=== PATIENT | female | born 1995 | race Caucasian/White ===

== ENCOUNTER 2020-04-20 15:02 | Outpatient (REF) | payer MEDICAID, SELFPAY | END 2020-04-20 15:03 | disposition home or self-care (01) | LOC: HO.LAB 15:02 | PROVIDERS: Visit Provider Internal Medicine | DX: Z20.828 Contact with and (suspected) exposure to other viral communicable diseases (principal) | CPT/HCPCS: C9803; U0003 ==

== ENCOUNTER 2021-02-05 12:41 | Emergency (ER) | payer MEDICAID, SELFPAY ==
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
[2021-02-05 13:14] VITALS: BP 128/85; PULSE 91; RESP 18; TEMP 36.9; O2SAT 99; BMI 34.3
[2021-02-05] MEDS: ondansetron HCL 4 MG/2 ML VIAL IVPUSH (14:06)
[2021-02-05] MEDS: Ketorolac Tromethamine 15 MG/ML VIAL 30 MG IVPUSH (14:06)
[2021-02-05] MEDS: LORazepam 2 MG/ML VIAL 0.5 MG IVPUSH (14:40)
[2021-02-05 15:21] LABS: MANUAL DIFF FLAG NO
[2021-02-05 15:25] LABS: Basophils Absolute Auto 0.1 X10*3/uL (0.0-0.2); Basophils Percent Auto 0.4 % (0-2); Eosinophils Absolute Auto 0.1 X10*3/uL (0.0-0.4); Eosinophils Percent Auto 0.6 % (0-4); Hematocrit 40.6 % (37-47); Hemoglobin 13.1 g/dl (12.0-16.0); Imm Gran Abs Auto 0.04 X10*3/uL (0.00-0.03); Imm Gran Pct Auto 0.3 % (0.0-0.4); Lymphocytes Absolute Auto 1.7 X10*3/uL (1.2-4.9); Lymphocytes Percent Auto 13.2 % (20-40); Mean Corpuscular HGB Conc 32.3 g/dl (31.0-35.0); Mean Corpuscular Hemoglobin 27.8 pg (27.0-33.0); Mean Corpuscular Volume 86.2 fL (80-98); Mean Platelet Volume 9.8 fL (9.4-12.3); Monocytes Absolute Auto 0.6 X10*3/uL (0.1-1.2); Monocytes Percent Auto 4.4 % (2-11); Neutrophils Absolute Auto 10.2 X10*3/uL (2.0-8.3); Neutrophils Percent Auto 81.1 % (45-73); Platelet Count 427 X10*3/uL (160-400); Red Blood Count 4.71 X10*6/uL (4.20-5.50); Red Cell Distribution Width 13.1 % (11.0-16.0); White Blood Count 12.6 X10*3/uL (4.8-10.8)
[2021-02-05 15:38] LABS: Anion Gap 12 (12-20); Blood Urea Nitrogen 10 mg/dL (9-16); Calcium 9.4 mg/dL (8.4-10.2); Carbon Dioxide 26 mmol/L (22-29); Chloride 107 mmol/L (96-108); Creatinine Clr Calc Pharmacy 113.4; Estimated Glomerular Filt Rate > 60; Glucose Random 83 mg/dL (60-115); Potassium 4.4 mmol/L (3.3-5.1); Sodium 141 mmol/L (135-145)
[2021-02-05 15:45] LABS: HCG Quantitative < 2 mIU/mL
[2021-02-05] MEDS: iohexoL 350 MG/ML 100 ML INFUS..BTL IV (16:40)
== END 2021-02-05 18:15 | disposition home or self-care (01) ==
PROVIDERS: Emergency Provider Emergency Medicine
DX: S00.83XA Contusion of other part of head, initial encounter (principal); H72.91 Unspecified perforation of tympanic membrane, right ear; Y04.2XXA Assault by strike against or bumped into by another person, initial encounter; Y93.9 Activity, unspecified; Y92.009 Unspecified place in unspecified non-institutional (private) residence as the place of occurrence of the external cause; Y99.9 Unspecified external cause status
CPT/HCPCS: 36415; 70486; 70498; 80048; 84702; 85025; 96374; 96375; 99283; 99284; J1885; J2060; J2405; Q9967

== ENCOUNTER 2021-03-31 17:24 | Emergency (ER) | payer MEDICAID, SELFPAY ==
[2021-03-31 19:56] VITALS: BP 134/88; PULSE 101; RESP 18; TEMP 39.4; O2SAT 98; BMI 39.9
[2021-03-31] MEDS: Acetaminophen 325 MG TABLET 650 MG PO (20:04)
[2021-03-31 20:32] LABS: COVID-19 Test Positive (Negative)
== END 2021-03-31 23:47 | disposition left against medical advice (07) ==
PROVIDERS: Emergency Provider Emergency Medicine
DX: B02.9 Zoster without complications (principal); Z20.822 Contact with and (suspected) exposure to COVID-19
CPT/HCPCS: 36415; 87635; 99283

== ENCOUNTER 2021-04-02 10:27 | Emergency (ER) | payer MEDICAID, SELFPAY ==
--- NOTE | ~2021-04-02 | XR_ITS ---
EXAMINATION: XR CHEST CLINICAL INFORMATION: Shortness of breath and Covid COMPARISON: 04/18/2019 TECHNIQUE: Frontal view of the chest was obtained. FINDINGS: Normal symmetric lung volumes. No parenchymal consolidation. No pleural effusion. No pneumothorax. Cardiomediastinal silhouette and pulmonary vascularity are within normal limits. No acute osseous abnormalities. XR/XR chest 1V IMPRESSION: No acute pulmonary parenchymal abnormalities
[2021-04-02 10:31] VITALS: BP 122/64; PULSE 94; O2SAT 96
[2021-04-02 10:32] VITALS: BP 126/73; PULSE 88; RESP 18; TEMP 36.8; O2SAT 95; BMI 39.8
--- NOTE | 2021-04-02 10:46 | ED_ITS ---
HPI - SOB/Dyspnea General Chief Complaint: Dyspnea Stated Complaint: covid Time Seen by Provider: 04/02/21 10:43 Source: patient and EMS Mode of arrival: EMS Limitations: no limitations History of Present Illness HPI Narrative: 26-year-old female with history of anxiety and depression presents to the ER with chest tightness and setting of being diagnosed with COVID-19 2 days ago. She is unvaccinated. She reports diffuse severe body aches, worse with movement. She has decreased appetite at home but has been able to eat and drink some. She is short of breath with exertion but not at rest. She has a dry cough and feels generally weak. MD elicited complaint: shortness of breath, cough and chest pain Pertinent past history: other (Recent COVID-19 diagnosis) Onset (ago): day(s) Context: recent illness Timing: constant Severity: moderate Exacerbating factors: exertion, movement and coughing Relieving factors: nothing Associated symptoms: chest pain and cough Treatment prior to arrival: none Related Data Home oxygen amount: none Previous Rx's Medication Instructions Recorded cyclobenzaprine 10 mg tablet 10 mg PO TID PRN #14 tab 02/05/21 ofloxacin 0.3 % ear drops 10 drp OTIC (EARS) DAILY 7 Days #5 02/05/21 ml Allergies Allergy/AdvReac Type Severity Reaction Status Date / Time tomato [TOMATO] Allergy Severe DIFFICULTY Unverified 01/07/20 16:17 BREATHING latex [LATEX] Allergy Unknown ITCHY Unverified 01/07/20 16:17 Latex Allergy Unknown Uncoded 11/13/18 00:00 latex Allergy Unknown Uncoded 11/27/18 00:00 shellfish Allergy Unknown Uncoded 11/27/18 00:00 tomato Allergy Unknown Uncoded 11/27/18 00:00 Review of Systems Review of Systems: Constitutional: No Fever, + Chills ENT/Mouth: No sore throat, No Rhinorrhea, No Swallowing Difficulty Cardiovascular: + Chest Pain, + SOB, No Orthopnea, No Edema Respiratory: No Cough, No Sputum, No Wheezing, No dyspnea Gastrointestinal: No Nausea, No Vomiting, No Diarrhea, No abdominal Pain Musculoskeletal: + joint pain, + Myalgias Skin: No Skin Lesions, No rash Neuro: No Weakness, No Numbness, No Dizziness, + Headache Heme/Lymph: No Bruising, No Lymphadenopathy PMFSH Past Medical History Medical History No known health problems Social History Social History (Updated 02/05/21 @ 13:31 by Rupali Pantoja DO) Alcohol intake: never Patient Tobacco Use Status: Never used Tobacco Use of substances other than those prescribed or required for medical reasons: No Advance Directives: No Advance Directives Information Provided: No Physical Exam Vital Signs: Vital Signs: Last Vital Signs Temp 98.3 F 04/02/21 10:32 Pulse 88 04/02/21 10:32 Resp 18 04/02/21 10:32 BP 126/73 04/02/21 10:32 Pulse Ox 95 04/02/21 10:32 BMI result Body Mass Index 39.8 Appearance: Alert. Oriented X3. No acute distress. Curled up in a ball on the stretcher Eyes: Pupils equal, round and reactive to light. ENT: Pharynx normal. Moist mucous membranes. Neck: Normal inspection. Neck supple. CVS: Normal heart rate and rhythm. Pulses normal. Respiratory: No respiratory distress. Breath sounds normal. Anterior chest wall is diffusely tender throughout. Abdomen: Soft and nontender. +BS x4 Skin: Skin warm and dry. Normal skin color. Normal skin turgor. No rashes. Extremities: No lower extremity edema. No calf swelling, redness or tenderness. Neuro: Oriented X 3. Grossly normal, nonfocal. Course Course Course Narrative: 26-year-old female who was on vaccinated for COVID-19 presents to the ER with chest tightness and body aches in the setting of being diagnosed with COVID-19 2 days ago. Her oxygen saturations are 95 96% she is in no respiratory distress no lungs are clear on examination. Her anterior chest wall is tender. She has no risk factors for PE, PERC negative. Will get chest x- ray to assess for possible COVID pneumonia. Reevaluation(s) Reevaluation #1: Chest x-ray is clear. She is stable for discharge home with supportive care. Discharge Plan Discharge Clinical Impression: COVID-19 Patient Disposition: Home, Self-Care Instructions: Covid-19 Viral Syndrome and Novel Coronavirus (ED) Hey/Ath Additional Instructions: Your chest tightness is due to COVID. It will get better with time. Your chest x-ray and oxygen levels were normal. No indication for hospitalization. Rest. Drink plenty of fluids. Do not go out in public for the next 10 days. Take over the counter cold/flu medications as needed for your symptoms. Take Tylenol and/or Motrin as needed for fevers and body aches. Follow up with your doctor this week. If you shortness of breath worsens , if you develop difficulty breathing or any other concerning symptom come back to the ER for further evaluation. Prescriptions: No Action cyclobenzaprine 10 mg tablet 10 mg PO TID PRN (Reason: muscle spasm) Qty: 14 RF: 0 ofloxacin 0.3 % drops 10 drp otic (ears) DAILY 7 Days Qty: 5 RF: 0
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
== END 2021-04-02 12:05 | disposition home or self-care (01) ==
PROVIDERS: Emergency Provider Emergency Medicine
DX: U07.1 COVID-19 (principal)
CPT/HCPCS: 71045; 99283

== ENCOUNTER 2021-10-04 13:01 | Outpatient (REF) | payer MEDICAID, SELFPAY ==
--- NOTE | ~2021-10-04 | XR_ITS ---
EXAMINATION: XR CHEST CLINICAL INFORMATION: Pleurodynia COMPARISON: Chest radiographs 04/02/2021, 04/18/2019 TECHNIQUE: 2 views of the chest were obtained. FINDINGS: The lungs are clear. There is no pneumothorax, pleural reaction, infiltrate, or effusion. The costophrenic sulci are well-defined. Heart size normal. The hilar and mediastinal contours are normal. Visualized bony structures are unremarkable. There is gaseous distention gastric fundus. No free air beneath the diaphragms. XR/XR chest 2V IMPRESSION: -No pneumothorax, infiltrate, or effusion. -Nonspecific gaseous distention gastric fundus.
== END 2021-10-04 13:02 | disposition home or self-care (01) ==
LOC: HO.XRAY 13:01
PROVIDERS: Absent Provider Nurse Practitioner Family; PCP Nurse Practitioner Family; Visit Provider Emergency Medicine
DX: R07.81 Pleurodynia (principal)
CPT/HCPCS: 71046

== ENCOUNTER 2021-12-02 12:31 | Emergency (ER) | payer MEDICAID, SELFPAY ==
--- NOTE | ~2021-12-02 | CT_ITS ---
EXAMINATION: CT ABDOMEN AND PELVIS WITHOUT CONTRAST CLINICAL INFORMATION: Flank pain, rule out kidney stones COMPARISON: CT abdomen and pelvis 06/18/2018 TECHNIQUE: Multidetector volumetric imaging was performed from the superior aspect of the liver through the pubic symphysis. Sagittal and coronal reformatted images were obtained on the technologist's workstation. This CT examination was performed using dose optimization techniques as appropriate, variously including the following: *Automated exposure control *Adjustment of mA and/or kV according to patient size (this includes techniques or standardized protocols for targeted exams where dose is matched to indication/reason for exam; i.e. extremities or head) *Use of iterative reconstruction technique DLP: 792 mGy-cm FINDINGS: LUNG BASES: The visualized lung bases are unremarkable. LIVER, GALLBLADDER, AND BILIARY TREE: The liver is normal in size, shape, and attenuation. No focal hepatic lesion or biliary ductal dilatation is present. Status post cholecystectomy. Surgical clips in the gallbladder fossa. PANCREAS: Unremarkable. SPLEEN: Unremarkable. ADRENAL GLANDS: Unremarkable. KIDNEYS AND URETERS: The kidneys are normal in size, shape, and attenuation. No hydronephrosis, hydroureter, or calculi seen. No perinephric stranding. BLADDER: Slightly thick-walled appearance favored due to limited distention. No focal bladder wall thickening. GASTROINTESTINAL TRACT: The small and large bowel are unremarkable. The appendix is unremarkable. No ascites or free air. Incidental note is made of colonic interposition with the hepatic flexure located lateral and anterior to the right liver lobe. ABDOMINAL WALL: No significant hernia is appreciated. LYMPH NODES: No lymphadenopathy. VASCULAR: Normal caliber abdominal aorta. Dilated ovarian and periuterine veins noted. PELVIC VISCERA: Gynecologic structures grossly unremarkable-limited assessment. Retroverted uterus. No free pelvic fluid. OSSEOUS STRUCTURES: No acute fracture or suspicious osseous lesion. CT/CT abdomen pelvis wo con IMPRESSION: 1. No radiodense urinary tract calculi. No hydronephrosis. 2. No acute intra-abdominal process identified.
[2021-12-02 13:26] VITALS: BP 120/65; PULSE 74; RESP 16; TEMP 36.5; O2SAT 98; BMI 37.0
--- NOTE | 2021-12-02 13:51 | ED_ITS ---
HPI - Female Genitourinary General Chief complaint: Urogenital-Female Stated complaint: kidney pain/chest pain Time Seen by Provider: 12/02/21 13:51 History of Present Illness HPI Narrative: Patient complains of bilateral flank pain radiating to the groin for the past several days as well as burning with urination and urinating small amounts, as well as feeling constipated for the last 3 days She denies any other abdominal pain she denies vomiting but has had some nausea, no diarrhea no fever no chills Related Data Previous Rx's Medication Instructions Recorded cyclobenzaprine 10 mg tablet 10 mg PO TID PRN muscle spasm #14 02/05/21 tabs ofloxacin 0.3 % ear drops 10 drp otic (ears) DAILY 7 days #5 02/05/21 mL docusate sodium 100 mg capsule 100 mg PO BID PRN Stool softener 12/02/21 (Colace) #14 caps ibuprofen 600 mg tablet 600 mg PO Q6H PRN pain #20 tabs 12/02/21 nitrofurantoin 100 mg PO Q12H 5 days #10 caps 12/02/21 monohydrate/macrocrystals 100 mg capsule (Macrobid) phenazopyridine 200 mg tablet 200 mg PO TID PRN Discomfort with 12/02/21 (Pyridium) urination 6 doses #6 tabs Allergies Allergy/AdvReac Type Severity Reaction Status Date / Time tomato [TOMATO] Allergy Severe DIFFICULTY Unverified 01/07/20 16:17 BREATHING latex [LATEX] Allergy Unknown ITCHY Unverified 01/07/20 16:17 Latex Allergy Unknown Uncoded 11/13/18 00:00 latex Allergy Unknown Uncoded 11/27/18 00:00 shellfish Allergy Unknown Uncoded 11/27/18 00:00 tomato Allergy Unknown Uncoded 11/27/18 00:00 Review of Systems Review of Systems: Positive for bilateral flank pain radiating to groin, dysuria and frequency, nausea, constipation Negatives are no fever no chills no dizziness weakness no fainting no feeling faint headache no neck pain no chest pain no abdominal pain no shortness of breath no vomiting or diarrhea no incontinence, no rash Yes all other systems are reviewed and are negative PMFSH Past Medical History Source: nursing notes reviewed Medical History No known health problems Social History Social History (Updated 02/05/21 @ 13:31 by Jessica Pantoja DO) Alcohol intake: never Patient Tobacco Use Status: Never used Tobacco Advance Directives: No Advance Directives Information Provided: No Physical Exam Vital Signs: Vital Signs: Last Vital Signs Temp 97.7 F 12/02/21 13:26 Pulse 74 12/02/21 13:26 Resp 16 12/02/21 13:26 BP 120/65 12/02/21 13:26 Pulse Ox 98 12/02/21 13:26 O2 Del Method 12/02/21 13:26 BMI result Body Mass Index 37.0 General appearance comfortable no acute distress Eyes anicteric no pallor The pharynx is clear with moist mucous membranes Neck is supple Chest clear to auscultation bilateral no respiratory distress Heart no murmur Abdomen had mild suprapubic tenderness otherwise no other tenderness no rebound no guarding Extremities no edema Skin no rash Neuro no focal deficits Course Course Course Narrative: Urinalysis was normal and test was negative, but given the patient's symptom of frequent voiding and burning with urination I did start an antibiotic as well as Pyridium A CT scan was done with no acute findings no evidence of any kidney stones, no acute abdominal pathology, no mass, no obstruction A repeat abdominal exam prior to discharge was benign with only minimal mild suprapubic tenderness no rebound no guarding MDM - Female Genitourinary Lab Data Attestation: I reviewed the patient's lab results. Labs: Lab Results 12/02/21 12/02/21 Range/Units 13:48 13:48 Urine Color YELLOW Urine Appearance CLEAR Urine pH 6.0 (5.0-8.0) Ur Specific [place] 1.025 (1.005-1.025) Urine Protein NEG (NEG-TRACE) MG/DL Urine Glucose (UA) NEG (NEG) MG/DL Urine Ketones NEG (NEG) MG/DL Urine Blood NEG (NEG) Urine Nitrite NEG (NEG) Ur Leukocyte Esterase NEG (NEG) Urine Test NEGATIVE (NEGATIVE) Discharge Plan Discharge Clinical Impression: Dysuria, Constipation, Back pain Patient Disposition: Home, Self-Care Additional Instructions: Urinalysis was negative but because you of typical UTI symptoms we started an antibiotic and a medication Pyridium which is used for bladder discomfort You can use Motrin and Tylenol for the back and flank pain 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 Return to the ER any time any worse condition or any concerns Prescriptions: New nitrofurantoin monohyd/m-cryst [Macrobid] 100 mg capsule 100 mg PO Q12H 5 Days Qty: 10 0RF Rx Instructions: must administer with a meal/food phenazopyridine [Pyridium] 200 mg tablet 200 mg PO TID PRN (Reason: Discomfort with urination) Qty: 6 0RF ibuprofen 600 mg tablet 600 mg PO Q6H PRN (Reason: pain) Qty: 20 0RF docusate sodium [Colace] 100 mg capsule 100 mg PO BID PRN (Reason: Stool softener) Qty: 14 0RF No Action cyclobenzaprine 10 mg tablet 10 mg PO TID PRN (Reason: muscle spasm) Qty: 14 0RF ofloxacin 0.3 % drops 10 drp otic (ears) DAILY 7 Days Qty: 5 0RF
[2021-12-02 14:06] LABS: Appearance Urine CLEAR; Color Urine YELLOW; Glucose Urine UA NEG (NEG); Leukocyte Esterase Urine NEG (NEG); Nitrite Urine NEG (NEG); Specific Gravity - Urine 1.025 (1.005-1.025); Urine Blood NEG (NEG); Urine Ketones NEG (NEG); Urine Protein NEG (NEG-TRACE)
[2021-12-02 14:08] LABS: UPreg QC Valid YES; Urine Pregnancy NEGATIVE (NEGATIVE)
[2021-12-02] MEDS: Phenazopyridine HCL 100 MG TABLET PO (16:21)
[2021-12-02] MEDS: Nitrofurantoin Monohyd/M-Cryst 100 MG CAPSULE PO (16:21)
[2021-12-02] MEDS: Ibuprofen 600 MG TABLET PO (16:22)
[2021-12-03 01:16] LABS: CT PCR NOT DETECTED (Not Detect.); NG PCR NOT DETECTED (Not Detect.)
== END 2021-12-02 16:48 | disposition home or self-care (01) ==
PROVIDERS: Physician Assistant Medical; Emergency Provider Student in an Organized Health Care Education/Training Program
DX: R10.9 Unspecified abdominal pain (principal); R30.0 Dysuria; K59.00 Constipation, unspecified
CPT/HCPCS: 74176; 81003; 81025; 87491; 87591; 99284

== ENCOUNTER 2022-02-02 16:44 | Emergency (ER) | payer MEDICAID, SELFPAY ==
[2022-02-02 17:02] VITALS: BP 119/67; PULSE 77; RESP 18; TEMP 36.3; O2SAT 99; BMI 37.0
[2022-02-02 17:14] LABS: MANUAL DIFF FLAG NO
[2022-02-02 17:16] LABS: Basophils Percent Auto 0.3 % (0-2); Eosinophils Absolute Auto 0.2 X10*3/uL (0.0-0.4); Eosinophils Percent Auto 1.5 % (0-4); Hematocrit 39.1 % (37.0-47.0); Hemoglobin 12.4 g/dl (12.0-16.0); Imm Gran Abs Auto 0.02 X10*3/uL (0.00-0.03); Imm Gran Pct Auto 0.2 % (0.0-0.4); Lymphocytes Absolute Auto 2.2 X10*3/uL (1.2-4.9); Lymphocytes Percent Auto 18.9 % (20-40); Mean Corpuscular HGB Conc 31.7 g/dl (31.0-35.0); Mean Corpuscular Hemoglobin 27.3 pg (27.0-33.0); Mean Corpuscular Volume 86.1 fL (80.0-98.0); Mean Platelet Volume 9.9 fL (9.4-12.3); Monocytes Absolute Auto 0.7 X10*3/uL (0.1-1.2); Monocytes Percent Auto 5.7 % (2-11); Neutrophils Absolute Auto 8.4 x10*3/uL (2.0-8.3); Neutrophils Percent Auto 73.4 % (45-73); Platelet Count 414 X10*3/uL (160-400); Red Blood Count 4.54 X10*6/uL (4.20-5.50); Red Cell Distribution Width 13.3 % (11.0-16.0); White Blood Count 11.4 X10*3/uL (4.8-10.8)
[2022-02-02 17:33] LABS: Alanine Aminotransferase 9 U/L (0-31); Alkaline Phosphatase 86 U/L (39-117); Anion Gap 15 (12-20); Aspartate Amino Transferase 14 U/L (5-31); Blood Urea Nitrogen 7 mg/dL (9-16); Carbon Dioxide 20 mmol/L (22-29); Chloride 107 mmol/L (96-108); Creatinine Clr Calc Pharmacy 126.4; Estimated Glomerular Filt Rate > 60; Glucose Random 94 mg/dL (60-115); Lipase 18 U/L (8-78); Potassium 4.1 mmol/L (3.3-5.1); Sodium 138 mmol/L (135-145); Total Protein 7.3 g/dL (6.5-8.0)
[2022-02-02 17:38] LABS: COVID-19 Test Negative (Negative); IDNOW Serial# 16C4AD1C
[2022-02-02 17:46] LABS: Bilirubin Direct < 0.2 mg/dL (0.0-0.5); Bilirubin Total 0.2 mg/dL (0.0-1.0)
== END 2022-02-02 22:59 | disposition left against medical advice (07) ==
LOC: HO.ED 22:38
PROVIDERS: Emergency Provider Emergency Medicine
DX: R42 Dizziness and giddiness (principal); R11.2 Nausea with vomiting, unspecified; Z20.822 Contact with and (suspected) exposure to COVID-19; Z79.899 Other long term (current) drug therapy
CPT/HCPCS: 36415; 80048; 80076; 83690; 85025; 87635; 99281; 99283

== ENCOUNTER 2022-07-10 18:36 | Observation (INO) | payer MEDICAID, SELFPAY ==
[2022-07-10] VITALS (7 sets, daily range): BP systolic 107–129; BP diastolic 42–83; PULSE 100–139; RESP 14–25; TEMP 37–39.6; O2SAT 94–100; BMI 39.4
--- NOTE | ~2022-07-10 | US_ITS ---
EXAMINATION: US ABDOMEN COMPLETE CLINICAL INFORMATION: Abdominal pain. History pancreatitis.. COMPARISON: CT abdomen and pelvis with IV contrast 07/10/2022; CT abdomen and pelvis noncontrast 12/02/2021 TECHNIQUE: Real-time imaging of the abdominal viscera. FINDINGS: PANCREAS: The pancreas is normal in size and contour and echogenicity. No pancreatic ductal distention or retroperitoneal effusion. ABDOMINAL AORTA: The proximal, mid, and distal segments are normal in caliber. INFERIOR VENA CAVA: Visualized portions are normal. LIVER: Liver is smooth in contour and normal in echogenicity. No focal hepatic parenchymal lesion. There is mild fullness intrahepatic central biliary tree similar to prior CT. No ductal wall thickening or calculus. GALLBLADDER: Prior cholecystectomy. COMMON BILE DUCT: The common duct is mildly distended for postcholecystectomy patient, measuring 13 mm. This is similar in retrospect to recent CT. There is no ductal calculus or wall thickening. RIGHT KIDNEY: Normal. No hydronephrosis. No renal calculi or focal parenchymal lesions. The kidney measures 10.2 cm in maximum dimension. LEFT KIDNEY: Normal. No hydronephrosis. No renal calculi or focal parenchymal lesions. The kidney measures 12.2 cm in maximum dimension. SPLEEN: Normal. The spleen measures 10.7 cm in maximum dimension. FREE FLUID: None. US/US abdomen complete IMPRESSION: -Prior cholecystectomy. Mild prominence central biliary tree and common duct, similar to recent CT. -No ductal calculus or wall thickening. -Normal pancreas. -No hydronephrosis.
--- NOTE | ~2022-07-10 | CT_ITS ---
EXAMINATION: CT ABDOMEN AND PELVIS WITH CONTRAST CLINICAL INFORMATION: Severe epigastric pain in the left upper quadrant. History of pancreatitis COMPARISON: None available. TECHNIQUE: Multidetector volumetric images were obtained from the superior aspect of the liver through the pubic symphysis following administration 85 mL of Omnipaque 350 intravenous contrast. Sagittal and coronal reformatted images were obtained on the technologist's workstation. Oral contrast: No This CT examination was performed using dose optimization techniques as appropriate, variously including the following: *Automated exposure control *Adjustment of mA and/or kV according to patient size (this includes techniques or standardized protocols for targeted exams where dose is matched to indication/reason for exam; i.e. extremities or head) *Use of iterative reconstruction technique DLP: 934 mGy-cm FINDINGS: LUNG BASES: Mild dependent atelectasis. LIVER, GALLBLADDER, AND BILIARY TREE: The liver is displaced medially by the hepatic flexure which is interposed between the right lateral hemidiaphragm and the liver. The liver is normal in size, shape, and attenuation. No focal hepatic lesion. Prominence of the common bile duct (1.5 cm) is likely related to prior cholecystectomy. PANCREAS: Unremarkable. SPLEEN: Unremarkable. ADRENAL GLANDS: Unremarkable. KIDNEYS AND URETERS: The kidneys are normal in size, shape, and attenuation. No hydronephrosis, hydroureter, or calculi seen. No perinephric stranding. BLADDER: Unremarkable. GASTROINTESTINAL TRACT: Wall thickening of the duodenum and proximal jejunum is nonspecific and could be due to underdistention or mild colitis/enteritis. Stomach, small bowel, and colon are normal in caliber. The hepatic flexure is interposed between the right hepatic lobe and the right hemidiaphragm, unchanged. Appendix is normal. No intraperitoneal free fluid or free air. ABDOMINAL WALL: No significant hernia is appreciated. LYMPH NODES: Numerous subcentimeter mesenteric and retroperitoneal lymph nodes. No pathologic adenopathy. VASCULAR: There is dilatation of the gonadal veins bilaterally as well as the bilateral periuterine veins. PELVIC VISCERA: Unremarkable. OSSEOUS STRUCTURES: No acute osseous findings. CT/CT abdomen pelvis w IV con IMPRESSION: 1. Mild wall thickening of the duodenum and proximal jejunum is nonspecific and could be due to underdistention or mild enteritis/colitis. 2. Dilatation of the gonadal veins and periuterine veins. This can be seen with pelvic congestion syndrome. 3. Otherwise, no acute intra-abdominal or intrapelvic abnormalities. Fleischner guidelines were followed.
--- NOTE | 2022-07-10 19:06 | ED.GENADULT ---
HPI - General Adult General Chief complaint: Abdominal Pain <DEVEN Conklin - Last Filed: 07/10/22 19:31> Stated complaint: Pancreas Pain <DEVEN Conklin - Last Filed: 07/10/22 19:31> Time Seen by Provider: 07/10/22 19:22 <DEVEN Conklin - Last Filed: 07/10/22 19:31> Source: patient <Naye Donnelly MD - Last Filed: 07/10/22 23:12> Mode of arrival: ambulatory <Naye Donnelly MD - Last Filed: 07/10/22 23:12> Limitations: no limitations <Naye Donnelly MD - Last Filed: 07/10/22 23:12> History of Present Illness HPI narrative: Patient comes to the emergency room complaining of abdominal pain and fever. Patient states that approximately 5 years ago she had pancreatitis secondary to cholecystectomy. Patient states that the pain feels very similar. Patient complaining of nausea vomiting, no diarrhea patient states that the abdominal pain comes in waves. Patient states that she has been having abdominal symptoms for 2 days now.. <Naye Donnelly MD - Last Filed: 07/10/22 23:12> Related Data Home medications: Previous Rx's Medication Instructions Recorded cyclobenzaprine 10 mg tablet 10 mg PO TID PRN muscle spasm #14 02/05/21 tabs ofloxacin 0.3 % ear drops 10 drp otic (ears) DAILY 7 days #5 02/05/21 mL docusate sodium 100 mg capsule 100 mg PO BID PRN Stool softener 12/02/21 (Colace) #14 caps ibuprofen 600 mg tablet 600 mg PO Q6H PRN pain #20 tabs 12/02/21 nitrofurantoin 100 mg PO Q12H 5 days #10 caps 12/02/21 monohydrate/macrocrystals 100 mg capsule (Macrobid) phenazopyridine 200 mg tablet 200 mg PO TID PRN Discomfort with 12/02/21 (Pyridium) urination 6 doses #6 tabs <DEVEN Conklin - Last Filed: 07/10/22 19:31> Allergies/adverse reactions: Allergies Allergy/AdvReac Type Severity Reaction Status Date / Time tomato [TOMATO] Allergy Severe DIFFICULTY Verified 02/02/22 17:01 BREATHING latex [LATEX] Allergy Intermediate ITCHY Verified 02/02/22 17:01 shellfish Allergy Intermediate Difficulty Uncoded 02/02/22 17:01 Breathing <DEVEN Conklin - Last Filed: 07/10/22 19:31> Review of Systems Review of Systems: Constitutional : No Weight loss, complaining of fevers and chills at home, taking Tylenol., No Night Sweats, No Fatigue, No Malaise ENT/Mouth : No Hearing loss, No Ear Pain, No Nasal Congestion, No Sinus Pain, No Hoarseness, No sore throat, No Rhinorrhea, No Swallowing Difficulty Eyes: No Eye Pain, No Swelling, No Redness, No Foreign Body, No Discharge, No Vision Changes Cardiovascular : No Chest Pain, No SOB, No Dyspnea on Exertion, No Orthopnea, No Edema, No Palpitations Respiratory : No Cough, No Sputum, No Wheezing, No Smoke Exposure, No Dyspnea Gastrointestinal : Complaining of nausea, no vomiting No Diarrhea, No Constipation, up complaining of intermittent epigastric and left upper quadrant pain Genitourinary : no irregular bleeding, No Dysuria, No Urinary Frequency, No Hematuria, No Urinary Incontinence, No Urgency, No Flank Pain, No Urinary Flow Changes, No Hesitancy Musculoskeletal : No joint pain, No Myalgias, No Joint Swelling Skin : No Skin Lesions, No rash Neuro : No Weakness, No Numbness, No Paresthesias, No Loss of Consciousness, No Dizziness, No Headache Psych : No Anxiety/Panic, No Depression, No SI/HI/AH/VH, No Social Issues, Heme/Lymph: No Bruising, No Bleeding,No Lymphadenopathy Endocrine : No Polyuria, No Polydipsia, No Temperature Intolerance <Naye Donnelly MD - Last Filed: 07/10/22 23:12> [facility] Past Medical History Medical History: Medical History (Updated 07/10/22 @ 23:12 by Naye Donnelly MD) Hypertension Pancreatitis <DEVEN Conklin - Last Filed: 07/10/22 19:31> Surgical History: Surgical History (Updated 07/10/22 @ 19:59 by Naye Donnelly MD) History of cholecystectomy <DEVEN Conklin - Last Filed: 07/10/22 19:31> Social History Social History: Social History (Updated 02/05/21 @ 13:31 by Jessica Pantoja DO) Alcohol intake: never Patient Tobacco Use Status: Never used Tobacco Advance Directives: No Advance Directives Information Provided: Yes <DEVEN Conklin - Last Filed: 07/10/22 19:31> Physical Exam ED Vital Signs: Vital Signs - 24 hr 07/10/22 19:05 07/10/22 19:22 07/10/22 20:22 Temperature 103.1 F H 103.1 F H 103.2 F H Pulse Rate 139 H 120 H 122 H Respiratory Rate 20 14 25 H Blood Pressure 123/83 123/69 129/70 Pulse Oximetry 99 100 97 Oxygen Delivery Method Room Air Room Air Room Air 07/10/22 21:22 07/10/22 22:22 07/10/22 22:58 Temperature 100.3 F 99.7 F 99.2 F Pulse Rate 111 H 111 H 100 Respiratory Rate 17 17 17 Blood Pressure 128/58 L 127/58 L 107/42 L Pulse Oximetry 96 95 94 Oxygen Delivery Method Room Air Room Air BMI result Body Mass Index 39.4 <DEVEN Conklin - Last Filed: 07/10/22 19:31> Vital Signs - 24 hr 07/10/22 19:05 07/10/22 19:22 07/10/22 20:22 Temperature 103.1 F H 103.1 F H 103.2 F H Pulse Rate 139 H 120 H 122 H Respiratory Rate 20 14 25 H Blood Pressure 123/83 123/69 129/70 Pulse Oximetry 99 100 97 Oxygen Delivery Method Room Air Room Air Room Air 07/10/22 21:22 07/10/22 22:22 07/10/22 22:58 Temperature 100.3 F 99.7 F 99.2 F Pulse Rate 111 H 111 H 100 Respiratory Rate 17 17 17 Blood Pressure 128/58 L 127/58 L 107/42 L Pulse Oximetry 96 95 94 Oxygen Delivery Method Room Air Room Air BMI result Body Mass Index 39.4 <Naye Donnelly MD - Last Filed: 07/10/22 23:12> Const Other: Appearance: Alert. Oriented X3. Seems in pain, very uncomfortable Eyes: Pupils equal, round and reactive to light. ENT: Pharynx normal. Neck: Normal inspection. Neck supple. No lymph nodes noted. No crepitus CVS: Normal heart rate and rhythm. Pulses normal. Normal S1 and S2 Respiratory: No respiratory distress. Breath sounds normal. No Wheezing. No rales Abdomen: Soft , significant tenderness to palpation in epigastric and left upper quadrant up Skin: Skin warm and diaphoretic. Normal skin color. Normal skin turgor. Extremities: No lower extremity edema. No Lacerations. No Rash Neuro: Oriented X 3. No motor deficit. No sensory deficit. Moving all extremities. No slurred speech. CN 2 through 12 grossly intact Psych: calm, cooperative, normal affect <Naye Donnelly MD - Last Filed: 07/10/22 23:12> Course Course Course Narrative: 1918 This is an RME: Additional HPI, ROS, PE not included below will be deferred to primary provider. This is a 27-year-old female history of pancreatitis presenting with left upper quadrant patient tells me that she has been having fevers, chills, severe stabbing left upper quadrant pain x3 days worsening. Reports nausea and inability to eat and drink. Patient tells me she also feels weak. She tells me this pancreatitis has been an issue ever since she had her gallbladder removed about 5 years ago. Does not drink alcohol. Denies chest pain, shortness of breath. Physical exam with pain to palpation to left upper quadrant. Normoactive bowel sounds. Patient is noted to be tachycardic, febrile. Plan basic labs, urine, lipase. Will order something for pain and Concerns for infection. Blood cultures, lactic acid antibiotics ordered. Spoke to charge nurse will put her in ED bed to <DEVEN Conklin - Last Filed: 07/10/22 19:31> Medications Administered Discontinued Medications Generic Name Dose Route Start Last Admin Trade Name Freq PRN Reason Stop Dose Admin Acetaminophen 975 mg 07/10/22 19:19 07/10/22 19:48 Acetaminophen 325 Mg Tablet PO 07/10/22 19:20 975 mg ONCE ONE Administration Hydromorphone HCl 1 mg 07/10/22 22:02 07/10/22 22:32 Hydromorphone Hcl 1 Mg/Ml Syringe IVPUSH 07/10/22 22:03 1 mg ONCE ONE Administration Protocol Sodium Chloride 1,000 mls @ 999 mls/hr 07/10/22 19:30 07/10/22 22:20 Ns IV 07/10/22 20:30 Infused .Q1H1M CATHERINE Infusion Piperacillin Sod/Tazobactam 50 mls @ 100 mls/hr 07/10/22 19:37 07/10/22 20:18 Sod 3.375 gm/ Sodium Chloride IV 07/10/22 20:06 Infused ONCE ONE Infusion Sodium Chloride 2,000 mls @ 999 mls/hr 07/10/22 19:40 07/10/22 22:20 Ns IVCONT 07/10/22 21:40 Infused .Q2H1M ONE Infusion Iohexol 100 ml 07/10/22 21:35 07/10/22 21:36 Iohexol 350 Mg/Ml 100 Ml Infus..Btl IV 07/10/22 21:36 85 ml ONCE ONE Administration Morphine Sulfate 4 mg 07/10/22 21:03 07/10/22 21:09 Morphine Sulfate 4 Mg/Ml Cartridge IVPUSH 07/10/22 21:04 4 mg ONCE ONE Administration Protocol Ondansetron HCl 4 mg 07/10/22 19:53 07/10/22 20:24 Ondansetron Hcl 4 Mg/2 Ml Vial IVPUSH 07/10/22 19:54 4 mg ONCE ONE Administration Prochlorperazine Edisylate 10 mg 07/10/22 22:02 07/10/22 22:32 Prochlorperazine Edisylate 10 Mg/2 Ml Vial IVPUSH 07/10/22 22:03 10 mg ONCE ONE Administration <DEVEN Conklin - Last Filed: 07/10/22 19:31> Medications Administered Discontinued Medications Generic Name Dose Route Start Last Admin Trade Name Freq PRN Reason Stop Dose Admin Acetaminophen 975 mg 07/10/22 19:19 07/10/22 19:48 Acetaminophen 325 Mg Tablet PO 07/10/22 19:20 975 mg ONCE ONE Administration Hydromorphone HCl 1 mg 07/10/22 22:02 07/10/22 22:32 Hydromorphone Hcl 1 Mg/Ml Syringe IVPUSH 07/10/22 22:03 1 mg ONCE ONE Administration Protocol Sodium Chloride 1,000 mls @ 999 mls/hr 07/10/22 19:30 03/21/23 22:20 Ns IV 07/10/22 20:30 Infused .Q1H1M CATHERINE Infusion Piperacillin Sod/Tazobactam 50 mls @ 100 mls/hr 07/10/22 19:37 07/10/22 20:18 Sod 3.375 gm/ Sodium Chloride IV 07/10/22 20:06 Infused ONCE ONE Infusion Sodium Chloride 2,000 mls @ 999 mls/hr 07/10/22 19:40 07/10/22 22:20 Ns IVCONT 07/10/22 21:40 Infused .Q2H1M ONE Infusion Iohexol 100 ml 07/10/22 21:35 07/10/22 21:36 Iohexol 350 Mg/Ml 100 Ml Infus..Btl IV 07/10/22 21:36 85 ml ONCE ONE Administration Morphine Sulfate 4 mg 07/10/22 21:03 07/10/22 21:09 Morphine Sulfate 4 Mg/Ml Cartridge IVPUSH 07/10/22 21:04 4 mg ONCE ONE Administration Protocol Ondansetron HCl 4 mg 07/10/22 19:53 07/10/22 20:24 Ondansetron Hcl 4 Mg/2 Ml Vial IVPUSH 07/10/22 19:54 4 mg ONCE ONE Administration Prochlorperazine Edisylate 10 mg 07/10/22 22:02 07/10/22 22:32 Prochlorperazine Edisylate 10 Mg/2 Ml Vial IVPUSH 07/10/22 22:03 10 mg ONCE ONE Administration <Naye Donnelly MD - Last Filed: 07/10/22 23:12> Medical Decision Making Medical Decision Making MDM Narrative: -of note, sepsis protocol was called before I even got to see the patient. The sepsis protocol was started when the patient was sitting in triage, with no rooms available for the nurses or me to see the patient. All we know at this time is that the patient is tachycardic and has a fever. We do not have any labs, unclear source of infection, likely abdominal. -the patient is overweight. Patient is being given IV fluids 30 mL/kilograms since the sepsis protocol has already been started, based on ideal weight of 55 kg. Patient being giving Zosyn empirically. -patient received morphine and Dilaudid for pain control. CT scan shows possible colitis, mild wall thickening of the duodenum and proximal jejunum -patient still requiring high doses of medication for pain control. -I discussed the patient with Dr. Garcia, patient being admitted <Naye Donnelly MD - Last Filed: 07/10/22 23:12> Differential Diagnosis Differential Diagnoses: The differential diagnosis associated with the presentation includes (Pancreatitis, perforated ulcer, duodenitis) <Naye Donnelly MD - Last Filed: 07/10/22 23:12> Admission/Observation Consideration of admission/observation: Escalation of care including admission/observation considered <Naye Donnelly MD - Last Filed: 07/10/22 23:12> Consult Healthcare Provider Management of the patient was discussed with: Hospitalist <Naye Donnelly MD - Last Filed: 07/10/22 23:12> Lab Data MDM Lab Attestation statement: I reviewed the patient's lab results. <Naye Donnelly MD - Last Filed: 07/10/22 23:12> Result Diagrams: 07/10/22 19:36 07/10/22 20:31 <DEVEN Conklin - Last Filed: 07/10/22 19:31> Labs: Lab Results 07/10/22 07/10/22 07/10/22 Range/Units 19:36 19:36 19:36 WBC 14.6 H (4.8-10.8) X10*3/uL RBC 4.98 (4.20-5.50) X10*6/uL Hgb 13.7 (12.0-16.0) g/dl Hct 42.3 (37.0-47.0) % MCV 84.9 (80.0-98.0) fL MCH 27.5 (27.0-33.0) pg MCHC 32.4 (31.0-35.0) g/dl RDW 13.2 (11.0-16.0) % Plt Count 443 H (160-400) X10*3/uL MPV 10.1 (9.4-12.3) fL Immature Gran % (Auto) 0.3 (0.0-0.4) % Neut % (Auto) 88.2 H (45-73) % Lymph % (Auto) 6.7 L (20-40) % [place] % (Auto) 4.4 (2-11) % Eos % (Auto) 0.1 (0-4) % Baso % (Auto) 0.3 (0-2) % Lymph # (Auto) 1.0 L (1.2-4.9) X10*3/uL [place] # (Auto) 0.7 (0.1-1.2) X10*3/uL Eos # (Auto) 0.0 (0.0-0.4) X10*3/uL Baso # (Auto) 0.0 (0.0-0.2) X10*3/uL Abs Immat Gran (auto) 0.05 H (0.00-0.03) X10*3/uL Absolute Neuts (auto) 12.9 H (2.0-8.3) x10*3/uL Absolute Nucleated RBC 0.000 (0.0-0.012) X10*3/uL Nucleated RBC % (auto) 0.0 (0.0-0.2) /100WBC Sodium (135-145) mmol/L Potassium (3.3-5.1) mmol/L Chloride (96-108) mmol/L Carbon Dioxide (22-29) mmol/L Anion Gap (12-20) BUN (9-16) mg/dL Creatinine (0.5-1.4) mg/dL Estim Creat Clear Calc Estimated GFR Random Glucose (60-115) mg/dL Lactic Acid 1.2 (0.5-2.0) mmol/L Calcium (8.4-10.2) mg/dL Magnesium (1.6-2.6) mg/dL Total Bilirubin (0.0-1.0) mg/dL AST (5-31) U/L ALT (0-31) U/L Alkaline Phosphatase (39-117) U/L Total Protein (6.5-8.0) g/dL Albumin (3.5-5.0) g/dL Lipase (8-78) U/L Beta HCG, Quant mIU/mL Urine Color Urine Appearance Urine pH (5.0-9.0) Ur Specific [place] (1.005-1.025) Urine Protein (Neg-Trace) mg/dL Urine Glucose (UA) (Negative) mg/dL Urine Ketones (Negative) mg/dL Urine Blood (Negative) Urine Nitrite (Negative) Ur Leukocyte Esterase (Negative) Urine Test (NEGATIVE) COVID-19 ([facility]) Negative (Negative) COVID-19 Clin Com See Note 07/10/22 07/10/22 07/10/22 Range/Units 20:31 21:08 21:08 WBC (4.8-10.8) X10*3/uL RBC (4.20-5.50) X10*6/uL Hgb (12.0-16.0) g/dl Hct (37.0-47.0) % MCV (80.0-98.0) fL MCH (27.0-33.0) pg MCHC (31.0-35.0) g/dl RDW (11.0-16.0) % Plt Count (160-400) X10*3/uL MPV (9.4-12.3) fL Immature Gran % (Auto) (0.0-0.4) % Neut % (Auto) (45-73) % Lymph % (Auto) (20-40) % [place] % (Auto) (2-11) % Eos % (Auto) (0-4) % Baso % (Auto) (0-2) % Lymph # (Auto) (1.2-4.9) X10*3/uL [place] # (Auto) (0.1-1.2) X10*3/uL Eos # (Auto) (0.0-0.4) X10*3/uL Baso # (Auto) (0.0-0.2) X10*3/uL Abs Immat Gran (auto) (0.00-0.03) X10*3/uL Absolute Neuts (auto) (2.0-8.3) x10*3/uL Absolute Nucleated RBC (0.0-0.012) X10*3/uL Nucleated RBC % (auto) (0.0-0.2) /100WBC Sodium 138 (135-145) mmol/L Potassium 4.1 (3.3-5.1) mmol/L Chloride 108 (96-108) mmol/L Carbon Dioxide 20 L (22-29) mmol/L Anion Gap 14 (12-20) BUN 13 (9-16) mg/dL Creatinine 1.01 (0.5-1.4) mg/dL Estim Creat Clear Calc 97.6 Estimated GFR > 60 Random Glucose 97 (60-115) mg/dL Lactic Acid (0.5-2.0) mmol/L Calcium 8.9 (8.4-10.2) mg/dL Magnesium 1.8 (1.6-2.6) mg/dL Total Bilirubin 0.4 (0.0-1.0) mg/dL AST 14 (5-31) U/L ALT 9 (0-31) U/L Alkaline Phosphatase 77 (39-117) U/L Total Protein 6.7 (6.5-8.0) g/dL Albumin 3.8 (3.5-5.0) g/dL Lipase 14 (8-78) U/L Beta HCG, Quant < 2 mIU/mL Urine Color Yellow Urine Appearance Clear Urine pH 8.0 (5.0-9.0) Ur Specific [place] 1.015 (1.005-1.025) Urine Protein Negative (Neg-Trace) mg/dL Urine Glucose (UA) Negative (Negative) mg/dL Urine Ketones Negative (Negative) mg/dL Urine Blood Negative (Negative) Urine Nitrite Negative (Negative) Ur Leukocyte Esterase Negative (Negative) Urine Test NEGATIVE (NEGATIVE) COVID-19 ([facility]) (Negative) COVID-19 Clin Com <DEVEN Conklin - Last Filed: 07/10/22 19:31> Lab Results 07/10/22 07/10/22 07/10/22 Range/Units 19:36 19:36 19:36 WBC 14.6 H (4.8-10.8) X10*3/uL RBC 4.98 (4.20-5.50) X10*6/uL Hgb 13.7 (12.0-16.0) g/dl Hct 42.3 (37.0-47.0) % MCV 84.9 (80.0-98.0) fL MCH 27.5 (27.0-33.0) pg MCHC 32.4 (31.0-35.0) g/dl RDW 13.2 (11.0-16.0) % Plt Count 443 H (160-400) X10*3/uL MPV 10.1 (9.4-12.3) fL Immature Gran % (Auto) 0.3 (0.0-0.4) % Neut % (Auto) 88.2 H (45-73) % Lymph % (Auto) 6.7 L (20-40) % [place] % (Auto) 4.4 (2-11) % Eos % (Auto) 0.1 (0-4) % Baso % (Auto) 0.3 (0-2) % Lymph # (Auto) 1.0 L (1.2-4.9) X10*3/uL [place] # (Auto) 0.7 (0.1-1.2) X10*3/uL Eos # (Auto) 0.0 (0.0-0.4) X10*3/uL Baso # (Auto) 0.0 (0.0-0.2) X10*3/uL Abs Immat Gran (auto) 0.05 H (0.00-0.03) X10*3/uL Absolute Neuts (auto) 12.9 H (2.0-8.3) x10*3/uL Absolute Nucleated RBC 0.000 (0.0-0.012) X10*3/uL Nucleated RBC % (auto) 0.0 (0.0-0.2) /100WBC Sodium (135-145) mmol/L Potassium (3.3-5.1) mmol/L Chloride (96-108) mmol/L Carbon Dioxide (22-29) mmol/L Anion Gap (12-20) BUN (9-16) mg/dL Creatinine (0.5-1.4) mg/dL Estim Creat Clear Calc Estimated GFR Random Glucose (60-115) mg/dL Lactic Acid 1.2 (0.5-2.0) mmol/L Calcium (8.4-10.2) mg/dL Magnesium (1.6-2.6) mg/dL Total Bilirubin (0.0-1.0) mg/dL AST (5-31) U/L ALT (0-31) U/L Alkaline Phosphatase (39-117) U/L Total Protein (6.5-8.0) g/dL Albumin (3.5-5.0) g/dL Lipase (8-78) U/L Beta HCG, Quant mIU/mL Urine Color Urine Appearance Urine pH (5.0-9.0) Ur Specific [place] (1.005-1.025) Urine Protein (Neg-Trace) mg/dL Urine Glucose (UA) (Negative) mg/dL Urine Ketones (Negative) mg/dL Urine Blood (Negative) Urine Nitrite (Negative) Ur Leukocyte Esterase (Negative) Urine Test (NEGATIVE) COVID-19 ([facility]) Negative (Negative) COVID-19 Clin Com See Note 07/10/22 07/10/22 07/10/22 Range/Units 20:31 21:08 21:08 WBC (4.8-10.8) X10*3/uL RBC (4.20-5.50) X10*6/uL Hgb (12.0-16.0) g/dl Hct (37.0-47.0) % MCV (80.0-98.0) fL MCH (27.0-33.0) pg MCHC (31.0-35.0) g/dl RDW (11.0-16.0) % Plt Count (160-400) X10*3/uL MPV (9.4-12.3) fL Immature Gran % (Auto) (0.0-0.4) % Neut % (Auto) (45-73) % Lymph % (Auto) (20-40) % [place] % (Auto) (2-11) % Eos % (Auto) (0-4) % Baso % (Auto) (0-2) % Lymph # (Auto) (1.2-4.9) X10*3/uL [place] # (Auto) (0.1-1.2) X10*3/uL Eos # (Auto) (0.0-0.4) X10*3/uL Baso # (Auto) (0.0-0.2) X10*3/uL Abs Immat Gran (auto) (0.00-0.03) X10*3/uL Absolute Neuts (auto) (2.0-8.3) x10*3/uL Absolute Nucleated RBC (0.0-0.012) X10*3/uL Nucleated RBC % (auto) (0.0-0.2) /100WBC Sodium 138 (135-145) mmol/L Potassium 4.1 (3.3-5.1) mmol/L Chloride 108 (96-108) mmol/L Carbon Dioxide 20 L (22-29) mmol/L Anion Gap 14 (12-20) BUN 13 (9-16) mg/dL Creatinine 1.01 (0.5-1.4) mg/dL Estim Creat Clear Calc 97.6 Estimated GFR > 60 Random Glucose 97 (60-115) mg/dL Lactic Acid (0.5-2.0) mmol/L Calcium 8.9 (8.4-10.2) mg/dL Magnesium 1.8 (1.6-2.6) mg/dL Total Bilirubin 0.4 (0.0-1.0) mg/dL AST 14 (5-31) U/L ALT 9 (0-31) U/L Alkaline Phosphatase 77 (39-117) U/L Total Protein 6.7 (6.5-8.0) g/dL Albumin 3.8 (3.5-5.0) g/dL Lipase 14 (8-78) U/L Beta HCG, Quant < 2 mIU/mL Urine Color Yellow Urine Appearance Clear Urine pH 8.0 (5.0-9.0) Ur Specific [place] 1.015 (1.005-1.025) Urine Protein Negative (Neg-Trace) mg/dL Urine Glucose (UA) Negative (Negative) mg/dL Urine Ketones Negative (Negative) mg/dL Urine Blood Negative (Negative) Urine Nitrite Negative (Negative) Ur Leukocyte Esterase Negative (Negative) Urine Test NEGATIVE (NEGATIVE) COVID-19 ([facility]) (Negative) COVID-19 Clin Com <Naye Donnelly MD - Last Filed: 07/10/22 23:12> Independent Interpretation I performed an independent interpretation of an: CT Scan (For interpretation of CT scan, no obstruction, no free air in the abdomen) <Naye Donnelly MD - Last Filed: 07/10/22 23:12> Radiology Impression Discussion of test interpretation with radiology: I have reviewed the radiologist's reading. <Naye Donnelly MD - Last Filed: 07/10/22 23:12> Radiologist Impression: FINDINGS: LUNG BASES: Mild dependent atelectasis.? LIVER, GALLBLADDER, AND BILIARY TREE: The liver is displaced medially by the hepatic flexure which is interposed between the right lateral hemidiaphragm and the liver. The liver is normal in size, shape, and attenuation. No focal hepatic lesion. Prominence of the common bile duct (1.5 cm) is likely related to prior cholecystectomy. PANCREAS: Unremarkable.? SPLEEN: Unremarkable.? ADRENAL GLANDS: Unremarkable.? KIDNEYS AND URETERS: The kidneys are normal in size, shape, and attenuation. No hydronephrosis, hydroureter, or calculi seen. No perinephric stranding. ? BLADDER: Unremarkable.? GASTROINTESTINAL TRACT: Wall thickening of the duodenum and proximal jejunum is nonspecific and could be due to underdistention or mild colitis/enteritis. Stomach, small bowel, and colon are normal in caliber. The hepatic flexure is interposed between the right hepatic lobe and the right hemidiaphragm, unchanged. Appendix is normal. No intraperitoneal free fluid or free air. ABDOMINAL WALL: No significant hernia is appreciated.? LYMPH NODES: Numerous subcentimeter mesenteric and retroperitoneal lymph nodes. No pathologic adenopathy. VASCULAR: There is dilatation of the gonadal veins bilaterally as well as the bilateral periuterine veins. PELVIC VISCERA: Unremarkable.? OSSEOUS STRUCTURES: No acute osseous findings. CT/CT abdomen pelvis w IV con IMPRESSION: 1.? Mild wall thickening of the duodenum and proximal jejunum is nonspecific and could be due to underdistention or mild enteritis/colitis. 2.? Dilatation of the gonadal veins and periuterine veins. This can be seen with pelvic congestion syndrome. 3.? Otherwise, no acute intra-abdominal or intrapelvic abnormalities. ? Fleischner guidelines were followed. <Naye Donnelly MD - Last Filed: 07/10/22 23:12> Critical Care Time Critical Care Time Critical Care Time: Yes <Naye Donnelly MD - Last Filed: 07/10/22 23:12> Total Critical Care Time: 60 <Naye Donnelly MD - Last Filed: 07/10/22 23:12> Attestation: I have personally provided critical care time. Time includes review of lab data, radiology results, discussion with consultants, and monitoring for potential decompensation. Intervention performed as documented. <Naye Donnelly MD - Last Filed: 07/10/22 23:12> Discharge Plan Discharge Clinical Impression: Colitis <DEVEN Conklin - Last Filed: 07/10/22 19:31> Patient Disposition: Admitted As Inpatient <DEVEN Conklin - Last Filed: 07/10/22 19:31> Prescriptions: No Action cyclobenzaprine 10 mg tablet 10 mg PO TID PRN (Reason: muscle spasm) Qty: 14 0RF ofloxacin 0.3 % drops 10 drp otic (ears) DAILY 7 Days Qty: 5 0RF nitrofurantoin monohyd/m-cryst [Macrobid] 100 mg capsule 100 mg PO Q12H 5 Days Qty: 10 0RF Rx Instructions: must administer with a meal/food phenazopyridine [Pyridium] 200 mg tablet 200 mg PO TID PRN (Reason: Discomfort with urination) Qty: 6 0RF ibuprofen 600 mg tablet 600 mg PO Q6H PRN (Reason: pain) Qty: 20 0RF docusate sodium [Colace] 100 mg capsule 100 mg PO BID PRN (Reason: Stool softener) Qty: 14 0RF <DEVEN Conklin - Last Filed: 07/10/22 19:31>
[2022-07-10] MEDS: 0.9 % Sodium Chloride 1,000 ML 999 ML IV (19:37)
--- NOTE | 2022-07-10 19:41 | ECG_ITS ---
Test Reason : sepsis protocol Blood Pressure : / mmHG Vent. Rate : 118 BPM Atrial Rate : 118 BPM P-R Int : 166 ms QRS Dur : 072 ms QT Int : 280 ms P-R-T Axes : 049 055 041 degrees QTc Int : 392 ms Sinus tachycardia Possible Left atrial enlargement Nonspecific T wave abnormality Abnormal ECG When compared with ECG of 18-APR-2019 19:38, T wave inversion no longer evident in Inferior leads Referred By: Naye Donnelly Electronically Signed By:AWILDA LEON MD
[2022-07-10 19:42] LABS: MANUAL DIFF FLAG NO
[2022-07-10 19:44] LABS: Basophils Percent Auto 0.3 % (0-2); Eosinophils Percent Auto 0.1 % (0-4); Hematocrit 42.3 % (37.0-47.0); Hemoglobin 13.7 g/dl (12.0-16.0); Imm Gran Abs Auto 0.05 X10*3/uL (0.00-0.03); Imm Gran Pct Auto 0.3 % (0.0-0.4); Lymphocytes Percent Auto 6.7 % (20-40); Mean Corpuscular HGB Conc 32.4 g/dl (31.0-35.0); Mean Corpuscular Hemoglobin 27.5 pg (27.0-33.0); Mean Corpuscular Volume 84.9 fL (80.0-98.0); Mean Platelet Volume 10.1 fL (9.4-12.3); Monocytes Absolute Auto 0.7 X10*3/uL (0.1-1.2); Monocytes Percent Auto 4.4 % (2-11); Neutrophils Absolute Auto 12.9 x10*3/uL (2.0-8.3); Neutrophils Percent Auto 88.2 % (45-73); Platelet Count 443 X10*3/uL (160-400); Red Blood Count 4.98 X10*6/uL (4.20-5.50); Red Cell Distribution Width 13.2 % (11.0-16.0); White Blood Count 14.6 X10*3/uL (4.8-10.8)
--- NOTE | 2022-07-10 19:45 | PC.NURSE ---
Addendum entered by Irma Swift 07/10/22 19:54: Per , plan for a total of 2 liters of NS. Addendum entered by Irma Swift 07/10/22 19:50: Per MD Donnelly, since first set of BCX have been obtained, okay to hang Zosyn despite not having obtained second set of BCX @ this time. ED techs @ [facility], third attempt to obtain second set of BCX. Original Note: Sepsis alert called @ 2121. IV established, IVF infusing, labwork including first set of BCX obtained and sent. Difficulty obtaining second set of BCX @ this time.
[2022-07-10] MEDS: Acetaminophen 325 MG TABLET 975 MG PO (19:48)
[2022-07-10] MEDS: Piperacillin Sodium/Tazobactam 3.375 GM in 0.9 % Sodium Chloride 50 ML IV (19:48)
[2022-07-10 19:58] LABS: COVID-19 Test Negative (Negative); IDNOW Serial# 9DB6401D
[2022-07-10] MEDS: 0.9 % Sodium Chloride 2,000 ML 999 ML IVCONT (20:03)
--- NOTE | 2022-07-10 20:04 | PC.NURSE ---
2nd liter of NS infusing @ this time.
--- OUTSIDE RECORDS SUMMARY | 2022-07-10 20:15 | XMS_ITS | Continuity of Care Document ---
:1995 Author Organization [address], [address] [place] [address]- Care Team Providers Name Role Phone Damien PANTOJA, Thierno Mcrae Primary Care Physician Encounter [facility] Date(s): 06/10/19 - 06/20/[address], [address] [place] [address]- [facility] Attending Physician: Olesya Noble Admitting Physician: Olesya Noble Referring Physician: AdmtrOlesya Allergies, Adverse Reactions, Alerts Substance Reaction Severity Status Latex Active Immunizations Given and Recorded Vaccine Date Status Refusal Reason influenza virus vaccine, inactivated1 01/16/17 Given influenza virus vaccine, inactivated 02/01/15 Given influenza virus vaccine, inactivated2 02/01/15 Given tetanus/diphtheria/pertussis, acel(Tdap) 11/08/16 Given 1Admin Note: VIS dated 11/26/2014 [id number] Comment: Wrong order Medications Colace sodium 100 mg oral capsule 100 mg, 1, capsule, By Mouth, 2 times a day, # 60 capsule, Refills 0, Tot. Refills 0, Maintenance, 07/30/15 1:04:46, Print Requisition Start Date: 07/30/15 Status: Orderedferrous sulfate 325 mg oral tablet 1 tablet = 325 mg, By Mouth, 2 times a day, # 60 tablet, 2 Refills, Maintenance, 01/04/17 9:23:47, Tablet Start Date: 01/04/17 Stop Date: 04/04/17 Status: Orderedibuprofen 600 mg oral tablet 600 mg, By Mouth, 3 times a day, PRN, # 30 tablet, Refills 0, Tot. Refills 0, Maintenance, Pain , Mild, 07/30/15 1:07:20, Print Requisition Start Date: 07/30/15 Status: OrderedNexplanon 68 mg subcutaneous implant 1 each = 68 mg, Subcutaneous Infusion, Once, # 1 each, 0 Refills, Soft Stop, 01/10/17 16:40:45 Start Date: 01/10/17 Status: OrderedNexplanon 68 mg subcutaneous implant 1 each = 68 mg, Subcutaneous Infusion, Once, # 1 each, 0 Refills, Soft Stop, 11/22/16 14:14:50 Start Date: 11/22/16 Status: OrderedNexplanon 68 mg subcutaneous implant 1 each = 68 mg, Subcutaneous Infusion, Once, # 1 each, 0 Refills, Soft Stop, 01/16/17 3:11:05 Start Date: 01/16/17 Status: Orderedomeprazole 40 mg oral enteric coated capsule 1 capsule = 40 mg, By Mouth, Daily, # 90 capsule, 0 Refills, Maintenance, 01/10/18 12:22:05 EDT, EC Capsule Start Date: 01/10/18 Status: OrderedPrenatal Multivitamins with Folic Acid 1 mg oral capsule 1 capsule, By Mouth, Daily, # 100 capsule, 0 Refills, Maintenance, 06/27/16 8:52:28, Capsule, 1 capsule By Mouth Daily Start Date: 06/27/16 Status: OrderedPrenatal Multivitamins with Folic Acid 1 mg oral capsule 1 capsule, By Mouth, Daily, # 100 capsule, 6 Refills, Maintenance, 06/20/15 9:45:39, Capsule, 1 capsule By Mouth Daily Start Date: 06/20/15 Status: OrderedPrenatal Multivitamins with Folic Acid 1 mg oral kit 1 tablet, By Mouth, Daily, # 90 tablet, 3 Refills, Maintenance, 08/17/16 13:16:56, 1 tablet By MouthDaily,x90 days Start Date: 08/17/16 Stop Date: 08/12/17 Status: OrderedPrenatal Multivitamins with Folic Acid 1 mg oral tablet 1 tablet, By Mouth, Daily, # 90 tablet, 2 Refills, Maintenance, 05/16/16 8:08:00, 1 tablet By Mouth Daily Start Date: 05/16/16 Status: Orderedranitidine 150 mg oral tablet 1 tablet = 150 mg, By Mouth, 2 times a day, # 28 tablet, 0 Refills, Maintenance, 09/14/16 13:46:57, Tablet Start Date: 09/14/16 Stop Date: 09/28/16 Status: OrderedTylenol 325 mg oral tablet 650 mg, By Mouth, Every 4 hours, PRN, # 50 tablet, Refills 0, Tot. 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
--- OUTSIDE RECORDS SUMMARY | 2022-07-10 20:16 | XMS_ITS | Continuity of Care Document ---
:1995 Author Organization [facility] ic Address [address] [place] [address]- Care Team Providers Name Role Phone Raven HADDAD, Michael Collins Primary Care Physician Encounter [facility] Date(s): 10/03/20 - 11/02/[address] [address]- Allergies, Adverse Reactions, Alerts Substance Reaction Severity Status Latex Active Tomatoes Active Immunizations Given and Recorded Vaccine Date Status Refusal Reason tetanus/diphtheria/pertussis, acel(Tdap) 07/22/20 Given tetanus/diphtheria/pertussis, acel(Tdap) 11/08/16 Given influenza virus vaccine, inactivated1 01/16/17 Given influenza virus vaccine, inactivated 02/01/15 Given influenza virus vaccine, inactivated2 02/01/15 Given 1Admin Note: VIS dated 11/26/2014 [id number] Comment: Wrong order Medications famotidine 10 mg oral tablet 1 tablet = 10 mg, By Mouth, 2 times a day, # 60 tablet, 1 Refills, Maintenance, 06/06/20 15:22:00 EST, Tablet, [id number], Partial fill upon patient request if the prescription is for a schedule II opioid drug., 164.4, cm, 06/06/20 15:05:00 ES... Start Date: 06/06/20 Status: OrderedFluoxetine By Mouth, 0 Refills, Maintenance, 09/21/20 20:53:00 EDT, Partial fill upon patient request if the prescription is for a schedule II opioid drug. Start Date: 09/21/20 Status: OrderedPrenatal 1 0 Refills, Maintenance, 09/05/20 15:34:00 EDT, Partial fill upon patient request if the prescriptionis for a schedule II opioid drug. Start Date: 09/05/20 Status: Ordered Problem List Condition Effective Dates Status Health Status Informant Abnormal Pap smear of cervix - 07/12/16 Active LGSIL(Confirmed) H/O Positive GBS test(Confirmed)1 07/12/15 Active GERD (gastroesophageal reflux Active disease)(Confirmed) Anxiety and depression(Confirmed)2 Active (Confirmed) Active [id number]/[id number] reports she is linked with mental health services at this time. Social History Social History Type Response Smoking Status Type: Cigarettes; Former smo ker entered on: 06/15/15 Sex
--- OUTSIDE RECORDS SUMMARY | 2022-07-10 20:16 | XMS_ITS | Continuity of Care Document ---
:1995 Author Organization [facility] ic Address [address] [place] [address]- Care Team Providers Name Role Phone Raven HADDAD, Michael Collins Primary Care Physician [place] [facility] [place]): [place]/04[place] - 02/03/[address] [address] Attending Physician: Olesya Noble Admitting Physician: Olesya Noble Referring Physician: AdmtrOlesya Allergies, Adverse Reactions, Alerts Substance Reaction Severity Status Latex Rash Active Tomatoes Active Immunizations Given and Recorded Vaccine Date Status Refusal Reason tetanus/diphtheria/pertussis, acel(Tdap) 07/22/20 Given tetanus/diphtheria/pertussis, acel(Tdap) 11/08/16 Given Meningococcal Conjugate Vaccine 03/25/18 Recorded influenza virus vaccine, inactivated1 01/16/17 Given influenza virus vaccine, inactivated 02/01/15 Given influenza virus vaccine, inactivated2 02/01/15 Given Hepatitis A Adult Vaccine 03/29/14 Recorded Measles/Mumps/Rubella/VaricellaVirusVac 03/12/13 Recorded Human Papillomavirus Vaccine 09/25/06 Recorded haemophilus b conjugate (PRP-T) vaccine 94 Recorded 1Admin Note: VIS dated 11/26/2014 [id number] Comment: Wrong order Medications acetaminophen 325 mg oral tablet 650 mg, 2, tablet, By Mouth, Every 4 hours, PRN, # 50 tablet, Refills 0, Tot. Refills 0, Maintenance, as needed for pain, 12/09/20 15:01:00 EDT, Route to Pharmacy Electronically, [facility]/pharmacy #[id number], Partial fill upon patient request if the prescriptio... Start Date: 12/09/20 Status: OrderedFluoxetine = 25 mg, By Mouth, Daily in AM, 0 Refills, Maintenance, 09/21/20 20:53:00 EDT, Partial fill upon patient request if the prescription is for a schedule II opioid drug. Start Date: 09/21/20 Status: Orderedibuprofen 800 mg oral tablet 800 mg, 1, tablet, By Mouth, Every 8 hours, # 90 tablet, Refills 0, Tot. Refills 0, Maintenance, 12/09/20 15:00:00 EDT, Route to Pharmacy Electronically, [facility]/pharmacy #[id number], Partial fill upon patient request if the prescription is for a schedule II op... Start Date: 12/09/20 Status: OrderedOmeprazole = 20 mg, By Mouth, Daily in AM, 0 Refills, Maintenance, 11/25/20 18:29:00 EDT, Partial fill upon patient request if the prescription is for a schedule II opioid drug. Start Date: 11/25/20 Status: OrderedoxyCODONE 5 mg oral tablet 5 mg, 1, tablet, By Mouth, Every 6 hours, PRN, # 7 tablet, Refills 0, Tot. Refills 0, Maintenance, as needed for pain, 12/09/20 15:00:00 EDT, Route to Pharmacy Electronically, [facility]/pharmacy #[id number], Partial fill upon patient request if the prescription i... Start Date: 12/09/20 Status: Ordered Problem List Condition Effective Dates Status Health Status Informant ASCUS of cervix with negative high Active risk HPV(Confirmed) GERD (gastroesophageal reflux Active disease)(Confirmed) Anxiety and depression(Confirmed)1 Active 1Pt reports she is linked with mental health services at this time. Social History Social History Type Response Smoking Status Type: Cigarettes; Former smo ker entered on: 06/15/15 Sex
--- OUTSIDE RECORDS SUMMARY | 2022-07-10 20:16 | XMS_ITS | Continuity of Care Document ---
:1995 Author Organization [facility] Address [address] [place] [address]- Care Team Providers Name Role Phone Raven HADDAD, Michael Collins Primary Care Physician Encounter [facility] Date(s): 12/09/20 - 12/09/[address] [address] Discharge Disposition: A-D/C Home Attending Physician: Rakesh Contreras MD Admitting Physician: Rakesh Contreras MD Referring Physician: Rakesh Contreras MD Allergies, Adverse Reactions, Alerts Substance Reaction Severity [...] 94 Recorded 1Admin Note: VIS dated 11/26/2014 [id number] Comment: Wrong order Medications acetaminophen 325 mg oral tablet 650 mg, 2, tablet, By Mouth, Every 4 hours, PRN, # 50 tablet, Refills 0, Tot. Refills 0, Maintenance, as needed for pain, 12/09/20 15:01:00 EDT, Route to Pharmacy Electronically, [facility]/pharmacy #[id number], Partial fill upon patient request if the [...] 12/09/20 15:00:00 EDT, Route to Pharmacy Electronically, [facility]/pharmacy #[id number], Partial fill upon patient request if [...] 12/09/20 15:00:00 EDT, Route to Pharmacy Electronically, [facility]/pharmacy #[id number], Partial fill upon patient request if the prescription i... Start Date: 12/09/20 Status: OrderedOxyCODONE IR Tablet 5 mg, Tablet, By Mouth, Every 4 hours, in PACU ONLY, if patient can tolerate PO, PRN for Pain , Mild, Routine, 12/09/20 14:56:00 EDT Start Date: 12/09/20 Stop Date: 12/10/20 Status: Discontinued Problem List Condition Effective Dates Status Health Status Informant ASCUS of cervix with negative high Active risk HPV(Confirmed) GERD (gastroesophageal reflux Active disease)(Confirmed) Anxiety and depression(Confirmed)1 Active 1Pt reports she is linked with mental health services at this time. Vital Signs Most recent to oldest 1 2 3 [Reference Range]: Height 162.5 cm 162.5 cm (12/09/20 12:07 PM) (11/25/20 6:41 PM) Weight 98.1 kg 98.1 kg (12/09/20 12:07 PM) (11/25/20 6:41 PM) Oxygen Saturation [94-100 95 % 93 % 95 % %] (12/09/20 4:00 PM) *L* (12/09/20 3:30 PM) (12/09/20 3:45 PM) Pulse Rate [55-90 bpm] 71 bpm (12/09/20 12:07 PM) Body Mass Index 37.15 37.15 [18.5-24.99] *>HHI* *>HHI* (12/09/20 12:07 PM) (11/25/20 6:41 PM) Blood Pressure 119/54 mm Hg 111/55 mm Hg 115/58 mm Hg [90-138/55-84 mm Hg] (12/09/20 4:00 PM) (12/09/20 3:45 PM) ( 3:30 PM) Respiratory Rate [16-30 22 br/min 15 br/min 14 br/mi n br/min] (12/09/20 4:59 PM) *L* *L* (12/09/20 4:00 PM) (12/09/20 3:45 PM) Temperature [96.8-100.4 98.4 DegF 98.8 DegF 97.2 Deg F DegF] (12/09/20 4:00 PM) (12/09/20 2:45 PM) (12/09/20 12: 07 PM) Liters per Minute 6 L/min 6 L/min 6 L/min (12/09/20 3:15 PM) (12/09/20 3:00 PM) (12/09/20 2:4 5 PM) Mode of Delivery (Oxygen) Room air Room air Room a ir (12/09/20 4:00 PM) (12/09/20 3:45 PM) (12/09/20 3:3 0 PM) Blood pressure sites Arm, left (12/09/20 12:07 PM) Temperature Route Temporal Temporal Temporal (12/09/20 4:00 PM) (12/09/20 2:45 PM) (12/09/20 12: 07 PM) Dry Weight 98.6 kg (12/09/20 12:07 PM) Weight Obtained Via Patient/family stated (11/25/20 6:41 PM) Dry Weight Obtained Via Standing scale (12/09/20 12:07 PM) Social History Social History Type Response Smoking Status Type: Cigarettes; Former smo ker entered on: 06/15/15 Sex
--- OUTSIDE RECORDS SUMMARY | 2022-07-10 20:16 | XMS_ITS | Continuity of Care Document ---
:1994 Author Organization [facility] Address [address] [place] [address]- Care Team Providers Name Role Phone Raven HADDAD, Michael Collins Primary Care Physician Encounter [facility] [place] Date(s): 11/16/21 - 12/16/21 [facility] [address] [address] Attending Physician: Olesya Noble Admitting Physician: Olesya Noble Referring Physician: Olesya Noble Allergies, Adverse Reactions, Alerts Substance Reaction Severity [...] 94 Recorded 1Admin Note: VIS dated 11/26/2014 [id number] Comment: Wrong order Medications acetaminophen 325 mg oral tablet 650 mg, 2, tablet, By Mouth, Every 4 hours, PRN, # 50 tablet, Refills 0, Tot. Refills 0, Maintenance, as needed for pain, 12/09/20 15:01:00 EDT, Route to Pharmacy Electronically, [facility]/pharmacy #[id number], Partial fill upon patient request if the [...] 12/09/20 15:00:00 EDT, Route to Pharmacy Electronically, [facility]/pharmacy #[id number], Partial fill upon patient request [...] 12/09/20 15:00:00 EDT, Route to Pharmacy Electronically, [facility]/pharmacy #[id number], Partial fill upon patient request if the prescription i... Start Date: 12/09/20 Status: Orderedriboflavin 400 mg oral capsule 1 capsule = 400 mg, By Mouth, Daily, # 100 capsule, 3 Refills, Maintenance, 03/27/21 16:56:00 EST, [facility]/pharmacy #[id number], Partial fill upon patient request if the prescription is for a schedule II opioid drug., 162.5, cm, 01/04/21 11:17:00 EDT, Height, 9... Start Date: 03/27/21 Status: OrderedSUMAtriptan 50 mg oral tablet 1 tablet = 50 mg, By Mouth, Once, Take 1 tablet by mouth as needed for headache. If headache doesn'tgo away after 2 hours, may try a second dose. Do not use more than 2 doses in a day. Do not use morethan 3 days per week, or more than 9 days per mon... Start Date: 03/27/21 Status: Ordered Problem List Condition Effective Dates Status Health Status Informant ASCUS of cervix with negative high Active risk HPV(Confirmed) GERD (gastroesophageal reflux Active disease)(Confirmed) Anxiety and depression(Confirmed)1 Active 1Pt reports she is linked with mental health services at this time. Social History Social History Type Response Smoking Status Type: Cigarettes; Former smo ker entered on: 06/15/15 Sex Care Team PersonnelName: Michael Carbajal NP Address: [address] [place] [address]
--- OUTSIDE RECORDS SUMMARY | 2022-07-10 20:16 | XMS_ITS | Continuity of Care Document ---
:1994 Author Organization [facility] ic Address [address] [place] [address]- Care Team Providers Name Role Phone Raven HADDAD, Michael Collins Primary Care Physician [phone] [place] [facility] [place] Date(s): 08/22/20 - 11/02/[address] [address]- Attending Physician: Not on Staff, Attending MD Referring Physician: Michael Carbajal NP Allergies, Adverse Reactions, Alerts Substance Reaction Severity Status Latex Active Tomatoes Active Immunizations Given and Recorded Vaccine Date Status Refusal Reason tetanus/diphtheria/pertussis, acel(Tdap) 07/22/20 Given tetanus/diphtheria/pertussis, acel(Tdap) 11/08/16 Given influenza virus vaccine, inactivated1 01/16/17 Given influenza virus vaccine, inactivated 02/01/15 Given influenza virus vaccine, inactivated2 02/01/15 Given 1Admin Note: VIS dated 11/26/2014 [id number] Comment: Wrong order Medications famotidine 10 mg oral tablet 1 tablet = 10 mg, By Mouth, 2 times a day, # 60 tablet, 1 Refills, Maintenance, 06/06/20 15:22:00 EST, Tablet, [id number], Partial fill upon patient request if the [...] disease)(Confirmed) Anxiety and depression(Confirmed)2 Active (Confirmed) Active [id number] reports she is linked with mental health services at this time. Social History Social History Type Response Smoking Status Type: Cigarettes; Former smo ker entered on: 06/15/15 Sex
--- OUTSIDE RECORDS SUMMARY | 2022-07-10 20:16 | XMS_ITS | Continuity of Care Document ---
:1994 Author Organization [facility] ic Address [address] [place] [address]- Care Team Providers Name Role Phone Raven HADDAD, Michael Collins Primary Care Physician [phone] [place] [facility] [place]/22/[place] - 10/26/[address] [address]- Attending Physician: Not on Staff, Attending MD [...] 02/01/15 Given 1Admin Note: VIS dated 11/26/2014 [id number] Comment: Wrong order Medications famotidine 10 mg oral tablet 1 tablet = 10 mg, By Mouth, 2 times a day, # 60 tablet, 1 Refills, Maintenance, 06/06/20 15:22:00 EST, Tablet, [id number], Partial fill upon patient request if the [...] disease)(Confirmed) Anxiety and depression(Confirmed)2 Active (Confirmed) Active [id number] reports she is linked with mental health services at this time. Social History Social History Type Response Smoking Status Type: Cigarettes; Former smo ker entered on: 06/15/15 Sex
--- OUTSIDE RECORDS SUMMARY | 2022-07-10 20:16 | XMS_ITS | Continuity of Care Document ---
:1994 Author Organization [facility] Address [address] [place] [address]- Care Team Providers Name Role Phone Raven HADDAD, Michael Collins Primary Care Physician [place] [facility] [place] 08/24/21 - 12/16/[address] [address]- Attending Physician: Alexus Neves MD Admitting Physician: Alexus Neves MD Referring Physician: Michael Carbajal NP Allergies, [...] 94 Recorded 1Admin Note: VIS dated 11/26/2014 [id number] Comment: Wrong order Medications acetaminophen 325 mg oral tablet 650 mg, 2, tablet, By Mouth, Every 4 hours, PRN, # 50 tablet, Refills 0, Tot. Refills 0, Maintenance, as needed for pain, 12/09/20 15:01:00 EDT, Route to Pharmacy Electronically, [facility]/pharmacy #[id number], Partial fill upon patient request [...] 12/09/20 15:00:00 EDT, Route to Pharmacy Electronically, [facility]/pharmacy #[id number], Partial fill upon patient request [...] 12/09/20 15:00:00 EDT, Route to Pharmacy Electronically, [facility]/pharmacy #[id number], Partial fill upon patient request if the prescription i... Start Date: 12/09/20 Status: Orderedriboflavin 400 mg oral capsule 1 capsule = 400 mg, By Mouth, Daily, # 100 capsule, 3 Refills, Maintenance, 03/27/21 16:56:00 EST, [facility]/pharmacy #[id number], Partial fill upon patient request [...] Care Team PersonnelName: Michael Carbajal NP Address: [address] [place] [id number]
--- OUTSIDE RECORDS SUMMARY | 2022-07-10 20:16 | XMS_ITS | Continuity of Care Document ---
:1994 Author Organization [facility] ic Address [address] [place] [address]- Care Team Providers Name Role Phone Raven HADDAD, Michael Collins Primary Care Physician Encounter [facility] [place] Date(s): 08/30/20 - 09/29/[address] [address] Allergies, Adverse Reactions, Alerts Substance Reaction Severity Status Latex Active Tomatoes Active Immunizations Given and Recorded Vaccine Date Status Refusal Reason tetanus/diphtheria/pertussis, acel(Tdap) 07/22/20 Given tetanus/diphtheria/pertussis, acel(Tdap) 11/08/16 Given influenza virus vaccine, inactivated1 01/16/17 Given influenza virus vaccine, inactivated 02/01/15 Given influenza virus vaccine, inactivated2 02/01/15 Given 1Admin Note: VIS dated 11/26/2014 [id number] Comment: Wrong order Medications famotidine 10 mg oral tablet 1 tablet = 10 mg, By Mouth, 2 times a day, # 60 tablet, 1 Refills, Maintenance, 06/06/20 15:22:00 EST, Tablet, [id number], Partial fill upon patient request if the [...] disease)(Confirmed) Anxiety and depression(Confirmed)2 Active (Confirmed) Active [id number] reports she is linked with mental health services at this time. Social History Social History Type Response Smoking Status Type: Cigarettes; Former smo ker entered on: 06/15/15 Sex
--- OUTSIDE RECORDS SUMMARY | 2022-07-10 20:16 | XMS_ITS | Continuity of Care Document ---
:1995 Author Organization [facility] Address [address] [place] [address]- Care Team Providers Name Role Phone Raven HADDAD, Michael Collins Primary Care Physician Encounter [facility] [place] Date(s): 09/25/20 - 09/27/[address] [address] Discharge Disposition: A-D/C Home Attending Physician: Liz Voss DO Admitting Physician: Liz Voss DO Referring Physician: Liz Voss DO Allergies, Adverse Reactions, Alerts Substance Reaction Severity Status Latex Active Tomatoes Active Immunizations Given and Recorded Vaccine Date Status Refusal Reason tetanus/diphtheria/pertussis, acel(Tdap) 07/22/20 Given tetanus/diphtheria/pertussis, acel(Tdap) 11/08/16 Given influenza virus vaccine, inactivated1 01/16/17 Given influenza virus vaccine, inactivated 02/01/15 Given influenza virus vaccine, inactivated2 02/01/15 Given 1Admin Note: VIS dated 11/26/2014 [id number] Comment: Wrong order Medications Acetaminophen Tablet 650 mg, Tablet, By Mouth, Every 4 hours, PRN for Pain , Mild, (1-3), may give 325mg per patient preference and re-dose with 325mg within 4 hours, if needed. Patient should only receive a total of 650mgof Acetaminophen every 4 hours., Routine, 09/25... Start Date: 09/25/20 Stop Date: 09/27/20 Status: Discontinuedfamotidine 10 mg oral tablet 1 tablet = 10 mg, By Mouth, 2 times a day, # 60 tablet, 1 Refills, Maintenance, 06/06/20 15:22:00 EST, Tablet, [id number], Partial fill upon patient request if the prescription is for a schedule II opioid drug., 164.4, cm, 06/06/20 15:05:00 ES... Start Date: 06/06/20 Status: OrderedFluoxetine By Mouth, 0 Refills, Maintenance, 09/21/20 20:53:00 EDT, Partial fill upon patient request if the prescription is for a schedule II opioid drug. Start Date: 09/21/20 Status: OrderedIbuprofen Tablet 800 mg, Tablet, By Mouth, Every 8 hours, PRN for Pain , Moderate, (4-6), may give 400mg per patient preference and re-dose with 400mg within 8 hours if needed. Patient should only receive a total of 800mg of Ibuprofen every 8 hours., Routine, ... Start Date: 09/25/20 Stop Date: 09/27/20 Status: DiscontinuedPrenatal 1 0 Refills, Maintenance, 09/05/20 15:34:00 EDT, Partial fill upon patient request if the prescriptionis for a schedule II opioid drug. Start Date: 09/05/20 Status: Ordered Problem List Condition Effective Dates Status Health Status Informant Abnormal Pap smear of cervix - 07/12/16 Active LGSIL(Confirmed) H/O Positive GBS test(Confirmed)1 07/12/15 Active GERD (gastroesophageal reflux Active disease)(Confirmed) Anxiety and depression(Confirmed)2 Active (Confirmed) Active 1VAG/MYVORW0Jd reports she is linked with mental health services at this time. Vital Signs Most recent to oldest [Reference 1 2 3 Range]: Height 163 cm 163 cm 163 cm (09/27/20 8:00 AM) (09/27/20 4:07 AM) (09/27/20 12:06 AM) Weight 111 kg 111 kg 111 kg (09/25/20 8:37 AM) (09/25/20 8:36 AM) (09/25/20 8:30 A M) Oxygen Saturation [94-100 %] 98 % 99 % 97 % (09/27/20 8:00 AM) (09/27/20 4:07 AM) (09/27/20 12:06 AM) Pulse Rate [55-90 bpm] 84 bpm 72 bpm 75 bpm (09/27/20 8:00 AM) (09/27/20 4:07 AM) (09/27/20 12:06 AM) Body Mass Index [18.5-24.99] 41.78 41.78 *>HHI* *>HHI* (09/25/20 8:37 AM) (09/25/20 8:30 AM) Blood Pressure [90-138/55-84 mm 137/82 mm Hg 131/80 mm Hg 125/83 mm Hg Hg] (09/27/20 8:00 AM) (09/27/20 4:07 AM) (09/27/20 12:06 AM) Respiratory Rate [16-30 br/min] 18 br/min 18 br/min 20 br/min (09/27/20 9:10 AM) (09/27/20 9:10 AM) (09/27/20 8:00 A M) Temperature [96.8-100.4 DegF] 98.5 DegF 98 DegF 98 .2 DegF (09/27/20 8:00 AM) (09/27/20 4:07 AM) (09/27/20 12:06 AM) Mode of Delivery (Oxygen) Room air Room air Room a ir (09/27/20 4:07 AM) (09/27/20 12:06 AM) (09/26/20 8:05 PM) Blood pressure sites Arm, left Arm, right Arm, left (09/27/20 4:07 AM) (09/27/20 12:06 AM) (09/26/20 8:05 PM) Temperature Route Oral Oral Oral (09/27/20 8:00 AM) (09/27/20 4:07 AM) (09/27/20 12:06 AM) Dry Weight 111 kg 111 kg (09/25/20 8:37 AM) (09/25/20 8:30 AM) Social History Social History Type Response Smoking Status Type: Cigarettes; Former smo ker entered on: 06/15/15 Sex
--- OUTSIDE RECORDS SUMMARY | 2022-07-10 20:16 | XMS_ITS | Continuity of Care Document ---
:1995 Author Organization [facility] ic Address [address] [place] [address]- Care Team Providers Name Role Phone Damien PANTOJA, Thierno Mcrae Primary Care Physician Encounter [facility] [place] Date(s): 01/29/20 - 02/28/[address] [address]- Allergies, Adverse Reactions, Alerts Substance Reaction Severity Status Latex Active Immunizations Given and Recorded Vaccine Date Status Refusal Reason influenza virus vaccine, inactivated1 01/16/17 Given influenza virus vaccine, inactivated 02/01/15 Given influenza virus vaccine, inactivated2 02/01/15 Given tetanus/diphtheria/pertussis, acel(Tdap) 11/08/16 Given 1Admin Note: VIS dated 11/26/2014 [id number] Comment: Wrong order Medications Colace sodium 100 [...] Mild, 07/30/15 1:07:20, Print Requisition Start Date: 4/9/16 Status: OrderedmetroNIDAZOLE 500 mg oral tablet 1 tablet = 500 mg, By Mouth, Every 12 hours, # 14 tablet, 0 Refills, Maintenance, 01/25/20 20:57:00 EDT, Tablet, [facility]/pharmacy #[id number], 164.4, cm, 04/06/19 18:41:00 EST, Height, 94.7, kg, 01/25/20 16:03:00 EDT, Dry Weight Start Date: 01/25/20 Status: OrderedNexplanon 68 mg subcutaneous implant 1 [...] EDT, EC Capsule Start Date: 01/10/18 Status: OrderedPNV oral tablet 1 tablet, By Mouth, Daily, # 30 tablet, 6 Refills, Maintenance, 01/25/20 20:57:00 EDT, [facility]/pharmacy #[id number], 1 tablet By Mouth Daily, 164.4, cm, 04/06/19 18:41:00 EST, Height, 94.7, kg, 01/25/20 16:03:00EDT, Dry Weight Start Date: 01/25/20 Status: OrderedPrenatal Multivitamins with Folic Acid 1 [...] 1:05:49, Print Requisition Start Date: 07/30/15 Status: OrderedUnisom 25 mg oral tablet 1 tablet = 25 mg, By Mouth, Daily at bedtime, PRN for sleep, # 32 tablet, 1 Refills, Maintenance, 01/25/20 20:58:00 EDT, Tablet, [facility]/pharmacy #[id number], 164.4, cm, 04/06/19 18:41:00 EST, Height, 94.7, kg, 01/25/20 16:03:00 EDT, Dry Weight Start Date: 01/25/20 Status: OrderedVitamin B6 50 mg oral tablet 50 mg, 1, tablet, By Mouth, Daily, for 14 days, # 14 tablet, Refills 3, Tot. Refills 3, Acute 03/21/20 20:58:00 EST, 01/25/20 20:58:00 EDT, Route to Pharmacy Electronically, [facility]/pharmacy #[id number], 164.4, cm, 04/06/19 18:41:00 EST, Height, 94.7, kg, 01/24... 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 Social History Social History Type Response Smoking Status Type: Cigarettes; Former smo ker entered on: 06/15/15 Sex
--- OUTSIDE RECORDS SUMMARY | 2022-07-10 20:16 | XMS_ITS | Continuity of Care Document ---
:1995 Author Organization [facility] ic Address [address] [place] [id number]- Care Team Providers Name Role Phone Raven HADDAD, Michael Collins Primary Care Physician Encounter [facility] [place] Date(s): 11/15/20 - 01/20/[address] [address] Attending Physician: Not on Staff, Attending MD Allergies, Adverse Reactions, Alerts Substance Reaction [...] 94 Recorded 1Admin Note: VIS dated 11/26/2014 [id number] Comment: Wrong order Medications acetaminophen 325 mg oral tablet 650 mg, 2, tablet, By Mouth, Every 4 hours, PRN, # 50 tablet, Refills 0, Tot. Refills 0, Maintenance, as needed for pain, 12/09/20 15:01:00 EDT, Route to Pharmacy Electronically, [facility]/pharmacy #[id number], Partial fill upon patient request if the [...] 12/09/20 15:00:00 EDT, Route to Pharmacy Electronically, [facility]/pharmacy #[id number], Partial fill upon patient request [...] 12/09/20 15:00:00 EDT, Route to Pharmacy Electronically, [facility]/pharmacy #[id number], Partial fill upon patient request [...]
--- OUTSIDE RECORDS SUMMARY | 2022-07-10 20:16 | XMS_ITS | Continuity of Care Document ---
:1995 Author Organization [facility] Address [address] [place] [address]- Care Team Providers Name Role Phone Thierno Quezada MD Primary Care Physician [phone] [place] [facility] [place] Date(s): 04/06/19 - 04/13/19 [facility] [address] [place] [address]- [facility] Attending Physician: Reese Conley MD Referring Physician: Thierno Quezada MD Allergies, Adverse Reactions, Alerts Substance Reaction Severity Status Latex Active Immunizations Given and Recorded Vaccine Date Status Refusal Reason influenza virus vaccine, inactivated1 01/16/17 Given influenza virus vaccine, inactivated 02/01/15 Given influenza virus vaccine, inactivated2 02/01/15 Given tetanus/diphtheria/pertussis, acel(Tdap) 11/08/16 Given 1Admin Note: VIS dated 11/26/2014 [id number] Comment: Wrong order Medications Colace sodium 100 [...] 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) Vital Signs Most recent to oldest [Reference Range]: 1 Height 164.4 cm (04/06/19 6:41 PM) Weight 83.0 kg (04/06/19 6:41 PM) Oxygen Saturation [94-100 %] 98 % (04/06/19 6:41 PM) Pulse Rate [55-90 bpm] 97 bpm *H* (04/06/19 6:41 PM) Body Mass Index [18.5-24.99] 30.71 *>HHI* (04/06/19 6:41 PM) Blood Pressure [90-138/55-84 mm Hg] 126/76 mm Hg (04/06/19 6:41 PM) Respiratory Rate [16-30 br/min] 18 br/min (04/06/19 6:41 PM) Temperature [96.8-100.4 DegF] 98.8 DegF (04/06/19 6:41 PM) Mode of Delivery (Oxygen) Room air (04/06/19 6:41 PM) Blood pressure sites Arm, right (04/06/19 6:41 PM) Temperature Route Oral (04/06/19 6:41 PM) Dry Weight 83.0 kg (04/06/19 6:41 PM) Weight Obtained Via Standing scale (04/06/19 6:41 PM) Dry Weight Obtained Via Standing scale (04/06/19 6:41 PM) Social History Social History Type Response Smoking Status Type: Cigarettes; Former smo ker entered on: 06/15/15 Sex
--- OUTSIDE RECORDS SUMMARY | 2022-07-10 20:16 | XMS_ITS | Continuity of Care Document ---
:1995 Author Organization [facility] ic Address [address] [place] [address]- Care Team Providers Name Role Phone Raven HADDAD, Michael Collins Primary Care Physician Encounter [facility] Date(s): 08/16/20 - 09/15/[address] [address]- Allergies, Adverse Reactions, Alerts Substance Reaction Severity Status Latex Active Tomatoes Active Immunizations Given and Recorded Vaccine Date Status Refusal Reason tetanus/diphtheria/pertussis, acel(Tdap) 07/22/20 Given tetanus/diphtheria/pertussis, acel(Tdap) 11/08/16 Given influenza virus vaccine, inactivated1 01/16/17 Given influenza virus vaccine, inactivated 02/01/15 Given influenza virus vaccine, inactivated2 02/01/15 Given 1Admin Note: VIS dated 11/26/2014 [id number] Comment: Wrong order Medications famotidine 10 mg oral tablet 1 tablet = 10 mg, By Mouth, 2 times a day, # 60 tablet, 1 Refills, Maintenance, 06/06/20 15:22:00 EST, Tablet, [id number], Partial fill upon patient request if the prescription is for a schedule II opioid drug., 164.4, cm, 06/06/20 15:05:00 ES... Start Date: 06/06/20 Status: OrderedPrenatal 1 0 Refills, Maintenance, 09/05/20 15:34:00 EDT, Partial fill upon patient request if the prescriptionis for a schedule II opioid drug. Start Date: 09/05/20 Status: Ordered Problem List Condition Effective Dates Status Health Status Informant Abnormal Pap smear of cervix - 07/12/16 Active LGSIL(Confirmed) H/O Positive GBS test(Confirmed)1 07/12/15 Active GERD (gastroesophageal reflux Active disease)(Confirmed) Anxiety and depression(Confirmed)2 Active (Confirmed) Active 1VAG/[id number] reports she is linked with mental health services at this time. Social History Social History Type Response Smoking Status Type: Cigarettes; Former smo ker entered on: 06/15/15 Sex
--- OUTSIDE RECORDS SUMMARY | 2022-07-10 20:16 | XMS_ITS | Continuity of Care Document ---
:1994 Author Organization [facility] Address [address] [place] [address]- Care Team Providers Name Role Phone Raven HADDAD, Michael Collins Primary Care Physician [phone] Encounter [facility] [place] Date(s): 09/05/20 - 09/05/[address] [address] Discharge Disposition: A-D/C Home Attending Physician: Rui Reid MD Admitting Physician: Rui Reid MD Referring Physician: Rui Reid MD Allergies, Adverse Reactions, Alerts Substance Reaction Severity Status Latex Active Tomatoes Active Immunizations Given and Recorded Vaccine Date Status Refusal Reason tetanus/diphtheria/pertussis, acel(Tdap) 07/22/20 Given tetanus/diphtheria/pertussis, acel(Tdap) 11/08/16 Given influenza virus vaccine, inactivated1 01/16/17 Given influenza virus vaccine, inactivated 02/01/15 Given influenza virus vaccine, inactivated2 02/01/15 Given 1Admin Note: VIS dated 11/26/2014 [id number] Comment: Wrong order Medications famotidine 10 mg oral tablet 1 tablet = 10 mg, By Mouth, 2 times a day, # 60 tablet, 1 Refills, Maintenance, 06/06/20 15:22:00 EST, Tablet, [id number], Partial fill upon patient request if the [...] disease)(Confirmed) Anxiety and depression(Confirmed)2 Active (Confirmed) Active 1VAG/YPQQJR6Ob reports she is linked with mental health services at this time. Results Orders for Microbiology Reports Name Date Urine Culture (URINE CULTURE) 09/05/20 Microbiology Reports TEST:Urine Culture STATUS:Unauthenticated BODY SITE: SOURCE:URINE COLLECTED DATE/TIME:09/05/20 5:00 PMUrine Culture SPECIMEN DESCRIPTION : URINE CLEAN CATCH/MIDSTREAM SPECIAL REQUESTS : NONE Reflexed from [id number] REPORT STATUS : PRELIMINARY REPORT Vital Signs Most recent to oldest [Reference Range]: 1 2 Height 163 cm (09/05/20 3:33 PM) Weight 108.2 kg (09/05/20 3:02 PM) Oxygen Saturation [94-100 %] 97 % (09/05/20 3:33 PM) Pulse Rate [55-90 bpm] 89 bpm (09/05/20 3:33 PM) Blood Pressure [90-138/55-84 mm Hg] 131/81 mm Hg (09/05/20 3:33 PM) Respiratory Rate [16-30 br/min] 16 br/min (09/05/20 3:33 PM) Temperature [96.8-100.4 DegF] 99.1 DegF 98.9 DegF (09/05/20 3:33 PM) (09/05/20 3:02 PM) Blood pressure sites Arm, right (09/05/20 3:33 PM) Temperature Route Oral Oral (09/05/20 3:33 PM) (09/05/20 3:02 PM) Dry Weight 108.2 kg (09/05/20 3:02 PM) Social History Social History Type Response Smoking Status Type: Cigarettes; Former smo ker entered on: 06/15/15 Sex
--- OUTSIDE RECORDS SUMMARY | 2022-07-10 20:16 | XMS_ITS | Continuity of Care Document ---
:1994 Author Organization [facility] Address [address] [place] [address]- Care Team Providers Name Role Phone Raven HADDAD, Michael Collins Primary Care Physician Encounter [facility] [place] Date(s): 09/15/20 - 09/15/[address] [address] Discharge Disposition: A-D/C Home Attending Physician: Maddison Pratt MD Admitting Physician: Maddison Pratt MD Referring Physician: Maddison Pratt MD Allergies, Adverse Reactions, Alerts Substance Reaction Severity Status Latex Active Tomatoes Active Immunizations Given and Recorded Vaccine Date Status Refusal Reason tetanus/diphtheria/pertussis, acel(Tdap) 07/22/20 Given tetanus/diphtheria/pertussis, acel(Tdap) 11/08/16 Given influenza virus vaccine, inactivated1 01/16/17 Given influenza virus vaccine, inactivated 02/01/15 Given influenza virus vaccine, inactivated2 02/01/15 Given 1Admin Note: VIS dated 11/26/2014 [id number] Comment: Wrong order Medications famotidine 10 mg oral tablet 1 tablet = 10 mg, By Mouth, 2 times a day, # 60 tablet, 1 Refills, Maintenance, 06/06/20 15:22:00 EST, Tablet, [id number], Partial fill upon patient request if the [...] disease)(Confirmed) Anxiety and depression(Confirmed)2 Active (Confirmed) Active 1VAG/[id number] reports she is linked with mental health services at this time. Social History Social History Type Response Smoking Status Type: Cigarettes; Former smo ker entered on: 06/15/15 Sex
--- OUTSIDE RECORDS SUMMARY | 2022-07-10 20:16 | XMS_ITS | Continuity of Care Document ---
:1995 Author Organization [facility] Address [address] [place] [address]- Care Team Providers Name Role Phone Raven HADDAD, Michael Collins Primary Care Physician Encounter [facility] Date(s): 10/20/21 - 11/25/[address] [address] Attending Physician: Alexus Neves MD Admitting Physician: Alexus Neves MD Referring Physician: Alexus Neves MD Allergies, Adverse Reactions, Alerts Substance Reaction [...] 94 Recorded 1Admin Note: VIS dated 11/26/2014 [id number] Comment: Wrong order Medications acetaminophen 325 mg oral tablet 650 mg, 2, tablet, By Mouth, Every 4 hours, PRN, # 50 tablet, Refills 0, Tot. Refills 0, Maintenance, as needed for pain, 12/09/20 15:01:00 EDT, Route to Pharmacy Electronically, [facility]/pharmacy #[id number], Partial fill upon patient request if the [...] 12/09/20 15:00:00 EDT, Route to Pharmacy Electronically, [facility]/pharmacy #[id number], Partial fill upon patient request [...] 12/09/20 15:00:00 EDT, [facility], [id number], Partial fill upon patient request if the prescription i... Start Date: 12/09/20 Status: Orderedriboflavin 400 mg oral capsule 1 capsule = 400 mg, By Mouth, Daily, # 100 capsule, 3 Refills, Maintenance, 03/27/21 16:56:00 EST, [id number], Partial fill upon patient request if [...]
--- OUTSIDE RECORDS SUMMARY | 2022-07-10 20:16 | XMS_ITS | Continuity of Care Document ---
:1994 Author Organization [facility] ic Address [address] [place] [address]- Care Team Providers Name Role Phone Raven HADDAD, Michael Collins Primary Care Physician [phone] Encounter [facility] Date(s): 05/11/20 - 06/10/[address] [address] Allergies, Adverse Reactions, Alerts Substance Reaction Severity Status Latex Active Immunizations Given and Recorded Vaccine Date Status Refusal Reason influenza virus vaccine, inactivated1 01/16/17 Given influenza virus vaccine, inactivated 02/01/15 Given influenza virus vaccine, inactivated2 02/01/15 Given tetanus/diphtheria/pertussis, acel(Tdap) 11/08/16 Given 1Admin Note: VIS dated 11/26/2014 [id number] Comment: Wrong order Medications doxylamine 25 mg oral tablet 1 tablet = 25 mg, By Mouth, Daily, Take one tablet before bed., # 60 tablet, 1 Refills, Maintenance,03/24/20 14:19:00 EST, [id number], Partial fill upon patient request if the prescription is for a schedule II opioid drug., 164.4, cm, ... Start Date: 03/24/20 Status: Orderedfamotidine 10 mg oral tablet 1 tablet = 10 mg, By Mouth, 2 times a day, # 60 tablet, 1 Refills, Maintenance, 06/06/20 15:22:00 EST, Tablet, [id number], Partial fill upon patient request if the prescription is for a schedule II opioid drug., 164.4, cm, 06/06/20 15:05:00 ES... Start Date: 06/06/20 Status: OrderedFluoxetine = 25 mg, By Mouth, 0 Refills, Maintenance, 03/24/20 19:13:00 EST, Partial fill upon patient request if the prescription is for a schedule II opioid drug. Start Date: 03/24/20 Status: Orderedhydrocortisone 1% topical cream 1 application, Topically, 2 times a day, # 15 Gm, 0 Refills, Maintenance, 06/06/20 15:53:00 EST, Cream, [id number], Partial fill upon patient request if the prescription is for a schedule II opioid drug., 1 application Topically 2 times a day,... Start Date: 06/06/20 Stop Date: 06/20/20 Status: Orderedmiconazole 2% topical cream 1 application, Topically, 2 times a day, # 15 Gm, 0 Refills, Maintenance, 06/06/20 15:53:00 EST, Cream, [id number], Partial fill upon patient request if the prescription is for a schedule II opioid drug., 1 application Topically 2 times a day,... 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 Social History Social History Type Response Smoking Status Type: Cigarettes; Former smo ker entered on: 06/15/15 Sex
--- OUTSIDE RECORDS SUMMARY | 2022-07-10 20:16 | XMS_ITS | Continuity of Care Document ---
:1994 Author Organization [facility] ic Address [address] [place] [address]- Care Team Providers Name Role Phone Raven HADDAD, Michael Collins Primary Care Physician [phone] [place] [facility] [place] [address] Attending Physician: Nya Mata DO Admitting Physician: Nya Mata DO Referring Physician: Lyn HADDAD, Agata Martinez Allergies, Adverse Reactions, Alerts Substance Reaction Severity Status Latex Active Tomatoes Active Immunizations Given and Recorded Vaccine Date Status Refusal Reason tetanus/diphtheria/pertussis, acel(Tdap) 07/22/20 Given tetanus/diphtheria/pertussis, acel(Tdap) 11/08/16 Given influenza virus vaccine, inactivated1 01/16/17 Given influenza virus vaccine, inactivated 02/01/15 Given influenza virus vaccine, inactivated2 02/01/15 Given 1Admin Note: VIS dated 11/26/2014 [id number] Comment: Wrong order Medications famotidine 10 mg oral tablet 1 tablet = 10 mg, By Mouth, 2 times a day, # 60 tablet, 1 Refills, Maintenance, 06/06/20 15:22:00 EST, Tablet, [id number], Partial fill upon patient request if the [...] disease)(Confirmed) Anxiety and depression(Confirmed)2 Active (Confirmed) Active 1VAG/GKOPGM1Ih reports she is linked with mental health services at this time. Social History Social History Type Response Smoking Status Type: Cigarettes; Former smo ker entered on: 06/15/15 Sex
--- OUTSIDE RECORDS SUMMARY | 2022-07-10 20:16 | XMS_ITS | Continuity of Care Document ---
:1995 Author Organization [facility] ic Address [address] [place] [address]- Care Team Providers Name Role Phone Raven HADDAD, Michael Collins Primary Care Physician [phone] [facility] [place] Date(s): 05/05/20 - 07/30/[address] [id number] Attending Physician: Not on Staff, Attending MD Referring Physician: Michael Carbajal NP Allergies, Adverse Reactions, Alerts Substance Reaction Severity Status Latex Active Immunizations Given and Recorded Vaccine Date Status Refusal Reason tetanus/diphtheria/pertussis, acel(Tdap) 07/22/20 Given tetanus/diphtheria/pertussis, acel(Tdap) 11/08/16 Given influenza virus vaccine, inactivated1 01/16/17 Given influenza virus vaccine, inactivated 02/01/15 Given influenza virus vaccine, inactivated2 02/01/15 Given 1Admin Note: VIS dated 11/26/2014 [id number] Comment: Wrong order Medications doxylamine 25 mg oral tablet 1 tablet = 25 mg, By Mouth, Daily, Take one tablet before bed., # 60 tablet, 1 Refills, Maintenance,03/24/20 14:19:00 EST, [id number], Partial fill upon patient request if the prescription is for a schedule II opioid drug., 164.4, cm, ... Start Date: 03/24/20 Status: Orderedfamotidine 10 mg oral tablet 1 tablet = 10 mg, By Mouth, 2 times a day, # 60 tablet, 2 Refills, Maintenance, 07/22/20 12:27:00 EDT, Tablet, [id number], Partial fill upon patient request if the prescription is for a schedule II opioid drug., 164.4, cm, 07/22/20 11:45:00 ED... Start Date: 07/22/20 Status: Orderedfamotidine 10 mg oral tablet 1 [...] Start Date: 06/06/20 Stop Date: 06/20/20 Status: Orderedmelatonin 1 mg oral tablet 1 tablet = 1 mg, By Mouth, Daily at bedtime, PRN for insomnia, May increase to 2-3 tablets if 1 tablet does not help with insomnia., # 90 tablet, 0 Refills, Maintenance, 07/22/20 12:28:00 EDT, Tablet, [id number], Partial fill upon patient requ... Start Date: 07/22/20 Status: Orderedmiconazole 2% topical cream 1 application, [...] 16:03:00EDT, Dry Weight Start Date: 01/25/20 Status: OrderedUnisom 25 mg oral tablet 1 tablet = 25 mg, By Mouth, Daily at bedtime, PRN for sleep, # 32 tablet, 0 Refills, Maintenance, 07/22/20 12:27:00 EDT, Tablet, [id number], Partial fill upon patient request if the prescription is for a schedule II opioid drug., 164.4, cm, 04... Start Date: 07/22/20 Status: Ordered Problem List Condition Effective Dates Status Health Status Informant Abnormal Pap smear of cervix - 07/12/16 Active LGSIL(Confirmed) H/O Positive GBS test(Confirmed)1 07/12/15 Active GERD (gastroesophageal reflux Active disease)(Confirmed) Anxiety and depression(Confirmed)2 Active 1VAG/GUEETN2Bj reports she is linked with mental health services at this time. Social History Social History Type Response Smoking Status Type: Cigarettes; Former smo ker entered on: 06/15/15 Sex
--- OUTSIDE RECORDS SUMMARY | 2022-07-10 20:16 | XMS_ITS | Continuity of Care Document ---
:1994 Author Organization [facility] Address [address] [place] [address]- Care Team Providers Name Role Phone Thierno Quezada MD Primary Care Physician Encounter [facility] [place] Date(s): 04/19/19 - 04/19/[address] [address]- [facility] Encounter Diagnosis Influenza B (Final) - 04/19/19 Discharge Disposition: A-D/C Home Attending Physician: Reji Haque DO Admitting Physician: Reji Haque DO Referring Physician: Not on Staff, Referring MD Allergies, Adverse Reactions, Alerts Substance Reaction Severity Status Latex Active Immunizations Given and Recorded Vaccine Date Status Refusal Reason influenza virus vaccine, inactivated1 01/16/17 Given influenza virus vaccine, inactivated 02/01/15 Given influenza virus vaccine, inactivated2 02/01/15 Given tetanus/diphtheria/pertussis, acel(Tdap) 11/08/16 Given 1Admin Note: VIS dated 11/26/2014 [id number] Comment: Wrong order Medications Colace sodium 100 [...] Start Date: 09/14/16 Stop Date: 09/28/16 Status: OrderedTamiflu 75 mg oral capsule 1 capsule = 75 mg, By Mouth, 2 times a day, for 5 days, # 10 capsule, 0 Refills, Acute 04/24/19 18:57:00 EST, 04/19/19 18:57:00 EST, Capsule, [facility]/pharmacy #[id number], 164.4, cm, 04/06/19 18:41:00 EST, Height, 83, kg, 04/06/19 18:41:00 EST, Dry Weight Start Date: 04/19/19 Stop Date: 04/24/19 Status: OrderedTylenol 325 mg oral tablet 650 [...] 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 LUNGS AND PLEURA: Clear lungs. Normal pulmonary vascularity. No pleural effusion. No pneumothorax. HEART, MEDIASTINUM AND DEB: Heart is normal in size. Normal mediastinal and hilar contour. BONES AND SOFT TISSUES: No acute abnormality. IMPRESSION: No acute abnormality. WSN: [id number] Dictated By: Jessee Patel DO Dictated Date/Time: 04/19/19 4:47 pm Reviewed By: Jessee Patel DO Signed By: Jessee Patel DO Signed Date/Time: 04/19/19 4:47 pm Transcribed By: JHONNY Transcribed Date/Time: 04/19/19 4:47 pm Vital Signs Most recent to oldest 1 2 3 [Reference Range]: Oxygen Saturation [94-100 100 % 98 % 97 % %] (04/19/19 7:24 PM) (04/19/19 3:48 PM) (04/19/19 11:39 AM) Pulse Rate [55-90 bpm] 81 bpm 79 bpm 80 bpm (04/19/19 7:24 PM) (04/19/19 3:48 PM) (04/19/19 11:39 AM) Blood Pressure 141/73 mm Hg 119/64 mm Hg 121/79 mm Hg [90-138/55-84 mm Hg] *H* (04/19/19 3:48 PM) ( 9 11:39 AM) (04/19/19 7:24 PM) Respiratory Rate [16-30 16 br/min 18 br/min 16 br/mi n br/min] (04/19/19 7:24 PM) (04/19/19 3:48 PM) (04/19/19 11:39 AM) Temperature [96.8-100.4 99.4 DegF DegF] (04/19/19 11:39 AM) Mode of Delivery (Oxygen) Room air Room air Room a ir (04/19/19 7:24 PM) (04/19/19 3:48 PM) (04/19/19 11:39 AM) Blood pressure sites Arm, left Arm, left Arm, left (04/19/19 7:24 PM) (04/19/19 3:48 PM) (04/19/19 11:39 AM) Temperature Route Oral (04/19/19 11:39 AM) Social History Social History Type Response Smoking Status Type: Cigarettes; Former smo ker entered on: 06/15/15 Sex
--- OUTSIDE RECORDS SUMMARY | 2022-07-10 20:16 | XMS_ITS | Continuity of Care Document ---
:1994 Author Organization [facility] Address Unavailable , Care Team Providers Name Role Phone Raven HADDAD, Michael Collins Primary Care Physician [phone] Encounter [facility] [place] Date(s): 10/12/21 - 11/11/21 [facility] Attending Physician: Olesya Noble Admitting Physician: Olesya [...] 94 Recorded 1Admin Note: VIS dated 11/26/2014 [id number] Comment: Wrong order Medications acetaminophen 325 mg oral tablet 650 mg, 2, tablet, By Mouth, Every 4 hours, PRN, # 50 tablet, Refills 0, Tot. Refills 0, Maintenance, as needed for pain, 12/09/20 15:01:00 EDT, Route to Pharmacy Electronically, [facility]/pharmacy #[id number], Partial fill upon patient request if the [...] 12/09/20 15:00:00 EDT, Route to Pharmacy Electronically, [facility]/pharmacy #[id number], Partial fill upon patient request [...]
--- OUTSIDE RECORDS SUMMARY | 2022-07-10 20:16 | XMS_ITS | Continuity of Care Document ---
:1994 Author Organization [facility] ic Address [address] [place] [address]- Care Team Providers Name Role Phone Raven HADDAD, Michael Collins Primary Care Physician Encounter [facility] Date(s): 09/16/20 - 10/22/[address] [address] Attending Physician: Nya Mata DO Admitting Physician: [...] 02/01/15 Given 1Admin Note: VIS dated 11/26/2014 [id number] Comment: Wrong order Medications famotidine 10 mg oral tablet 1 tablet = 10 mg, By Mouth, 2 times a day, # 60 tablet, 1 Refills, Maintenance, 06/06/20 15:22:00 EST, Tablet, [id number], Partial fill upon patient request if the [...] disease)(Confirmed) Anxiety and depression(Confirmed)2 Active (Confirmed) Active 1VAG/BDKJTC0Jp reports she is linked with mental health services at this time. Social History Social History Type Response Smoking Status Type: Cigarettes; Former smo ker entered on: 06/15/15 Sex
--- OUTSIDE RECORDS SUMMARY | 2022-07-10 20:16 | XMS_ITS | Continuity of Care Document ---
:1994 Author Organization [facility] Address [address] [place] [address]- Care Team Providers Name Role Phone Michael Carbajal NP Primary Care Physician Encounter [facility] [place] Date(s): 05/01/20 - 05/02/[address] [address]- Discharge Disposition: A-D/C Walkout Attending Physician: Not on Staff, Attending MD Admitting Physician: Not on Staff, Admitting MD Referring Physician: Not on Staff, Referring MD Allergies, Adverse Reactions, Alerts Substance Reaction Severity Status Latex Active Immunizations Given and Recorded Vaccine Date Status Refusal Reason influenza virus vaccine, inactivated1 01/16/17 Given influenza virus vaccine, inactivated 02/01/15 Given influenza virus vaccine, inactivated2 02/01/15 Given tetanus/diphtheria/pertussis, acel(Tdap) 11/08/16 Given 1Admin Note: VIS dated 11/26/2014 [id number] Comment: Wrong order Medications doxylamine 25 mg oral tablet 1 tablet = 25 mg, By Mouth, Daily, Take one tablet before bed., # 60 tablet, 1 Refills, Maintenance,03/24/20 14:19:00 EST, [facility]/pharmacy #[id number], Partial fill upon patient request if the prescription is for a schedule II opioid drug., 164.4, cm, ... Start Date: 03/24/20 Status: OrderedFluoxetine = 25 mg, By Mouth, 0 Refills, Maintenance, 03/24/20 19:13:00 EST, Partial fill upon patient request if the prescription is for a schedule II opioid drug. 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 Vital Signs Most recent to oldest [Reference Range]: 1 2 Oxygen Saturation [94-100 %] 100 % 100 % (05/01/20 5:37 PM) (05/01/20 4:06 PM) Pulse Rate [55-90 bpm] 72 bpm 106 bpm (05/01/20 5:37 PM) *H* (05/01/20 4:06 PM) Blood Pressure [90-138/55-84 mm Hg] 138/69 mm Hg (05/01/20 5:37 PM) Respiratory Rate [16-30 br/min] 20 br/min (05/01/20 5:37 PM) Temperature [96.8-100.4 DegF] 98.7 DegF (05/01/20 5:37 PM) Mode of Delivery (Oxygen) Room air (05/01/20 5:37 PM) Blood pressure sites Arm, left (05/01/20 5:37 PM) Temperature Route Oral (05/01/20 5:37 PM) Social History Social History Type Response Smoking Status Type: Cigarettes; Former smo ker entered on: 06/15/15 Sex
--- OUTSIDE RECORDS SUMMARY | 2022-07-10 20:16 | XMS_ITS | Continuity of Care Document ---
:1994 Author Organization [address], [address] [place] [address]- Care Team Providers Name Role Phone Damien PANTOJA, Thierno Mcrae Primary Care Physician En[place] [facility] [place] Date(s): 06/01/19 - 07/10/[address], [address] [place] [address]- [facility] Attending Physician: Barry Alicea MD Referring Physician: Thierno Quezada MD Allergies, Adverse Reactions, Alerts Substance Reaction Severity Status Latex Active Immunizations Given and Recorded Vaccine Date Status Refusal Reason influenza virus vaccine, inactivated1 01/16/17 Given influenza virus vaccine, inactivated 02/01/15 Given influenza virus vaccine, inactivated2 02/01/15 Given tetanus/diphtheria/pertussis, acel(Tdap) 11/08/16 Given 1Admin Note: VIS dated 11/26/2014 [id number] Comment: Wrong order Medications Colace sodium 100 [...]
--- OUTSIDE RECORDS SUMMARY | 2022-07-10 20:16 | XMS_ITS | Continuity of Care Document ---
:1994 Author Organization [facility] Address [address] [place] [address]- Care Team Providers Name Role Phone Thierno Quezada MD Primary Care Physician [phone] Encounter [facility] [place] Date(s): 04/06/19 - 04/16/19 [facility] [address] [place] [address]- [facility] Attending Physician: AdmOlesya carpenter Admitting Physician: AdmtrOlesya Referring Physician: Admtr, Ar8 Allergies, Adverse Reactions, Alerts Substance Reaction Severity Status Latex Active Immunizations Given and Recorded Vaccine Date Status Refusal Reason influenza virus vaccine, inactivated1 01/16/17 Given influenza virus vaccine, inactivated 02/01/15 Given influenza virus vaccine, inactivated2 02/01/15 Given tetanus/diphtheria/pertussis, acel(Tdap) 11/08/16 Given 1Admin Note: VIS dated 11/26/2014 [id number] Comment: Wrong order Medications Colace sodium 100 [...]
--- OUTSIDE RECORDS SUMMARY | 2022-07-10 20:16 | XMS_ITS | Continuity of Care Document ---
:1994 Author Organization [facility] Address [address] [place] [address], [address] [place] [address]- Care Team Providers Name Role Phone Raven HADDAD, Michael Collins Primary Care Physician Encounter [facility] Date(s): 07/25/20 - 08/24/20 [facility] [address], [address] [place] [address] Allergies, Adverse Reactions, Alerts Substance Reaction Severity Status Latex Active Tomatoes Active Immunizations Given and Recorded Vaccine Date Status Refusal Reason tetanus/diphtheria/pertussis, acel(Tdap) 07/22/20 Given tetanus/diphtheria/pertussis, acel(Tdap) 11/08/16 Given influenza virus vaccine, inactivated1 01/16/17 Given influenza virus vaccine, inactivated 02/01/15 Given influenza virus vaccine, inactivated2 02/01/15 Given 1Admin Note: VIS dated 11/26/2014 [id number] Comment: Wrong order Medications doxylamine 25 mg [...] 0 Refills, Maintenance, 06/06/20 15:53:00 EST, Cream, [facility]/pharmacy #[id number], Partial fill upon patient request if the prescription is for a schedule II opioid drug., 1 application Topically 2 times a day,... Start Date: 06/06/20 Stop Date: 06/20/20 Status: OrderedMelatonin 1 mg oral tablet See Instructions, TAKE 1 TABLET DAILY AT BEDTIME NEEDED FOR INSOMNIA, MAY INCREASE TO 2-3 TABLETSIF NEEDED, # 90 tablet, 0 Refills, Acute, [id number], 164.4, cm, 08/08/20 15:50:00 EDT, Height,94.7, kg, 01/25/20 16:03:00 EDT, Dry Weight Start Date: 08/16/20 Status: Orderedmiconazole 2% topical cream 1 application, [...] 16:03:00EDT, Dry Weight Start Date: 01/25/20 Status: OrderedpredniSONE 10 mg oral tablet 1 tablet = 10 mg, By Mouth, Daily, take 60mg (6 tablets) Day 1, 50mg (5tablets) Day 2, 40mg (4 tablets) Day 3, 30mg(3 tablets) Day 4, 20mg(2 tablets) Day 5, 10mg(1 tablet) Day 6., # 15 tablet, 0 Refills, Maintenance, 08/17/20 21:30:00 EDT, [facility] Start Date: 08/17/20 Status: OrderedSUMAtriptan 50 mg oral tablet 1 tablet = 50 mg, By Mouth, Daily, PRN for migraine headache, may repeat dose after 2 hours up to a maximum of 2, # 9 tablet, 0 Refills, Maintenance, 08/17/20 21:26:00 EDT, Tablet, [id number], Partial fill upon patient request if the prescript... Start Date: 08/17/20 Status: OrderedUnisom 25 mg oral tablet 1 [...] reflux Active disease)(Confirmed) Anxiety and depression(Confirmed)2 Active 1VAG/VZLKEO3Vv reports she is linked with mental health services at this time. Social History Social History Type Response Smoking Status Type: Cigarettes; Former smo ker entered on: 06/15/15 Sex
--- OUTSIDE RECORDS SUMMARY | 2022-07-10 20:16 | XMS_ITS | Continuity of Care Document ---
:1994 Author Organization [facility] Address [address] [place] [address]- Care Team Providers Name Role Phone Raven HADDAD, Michael Collins Primary Care Physician [phone] Encounter [facility] [place] Date(s): 09/21/20 - 09/22/[address] [address] Discharge Disposition: A-D/C Home Attending Physician: Barry Tinsley MD Admitting Physician: Barry Tinsley MD Referring Physician: Barry Tinsley MD Allergies, Adverse Reactions, Alerts Substance Reaction Severity Status Latex Active Tomatoes Active Immunizations Given and Recorded Vaccine Date Status Refusal Reason tetanus/diphtheria/pertussis, acel(Tdap) 07/22/20 Given tetanus/diphtheria/pertussis, acel(Tdap) 11/08/16 Given influenza virus vaccine, inactivated1 01/16/17 Given influenza virus vaccine, inactivated 02/01/15 Given influenza virus vaccine, inactivated2 02/01/15 Given 1Admin Note: VIS dated 11/26/2014 [id number] Comment: Wrong order Medications famotidine 10 mg oral tablet 1 tablet = 10 mg, By Mouth, 2 times a day, # 60 tablet, 1 Refills, Maintenance, 06/06/20 15:22:00 EST, Tablet, [id number], Partial fill upon patient request if the [...] disease)(Confirmed) Anxiety and depression(Confirmed)2 Active (Confirmed) Active 1VAG/GECDFT8Xs reports she is linked with mental health services at this time. Vital Signs Most recent to oldest [Reference Range]: 1 2 Weight 110.9 kg 110.9 kg (09/21/20 8:53 PM) (09/21/20 8:51 PM) Blood Pressure [90-138/55-84 mm Hg] 133/83 mm Hg (09/21/20 8:58 PM) Temperature [96.8-100.4 DegF] 98.4 DegF (09/21/20 8:58 PM) Blood pressure sites Arm, left 1 (09/21/20 8:58 PM) Temperature Route Oral (09/21/20 8:58 PM) Dry Weight 110.9 kg 110.9 kg (09/21/20 8:53 PM) (09/21/20 8:51 PM) Weight Obtained Via Standing scale Standing scale (09/21/20 8:53 PM) (09/21/20 8:51 PM) 1Result Comment: L arm circ 36.5cm Social History Social History Type Response Smoking Status Type: Cigarettes; Former smo ker entered on: 06/15/15 Sex
--- OUTSIDE RECORDS SUMMARY | 2022-07-10 20:16 | XMS_ITS | Continuity of Care Document ---
:1994 Author Organization [facility] ic Address [address] [place] [address]- Care Team Providers Name Role Phone Raven HADDAD, Michael Collins Primary Care Physician [phone] Encounter [facility] [place] Date(s): 03/24/20 - 06/04/[address] [address]- Attending Physician: Not on Staff, Attending MD Referring Physician: Michael Carbajal NP Allergies, Adverse Reactions, Alerts Substance Reaction Severity Status Latex Active Immunizations Given and Recorded Vaccine Date Status Refusal Reason influenza virus vaccine, inactivated1 01/16/17 Given influenza virus vaccine, inactivated 02/01/15 Given influenza virus vaccine, inactivated2 02/01/15 Given tetanus/diphtheria/pertussis, acel(Tdap) 11/08/16 Given 1Admin Note: VIS dated 11/26/2014 [id number] Comment: Wrong order Medications doxylamine 25 mg [...] day, # 60 tablet, 1 Refills, Maintenance, 05/13/20 9:54:00 EST, Tablet, [id number], Partial fill upon patient request if the prescription is for a scheduleII opioid drug., 164.4, cm, 05/13/20 9:47:00 EST,... Start Date: 05/13/20 Status: OrderedFluoxetine = 25 mg, By Mouth, [...] 06/21/16 Active Hemoglobinopathy(Confirmed) Anxiety and depression(Confirmed)2 Active 1VAG/UODYKY2Rv reports she is linked with mental health services at this time. Social History Social History Type Response Smoking Status Type: Cigarettes; Former smo ker entered on: 06/15/15 Sex
--- OUTSIDE RECORDS SUMMARY | 2022-07-10 20:16 | XMS_ITS | Continuity of Care Document ---
:1994 Author Organization [facility] Address [address] [place] [address]- Care Team Providers Name Role Phone Raven HADDAD, Michael Collins Primary Care Physician Encounter [facility] [place] Date(s): 06/28/21 - 07/28/21 [facility] [address] [place] [address] Attending Physician: Olesya Noble Admitting Physician: Olesya [...] 94 Recorded 1Admin Note: VIS dated 11/26/2014 [id number] Comment: Wrong order Medications acetaminophen 325 mg oral tablet 650 mg, 2, tablet, By Mouth, Every 4 hours, PRN, # 50 tablet, Refills 0, Tot. Refills 0, Maintenance, as needed for pain, 12/09/20 15:01:00 EDT, Route to Pharmacy Electronically, [facility]/pharmacy #[id number], Partial fill upon patient request if the [...] 12/09/20 15:00:00 EDT, Route to Pharmacy Electronically, [facility]/pharmacy #[id number], Partial fill upon patient [...]
--- OUTSIDE RECORDS SUMMARY | 2022-07-10 20:16 | XMS_ITS | Continuity of Care Document ---
:1994 Author Organization [facility] Address Unavailable , Care Team Providers Name Role Phone Raven HADDAD, Michael Collins Primary Care Physician [phone] Encounter [facility] [place] Date(s): 07/14/21 - 11/11/21 [facility] Attending Physician: Pema Muniz MD Admitting Physician: Pema Muniz MD Allergies, Adverse Reactions, Alerts Substance Reaction [...] 94 Recorded 1Admin Note: VIS dated 11/26/2014 [id number] Comment: Wrong order Medications acetaminophen 325 mg oral tablet 650 mg, 2, tablet, By Mouth, Every 4 hours, PRN, # 50 tablet, Refills 0, Tot. Refills 0, Maintenance, as needed for pain, 12/09/20 15:01:00 EDT, Route to Pharmacy Electronically, [facility]/pharmacy #[id number], Partial fill upon patient request if the [...]
--- OUTSIDE RECORDS SUMMARY | 2022-07-10 20:16 | XMS_ITS | Continuity of Care Document ---
:1994 Author Organization [facility] ic Address [address] [place] [address]- Care Team Providers Name Role Phone Raven HADDAD, Michael Collins Primary Care Physician Encounter [facility] Date(s): 05/11/20 - 06/19/[address] [address]- Attending Physician: Not on Staff, Attending MD Allergies, Adverse Reactions, Alerts Substance Reaction Severity Status Latex Active Immunizations Given and Recorded Vaccine Date Status Refusal Reason influenza virus vaccine, inactivated1 01/16/17 Given influenza virus vaccine, inactivated 02/01/15 Given influenza virus vaccine, inactivated2 02/01/15 Given tetanus/diphtheria/pertussis, acel(Tdap) 11/08/16 Given 1Admin Note: VIS dated 11/26/2014 [id number] Comment: Wrong order Medications doxylamine 25 mg oral tablet 1 tablet = 25 mg, By Mouth, Daily, Take one tablet before bed., # 60 tablet, 1 Refills, Maintenance,03/24/20 14:19:00 EST, [id number], Partial fill upon patient request if the prescription is for a schedule II opioid drug., 164.4, cm, 2... Start Date: 03/24/20 Status: Orderedfamotidine 10 mg [...] reflux Active disease)(Confirmed) Anxiety and depression(Confirmed)2 Active 1VAG/JDENQK7Mw reports she is linked with mental health services at this time. Social History Social History Type Response Smoking Status Type: Cigarettes; Former smo ker entered on: 06/15/15 Sex
--- OUTSIDE RECORDS SUMMARY | 2022-07-10 20:16 | XMS_ITS | Continuity of Care Document ---
:1995 Author Organization [facility] Address [address] [place] [id number]- Care Team Providers Name Role Phone Raven HADDAD, Michael Collins Primary Care Physician [phone] [place] [facility] [place]15[place]20 - 10/15/20 [facility] [address] [place] [id number] Allergies, Adverse Reactions, Alerts Substance Reaction Severity Status Latex Active Tomatoes Active Immunizations Given and Recorded Vaccine Date Status Refusal Reason tetanus/diphtheria/pertussis, acel(Tdap) 07/22/20 Given tetanus/diphtheria/pertussis, acel(Tdap) 11/08/16 Given influenza virus vaccine, inactivated1 01/16/17 Given influenza virus vaccine, inactivated 02/01/15 Given influenza virus vaccine, inactivated2 02/01/15 Given 1Admin Note: VIS dated 11/26/2014 [email or web address] Comment: Wrong order Medications famotidine 10 mg oral tablet 1 tablet = 10 mg, By Mouth, 2 times a day, # 60 tablet, 1 Refills, Maintenance, 06/06/20 15:22:00 EST, Tablet, [facility] #[id number], Partial fill upon patient request if the [...] disease)(Confirmed) Anxiety and depression(Confirmed)2 Active (Confirmed) Active [id number] reports she is linked with mental health services at this time. Social History Social History Type Response Smoking Status Type: Cigarettes; Former smo ker entered on: 06/15/15 Sex
--- OUTSIDE RECORDS SUMMARY | 2022-07-10 20:16 | XMS_ITS | Continuity of Care Document ---
:1995 Author Organization [facility] Address [address] [place] [id number]- Care Team Providers Name Role Phone Raven HADDAD, Michael Collins Primary Care Physician [place] [facility] [place] - 07/15/[address] [address]- Discharge Disposition: A-D/C Home Attending Physician: Gopi Friedman MD Admitting Physician: Gopi Friedman MD Referring Physician: Gopi Friedman MD Allergies, Adverse Reactions, Alerts Substance Reaction Severity Status Latex Active Immunizations Given and Recorded Vaccine Date Status Refusal Reason influenza virus vaccine, inactivated1 01/16/17 Given influenza virus vaccine, inactivated 02/01/15 Given influenza virus vaccine, inactivated2 02/01/15 Given tetanus/diphtheria/pertussis, acel(Tdap) 11/08/16 Given 1Admin Note: VIS dated 11/26/2014 [id number] Comment: Wrong order Medications doxylamine 25 mg [...] reflux Active disease)(Confirmed) Anxiety and depression(Confirmed)2 Active [id number] reports she is linked with mental health services at this time. Vital Signs Most recent to oldest [Reference Range]: 1 2 Oxygen Saturation [94-100 %] 100 % (07/15/20 2:51 PM) Blood Pressure [90-138/55-84 mm Hg] 105/69 mm Hg 85/5 9 mm Hg (07/15/20 2:51 PM) *L* (07/15/20 2:20 PM) Respiratory Rate [16-30 br/min] 20 br/min (07/15/20 2:20 PM) Temperature [96.8-100.4 DegF] 97.6 DegF (07/15/20 2:20 PM) Blood pressure sites Arm, left (07/15/20 2:20 PM) Temperature Route Oral (07/15/20 2:20 PM) Social History Social History Type Response Smoking Status Type: Cigarettes; Former smo ker entered on: 06/15/15 Sex
--- OUTSIDE RECORDS SUMMARY | 2022-07-10 20:16 | XMS_ITS | Continuity of Care Document ---
:1995 Author Organization [facility] ic Address [address] [place] [id number]- Care Team Providers Name Role Phone Raven HADDAD, Michael Collins Primary Care Physician [place] [facility] [place] 11/05/[address] [id number] Attending Physician: Olesya Noble Admitting Physician: AdmOlesya carpenter Referring Physician: AdmtrOlesya Allergies, Adverse Reactions, Alerts Substance Reaction Severity Status Latex Active Tomatoes Active Immunizations Given and Recorded Vaccine Date Status Refusal Reason tetanus/diphtheria/pertussis, acel(Tdap) 07/22/20 Given tetanus/diphtheria/pertussis, acel(Tdap) 11/08/16 Given influenza virus vaccine, inactivated1 01/16/17 Given influenza virus vaccine, inactivated 02/01/15 Given influenza virus vaccine, inactivated2 02/01/15 Given 1Admin Note: VIS dated 11/26/2014 [email or web address] Comment: Wrong order Medications famotidine 10 mg oral tablet 1 tablet = 10 mg, By Mouth, 2 times a day, # 60 tablet, 1 Refills, Maintenance, 06/06/20 15:22:00 EST, Tablet, [id number], Partial fill upon patient request if the [...] disease)(Confirmed) Anxiety and depression(Confirmed)2 Active (Confirmed) Active [id number] reports she is linked with mental health services at this time. Social History Social History Type Response Smoking Status Type: Cigarettes; Former smo ker entered on: 06/15/15 Sex
[2022-07-10 20:18] LABS: Lactic Acid 1.2 mmol/L (0.5-2.0)
[2022-07-10] MEDS: ondansetron HCL 4 MG/2 ML VIAL IVPUSH (20:24)
[2022-07-10] MEDS: Morphine Sulfate 4 MG/ML CARTRIDGE IVPUSH (21:09)
[2022-07-10 21:13] LABS: Alanine Aminotransferase 9 U/L (0-31); Albumin Level 3.8 g/dL (3.5-5.0); Alkaline Phosphatase 77 U/L (39-117); Anion Gap 14 (12-20); Aspartate Amino Transferase 14 U/L (5-31); Bilirubin Total 0.4 mg/dL (0.0-1.0); Blood Urea Nitrogen 13 mg/dL (9-16); Calcium 8.9 mg/dL (8.4-10.2); Carbon Dioxide 20 mmol/L (22-29); Chloride 108 mmol/L (96-108); Creatinine Clr Calc Pharmacy 97.6; Estimated Glomerular Filt Rate > 60; Glucose Random 97 mg/dL (60-115); HCG Quantitative < 2 mIU/mL; Lipase 14 U/L (8-78); Magnesium 1.8 mg/dL (1.6-2.6); Potassium 4.1 mmol/L (3.3-5.1); Sodium 138 mmol/L (135-145); Total Protein 6.7 g/dL (6.5-8.0)
[2022-07-10 21:17] LABS: Appearance Urine Clear; Color Urine Yellow; Glucose Urine UA Negative (Negative); Leukocyte Esterase Urine Negative (Negative); Nitrite Urine Negative (Negative); Specific Gravity - Urine 1.015 (1.005-1.025); Urine Blood Negative (Negative); Urine Ketones Negative (Negative); Urine Protein Negative (Neg-Trace)
[2022-07-10 21:19] LABS: UPreg QC Valid YES; Urine Pregnancy NEGATIVE (NEGATIVE)
[2022-07-10] MEDS: iohexoL 350 MG/ML 100 ML INFUS..BTL IV (21:36)
--- NOTE | 2022-07-10 22:20 | PC.NURSE ---
Late entry- IVF completed at this time. pt assisted to bedside commode at this time. this rn assisted pt back into bed and reconnected to director of cardiac cath lab
[2022-07-10] MEDS: Prochlorperazine Edisylate 10 MG/2 ML VIAL IVPUSH (22:32)
[2022-07-10] MEDS: HYDROmorphone HCl 1 MG/ML SYRINGE IVPUSH (22:32)
--- NOTE | 2022-07-10 23:48 | PM.IMHP ---
History of Present Illness Date of Service: 07/10/22 Chief Complaint: abd pain 27-year-old female with past medical history of hypertension, as well as pancreatitis secondary to surgery for cholecystectomy, presents the hospital with complaint of epigastric abdominal pain. Patient states that the pain started about 2 days ago on located in the epigastric region radiating to the back, associated with nausea vomiting, 10/10, constant, comes in waves, worse with eating. She states that it felt like her pancreatitis again. Of how the pain felt like. She reports no diarrhea constipation, no urinary symptoms and no lower extremity edema appeared no right upper quadrant pain. On arrival to the ED patient found to have a fever of 103.1, heart rate of 139, Labs are significant for WBC count of 14.6, he lipase of 14, labs otherwise unremarkable, CT of the abdomen shows mild wall thickening of the duodenum and proximal jejunum is nonspecific and could be secondary to enteritis/colitis Patient started on IV fluids, IV antibiotics and will be admitted for further management Review of Systems Review of Systems: Yes all other systems are reviewed and are negative [facility] Medical History Hypertension Pancreatitis Surgical History History of cholecystectomy Social History Alcohol intake: never Patient Tobacco Use Status: Never used Tobacco Advance Directives: No Advance Directives Information Provided: Yes Meds Allergies Allergy/AdvReac Type Severity Reaction Status Date / Time tomato [TOMATO] Allergy Severe DIFFICULTY Verified 02/02/22 17:01 BREATHING latex [LATEX] Allergy Intermediate ITCHY Verified 02/02/22 17:01 shellfish Allergy Intermediate Difficulty Uncoded 02/02/22 17:01 Breathing Physical Exam Vital Signs and Narrative: Vital Signs: Last Vital Signs Temp 99.2 F 07/10/22 22:58 Pulse 100 07/10/22 22:58 Resp 17 07/10/22 22:58 BP 107/42 L 07/10/22 22:58 Pulse Ox 94 07/10/22 22:58 O2 Del Method 07/10/22 22:22 BMI result Body Mass Index 39.4 Const: General: cooperative and no acute distress Orientation/consciousness: patient oriented x3 Eyes: General: appearance normal, both eyes and all related structures Resp: Effort & Inspection: normal respiratory effort Auscultation: clear to auscultation bilaterally Cardio: Rate: regular rate Rhythm: regular rhythm GI: Other: Significantly gastric abdominal tenderness on exam, guarding Palpation (GI): Soft to palpation Auscultation: normal bowel sounds Skin: General skin exam: no rashes or lesions noted Neuro: General: patient oriented x3 Cognition (Neuro): normal cognition Extrem: General: Yes normal to inspection and Yes no pedal edema Results Labs 07/10/22 19:36 07/10/22 20:31 Labs: Laboratory Results - last 24 hr 07/10/22 07/10/22 07/10/22 19:36 19:36 19:36 MCV 84.9 MCH 27.5 MCHC 32.4 RDW 13.2 Plt Count 443 H MPV 10.1 Immature Gran % (Auto) 0.3 Neut % (Auto) 88.2 H Lymph % (Auto) 6.7 L [place] % (Auto) 4.4 Eos % (Auto) 0.1 Baso % (Auto) 0.3 Lymph # (Auto) 1.0 L [place] # (Auto) 0.7 Eos # (Auto) 0.0 Baso # (Auto) 0.0 Abs Immat Gran (auto) 0.05 H Absolute Neuts (auto) 12.9 H Absolute Nucleated RBC 0.000 Nucleated RBC % (auto) 0.0 Anion Gap Estim Creat Clear Calc Estimated GFR Random Glucose Lactic Acid 1.2 Calcium Magnesium Total Bilirubin AST ALT Alkaline Phosphatase Total Protein Albumin Lipase Beta HCG, Quant Urine Color Urine Appearance Urine pH Ur Specific [place] Urine Protein Urine Glucose (UA) Urine Ketones Urine Blood Urine Nitrite Ur Leukocyte Esterase Urine Test COVID-19 ([facility]) Negative COVID-19 Clin Com See Note 07/10/22 07/10/22 07/10/22 20:31 21:08 21:08 MCV MCH MCHC RDW Plt Count MPV Immature Gran % (Auto) Neut % (Auto) Lymph % (Auto) [place] % (Auto) Eos % (Auto) Baso % (Auto) Lymph # (Auto) [place] # (Auto) Eos # (Auto) Baso # (Auto) Abs Immat Gran (auto) Absolute Neuts (auto) Absolute Nucleated RBC Nucleated RBC % (auto) Anion Gap 14 Estim Creat Clear Calc 97.6 Estimated GFR > 60 Random Glucose 97 Lactic Acid Calcium 8.9 Magnesium 1.8 Total Bilirubin 0.4 AST 14 ALT 9 Alkaline Phosphatase 77 Total Protein 6.7 Albumin 3.8 Lipase 14 Beta HCG, Quant < 2 Urine Color Yellow Urine Appearance Clear Urine pH 8.0 Ur Specific [place] 1.015 Urine Protein Negative Urine Glucose (UA) Negative Urine Ketones Negative Urine Blood Negative Urine Nitrite Negative Ur Leukocyte Esterase Negative Urine Test NEGATIVE COVID-19 ([facility]) COVID-19 Clin Com Imaging Radiologist's Impressions: Impressions Abdomen/Pelvis CT 07/10/22 21:51 IMPRESSION: 1. Mild wall thickening of the duodenum and proximal jejunum is nonspecific and could be due to underdistention or mild enteritis/colitis. 2. Dilatation of the gonadal veins and periuterine veins. This can be seen with pelvic congestion syndrome. 3. Otherwise, no acute intra-abdominal or intrapelvic abnormalities. Fleischner guidelines were followed. Assessment and Plan (1) Colitis: Status: Acute (2) Abdominal pain: Status: Acute (3) Sepsis: Status: Acute Plan 27-year-old female with past medical history of hypertension and pancreatitis presents to the hospital with abdominal pain found to have colitis/enteritis # sepsis - likely secondary to colitis - no other source can be identified - patient has fever, leukocytosis, tachycardia - UA negative, no respiratory symptoms - treat with IV antibiotics - follow cultures # intractable abdominal pain - likely secondary to of enteritis/colitis - no evidence of acute pancreatitis on imaging or elevated enzymes - will treat with analgesics IV fluids, IV antibiotics # colitis/enteritis - localize to the duodenum/jejunum region - will treat with IV antibiotics given the sepsis with fever and leukocytosis - will add PPI - follow symptoms DVT prophylaxis: Lovenox Given patient's sepsis need for IV antibiotics patient will require minimal 2 nights inpatient hospital stay for further management Time Spent With Patient Time: Total time managing care of this patient today ____ minutes. Quality Stroke Does the patient have a stroke diagnosis?: No VTE Prior VTE?: No VTE Risk Level:: Medical - moderate - high VTE Device Contraindication: Treatment Not Indicated VTE Drug Contraindication: N/A - Med Ordered
[2022-07-11] MEDS: levoFLOXacin/D5W 750 MG/150 ML PIGGYBACK 100 MG IV (01:00)
[2022-07-11] MEDS: 0.9 % Sodium Chloride Flush 3 ML SYRINGE IVFLUSH ×2 (01:01→16:34)
[2022-07-11] MEDS: Enoxaparin Sodium 40 MG/0.4 ML SYRINGE SUBCUT (01:02)
--- NOTE | 2022-07-11 01:41 | PC.NURSE ---
this rn performed med rec at this time. pt states does not take any home medications
[2022-07-11 02:36] VITALS: BP 115/62; PULSE 96; RESP 12; TEMP 36.9; O2SAT 98
[2022-07-11] MEDS: metroNIDAZOLE/NS 500 MG/100 ML PIGGYBACK 100 MG IV ×3 (02:39→16:44)
[2022-07-11] MEDS: Lactated Ringers 1,000 ML 100 ML IVCONT ×3 (02:41→16:44)
[2022-07-11 04:19] VITALS: BP 121/73; PULSE 92; RESP 17; TEMP 36.6; O2SAT 98
--- NOTE | 2022-07-11 05:20 | PC.NURSE ---
pt reports 7/10 pain at this time. pt medicated according to mar at this time. HOB lowered to pt liking. pt verbalized no new needs
[2022-07-11] MEDS: ondansetron HCL 4 MG/2 ML VIAL IVPUSH (05:27)
[2022-07-11] MEDS: Morphine Sulfate 4 MG/ML CARTRIDGE IVPUSH ×2 (05:27→16:53)
[2022-07-11 06:22] LABS: MANUAL DIFF FLAG NO
[2022-07-11 06:31] LABS: Basophils Percent Auto 0.2 % (0-2); Hematocrit 37.2 % (37.0-47.0); Hemoglobin 11.9 g/dl (12.0-16.0); Imm Gran Abs Auto 0.05 X10*3/uL (0.00-0.03); Imm Gran Pct Auto 0.5 % (0.0-0.4); Lymphocytes Absolute Auto 0.9 X10*3/uL (1.2-4.9); Lymphocytes Percent Auto 9.4 % (20-40); Mean Corpuscular Hemoglobin 27.4 pg (27.0-33.0); Mean Corpuscular Volume 85.7 fL (80.0-98.0); Mean Platelet Volume 10.1 fL (9.4-12.3); Monocytes Percent Auto 9.6 % (2-11); Neutrophils Absolute Auto 8.1 x10*3/uL (2.0-8.3); Neutrophils Percent Auto 80.3 % (45-73); Platelet Count 337 X10*3/uL (160-400); Red Blood Count 4.34 X10*6/uL (4.20-5.50); Red Cell Distribution Width 13.2 % (11.0-16.0); White Blood Count 10.1 X10*3/uL (4.8-10.8)
[2022-07-11] MEDS: Omeprazole 40 MG CAPSULE.DR PO (06:41)
[2022-07-11 06:45] LABS: Anion Gap 14 (12-20); Blood Urea Nitrogen 9 mg/dL (9-16); Calcium 8.7 mg/dL (8.4-10.2); Carbon Dioxide 21 mmol/L (22-29); Chloride 110 mmol/L (96-108); Creatinine Clr Calc Pharmacy 133.2; Estimated Glomerular Filt Rate > 60; Glucose Random 93 mg/dL (60-115); Potassium 4.3 mmol/L (3.3-5.1); Sodium 141 mmol/L (135-145)
[2022-07-11 07:16] VITALS: BP 108/65; PULSE 76; RESP 13; O2SAT 97
--- NOTE | 2022-07-11 08:02 | PHA.MEDREC ---
Pharmacy Consult ? Medication Reconciliation Pharmacy has completed the medication reconciliation. Pt says no maintenance meds at home
--- NOTE | 2022-07-11 10:42 | PC.NURSE ---
patient a&ox3, c/o 08/29 abd pain but states her pain is much better- pt inquiring if she will be discharged today, ivf running per order, iv abx running per order, call chang within reach, vss, will continue to monitor
--- NOTE | 2022-07-11 10:46 | MHC.CM.PN ---
Met with patient in regards to discharge planning. Patient lives with her mother and 3 children, ambulates independently and had no services prior to coming to the hospital. No services anticipated to be needed because patient is not homebound. PCP is at [facility]. Patient received 2 Moderna vaccines but no boosters. Obs notice explained and signed. Patient's boyfriend will transport her home when medically stable. Continue to monitor for d/c needs.
[2022-07-11 14:10] LABS: Alanine Aminotransferase 116 U/L (0-31); Alkaline Phosphatase 100 U/L (39-117); Aspartate Amino Transferase 187 U/L (5-31); Bilirubin Direct 0.2 mg/dL (0.0-0.5); Bilirubin Total 0.4 mg/dL (0.0-1.0); Lipase 12 U/L (8-78)
[2022-07-11 14:27] VITALS: BP 130/57; PULSE 76; RESP 15; O2SAT 95
--- NOTE | 2022-07-11 14:28 | P.CNGI_ITS ---
History of Present Illness Data of Consult Service Date: 07/11/22 Requesting physician: Dustin Ibrahim Primary Care Provider: Unknown Physician HPI Reason for consult: Abd pain This is a 27-year-old female with past medical history of cholecystitis status post cholecystectomy, post ERCP pancreatitis ([facility]) who presented to the hospital yesterday for abdominal pain, nausea and vomiting and was found to have sepsis. Patient states the pain started 2 days before presenting to the hospital. Describes it as sharp, located in periumbilical region radiating down to her left hip. States pain is reminiscent of previous pancreatitis pain. Associated with nausea and multiple episodes of vomiting. With fevers and chills. No diarrhea in fact notices constipation since onset of sx. No sick contacts. Presented to the hospital yesterday on Day 3 of her sx as she was concerned that she may be getting dehydrated. When she was seen in emergency room, she was noted to be febrile with T-max 103.2 degrees, with tachycardia. Labs were significant for leukocytosis and hemoconcentration. Initial lactate was normal. Lipase and LFTs were normal. CT and abdomen pelvis was obtained with IV contrast did not show any abnormality in the pancreas or the liver. CBD dilated to 1.5 cm but no stone noted. On bedside encounter today, she reports improvement in her symptoms compared to yesterday. Appetite is back, and thinks she may be able tolerate liquids. Does not take NSAIDs regularly (took a few doses for abd pain in the last 2 days). Former smoker. Review of Systems Review of Systems: Yes all other systems are reviewed and are negative PMFSH Past Medical History Medical History Hypertension Pancreatitis Surgical History Surgical History History of cholecystectomy Social History Social History Alcohol intake: never Patient Tobacco Use Status: Never used Tobacco Smoked in Last 30 Days: No Use of substances other than those prescribed or required for medical reasons: No Advance Directives: No Advance Directives Information Provided: Yes Patient : No service: No Current occupational status: unemployed Meds Allergies Allergy/AdvReac Type Severity Reaction Status Date / Time tomato [TOMATO] Allergy Severe DIFFICULTY Verified 02/02/22 17:01 BREATHING latex [LATEX] Allergy Intermediate ITCHY Verified 02/02/22 17:01 shellfish Allergy Intermediate Difficulty Uncoded 02/02/22 17:01 Breathing Active Medications: Current Medications Acetaminophen (Acetaminophen 325 Mg Tablet) 650 mg PO Q6H PRN PRN Reason: Pain, Mild (Pain Scale 1-3) Enoxaparin Sodium (Enoxaparin Sodium 40 Mg/0.4 Ml Syringe) 40 mg SUBCUT Q24H [facility] Last Admin: 07/11/22 01:02 Dose: 40 mg Levofloxacin (Levaquin) 750 mg in 150 mls @ 100 mls/hr IV Q24H [facility] Last Infusion: 07/11/22 02:35 Dose: Infused Metronidazole (Flagyl) 500 mg in 100 mls @ 100 mls/hr IV Q8H [facility] Last Infusion: 07/11/22 11:40 Dose: Infused Lactated Ringer's (Lr) 1,000 mls @ 100 mls/hr IVCONT .Q10H [facility] Last Admin: 07/11/22 10:33 Dose: 100 mls/hr Morphine Sulfate (Morphine Sulfate 4 Mg/Ml Cartridge) 4 mg IVPUSH Q4H PRN; Protocol PRN Reason: Pain, Severe (Pain Scale 7-10) Last Admin: 07/11/22 05:27 Dose: 4 mg Omeprazole (Omeprazole 40 Mg Capsule.Dr) 40 mg PO DAILY@0630 [facility] Last Admin: 07/11/22 06:41 Dose: 40 mg Ondansetron HCl (Ondansetron Hcl 4 Mg/2 Ml Vial) 4 mg IVPUSH Q8H PRN PRN Reason: Nausea and Vomiting Last Admin: 07/11/22 05:27 Dose: 4 mg Sodium Chloride (0.9 % Sodium Chloride Flush 3 Ml Syringe) 3 ml IVFLUSH QSHIFT [facility] Last Admin: 07/11/22 07:45 Dose: Not Given Home Medications Medication Instructions Recorded Confirmed Last Taken Type No Known Home Meds 07/11/22 07/11/22 Unknown History Physical Exam Vital Signs: Vital Signs: Last Vital Signs Temp 97.9 F 07/11/22 04:19 Pulse 76 07/11/22 07:16 Resp 13 07/11/22 07:16 BP 108/65 07/11/22 07:16 Pulse Ox 97 07/11/22 07:16 O2 Del Method 07/11/22 07:16 BMI result Body Mass Index 39.4 Gen appear: Non toxic appearing HEENT: no icterus, no cervical lymphadenopathy Chest: No overt resp distress CVS: S1/S2, regular Abd: soft, nontender, nondistended Psych: Stable affect, answering questions appropriately Neuro: A/Ox3 noted to move all extremities spontaneously Ext: no peripheral edema Results Labs 07/11/22 05:51 07/11/22 05:51 Labs: Short CBC 07/10/22 07/11/22 Range/Units 19:36 05:51 WBC 14.6 H 10.1 (4.8-10.8) X10*3/uL Hgb 13.7 11.9 L (12.0-16.0) g/dl Hct 42.3 37.2 (37.0-47.0) % Plt Count 443 H 337 (160-400) X10*3/uL BMP 07/10/22 07/11/22 20:31 05:51 Sodium 138 141 Potassium 4.1 4.3 Chloride 108 110 H Carbon Dioxide 20 L 21 L BUN 13 9 Creatinine 1.01 0.74 Calcium 8.9 8.7 Liver Function 07/10/22 07/11/22 Range/Units 20:31 05:51 Total Bilirubin 0.4 0.4 (0.0-1.0) mg/dL Direct Bilirubin 0.2 (0.0-0.5) mg/dL AST 14 187 H (5-31) U/L ALT 9 116 H (0-31) U/L Alkaline Phosphatase 77 100 (39-117) U/L Albumin 3.8 (3.5-5.0) g/dL Urine 07/10/22 Range/Units 21:08 Urine Color Yellow Urine Appearance Clear Urine pH 8.0 (5.0-9.0) Ur Specific [place] 1.015 (1.005-1.025) Urine Protein Negative (Neg-Trace) mg/dL Urine Glucose (UA) Negative (Negative) mg/dL Assessment and Plan (1) Abdominal pain: Status: Acute (2) Sepsis: Status: Acute (3) Dilated cbd, acquired: Status: Acute Plan Differentials for abdominal pain with fevers include infectious enteritis, duodenitis/PUD, pancreatitis (lipase could have normalized by now symptoms started 3 days ago) choledocholithiasis/cholangitis. Given her subjective report of considerable improvement with IV hydration and Abx suspect could have been an infectious enteritis. Fever free since last night Recommendations: - Add on LFTs and lipase - Cont symptomatic management for now - If pt continues to improve expectantly and able to tolerate PO can be discharged otherwise can consider EGD tmrw to further investigate small bowel wall thickening . Thank you for allowing me to participate in her care. Will follow. Please do not hesitate to reach out for any questions or concerns. UPDATE: - Added on LFTs with significant transaminases elevation. - US Abd to r/o choledocho - Hep serologies ordered - NPO after MN until re-eval by GI. Time Spent With Patient Time: Total time managing care of this patient today ____ minutes. Procedures Date of Service Date of Service: 07/11/22
--- NOTE | 2022-07-11 14:29 | P.PNIM_ITS ---
Subjective Subjective Date of Service: 07/11/22 Interval History: enteritis Review of Systems still nauseated ,has abd pain no fever or diarrhae. Physical Exam Vital Signs: Vital Signs: Last Vital Signs Temp 97.9 F 07/11/22 04:19 Pulse 76 07/11/22 14:27 Resp 15 07/11/22 14:27 BP 130/57 L 07/11/22 14:27 Pulse Ox 95 07/11/22 14:27 O2 Del Method 07/11/22 14:27 BMI result Body Mass Index 39.4 Appearance: Alert.? Oriented X3.abd pain. cvs: rrr, [id number] , no murmur res: clear to auscultation ,no rhonchii or wheezing abd: no rebound or guarding ,mild tenderness , bs present. ext pulses present , no cyanosis. neuro: axo3 , nonfocal. Objective Data Active Medications Acetaminophen (Acetaminophen 325 Mg Tablet) 650 mg PO Q6H PRN PRN Reason: Pain, Mild (Pain Scale 1-3) Enoxaparin Sodium (Enoxaparin Sodium 40 Mg/0.4 Ml Syringe) 40 mg SUBCUT Q24H [facility] Last Admin: 07/11/22 01:02 Dose: 40 mg Documented By: LUIS EDUARDO Levofloxacin (Levaquin) 750 mg in 150 mls @ 100 mls/hr IV Q24H [facility] Last Infusion: 07/11/22 02:35 Dose: 0 mls/hr Documented By: LUIS EDUARDO Metronidazole (Flagyl) 500 mg in 100 mls @ 100 mls/hr IV Q8H [facility] Last Infusion: 07/11/22 11:40 Dose: 0 mls/hr Documented By: DECLAN Lactated Ringer's (Lr) 1,000 mls @ 100 mls/hr IVCONT .Q10H [facility] Last Admin: 07/11/22 10:33 Dose: 100 mls/hr Documented By: DECLAN Morphine Sulfate (Morphine Sulfate 4 Mg/Ml Cartridge) 4 mg IVPUSH Q4H PRN; Protocol PRN Reason: Pain, Severe (Pain Scale 7-10) Last Admin: 07/11/22 05:27 Dose: 4 mg Documented By: LUIS EDUARDO Omeprazole (Omeprazole 40 Mg Capsule.) 40 mg PO DAILY@0630 [facility] Last Admin: 07/11/22 06:41 Dose: 40 mg Documented By: LUIS EDUARDO Ondansetron HCl (Ondansetron Hcl 4 Mg/2 Ml Vial) 4 mg IVPUSH Q8H PRN PRN Reason: Nausea and Vomiting Last Admin: 07/11/22 05:27 Dose: 4 mg Documented By: LUIS EDUARDO Sodium Chloride (0.9 % Sodium Chloride Flush 3 Ml Syringe) 3 ml IVFLUSH QSHIFT [facility] Last Admin: 07/11/22 07:45 Dose: Not Given Documented By: NOEMY Non-Admin Reason: IV Running Labs 07/11/22 05:51 07/11/22 05:51 Labs: Laboratory Results - last 24 hr 07/10/22 07/10/22 07/10/22 19:36 19:36 19:36 MCV 84.9 MCH 27.5 MCHC 32.4 RDW 13.2 Plt Count 443 H MPV 10.1 Immature Gran % (Auto) 0.3 Neut % (Auto) 88.2 H Lymph % (Auto) 6.7 L [place] % (Auto) 4.4 Eos % (Auto) 0.1 Baso % (Auto) 0.3 Lymph # (Auto) 1.0 L [place] # (Auto) 0.7 Eos # (Auto) 0.0 Baso # (Auto) 0.0 Abs Immat Gran (auto) 0.05 H Absolute Neuts (auto) 12.9 H Absolute Nucleated RBC 0.000 Nucleated RBC % (auto) 0.0 Anion Gap Estim Creat Clear Calc Estimated GFR Random Glucose Lactic Acid 1.2 Calcium Magnesium Total Bilirubin Direct Bilirubin AST ALT Alkaline Phosphatase Total Protein Albumin Lipase Beta HCG, Quant Urine Color Urine Appearance Urine pH Ur Specific Flippin Urine Protein Urine Glucose (UA) Urine Ketones Urine Blood Urine Nitrite Ur Leukocyte Esterase Urine Test COVID-19 ([facility]) Negative COVID-19 Clin Com See Note 07/10/22 07/10/22 07/10/22 20:31 21:08 21:08 MCV MCH MCHC RDW Plt Count MPV Immature Gran % (Auto) Neut % (Auto) Lymph % (Auto) [place] % (Auto) Eos % (Auto) Baso % (Auto) Lymph # (Auto) [place] # (Auto) Eos # (Auto) Baso # (Auto) Abs Immat Gran (auto) Absolute Neuts (auto) Absolute Nucleated RBC Nucleated RBC % (auto) Anion Gap 14 Estim Creat Clear Calc 97.6 Estimated GFR > 60 Random Glucose 97 Lactic Acid Calcium 8.9 Magnesium 1.8 Total Bilirubin 0.4 Direct Bilirubin AST 14 ALT 9 Alkaline Phosphatase 77 Total Protein 6.7 Albumin 3.8 Lipase 14 Beta HCG, Quant < 2 Urine Color Yellow Urine Appearance Clear Urine pH 8.0 Ur Specific Flippin 1.015 Urine Protein Negative Urine Glucose (UA) Negative Urine Ketones Negative Urine Blood Negative Urine Nitrite Negative Ur Leukocyte Esterase Negative Urine Test NEGATIVE COVID-19 ([facility]) COVID-19 [employer] 07/11/22 07/11/22 05:51 05:51 MCV 85.7 MCH 27.4 MCHC 32.0 RDW 13.2 Plt Count 337 MPV 10.1 Immature Gran % (Auto) 0.5 H Neut % (Auto) 80.3 H Lymph % (Auto) 9.4 L [place] % (Auto) 9.6 Eos % (Auto) 0.0 Baso % (Auto) 0.2 Lymph # (Auto) 0.9 L [place] # (Auto) 1.0 Eos # (Auto) 0.0 Baso # (Auto) 0.0 Abs Immat Gran (auto) 0.05 H Absolute Neuts (auto) 8.1 Absolute Nucleated RBC 0.000 Nucleated RBC % (auto) 0.0 Anion Gap 14 Estim Creat Clear Calc 133.2 Estimated GFR > 60 Random Glucose 93 Lactic Acid Calcium 8.7 Magnesium Total Bilirubin 0.4 Direct Bilirubin 0.2 AST 187 H ALT 116 H Alkaline Phosphatase 100 Total Protein Albumin Lipase 12 Beta HCG, Quant Urine Color Urine Appearance Urine pH Ur Specific Flippin Urine Protein Urine Glucose (UA) Urine Ketones Urine Blood Urine Nitrite Ur Leukocyte Esterase Urine Test COVID-19 ([facility]) COVID-19 Clin [employer] Assessment and Plan (1) Sepsis: Status: Acute (2) Abdominal pain: Status: Acute (3) Colitis: Status: Acute Plan 27-year-old female with past medical history of hypertension and pancreatitis presents to the hospital with abdominal pain found to have colitis/enteritis sepsis - likely secondary to colitis - no other source can be identified - patient has fever, leukocytosis, tachycardia - UA negative, no respiratory symptoms - treat with IV antibiotics - follow cultures intractable abdominal pain - likely secondary to of enteritis/colitis - no evidence of acute pancreatitis on imaging repeat lft's seems mild elevation,added abd us -mild cbd dilation,elevated lft's - will treat with analgesics IV fluids, IV antibiotics colitis/enteritis - localize to the duodenum/jejunum region - will treat with IV antibiotics given the sepsis with fever and leukocytosis,PPI - follow symptoms DVT prophylaxis:? Lovenox inpatient need: sepsis /enteritis need for IV antibiotics Time Spent With Patient Time: Total time managing care of this patient today ____ minutes. Quality Stroke Does the patient have a stroke diagnosis?: No VTE Prior VTE?: No VTE Risk Level:: Medical - moderate - high VTE Device Contraindication: Treatment Not Indicated VTE Drug Contraindication: N/A - Med Ordered
[2022-07-11 16:00] VITALS: BP 115/53; PULSE 72; RESP 18; TEMP 36.1; O2SAT 94
[2022-07-11] MEDS: Acetaminophen 325 MG TABLET 650 MG PO (17:30)
[2022-07-11 19:41] VITALS: BP 108/52; PULSE 71; RESP 18; TEMP 36.1; O2SAT 98
[2022-07-11] MEDS: Cyanocobalamin (Vitamin B-12) 1,000 MCG TABLET 1000 MCG PO (21:08)
[2022-07-12] VITALS: BP 124/59; PULSE 66; RESP 18; TEMP 36.7; O2SAT 98
[2022-07-12] MEDS: levoFLOXacin/D5W 750 MG/150 ML PIGGYBACK 100 MG IV (00:17)
[2022-07-12] MEDS: Acetaminophen 325 MG TABLET 650 MG PO (00:17)
[2022-07-12] MEDS: Cyclobenzaprine HCl 10 MG TABLET PO (00:19)
[2022-07-12] MEDS: metroNIDAZOLE/NS 500 MG/100 ML PIGGYBACK 100 MG IV ×2 (01:53→08:42)
[2022-07-12] MEDS: 0.9 % Sodium Chloride Flush 3 ML SYRINGE IVFLUSH (01:53)
[2022-07-12] MEDS: Enoxaparin Sodium 40 MG/0.4 ML SYRINGE SUBCUT (01:53)
[2022-07-12 03:01] VITALS: BP 122/58; PULSE 78; RESP 18; TEMP 36.4; O2SAT 96
[2022-07-12] MEDS: Omeprazole 40 MG CAPSULE.DR PO (06:51)
[2022-07-12] MEDS: Lactated Ringers 1,000 ML 100 ML IVCONT (06:51)
[2022-07-12 07:52] VITALS: BP 116/57; PULSE 70; RESP 18; TEMP 36.2; O2SAT 97
--- NOTE | 2022-07-12 09:50 | PM.GIPN ---
Subjective Subjective Date of Service: 07/12/22 Interval History: Patient seen and evaluated at bedside. Reports feeling much better. Abdominal pain has resolved. No nausea or vomiting. Critical Care Time (minutes): 0 Physical Exam Vital Signs: Vital Signs: Last Vital Signs Temp 97.2 F 07/12/22 07:52 Pulse 70 07/12/22 07:52 Resp 18 07/12/22 07:52 BP 116/57 L 07/12/22 07:52 Pulse Ox 97 07/12/22 07:52 O2 Del Method Room Air 07/12/22 07:52 BMI result Body Mass Index 39.4 General appearance: No acute distress, nontoxic appearing Abdomen: Soft, nontender, nondistended Objective Data Labs 07/11/22 05:51 07/11/22 05:51 Labs: Laboratory Results - last 24 hr 07/11/22 05:51 Total Bilirubin 0.4 Direct Bilirubin 0.2 AST 187 H ALT 116 H Alkaline Phosphatase 100 Lipase 12 Microbiology Microbiology Results: Microbiology 07/10/22 19:55 Blood - Subclavian Blood Culture - Preliminary No growth after 24 hours. 07/10/22 19:36 Blood - Subclavian Blood Culture - Preliminary No growth after 24 hours. Procedures Date of Service Date of Service: 07/12/22 Progress Note: A&P Assessment and plan (1) Abdominal pain: Status: Acute (2) Dilated cbd, acquired: Status: Acute (3) Sepsis: Status: Acute Plan Reports complete resolution of abdominal pain, nausea vomiting. Afebrile x48h. Likely had infectious enteritis. Ultrasound abdomen without any CBD obstruction. LFTs improving today. Plan: -can be started on diet and advance as tolerated. -follow-up with GI office as needed. Will sign off. Please call back with any questions or concerns. Time Spent With Patient Time: Total time managing care of this patient today ____ minutes. Quality Stroke Does the patient have a stroke diagnosis?: No VTE Prior VTE?: No VTE Risk Level:: Medical - moderate - high VTE Device Contraindication: Treatment Not Indicated VTE Drug Contraindication: N/A - Med Ordered
[2022-07-12 09:55] LABS: Alanine Aminotransferase 79 U/L (0-31); Albumin Level 3.5 g/dL (3.5-5.0); Alkaline Phosphatase 99 U/L (39-117); Anion Gap 15 (12-20); Aspartate Amino Transferase 47 U/L (5-31); Bilirubin Direct < 0.2 mg/dL (0.0-0.5); Bilirubin Total 0.3 mg/dL (0.0-1.0); Blood Urea Nitrogen 8 mg/dL (9-16); Carbon Dioxide 22 mmol/L (22-29); Chloride 109 mmol/L (96-108); Creatinine Clr Calc Pharmacy 136.9; Estimated Glomerular Filt Rate > 60; Glucose Random 66 mg/dL (60-115); Potassium 4.4 mmol/L (3.3-5.1); Sodium 142 mmol/L (135-145); Total Protein 6.3 g/dL (6.5-8.0)
[2022-07-12 11:11] VITALS: BP 130/64; PULSE 67; RESP 18; TEMP 36.2; O2SAT 95
[2022-07-12] MEDS: metroNIDAZOLE 500 MG TABLET PO (12:11)
[2022-07-12] MEDS: levoFLOXacin 500 MG TABLET PO (12:11)
--- NOTE | 2022-07-12 12:26 | MHC.CM.PN ---
HOME - SELF CARE RN AWARE OF PLAN
--- NOTE | 2022-07-12 17:19 | P.DS_ITS ---
DS: Providers Provider Date of Service: 07/12/22 Date of admission: 07/10/22 23:45 Date of discharge: 07/12/22 Primary care physician: HIREN Lazar Consults: 07/11/22 12:40 Consult to Gastroenterology Routine Consulting Provider: [facility] Reason for consultation: duodenitis Has provider been notified: No DS: Diagnosis Discharge Diagnosis (1) Abdominal pain: Status: Acute (2) Dilated cbd, acquired: Status: Acute (3) Sepsis: Status: Acute DS: Summary Hospital Course Hospital Course: 27-year-old female with past medical history of hypertension, as well as pancreatitis secondary to surgery for cholecystectomy, presents the hospital with complaint of epigastric abdominal pain.? Patient states that the pain started about 2 days ago on located in the epigastric region radiating to the back, associated with nausea vomiting, 10/10, constant, comes in waves, worse with eating.? She states that it felt like her pancreatitis again.? Of how the pain felt like.? She reports no diarrhea constipation, no urinary symptoms and no lower extremity edema appeared no right upper quadrant pain.? On arrival to the ED patient found to have a fever of 103.1, heart rate of 139, Labs are significant for WBC count of 14.6, he lipase of 14, labs otherwise unremarkable, CT of the abdomen shows mild wall thickening of the duodenum and proximal jejunum is nonspecific and could be secondary to enteritis/colitis Patient started on IV fluids, IV antibiotics and will be admitted for further management. hOSPITAL COURSE: Patient was admitted for colitis/enteritis: Given hydration, pain management, antibiotics seems to be improved significantly. Going home in p.o. antibiotics. Please complete the course of antibiotic. Elevated liver function test: Seems to be improving-repeat liver functions outpatient in 1 week with PCP and follow up with GI outpatient-further workup outpatient. Plan: Follow-up LFTs with PCP and GI outpatient Please complete the antibiotic course. Assessment and plan coordination time spent 50 minute, patient understand and in agreement with the plan. Time Spent with Patient Time attestation: Total time managing care of this patient today ____ minutes. Discharge coordination time: Greater than 30 minutes Quality: Safe Use of Opioids Does Pt have an Active Cancer Diagnosis on the Problem List?: No Quality: Stroke Does the patient have a stroke diagnosis?: No Physical Exam Vital Signs: Vital Signs: Last Vital Signs Temp 97.2 F 07/12/22 11:11 Pulse 67 07/12/22 11:11 Resp 18 07/12/22 11:11 BP 130/64 07/12/22 11:11 Pulse Ox 95 07/12/22 11:11 O2 Del Method Room Air 07/12/22 11:11 BMI result Body Mass Index 39.4 Appearance: Alert.? Oriented X3.abd pain. cvs: rrr, [id number] , no murmur res: clear to auscultation ,no rhonchii or wheezing abd: no rebound or guarding ,mild tenderness , bs present. ext pulses present , no cyanosis. neuro: axo3 , nonfocal. DS: Data Data Completed and Pending Labs on day of discharge: Laboratory Results - last 24 hr 07/12/22 06:57 Sodium 142 Potassium 4.4 Chloride 109 H Carbon Dioxide 22 Anion Gap 15 BUN 8 L Creatinine 0.72 Estim Creat Clear Calc 136.9 Estimated GFR > 60 Random Glucose 66 Calcium 9.0 Total Bilirubin 0.3 Direct Bilirubin < 0.2 AST 47 H ALT 79 H Alkaline Phosphatase 99 Total Protein 6.3 L Albumin 3.5 Preliminary micro results at discharge 07/10/22 19:55 Blood Culture - Preliminary Blood - Subclavian No growth after 24 hours. 07/10/22 19:36 Blood Culture - Preliminary Blood - Subclavian No growth after 24 hours. Imaging Chest x-ray: Radiologist's impression: ITS Impressions Abdomen/Pelvis CT 07/10/22 21:51 IMPRESSION: 1. Mild wall thickening of the duodenum and proximal jejunum is nonspecific and could be due to underdistention or mild enteritis/colitis. 2. Dilatation of the gonadal veins and periuterine veins. This can be seen with pelvic congestion syndrome. 3. Otherwise, no acute intra-abdominal or intrapelvic abnormalities. Fleischner guidelines were followed. Abdomen Ultrasound 07/11/22 16:09 IMPRESSION: -Prior cholecystectomy. Mild prominence central biliary tree and common duct, similar to recent CT. -No ductal calculus or wall thickening. -Normal pancreas. -No hydronephrosis. Discharge Plan Discharge Patient Disposition: Home, Self-Care Discharge Diagnosis: sepsis due to enteritis/colitis Referrals: Martha Lopez FNP [Primary Care Provider] - 1 Week Vannessa Tipton MD [Physician] - 1 Week (follow up outpatient) Discharge Medications: New levofloxacin 500 mg tablet 500 mg PO DAILY Qty: 4 0RF metronidazole 500 mg tablet 500 mg PO BID Qty: 8 0RF Continued cyanocobalamin (vitamin B-12) [Vitamin B-12] 1,000 mcg Tablet 1,000 mcg PO BEDTIME cyclobenzaprine 10 mg Tablet 10 mg PO TID PRN (Reason: Muscle Spasm) fluoxetine 10 mg Capsule DAILY naproxen 500 mg Tablet 500 mg PO BID PRN (Reason: Pain) cholecalciferol (vitamin D3) omeprazole 20 mg Capsule,Delayed Release(Dr/Ec) 20 mg PO DAILY hydroxyzine HCl 25 mg Tablet Discharge Orders: Discharge Order (Routine); Ordered 07/12/22 Ordered By: Dustin Ibrahim Diet: Advance to usual diet Activity on Discharge: As tolerated Stand Alone Forms: Patient Portal Discharge page Other Ambulatory Orders: Liver Panel (Routine) Timeframe: 1 Week Facility: [facility] - Location: Laboratory Ordered By: Dsutin Ibrahim Care Plan Goals: Patient was admitted for infection in the colon: Given hydration, pain management, antibiotics seems to be improved significantly. Going home in p.o. antibiotics. Please complete the course of antibiotic. Elevated liver function test: Seems to be improving-repeat liver functions outpatient in 1 week with PCP and follow up with GI outpatient-further workup outpatient. Health Concerns: As above. Plan of Treatment: As above. Assessment: As above. Patient Instructions: Colitis (ED) Discharge Date/Time: 07/12/22 13:45
[2022-07-13 04:31] LABS: HBS Num1 12.05 mIU/mL (0-7.99); HBc Num1 0.11 S/CO (0.00-0.79); HBsAGNum1 0.32 S/CO (0.00-0.99); Hepatitis A Antibody IgM 0.29 Index (0-0.79); Hepatitis B Core Antibody Nonreactive (Nonreactive); Hepatitis B Surface Antigen Negative (Negative); ~HepC Num1 0.13 S/CO (0.00-0.79); ~Hepatitis A Antibody IgM Nonreactive (Nonreactive); ~Hepatitis B Surface Antibody REACTIVE (Nonreactive); ~Hepatitis C Antibody Nonreactive (Nonreactive)
== END 2022-07-12 13:45 | disposition home or self-care (01) ==
LOC: HO.ED 23:12 → HO.EDOVER 23:52 → HO.S3 07-11 14:17
PROVIDERS: Internal Medicine; Physician Assistant; Admitting Provider Internal Medicine; Emergency Provider Emergency Medicine; PCP Registered Nurse; Visit Provider Internal Medicine
DX: K52.9 Noninfective gastroenteritis and colitis, unspecified (principal); A41.9 Sepsis, unspecified organism; K83.8 Other specified diseases of biliary tract; R10.13 Epigastric pain; R50.9 Fever, unspecified; R00.0 Tachycardia, unspecified; Z20.822 Contact with and (suspected) exposure to COVID-19; Z79.899 Other long term (current) drug therapy; I10 Essential (primary) hypertension; E66.9 Obesity, unspecified; Z68.39 Body mass index [BMI] 39.0-39.9, adult; Z90.49 Acquired absence of other specified parts of digestive tract
CPT/HCPCS: 36415; 74177; 76700; 80048; 80053; 81003; 81025; 82247; 82248; 83605; 83690; 83735; 84075; 84450; 84460; 84702; 85025; 86704; 86706; 86709; 86803; 87040; 87340; 87635; 93005; 96361; 96365; 96366; 96367; 96372; 96375; 96376; 99221; 99285; J1170; J1650; J1956; J2270; J2405; J2543; Q9967

== ENCOUNTER 2022-07-19 13:06 | Outpatient (REF) | payer MEDICAID, SELFPAY ==
[2022-07-19 15:04] LABS: Alanine Aminotransferase 13 U/L (0-31); Alkaline Phosphatase 86 U/L (39-117); Aspartate Amino Transferase 11 U/L (5-31); Bilirubin Direct < 0.2 mg/dL (0.0-0.5); Bilirubin Total 0.2 mg/dL (0.0-1.0); Total Protein 7.4 g/dL (6.5-8.0)
== END 2022-07-19 13:07 | disposition home or self-care (01) ==
LOC: HO.LAB 13:06
PROVIDERS: Visit Provider Internal Medicine
DX: K83.8 Other specified diseases of biliary tract (principal); A41.9 Sepsis, unspecified organism
CPT/HCPCS: 36415; 80076

== ENCOUNTER 2022-08-03 10:16 | Emergency (ER) | payer MEDICAID, SELFPAY ==
[2022-08-03 10:36] VITALS: BP 121/72; PULSE 95; RESP 18; TEMP 36.4; O2SAT 99; BMI 39.4
[2022-08-03 11:29] LABS: MANUAL DIFF FLAG NO
[2022-08-03 11:30] LABS: Basophils Percent Auto 0.2 % (0-2); Eosinophils Percent Auto 0.3 % (0-4); Hematocrit 42.6 % (37.0-47.0); Hemoglobin 13.5 g/dl (12.0-16.0); Imm Gran Abs Auto 0.01 X10*3/uL (0.00-0.03); Imm Gran Pct Auto 0.1 % (0.0-0.4); Lymphocytes Percent Auto 11.2 % (20-40); Mean Corpuscular HGB Conc 31.7 g/dl (31.0-35.0); Mean Corpuscular Hemoglobin 27.4 pg (27.0-33.0); Mean Corpuscular Volume 86.6 fL (80.0-98.0); Monocytes Absolute Auto 0.4 X10*3/uL (0.1-1.2); Monocytes Percent Auto 3.9 % (2-11); Neutrophils Absolute Auto 7.6 x10*3/uL (2.0-8.3); Neutrophils Percent Auto 84.3 % (45-73); Platelet Count 393 X10*3/uL (160-400); Red Blood Count 4.92 X10*6/uL (4.20-5.50); Red Cell Distribution Width 13.6 % (11.0-16.0)
[2022-08-03 11:46] LABS: Anion Gap 12 (12-20); Blood Urea Nitrogen 10 mg/dL (9-16); Calcium 9.2 mg/dL (8.4-10.2); Carbon Dioxide 26 mmol/L (22-29); Chloride 108 mmol/L (96-108); Creatinine Clr Calc Pharmacy 118.7; Estimated Glomerular Filt Rate > 60; Glucose Random 87 mg/dL (60-115); Potassium 3.9 mmol/L (3.3-5.1); Sodium 142 mmol/L (135-145)
== END 2022-08-03 18:20 | disposition left against medical advice (07) ==
PROVIDERS: Emergency Provider Emergency Medicine; PCP Registered Nurse
DX: R10.9 Unspecified abdominal pain (principal); K92.0 Hematemesis
CPT/HCPCS: 36415; 80048; 85025; 99281; 99283

== ENCOUNTER 2023-02-26 10:58 | Outpatient (AMB) | payer MEDICAID, SELFPAY ==
--- NOTE | 2023-02-26 11:06 | A.OFFVIS_ITS ---
Intake Vital Signs 02/26/23 11:09 Height 5 ft 4 in Weight 227 lb 1.218 oz BMI 39.0 BP 118/54 L Blood Pressure Location Lt brachial Position Sitting Pulse 67 Intake Visit Reasons: Infectious colitis Intake Note: Callie presents in the office as a new patient for infectious colitis. CC: She states that she was in the hospital. When she eats she gets a pain in the LUQ. She thought she had pancreatitis but she was told it was colitis. She states that she does have diarrhea and she will take an anti diarrhea for days straight. She will also have some times that she has constipation as well. Allergies tomato [TOMATO] Allergy (Severe, Verified 02/26/23 11:10) DIFFICULTY BREATHING latex [LATEX] Allergy (Intermediate, Verified 02/26/23 11:10) ITCHY shellfish Allergy (Intermediate, Uncoded 02/26/23 11:10) Difficulty Breathing HPI HPI Comments History of Present Illness Details This is a 28y.o F with PMH of who is here for abdominal discomfort and change in bowel habits. To recap pt was seen in the hospital earlier this year for infectious enteritis. Reports that a few weeks after discharge, developed similar abd discomfort located primarily in the LUQ associated with significant bloating that would get relieved by passing flatus or BM. BMs are also now more soft/loose compared to her previous baseline. Pain is typically postprandial, within 30-60 mins. Pt is s/p CCY. Of note - TPO Ab + from [facility] Medical History (Updated 02/26/23 @ 11:44 by Vannessa Tipton MD) Pancreatitis Hypertension Surgical History (Updated 02/26/23 @ 11:10 by LEOBARDO Modi) H/O tubal ligation History of esophagogastroduodenoscopy (EGD) History of cholecystectomy Social History Alcohol intake: never Patient Tobacco Use Status: Current someday Tobacco user Tobacco use type: Cigarette Cigarettes Per Day: 2 service: No Current occupational status: unemployed Review of Systems Const All systems reviewed & are unremarkable except as noted in HPI and below Physical Exam Vital Signs: Last Vital Signs Pulse 67 02/26/23 11:09 BP 118/54 L 02/26/23 11:09 BMI result Body Mass Index 39.0 Gen appear: NAD, with obesity HEENT: nonicteric, no cervical lymphadenopathy Chest: CTA CVS: Regular S1/S2 Abd: soft, nontender, nondistended, bowel sounds + Ext: no peripheral edema Neuro: A/Ox3, noted to move all extremities spontaneously Psych: interacting appropriately Assessment & Plan Assessment & Plan (1) Abdominal pain: Code(s): R10.9 - Unspecified abdominal pain (2) Change in bowel habit: Code(s): R19.4 - Change in bowel habit (3) Anti-TPO antibodies present: Code(s): R76.8 - Other specified abnormal immunological findings in serum Plan Reviewed with the pt that based on description 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 Other DDx include IBD, hyperthyroidism, SOD bushra given dilated CBD and elevated LFTs in past with s/p CCY. Plan: - Labs ordered as below - Follow up in 4 weeks to determine indication for further testing including endoscopy depending on results Pt was made aware that follow up may be with a different provider. Orders: Orders Transglutaminase IgA Today R10.9 - Unspecified abdominal pain Immunoglobulin A Today R10.9 - Unspecified abdominal pain Calprotectin, Fecal Today R10.9 - Unspecified abdominal pain Liver Panel Today K83.8 - Other specified diseases of biliary tract TSH reflex Free T4 Today R10.9 - Unspecified abdominal pain Hemoglobin A1c Today R10.9 - Unspecified abdominal pain Coding Level of Care Code Est Pt Level 4 (60409) Diagnoses Abdominal pain R10.9 Change in bowel habit R19.4 Anti-TPO antibodies present R76.8
[2023-02-26 11:09] VITALS: BP 118/54; PULSE 67; BMI 39.0
== END 2023-02-26 11:39 | disposition home or self-care (01) ==
PROVIDERS: PCP Registered Nurse; Visit Provider Internal Medicine
DX: R10.9 Unspecified abdominal pain (principal); R19.4 Change in bowel habit; R76.8 Other specified abnormal immunological findings in serum
CPT/HCPCS: 99214

== ENCOUNTER 2023-02-26 10:58 | Outpatient (REF) | payer MEDICAID, SELFPAY ==
[2023-02-26 13:01] LABS: Alanine Aminotransferase 10 U/L (0-31); Alkaline Phosphatase 72 U/L (39-117); Aspartate Amino Transferase 12 U/L (5-31); Bilirubin Direct < 0.2 mg/dL (0.0-0.5); Bilirubin Total 0.2 mg/dL (0.0-1.0); Total Protein 7.3 g/dL (6.5-8.0)
[2023-02-26 13:05] LABS: Estimated Average Glucose 94 mg/dL; Hemoglobin A1c % 4.9 % (<6.0)
[2023-02-26 13:16] LABS: TSH reflex Free T4 1.23 uIU/mL (0.32-4.0)
[2023-02-28 17:48] LABS: Immunoglobulin A 236 mg/dL (47-310)
[2023-02-28 18:44] LABS: Transglutaminase IgA <1.0 U/mL
== END 2023-02-26 10:59 | disposition home or self-care (01) ==
LOC: HO.LAB 10:58
PROVIDERS: PCP Registered Nurse; Visit Provider Internal Medicine
DX: A09 Infectious gastroenteritis and colitis, unspecified (principal); R10.9 Unspecified abdominal pain; R19.4 Change in bowel habit; R76.8 Other specified abnormal immunological findings in serum; K83.8 Other specified diseases of biliary tract
CPT/HCPCS: 36415; 80076; 82784; 83036; 84443; 86364; 99212

== ENCOUNTER 2023-04-02 09:20 | Outpatient (AMB) | payer MEDICAID, SELFPAY ==
[2023-04-02 09:27] VITALS: BP 115/56; PULSE 69; BMI 38.8
--- NOTE | 2023-04-02 09:27 | MHC.OFFVIS ---
Intake Vital Signs 04/02/23 09:27 Height 5 ft 4 in Weight 226 lb 3.108 oz BMI 38.8 BP 115/56 L Blood Pressure Location Rt brachial Position Sitting Pulse 69 Intake Visit Reasons: 4 week follow up Infectious colitis Dr. Tipton PT Intake Note: Patient presents to in office visit today in follow up of colitis and labs. CC: Patient states she was not able to do stool test d/t constipation. She reports occasional abdominal pain, heartburn, and nausea at night. Allergies tomato [TOMATO] Allergy (Severe, Verified 02/26/23 11:10) DIFFICULTY BREATHING latex [LATEX] Allergy (Intermediate, Verified 02/26/23 11:10) ITCHY ibuprofen Adverse Reaction (Severe, Verified 04/02/23 09:42) Unknown shellfish Allergy (Intermediate, Uncoded 02/26/23 11:10) Difficulty Breathing HPI 4 week follow up Infectious colitis Dr. Tipton PT HPI Details 28-YEAR-OLD PATIENT WHO USUALLY SEES Dr. Tipton and was put on my schedule unbeknownst to me here for follow-up. The last note from Dr. 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 Other DDx include IBD, hyperthyroidism, SOD bushra given dilated CBD and elevated LFTs in past with s/p CCY. Plan: - Labs ordered as below - Follow up in 4 weeks to determine indication for further testing including endoscopy depending on results Pt was made aware that follow up may be with a different provider. Orders: Orders Transglutaminase I gA Today R10.9 - Unspecifie d abdominal pain Immunoglobulin A Today R10.9 - Unspecifie d abdominal pain Calprotectin, Feca l Today R10.9 - Unspecifie d abdominal pain Liver Panel Today K83.8 - Other spec ified diseases of biliary tract TSH reflex Free T4 Today R10.9 - Unspecifie d abdominal pain Hemoglobin A1c Today R10.9 - Unspecifie d abdominal pain LABS: Laboratory Tests 08/03/22 02/26/23 11:26 12:19 Estimated GFR > 60 Hemoglobin A1c % 4.9 Total Bilirubin 0.2 AST 12 ALT 10 Alkaline Phosphata se 72 TSH 1.23 IgA 236 Tiss Transglutamin IgA <1.0 / FECAL CALPROTECTIN WAS NOT OBTAINED TODAY'S VISIT She tells me that she is really having a lot of trouble with heartburn and GERD that almost to similar to when she had her gallbladder attack. Also, ever since her gallbladder was taken out 2016 she has struggled with her stooling. She can sometimes go 1 or 2 days without moving her bowels but then immediately after eating breakfast she will have urgency and a large diarrheal bowel movement. Then for the rest of the day she will not move her bowels. Prior to this large movement she will have a severe amount of cramping and pain. This is relieved with defecation. She has tried using Imodium and this has not been effective for her diarrhea that she describes as a ?dumping syndrome. ?. Her diet is varied and rich in fiber and she tries to drink a lot of water with only 2 cups of coffee a day. Again, she had sepsis of undetermined source but at that time she did not move her bowels for like a month. At this point I think were going to try a very like dose of cholestyramine to see if we can equalize things and will change her from omeprazole (to avoid any potential diarrheal side effects that are worse with omeprazole and Nexium) to pantoprazole 40 mg. Hopefully these 2 things together will help give her better symptom relief. Also she is to start fiber. I encouraged her to continue to get the fecal calprotectin done so that we can rule out inflammatory bowel disease. At this point she will come back to see me in 4-5 weeks and after that we will get her back with Dr. Tipton. [facility] Medical History Pancreatitis Hypertension Surgical History H/O tubal ligation History of esophagogastroduodenoscopy (EGD) History of cholecystectomy Social History Alcohol intake: never Patient Tobacco Use Status: Current someday Tobacco user Tobacco use type: Cigarette Cigarettes Per Day: 2 service: No Current occupational status: unemployed Review of Systems Const Denies fatigue, Denies fever(s), Denies night sweats, Denies poor appetite and Denies weight loss ENT Reports Normal hearing present, Denies dental pain, Denies dysphagia, Denies hearing loss, Denies mouth pain, Denies odynophagia, Denies throat swelling, Denies tongue swelling and Reports other (Dentition adequate) Card Reports no additional complaints Resp Reports no additional complaints GI Denies abdominal pain, Denies melena, Denies bloating, Denies hematochezia, Reports constipation, Reports GI cramping, Denies dysphagia, Denies excessive flatus, Denies early satiety, Reports heartburn, Reports diarrhea, Denies nausea, Denies odynophagia, Denies vomiting and Denies hematemesis Skin/Breast Denies pruritus, Denies lesions, Denies rash and Denies jaundice Neuro Reports Normal hearing present and Denies Abnormal speech present Endo Denies fatigue Aller/Immun Denies throat swelling and Denies tongue swelling Physical Exam Vital Signs: Last Vital Signs Pulse 69 04/02/23 09:27 BP 115/56 L 04/02/23 09:27 BMI result Body Mass Index 38.8 Const General: cooperative, no acute distress, well developed and well groomed Nutritional Appearance: well nourished and obese Orientation/consciousness: oriented to person, oriented to place and oriented to time Limitations: No language barrier HEENT Head: Yes normocephalic and Yes atraumatic Eyes General: appearance normal, both eyes and all related structures Pupils: Equal, round and reactive pupils present Neck Neck: Yes normal visual inspection and Yes no lymphadenopathy Thyroid: Thyroid normal Resp Effort & Inspection: normal respiratory effort and able to speak in complete sentences Auscultation: clear to auscultation bilaterally Cardio Rate: regular rate Rhythm: regular rhythm Heart sounds: Normal, physiologic split S2 sound present Peripheral pulses: radial pulses present and posterior tibial pulses present GI Inspection: No distended, No Abdominal panniculus present and Yes obesity Palpation (GI): Soft to palpation, nontender, no guarding, not rigid and No hepatosplenomegaly present Percussion: Yes normal to percussion Auscultation: normal bowel sounds Rectal Exam - Female: deferred Skin General skin exam: no rashes or lesions noted, turgor normal, skin not dry, no jaundice, No spider nevi and no striae Rashes: no rashes Nails: normal Neuro General: oriented to person, oriented to place and oriented to time Cranial nerves: Yes Equal, round and reactive pupils present and Yes Normal hearing present Speech: No Abnormal speech present Extrem General: Yes normal to inspection, No clubbing, No cyanosis and No edema Psych Appearance: grossly normal and well kempt Mental Status: mental status grossly normal Speech and movement: Normal speech and movement present Affect: normal affect Attitude: cooperative Thought process: Normal thought process present and not confabulating Thought content: Normal thought content present Insight: Limited insight present (Psych) Judgement: Limited judgement present (Psych) Assessment & Plan Assessment & Plan (1) Colitis: Code(s): K52.9 - Noninfective gastroenteritis and colitis, unspecified (2) Irritable bowel syndrome with both constipation and diarrhea: Code(s): K58.2 - Mixed irritable bowel syndrome Plan She tells me that she is really having a lot of trouble with heartburn and GERD that almost to similar to when she had her gallbladder attack. Also, ever since her gallbladder was taken out 2017 she has struggled with her stooling. She can sometimes go 1 or 2 days without moving her bowels but then immediately after eating breakfast she will have urgency and a large diarrheal bowel movement. Then for the rest of the day she will not move her bowels. Prior to this large movement she will have a severe amount of cramping and pain. This is relieved with defecation. She has tried using Imodium and this has not been effective for her diarrhea that she describes as a ?dumping syndrome. ?. Her diet is varied and rich in fiber and she tries to drink a lot of water with only 2 cups of coffee a day. Again, she had sepsis of undetermined source but at that time she did not move her bowels for like a month. At this point I think were going to try a very like dose of cholestyramine to see if we can equalize things and will change her from omeprazole (to avoid any potential diarrheal side effects that are worse with omeprazole and Nexium) to pantoprazole 40 mg. Hopefully these 2 things together will help give her better symptom relief. Also she is to start fiber. I encouraged her to continue to get the fecal calprotectin done so that we can rule out inflammatory bowel disease. At this point she will come back to see me in 4-5 weeks and after that we will get her back with Dr. Tipton. Medications: New cholestyramine (with sugar) 4 gram administer w/meal; avoid other meds within 1hr before or 4-6hr after dose 4 grams PO .betime 60 ea 6RF K52.9 - Noninfective gastroenteritis and colitis, unspecified, K58.2 - Mixed irritable bowel syndrome pantoprazole (Protonix) 40 mg PO DAILY 30 days 30 tabs 3RF Coding Level of Care Code Est Pt Level 4 (86946) Diagnoses Colitis K52.9 Irritable bowel syndrome with both constipation and diarrhea K58.2 Time Spent (min) 33 Comment Twenty-eight [id number] 5 chart
== END 2023-04-02 10:10 | disposition home or self-care (01) ==
PROVIDERS: PCP Registered Nurse; Visit Provider Nurse Practitioner
DX: K52.9 Noninfective gastroenteritis and colitis, unspecified (principal)
CPT/HCPCS: 99214

== ENCOUNTER → 2023-04-02 09:20 | Outpatient (BNVA) | payer MEDICAID, SELFPAY | PROVIDERS: PCP Registered Nurse; Visit Provider Nurse Practitioner | DX: K52.9 Noninfective gastroenteritis and colitis, unspecified (principal); K58.2 Mixed irritable bowel syndrome | CPT/HCPCS: 99212 ==

== ENCOUNTER → 2023-04-30 11:05 | Outpatient (BNVA) | payer MEDICAID, SELFPAY | PROVIDERS: PCP Registered Nurse; Visit Provider Nurse Practitioner ==

== ENCOUNTER 2023-05-28 12:15 | Outpatient (AMB) | payer MEDICAID, SELFPAY ==
--- NOTE | 2023-05-28 12:25 | A.OFFVIS_ITS ---
Intake Vital Signs 05/28/23 12:35 Height 5 ft 4 in Weight 225 lb BMI 38.6 BP 128/60 Blood Pressure Location Lt brachial Position Sitting Pulse 83 Intake Visit Reasons: 4 weeks follow up Intake Note: Patient follow up for abdominal pain. Patient cc: Nauseas, upper abdominal pain with bloating, acid reflex going up her esophagus with burning sensation and some diarrhea. [employer] Required: No Accompanied by: Self / Same As Patient Allergies tomato [TOMATO] Allergy (Severe, Verified 05/28/23 12:31) DIFFICULTY BREATHING latex [LATEX] Allergy (Intermediate, Verified 05/28/23 12:31) ITCHY ibuprofen Adverse Reaction (Severe, Verified 05/28/23 12:31) Unknown shellfish Allergy (Intermediate, Uncoded 02/26/23 11:10) Difficulty Breathing HPI 4 weeks follow up HPI Details Assessment & Plan (1) Colitis: Code(s): K52.9 - Noninfective gastroenteritis and colitis, unspecified (2) Irritable bowel syndrome with both c onstipation and diarrhea: Code(s): K58.2 - Mixed irritable bowel syndrome Plan She tells me that she is really having a lot of trouble with heartburn and GERD that almost to similar to when she had her gallbladder attack. Also, ever since her gallbladder was taken out 2016 she has struggled with her stooling. She can sometimes go 1 or 2 days without moving her bowels but then immediately after eating breakfast she will have urgency and a large diarrheal bowel movement. Then for the rest of the day she will not move her bowels. Prior to this large movement she will have a severe amount of cramping and pain. This is relieved with defecation. She has tried using Imodium and this has not been effective for her diarrhea that she describes as a ?dumping syndrome. ?. Her diet is varied and rich in fiber and she tries to drink a lot of water with only 2 cups of coffee a day. Again, she had sepsis of undetermined source but at that time she did not move her bowels for like a month. At this point I think were going to try a very light dose of cholestyramine to see if we can equalize things and will change her from omeprazole (to avoid any potential diarrheal side effects that are worse with omeprazole and Nexium) to pantoprazole 40 mg. Hopefully these 2 things together will help give her better symptom relief. Also she is to start fiber. I encouraged her to continue to get the fecal calprotectin done so that we can rule out inflammatory bowel disease. At this point she will come back to see me in 4-5 weeks and after that we will get her back with Dr. Tipton. Medications: New cholestyramine ( sugar) 4 gram administer w/aldo l; avoid other med s within 1hr befor e or 4-6hr after d ose 4 grams PO .betim e 60 ea 6RF K52.9 - Noninfecti ve gastroenteritis and colitis, unsp ecified, K58.2 - M ixed irritable bow el syndrome pantoprazole (Prot cam) 40 mg PO DAILY 30 days 30 tabs 3RF TODAY'S VISIT She tried to return the fecal calprotectin but the lab turned her away saying she did not do it in close enough time to when the original order was entered. I think there confused between the order entered and the collection time since the patient had immediately return the sample. Nevertheless, I will in put a new order to try to overturn any objections and the patient is agreeable to going to the lab to get the collection equipment again. She is taking the cholestyramine at once a day it did not make any difference except for an initial period of constipation. She also tried twice a day which also did not seem to help at least in the short term. She does have a lot of acid brash and reflux as well that presents as burning in her chest. The pain that is underneath her ribs on both sides continues at least intermittently she had quite badly a couple of nights ago. She tried to lay down and drink some water until it slowly improved. At this point it still sounds like she is having bile gastritis and diarrhea. She continues to have postprandial urgency the only exception is if she drinks coffee in the morning and then she has large watery bowel movement and then can eat without postprandial diarrhea for the remainder of the day. I think were going to try increasing the cholestyramine to 3 times a day. At this point I am going to return her to Dr. Tipton's care. [facility] Medical History Pancreatitis Hypertension Surgical History H/O tubal ligation History of esophagogastroduodenoscopy (EGD) History of cholecystectomy Social History Alcohol intake: never Patient Tobacco Use Status: Current someday Tobacco user Tobacco use type: Cigarette Cigarettes Per Day: 2 service: No Current occupational status: unemployed Review of Systems Const Denies fatigue, Denies fever(s), Denies night sweats, Denies poor appetite and Denies weight loss ENT Reports Normal hearing present, Denies dental pain, Denies dysphagia, Denies hearing loss, Denies mouth pain, Denies odynophagia, Denies throat swelling, Denies tongue swelling and Reports other (Dentition adequate) Card Reports no additional complaints Resp Reports no additional complaints GI Details: Reports abdominal pain, Denies melena, Reports bloating, Denies hematochezia, Reports constipation, Denies GI cramping, Denies dysphagia, Denies excessive flatus, Denies early satiety, Reports heartburn, Reports diarrhea, Denies nausea, Denies odynophagia, Denies vomiting and Denies hematemesis Skin/Breast Denies pruritus, Denies lesions, Denies rash and Denies jaundice Neuro Reports Normal hearing present and Denies Abnormal speech present Endo Denies fatigue Aller/Immun Denies throat swelling and Denies tongue swelling Physical Exam Vital Signs: Last Vital Signs Pulse 83 05/28/23 12:35 BP 128/60 05/28/23 12:35 BMI result Body Mass Index 38.6 Const General: cooperative, no acute distress, well developed and well groomed Nutritional Appearance: well nourished and obese Orientation/consciousness: oriented to person, oriented to place and oriented to time Limitations: No language barrier HEENT Head: Yes normocephalic and Yes atraumatic Eyes General: appearance normal, both eyes and all related structures Pupils: Equal, round and reactive pupils present Neck Neck: Yes normal visual inspection and Yes no lymphadenopathy Thyroid: Thyroid normal Resp Effort & Inspection: normal respiratory effort and able to speak in complete sentences Auscultation: clear to auscultation bilaterally Cardio Rate: regular rate Rhythm: regular rhythm Heart sounds: Normal, physiologic split S2 sound present Peripheral pulses: radial pulses present and posterior tibial pulses present GI Inspection: No distended, Yes Abdominal panniculus present and Yes obesity Palpation (GI): Soft to palpation, nontender, no guarding, not rigid and No hepatosplenomegaly present Percussion: Yes normal to percussion Auscultation: normal bowel sounds Rectal Exam - Female: deferred Skin General skin exam: no rashes or lesions noted, turgor normal, skin not dry, no jaundice, No spider nevi and no striae Rashes: no rashes Nails: normal Neuro General: oriented to person, oriented to place and oriented to time Cranial nerves: Yes Equal, round and reactive pupils present and Yes Normal hearing present Speech: No Abnormal speech present Extrem General: Yes normal to inspection, No clubbing, No cyanosis and No edema Psych Appearance: grossly normal and well kempt Mental Status: mental status grossly normal Speech and movement: Normal speech and movement present Affect: normal affect Attitude: cooperative Thought process: Normal thought process present and not confabulating Thought content: Normal thought content present Insight: Limited insight present (Psych) Judgement: Limited judgement present (Psych) Assessment & Plan Assessment & Plan (1) Colitis: Code(s): K52.9 - Noninfective gastroenteritis and colitis, unspecified (2) Irritable bowel syndrome with both constipation and diarrhea: Code(s): K58.2 - Mixed irritable bowel syndrome Plan She tried to return the fecal calprotectin but the lab turned her away saying she did not do it in close enough time to when the original order was entered. I think there confused between the order entered and the collection time since the patient had immediately return the sample. Nevertheless, I will in put a new order to try to overturn any objections and the patient is agreeable to going to the lab to get the collection equipment again. She is taking the cholestyramine at once a day it did not make any difference except for an initial period of constipation. She also tried twice a day which also did not seem to help at least in the short term. She does have a lot of acid brash and reflux as well that presents as burning in her chest. The pain that is underneath her ribs on both sides continues at least intermittently she had quite badly a couple of nights ago. She tried to lay down and drink some water until it slowly improved. At this point it still sounds like she is having bile gastritis and diarrhea. She continues to have postprandial urgency the only exception is if she drinks coffee in the morning and then she has large watery bowel movement and then can eat without postprandial diarrhea for the remainder of the day. I think were going to try increasing the cholestyramine to 3 times a day. At this point I am going to return her to Dr. Tipton's care. Orders: Orders Calprotectin, Fecal Today K52.9 - Noninfective gastroenteritis and colitis, unspecified Medications: Changed From cholestyramine (with sugar) 4 gram administer w/meal; avoid other meds within 1hr before or 4-6hr after dose 4 grams PO .betime 60 ea 6RF K52.9 - Noninfective gastroenteritis and colitis, unspecified, K58.2 - Mixed irritable bowel syndrome To cholestyramine (with sugar) 4 gram administer w/meal; avoid other meds within 1hr before or 4-6hr after dose 4 grams PO TID 90 ea 6RF K52.9 - Noninfective gastroenteritis and colitis, unspecified, K58.2 - Mixed irritable bowel syndrome Coding Level of Care Code Est Pt Level 3 (54266) Diagnoses Colitis K52.9 Irritable bowel syndrome with both constipation and diarrhea K58.2
[2023-05-28 12:35] VITALS: BP 128/60; PULSE 83; BMI 38.6
== END 2023-05-28 12:48 | disposition home or self-care (01) ==
PROVIDERS: PCP Registered Nurse; Visit Provider Nurse Practitioner
DX: K58.2 Mixed irritable bowel syndrome (principal)
CPT/HCPCS: 99213

== ENCOUNTER → 2023-05-28 12:15 | Outpatient (BNVA) | payer MEDICAID, SELFPAY | PROVIDERS: PCP Registered Nurse; Visit Provider Nurse Practitioner | DX: K52.9 Noninfective gastroenteritis and colitis, unspecified (principal); K58.2 Mixed irritable bowel syndrome | CPT/HCPCS: 99212 ==

== ENCOUNTER 2023-05-30 13:45 | Outpatient (REF) | payer MEDICAID, SELFPAY ==
[2023-06-06 18:08] LABS: Calprotectin, Fecal 24 mcg/g
== END 2023-05-30 13:46 | disposition home or self-care (01) ==
LOC: HO.LNP 13:45
PROVIDERS: Visit Provider Nurse Practitioner
DX: K52.9 Noninfective gastroenteritis and colitis, unspecified (principal)
CPT/HCPCS: 83993

== ENCOUNTER 2023-06-28 09:59 | Outpatient (REF) | payer MEDICAID, SELFPAY ==
[2023-06-28 11:28] LABS: MANUAL DIFF FLAG NO
[2023-06-28 11:39] LABS: Basophils Percent Auto 0.4 % (0-2); Eosinophils Absolute Auto 0.3 X10*3/uL (0.0-0.4); Eosinophils Percent Auto 3.6 % (0-4); Hematocrit 43.5 % (37.0-47.0); Hemoglobin 13.7 g/dl (12.0-16.0); Imm Gran Abs Auto 0.04 X10*3/uL (0.00-0.03); Imm Gran Pct Auto 0.5 % (0.0-0.4); Lymphocytes Absolute Auto 1.7 X10*3/uL (1.2-4.9); Lymphocytes Percent Auto 19.9 % (20-40); Mean Corpuscular HGB Conc 31.5 g/dl (31.0-35.0); Mean Corpuscular Hemoglobin 28.2 pg (27.0-33.0); Mean Corpuscular Volume 89.7 fL (80.0-98.0); Mean Platelet Volume 10.7 fL (9.4-12.3); Monocytes Absolute Auto 0.5 X10*3/uL (0.1-1.2); Monocytes Percent Auto 5.8 % (2-11); Neutrophils Absolute Auto 5.9 x10*3/uL (2.0-8.3); Neutrophils Percent Auto 69.8 % (45-73); Platelet Count 412 X10*3/uL (160-400); Red Blood Count 4.85 X10*6/uL (4.20-5.50); Red Cell Distribution Width 12.9 % (11.0-16.0); White Blood Count 8.4 X10*3/uL (4.8-10.8)
[2023-06-28 13:00] LABS: Anion Gap 10 (12-20); Blood Urea Nitrogen 8 mg/dL (9-16); Calcium 9.7 mg/dL (8.4-10.2); Carbon Dioxide 28 mmol/L (22-29); Chloride 108 mmol/L (96-108); Estimated Glomerular Filt Rate > 60; Glucose Random 80 mg/dL (60-115); Potassium 4.4 mmol/L (3.3-5.1); Sodium 142 mmol/L (135-145)
[2023-06-28 13:02] LABS: TSH reflex Free T4 1.37 uIU/mL (0.32-4.0); Vitamin D 25-OH Total 17.9 ng/mL (>30)
[2023-06-28 13:08] LABS: Folate > 20.0 ng/mL (> or = 4.0); Vitamin B12 193 pg/mL (200-900)
== END 2023-06-28 10:00 | disposition home or self-care (01) ==
LOC: HO.HHCL 09:59
PROVIDERS: Visit Provider Family Medicine
DX: R42 Dizziness and giddiness (principal); Z86.2 Personal history of diseases of the blood and blood-forming organs and certain disorders involving the immune mechanism; Z86.39 Personal history of other endocrine, nutritional and metabolic disease
CPT/HCPCS: 36415; 80048; 82306; 82607; 82746; 84443; 85025

== ENCOUNTER 2023-07-03 17:32 | Emergency (ER) | payer MEDICAID, SELFPAY ==
[2023-07-03 17:37] VITALS: BMI 34.3
--- NOTE | 2023-07-03 17:38 | ECG_ITS ---
Test Reason : chest pain Blood Pressure : / mmHG Vent. Rate : 067 BPM Atrial Rate : 067 BPM P-R Int : 182 ms QRS Dur : 082 ms QT Int : 360 ms P-R-T Axes : 057 034 014 degrees QTc Int : 380 ms Normal sinus rhythm with sinus arrhythmia Possible Left atrial enlargement Nonspecific T wave abnormality Abnormal ECG When compared with ECG of 10-JUL-2022 19:57, Vent. rate has decreased BY 51 BPM Referred By: Generic ED Physician Electronically Signed By:AWILDA LEON MD
[2023-07-03 18:01] VITALS: BP 134/38; PULSE 79; RESP 16; TEMP 36.6; O2SAT 97; BMI 39.1
[2023-07-03 18:19] LABS: MANUAL DIFF FLAG NO
[2023-07-03 18:22] LABS: Basophils Percent Auto 0.4 % (0-2); Eosinophils Absolute Auto 0.2 X10*3/uL (0.0-0.4); Hematocrit 38.8 % (37.0-47.0); Hemoglobin 12.6 g/dl (12.0-16.0); Imm Gran Abs Auto 0.03 X10*3/uL (0.00-0.03); Imm Gran Pct Auto 0.3 % (0.0-0.4); Lymphocytes Absolute Auto 2.4 X10*3/uL (1.2-4.9); Lymphocytes Percent Auto 21.6 % (20-40); Mean Corpuscular HGB Conc 32.5 g/dl (31.0-35.0); Mean Corpuscular Hemoglobin 28.4 pg (27.0-33.0); Mean Corpuscular Volume 87.4 fL (80.0-98.0); Mean Platelet Volume 10.3 fL (9.4-12.3); Monocytes Absolute Auto 0.5 X10*3/uL (0.1-1.2); Monocytes Percent Auto 4.4 % (2-11); Neutrophils Absolute Auto 7.8 x10*3/uL (2.0-8.3); Neutrophils Percent Auto 71.3 % (45-73); Platelet Count 370 X10*3/uL (160-400); Red Blood Count 4.44 X10*6/uL (4.20-5.50); Red Cell Distribution Width 12.8 % (11.0-16.0); White Blood Count 10.9 X10*3/uL (4.8-10.8)
[2023-07-03 18:47] LABS: Alanine Aminotransferase 10 U/L (0-31); Alkaline Phosphatase 72 U/L (39-117); Anion Gap 14 (12-20); Aspartate Amino Transferase 14 U/L (5-31); Bilirubin Direct < 0.1 mg/dL (0.0-0.5); Blood Urea Nitrogen 12 mg/dL (9-16); Calcium 9.6 mg/dL (8.4-10.2); Carbon Dioxide 24 mmol/L (22-29); Chloride 109 mmol/L (96-108); Estimated Glomerular Filt Rate > 60; Glucose Random 87 mg/dL (60-115); Potassium 3.8 mmol/L (3.3-5.1); Sodium 143 mmol/L (135-145); Total Protein 7.5 g/dL (6.5-8.0); Troponin-I High Sensitivity < 2.7 ng/L (<3.5-17.0)
[2023-07-03 19:13] LABS: Bilirubin Total 0.1 mg/dL (0.0-1.0)
== END 2023-07-03 22:51 | disposition left against medical advice (07) ==
PROVIDERS: Emergency Provider Emergency Medicine; PCP Registered Nurse
DX: R07.89 Other chest pain (principal); R06.02 Shortness of breath; Z79.899 Other long term (current) drug therapy
CPT/HCPCS: 36415; 80048; 80076; 84484; 85025; 93005; 99283

== ENCOUNTER → 2023-07-03 17:38 | Outpatient (BNV) | payer MEDICAID, SELFPAY | PROVIDERS: Emergency Provider Emergency Medicine; PCP Registered Nurse; Visit Provider Internal Medicine Cardiovascular Disease | DX: I49.9 Cardiac arrhythmia, unspecified (principal) | CPT/HCPCS: 93010 ==

== ENCOUNTER 2023-07-04 10:37 | Outpatient (REF) | payer MEDICAID, SELFPAY ==
--- NOTE | ~2023-07-04 | XR_ITS ---
EXAMINATION: XR CHEST CLINICAL INFORMATION: SOB COMPARISON: Chest 10/04/2021 TECHNIQUE: 2 views of the chest were obtained. FINDINGS: No significant abnormality is noted involving the heart, lungs, mediastinum, bony thorax or soft tissues. XR/XR chest 2V IMPRESSION: Unremarkable examination.
== END 2023-07-04 10:38 | disposition home or self-care (01) ==
LOC: HO.HHCX 10:37
PROVIDERS: Visit Provider Pediatrics
DX: R06.02 Shortness of breath (principal)
CPT/HCPCS: 71046

== ENCOUNTER 2023-07-05 19:23 | Emergency (ER) | payer MEDICAID, SELFPAY ==
--- NOTE | ~2023-07-05 | XR_ITS ---
EXAMINATION: XR CHEST CLINICAL INFORMATION: Shortness of breath. COMPARISON: Chest radiograph 07/04/2023. TECHNIQUE: 2 views of the chest were obtained. FINDINGS: Stable cardiomediastinal silhouette. No focal airspace opacities, pleural effusion or pneumothorax. No pulmonary edema. No acute osseous findings. XR/XR chest 2V IMPRESSION: No acute cardiopulmonary findings.
[2023-07-05 21:02] VITALS: BP 128/76; PULSE 88; RESP 16; TEMP 36.7; O2SAT 100; BMI 39.2
[2023-07-05 21:34] LABS: MANUAL DIFF FLAG NO
[2023-07-05 21:35] LABS: Basophils Percent Auto 0.3 % (0-2); Eosinophils Absolute Auto 0.3 X10*3/uL (0.0-0.4); Eosinophils Percent Auto 2.2 % (0-4); Hematocrit 40.4 % (37.0-47.0); Hemoglobin 13.2 g/dl (12.0-16.0); Imm Gran Abs Auto 0.03 X10*3/uL (0.00-0.03); Imm Gran Pct Auto 0.3 % (0.0-0.4); Lymphocytes Absolute Auto 3.1 X10*3/uL (1.2-4.9); Lymphocytes Percent Auto 26.6 % (20-40); Mean Corpuscular HGB Conc 32.7 g/dl (31.0-35.0); Mean Corpuscular Hemoglobin 28.6 pg (27.0-33.0); Mean Corpuscular Volume 87.4 fL (80.0-98.0); Mean Platelet Volume 10.1 fL (9.4-12.3); Monocytes Absolute Auto 0.7 X10*3/uL (0.1-1.2); Monocytes Percent Auto 6.3 % (2-11); Neutrophils Absolute Auto 7.6 x10*3/uL (2.0-8.3); Neutrophils Percent Auto 64.3 % (45-73); Platelet Count 397 X10*3/uL (160-400); Red Blood Count 4.62 X10*6/uL (4.20-5.50); White Blood Count 11.8 X10*3/uL (4.8-10.8)
[2023-07-05 21:50] LABS: Alanine Aminotransferase 11 U/L (0-31); Albumin Level 4.1 g/dL (3.5-5.0); Alkaline Phosphatase 72 U/L (39-117); Anion Gap 11 (12-20); Aspartate Amino Transferase 12 U/L (5-31); Bilirubin Total 0.2 mg/dL (0.0-1.0); Blood Urea Nitrogen 11 mg/dL (9-16); Calcium 9.6 mg/dL (8.4-10.2); Carbon Dioxide 28 mmol/L (22-29); Chloride 108 mmol/L (96-108); Creatinine Clr Calc Pharmacy 113.2; Estimated Glomerular Filt Rate > 60; Glucose Random 93 mg/dL (60-115); Potassium 3.6 mmol/L (3.3-5.1); Sodium 143 mmol/L (135-145); Total Protein 7.6 g/dL (6.5-8.0)
[2023-07-06 00:14] VITALS: BP 114/86; PULSE 85; RESP 18; TEMP 37; O2SAT 97
[2023-07-06] MEDS: Ondansetron ODT 4 MG TAB.RAPDIS TRANSLINGU (00:18)
--- NOTE | 2023-07-06 01:00 | ECG_ITS ---
Test Reason : DYSPNEA Blood Pressure : / mmHG Vent. Rate : 072 BPM Atrial Rate : 072 BPM P-R Int : 208 ms QRS Dur : 094 ms QT Int : 394 ms P-R-T Axes : 050 031 005 degrees QTc Int : 431 ms Normal sinus rhythm Nonspecific T wave abnormality Abnormal ECG When compared with ECG of 03-JUL-2023 17:44, QT has lengthened Referred By: Jessica Pantoja Electronically Signed By:AWILDA LEON MD
--- NOTE | 2023-07-06 01:30 | ED_ITS ---
HPI - SOB/Dyspnea General Chief Complaint: Dyspnea Stated Complaint: Difficulty breathing/Abd pain Time Seen by Provider: 07/06/23 00:51 Source: patient and old records reviewed Mode of arrival: ambulatory Limitations: no limitations History of Present Illness HPI Narrative: 28 yo female with PMH of IBS here with c/o 2 weeks of all the time dyspnea no chest pain feels fatigue along with breath stacking. Saw her PCP who mentioned anxiety but she denies this. The patient denies travel, procedures, OCP use, URI symptoms. MD elicited complaint: shortness of breath Onset (ago): week(s) (2) Timing: constant Severity: moderate Exacerbating factors: nothing Relieving factors: nothing Associated symptoms: nausea/vomiting Treatment prior to arrival: none Related Data Home Medications Medication Instructions Recorded Confirmed cholecalciferol (vitamin D3) 07/11/22 cyanocobalamin (vitamin B-12) 1,000 mcg PO BEDTIME 07/11/22 07/11/22 1,000 mcg tablet (Vitamin B-12) cyclobenzaprine 10 mg tablet 10 mg PO TID PRN Muscle Spasm 07/11/22 07/11/22 hydroxyzine HCl 25 mg tablet mg anxiety 07/11/22 naproxen 500 mg tablet 500 mg PO BID PRN Pain 07/11/22 07/11/22 fluoxetine 20 mg capsule 20 mg PO DAILY 04/02/23 Previous Rx's Medication Instructions Recorded pantoprazole 40 mg tablet,delayed 40 mg PO DAILY 30 days #30 tabs 04/02/23 release (Protonix) cholestyramine (with sugar) 4 gram 4 g PO TID #90 ea 05/28/23 powder for susp in a packet hydroxyzine HCl 50 mg tablet 50 mg PO BID PRN anxiety #20 tabs 07/06/23 Allergies Allergy/AdvReac Type Severity Reaction Status Date / Time tomato [TOMATO] Allergy Severe DIFFICULTY Verified 07/05/23 21:01 BREATHING latex [LATEX] Allergy Intermediate ITCHY Verified 07/05/23 21:01 ibuprofen AdvReac Severe Unknown Verified 07/05/23 21:01 shellfish Allergy Intermediate Difficulty Uncoded 07/05/23 21:01 Breathing Review of Systems 2 Review of Systems: Constitutional : No Fever, No Chills ENT/Mouth : No sore throat, No Rhinorrhea, No Swallowing Difficulty Eyes: No Eye Pain, No Swelling, No Redness Cardiovascular : No Chest Pain, positive SOB, No Orthopnea, no Edema Respiratory : No Cough, No Sputum, No Wheezing, positive dyspnea Gastrointestinal : pos Nausea, No Vomiting, No Diarrhea, No abdominal Pain, No Hematochezia, No Melena Genitourinary : No Dysuria, No Urinary Frequency, No Hematuria Musculoskeletal : No joint pain, No Myalgias Skin : No Skin Lesions, No rash Neuro : No Weakness, No Numbness, No Dizziness, No Headache Psych : No Anxiety/Panic, No Depression All other systems reviewed and are negative [facility] Past Medical History Attestation statement: The following information was validated with the patient. Source: old records reviewed Medical History Pancreatitis Hypertension Surgical History H/O tubal ligation History of esophagogastroduodenoscopy (EGD) History of cholecystectomy Social History Social History Alcohol intake: never Patient Tobacco Use Status: Current someday Tobacco user Tobacco use type: Cigarette Cigarettes Per Day: 2 Advance Directives: No Advance Directives Information Provided: No service: No Current occupational status: unemployed Physical Exam 2 Vital Signs: Vital Signs: Last Vital Signs Temp 98.6 F 07/06/23 00:14 Pulse 85 07/06/23 00:14 Resp 18 07/06/23 00:14 BP 114/86 07/06/23 00:14 Pulse Ox 97 07/06/23 00:14 O2 Del Method Room Air 07/06/23 00:14 BMI result Body Mass Index 39.2 Appearance: Alert. Oriented X3. No acute distress. Eyes: Pupils equal, round and reactive to light. ENT: Pharynx normal. Neck: Normal inspection. Neck supple. CVS: Normal heart rate and rhythm. Pulses normal. Respiratory: No respiratory distress. Breath sounds normal. Abdomen: Soft and nontender. Skin: Skin warm and dry. Normal skin color. Normal skin turgor. Extremities: No lower extremity edema. No calf ttp Neuro: Oriented X 3. No motor deficit. No sensory deficit. Medications Administered Discontinued Medications Generic Name Dose Route Start Last Admin Trade Name Freq PRN Reason Stop Dose Admin Ondansetron HCl 4 mg 07/06/23 00:13 07/06/23 00:18 Ondansetron Odt 4 Mg Tab.Fabdis TRANSLINGU 07/06/23 00:14 4 mg ONCE ONE Administration Medical Decision Making Medical Decision Making [facility] Narrative: 28 yo female with IBS here with c/o shortness of breath x 2 weeks no chest pain EKG negative, no anemia, no OCPs or risk factors for VTE at this time doubt VTE - CXR, bedside ECHO, basic labs ordered. Stable for DC Differential Diagnosis Differential Diagnoses: The differential diagnosis associated with the presentation includes anxiety, anemia, shortness of breath Admission/Observation Consideration of admission/observation: Escalation of care including admission/observation considered not toxic, stable for DC Lab Data [facility] Lab Attestation statement: I reviewed the patient's lab results. 07/05/23 21:27 07/05/23 21:27 Labs: Lab Results 07/05/23 Range/Units 21:27 WBC 11.8 H (4.8-10.8) X10*3/uL RBC 4.62 (4.20-5.50) X10*6/uL Hgb 13.2 (12.0-16.0) g/dl Hct 40.4 (37.0-47.0) % MCV 87.4 (80.0-98.0) fL MCH 28.6 (27.0-33.0) pg MCHC 32.7 (31.0-35.0) g/dl RDW 13.0 (11.0-16.0) % Plt Count 397 (160-400) X10*3/uL MPV 10.1 (9.4-12.3) fL Immature Gran % (Auto) 0.3 (0.0-0.4) % Neut % (Auto) 64.3 (45-73) % Lymph % (Auto) 26.6 (20-40) % [place] % (Auto) 6.3 (2-11) % Eos % (Auto) 2.2 (0-4) % Baso % (Auto) 0.3 (0-2) % Lymph # (Auto) 3.1 (1.2-4.9) X10*3/uL [place] # (Auto) 0.7 (0.1-1.2) X10*3/uL Eos # (Auto) 0.3 (0.0-0.4) X10*3/uL Baso # (Auto) 0.0 (0.0-0.2) X10*3/uL Abs Immat Gran (auto) 0.03 (0.00-0.03) X10*3/uL Absolute Neuts (auto) 7.6 (2.0-8.3) x10*3/uL Absolute Nucleated RBC 0.000 (0.0-0.012) X10*3/uL Nucleated RBC % (auto) 0.0 (0.0-0.2) /100WBC Sodium 143 (135-145) mmol/L Potassium 3.6 (3.3-5.1) mmol/L Chloride 108 (96-108) mmol/L Carbon Dioxide 28 (22-29) mmol/L Anion Gap 11 L (12-20) BUN 11 (9-16) mg/dL Creatinine 0.86 (0.5-1.4) mg/dL Estim Creat Clear Calc 113.2 Estimated GFR > 60 Random Glucose 93 (60-115) mg/dL Calcium 9.6 (8.4-10.2) mg/dL Total Bilirubin 0.2 (0.0-1.0) mg/dL AST 12 (5-31) U/L ALT 11 (0-31) U/L Alkaline Phosphatase 72 (39-117) U/L Total Protein 7.6 (6.5-8.0) g/dL Albumin 4.1 (3.5-5.0) g/dL Independent Interpretation I performed an independent interpretation of an: EKG and Ultrasound Interpretation: Rate: 72 Rhythm: NSR with 1st degree AVB [place]: normal Normal P waves. Normal [place]. Normal QRS complex. ST T wave : normal no MARIA DE JESUS nonspecific findings qTC: 431 prior studies: no acute ischemia The study has been interpreted contemporaneously by me. . Radiology Impression Discussion of test interpretation with radiology: I have reviewed the radiologist's reading. External Record Review External record reviewed: Inpatient record Prescription Management I considered prescription management with: Other Procedures Procedure Narrative Procedure Narrative: bedside ECHO no effusion seen no bowing no gross wall motion abnormality Discharge Plan Discharge Clinical Impression: Shortness of breath Patient Disposition: Home, Self-Care Instructions: Shortness of Breath (ED) Additional Instructions: labs reassuring, chest xray normal, EKG normal will try new medication to see if this improves symptoms return for worsening symptoms or concerns follow up with your primary care doctor next week Prescriptions: New hydroxyzine HCl 50 mg tablet 50 mg PO BID PRN (Reason: anxiety) Qty: 20 0RF No Action cyanocobalamin (vitamin B-12) [Vitamin B-12] 1,000 mcg Tablet 1,000 mcg PO BEDTIME cyclobenzaprine 10 mg Tablet 10 mg PO TID PRN (Reason: Muscle Spasm) naproxen 500 mg Tablet 500 mg PO BID PRN (Reason: Pain) cholecalciferol (vitamin D3) hydroxyzine HCl 25 mg Tablet fluoxetine 20 mg capsule 20 mg PO DAILY pantoprazole [Protonix] 40 mg tablet,delayed release (DR/EC) 40 mg PO DAILY 30 Days Qty: 30 3RF cholestyramine (with sugar) 4 gram powder in packet 4 g PO TID Qty: 90 6RF Rx Instructions: administer w/meal; avoid other meds within 1hr before or 4-6hr after dose Stand Alone Forms: Work/School Release
[2023-07-06] MEDS: hydrOXYzine HCL 50 MG TABLET PO (01:57)
[2023-07-06 02:09] VITALS: BP 133/64; PULSE 80; RESP 15; TEMP 36.4; O2SAT 97
== END 2023-07-06 02:10 | disposition home or self-care (01) ==
PROVIDERS: Emergency Provider Emergency Medicine; PCP Registered Nurse
DX: R06.02 Shortness of breath (principal); R06.00 Dyspnea, unspecified; I10 Essential (primary) hypertension; K58.9 Irritable bowel syndrome, unspecified; Z79.899 Other long term (current) drug therapy
CPT/HCPCS: 36415; 71046; 80053; 85025; 93005; 99283; 99284

== ENCOUNTER → 2023-07-06 01:00 | Outpatient (BNV) | payer MEDICAID, SELFPAY | PROVIDERS: Emergency Provider Emergency Medicine; PCP Registered Nurse; Visit Provider Internal Medicine Cardiovascular Disease | DX: R06.00 Dyspnea, unspecified (principal); R94.31 Abnormal electrocardiogram [ECG] [EKG] | CPT/HCPCS: 93010 ==

== ENCOUNTER 2023-09-23 10:45 | Outpatient (AMB) | payer MEDICAID, SELFPAY ==
--- NOTE | 2023-09-23 10:52 | MHC.OFFVIS ---
Vital Signs 09/23/23 10:54 Height 5 ft 4 in Weight 227 lb 1.218 oz BMI 39.0 BP 113/86 Blood Pressure Location Lt brachial Position Sitting Pulse 81 Intake Visit Reasons: 4 month follow up Intake Note: Callie presents in the office as a 4 month follow up CC: She states that she is still having issues with constipation - She states that it has been almost 3 weeks and she has not had a BM. She gets the bubble guts and feels like she has to go but there is no movements. She states that is taking OTC fiber as well. She states she has a pill she got off [facility] . She has tried suppositories and nothing seems to help. Allergies tomato [TOMATO] Allergy (Severe, Verified 09/23/23 10:54) DIFFICULTY BREATHING latex [LATEX] Allergy (Intermediate, Verified 09/23/23 10:54) ITCHY ibuprofen Adverse Reaction (Severe, Verified 09/23/23 10:54) Unknown shellfish Allergy (Intermediate, Uncoded 09/23/23 10:54) Difficulty Breathing HPI Comments Details: This is a 28y.o F with PMH of who is here for abdominal discomfort and change in bowel habits. To recap pt was seen in the hospital earlier this year for infectious enteritis. Reports that a few weeks after discharge, developed similar abd discomfort located primarily in the LUQ associated with significant bloating that would get relieved by passing flatus or BM. BMs are also now more soft/loose compared to her previous baseline. Pain is typically postprandial, within 30-60 mins. Pt is s/p CCY. Of note - TPO Ab + from 201709/23/23: Was seen in follow up by [facility] and hospital level. BMs cont to fluctuate between diarrhea and constipation. Was given cholestyramine at last visit due to loose BMs. Today, reports constipation is back. She stopped taking the cholestyramine a month ago but still constipated. Has been taking some fiber gummies and stool softener but stool remains hard and has to strain considerably. [facility] Medical History Pancreatitis Hypertension Surgical History H/O tubal ligation History of esophagogastroduodenoscopy (EGD) History of cholecystectomy Social History Alcohol intake: never Patient Tobacco Use Status: Current someday Tobacco user Tobacco use type: Cigarette Cigarettes Per Day: 2 service: No Current occupational status: unemployed Review of Systems Const All systems reviewed & are unremarkable except as noted in HPI and below Physical Exam Vital Signs: Last Vital Signs Pulse 81 09/23/23 10:54 BP 113/86 09/23/23 10:54 BMI result Body Mass Index 39.0 No apparent distress Nonicteric Abdomen soft, nondistended Alert and oriented x3, normal gait Assessment & Plan Assessment & Plan (1) Abdominal pain: Code(s): R10.9 - Unspecified abdominal pain Category: Medical (2) Irritable bowel syndrome with both constipation and diarrhea: Code(s): K58.2 - Mixed irritable bowel syndrome Category: Medical Plan Has mixed type IBS. Currently struggling with constipation. Plan: - Increase fiber intake to at least 25-30g/day total. Can use fiber supplementation - Add senna in AM - Add miralax daily - Can titrate the above to effect. Follow up 3 months Medications: New psyllium mix into at least 8 oz of water or juice before administering 1 packet PO BID 30 days 500 ea 0RF Patient Instructions: - Take 1 tbsp fiber mixed in a cup of water daily - this is good for IBS in general. - Take 2 tabs of senna in the morning 30 mins before breakfast - Start miralax 1 capful mixed in a cup of water daily - If no response within 3-4 days, INCREASE miralax to 2 times a day - Once bowel movements regulate, can cut down on miralax and stop senna. Coding Level of Care Code Est Pt Level 3 (69178) Diagnoses Abdominal pain R10.9 Irritable bowel syndrome with both constipation and diarrhea K58.2
[2023-09-23 10:54] VITALS: BP 113/86; PULSE 81; BMI 39.0
== END 2023-09-23 11:27 | disposition home or self-care (01) ==
PROVIDERS: PCP Family Medicine; Referring Provider Family Medicine; Visit Provider Internal Medicine
DX: R10.9 Unspecified abdominal pain (principal); K58.2 Mixed irritable bowel syndrome
CPT/HCPCS: 99213

== ENCOUNTER → 2023-09-23 10:45 | Outpatient (BNVA) | payer MEDICAID, SELFPAY | PROVIDERS: PCP Family Medicine; Visit Provider Internal Medicine | DX: R10.12 Left upper quadrant pain (principal); K58.2 Mixed irritable bowel syndrome | CPT/HCPCS: 99212 ==

== ENCOUNTER 2023-12-05 12:18 | Outpatient (REF) | payer MEDICAID, SELFPAY ==
[2023-12-05 12:29] LABS: MANUAL DIFF FLAG NO
[2023-12-05 12:39] LABS: Basophils Percent Auto 0.3 % (0-2); Eosinophils Absolute Auto 0.1 X10*3/uL (0.0-0.4); Eosinophils Percent Auto 0.6 % (0-4); Hematocrit 42.1 % (37.0-47.0); Hemoglobin 13.4 g/dl (12.0-16.0); Imm Gran Abs Auto 0.02 X10*3/uL (0.00-0.03); Imm Gran Pct Auto 0.2 % (0.0-0.4); Lymphocytes Absolute Auto 1.8 X10*3/uL (1.2-4.9); Lymphocytes Percent Auto 19.1 % (20-40); Mean Corpuscular HGB Conc 31.8 g/dl (31.0-35.0); Mean Corpuscular Hemoglobin 28.1 pg (27.0-33.0); Mean Corpuscular Volume 88.3 fL (80.0-98.0); Mean Platelet Volume 10.1 fL (9.4-12.3); Monocytes Absolute Auto 0.5 X10*3/uL (0.1-1.2); Monocytes Percent Auto 5.2 % (2-11); Neutrophils Absolute Auto 7.1 x10*3/uL (2.0-8.3); Neutrophils Percent Auto 74.6 % (45-73); Platelet Count 404 X10*3/uL (160-400); Red Blood Count 4.77 X10*6/uL (4.20-5.50); Red Cell Distribution Width 12.9 % (11.0-16.0); White Blood Count 9.5 X10*3/uL (4.8-10.8)
[2023-12-05 13:14] LABS: Alanine Aminotransferase 11 U/L (0-31); Albumin Level 4.3 g/dL (3.5-5.0); Alkaline Phosphatase 74 U/L (39-117); Anion Gap 15 (12-20); Aspartate Amino Transferase 12 U/L (5-31); Bilirubin Total 0.3 mg/dL (0.0-1.0); Blood Urea Nitrogen 10 mg/dL (9-16); Calcium 9.8 mg/dL (8.4-10.2); Carbon Dioxide 23 mmol/L (22-29); Chloride 106 mmol/L (96-108); Estimated Glomerular Filt Rate > 60; Glucose Random 88 mg/dL (60-115); Iron 66 mcg/dL (30-160); Percent Iron Saturation 21 % (15-50); Potassium 3.9 mmol/L (3.3-5.1); Sodium 140 mmol/L (135-145); Total Iron Binding Capacity 318 mcg/dL (228-428); Total Protein 7.7 g/dL (6.5-8.0); Unsaturated Iron Binding 252 ug/dL
[2023-12-05 13:31] LABS: Ferritin 23 ng/mL (10-122); TSH reflex Free T4 1.61 uIU/mL (0.32-4.0)
[2023-12-05 13:34] LABS: Vitamin B12 421 pg/mL (200-900)
== END 2023-12-05 12:19 | disposition home or self-care (01) ==
LOC: HO.LAB 12:18
PROVIDERS: PCP Registered Nurse; Visit Provider Registered Nurse
DX: R42 Dizziness and giddiness (principal)
CPT/HCPCS: 36415; 80053; 82306; 82607; 82728; 83540; 84443; 85025

== ENCOUNTER → 2024-02-02 20:30 | Outpatient (BNV) | payer MEDICAID, SELFPAY | PROVIDERS: PCP Registered Nurse; Visit Provider Psychiatry & Neurology Neurology | DX: R06.83 Snoring (principal) | CPT/HCPCS: 95810 ==

== ENCOUNTER → 2024-02-02 20:30 | Outpatient (REF) | payer MEDICAID, SELFPAY | LOC: HO.SL 20:30 | PROVIDERS: PCP Registered Nurse; Visit Provider Family Medicine | DX: G47.9 Sleep disorder, unspecified (principal) | CPT/HCPCS: 95810 ==

== ENCOUNTER 2024-03-14 15:51 | Emergency (ER) | payer MEDICAID, SELFPAY ==
--- NOTE | ~2024-03-14 | XR_ITS ---
EXAMINATION: XR CHEST CLINICAL INFORMATION: cough COMPARISON: Chest radiograph dated July 05, 2023. TECHNIQUE: 2 views of the chest were obtained. FINDINGS: The heart is normal in size. The lungs are clear. There is no pleural effusion or pneumothorax. There is no acute osseous abnormality. XR/XR chest 2V IMPRESSION: Stable appearance of the heart and lungs. No active disease. Electronically signed by: Roger Palma DO 03/14/2024 05:15 PM [facility]
--- NOTE | 2024-03-14 15:56 | ED.URI ---
HPI - URI/Sore Throat General Chief Complaint: Upper Respiratory Symptoms Stated Complaint: coughing up blood,sob,fever Time Seen by Provider: 03/14/24 16:55 Source: patient, RN notes reviewed and old records reviewed Mode of arrival: ambulatory Limitations: no limitations History of Present Illness ED Provider: Nicolasa MURGUIA Narrative: 29-year-old female presents for evaluation of cough. She reports a 1 week history of cough with shortness of breath. She has chest pain and left upper abdominal pain when coughing. She reports she is coughing up ?black phlegm. ? She has a history of GERD. She is not on control. Denies any recent travel. 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 She reports that she had a fever of 101 yesterday. She has not had any fevers today Related Data Home Medications ?Medication ?Instructions ?Recorded ?Confirmed cyanocobalamin (vitamin B-12) 1,000 mcg PO BEDTIME 07/11/22 07/11/22 1,000 mcg tablet (Vitamin B-12) cyclobenzaprine 10 mg tablet 10 mg PO TID PRN Muscle Spasm 07/11/22 07/11/22 fluoxetine 20 mg capsule 20 mg PO DAILY 04/02/23 cholecalciferol (vitamin D3) 50 50 mcg PO QWEEK 09/23/23 mcg (2,000 unit) capsule (Vitamin D3) Previous Rx's ?Medication ?Instructions ?Recorded pantoprazole 40 mg tablet,delayed 40 mg PO DAILY 30 days #30 tabs 04/02/23 release (Protonix) cholestyramine (with sugar) 4 gram 4 g PO TID #90 ea 05/28/23 powder for susp in a packet hydroxyzine HCl 50 mg tablet 50 mg PO BID PRN anxiety #20 tabs 07/06/23 psyllium 1 packet PO BID 30 days #500 ea 09/23/23 benzonatate 200 mg capsule 200 mg PO TID PRN cough #20 caps 03/14/24 cyclobenzaprine 10 mg tablet 10 mg PO TID PRN muscle spasm #20 03/14/24 tabs Allergies Allergy/AdvReac Type Severity Reaction Status Date / Time tomato [TOMATO] Allergy Severe DIFFICULTY Verified 03/14/24 16:01 BREATHING latex [LATEX] Allergy Intermediate ITCHY Verified 03/14/24 16:01 ibuprofen AdvReac Severe Unknown Verified 03/14/24 16:01 shellfish Allergy Intermediate Difficulty Uncoded 09/23/23 10:54 Breathing Review of Systems Constitutional: Constitutional: Reports body ache(s), Denies chills, Reports fever(s) and Reports headache(s) Eyes: Eyes: Denies blurry vision ENT: Denies vertigo, Denies dizziness and Reports headache(s) Cardiovascular: Cardiovascular: Reports chest pain and Reports dyspnea Respiratory: Respiratory: Reports change in phlegm color, Reports cough, Reports pain on inspiration, Reports pain with cough and Reports dyspnea Gastrointestinal: Gastrointestinal: Reports abdominal pain, Reports nausea and Reports vomiting Genitourinary: Genitourinary: Denies dysuria Musculoskeletal: Musculoskeletal: Denies back pain Integumentary/Breasts: Skin/Breast: Denies rash Neurologic: Denies vertigo, Denies dizziness and Reports headache(s) [facility] Past Medical History Medical History Pancreatitis Hypertension Surgical History H/O tubal ligation History of esophagogastroduodenoscopy (EGD) History of cholecystectomy Social History Social History Alcohol intake: current Alcohol intake frequency: holidays/special occasions only Patient Tobacco Use Status: Current someday Tobacco user Tobacco use type: Cigarette Cigarettes Per Day: 2 Smoked in Last 30 Days: No Use of substances other than those prescribed or required for medical reasons: No Advance Directives: No Advance Directives Information Provided: No Do you have a plan to hurt others: No Plan Patient : No service: No Current occupational status: unemployed Physical Exam Vital Signs: Vital Signs: Last Vital Signs Temp 99.0 F 03/14/24 18:38 Pulse 73 03/14/24 18:38 Resp 16 03/14/24 18:38 BP 115/62 03/14/24 18:38 Pulse Ox 95 03/14/24 18:38 O2 Del Method Room Air 03/14/24 18:38 BMI result Body Mass Index 40.8 Const: General: healthy appearing, comfortable, no acute distress, alert and awake Nutritional Appearance: well nourished Orientation/consciousness: patient oriented x3 HEENT: Head: Yes normocephalic and Yes atraumatic Eyes: Eyelids: Yes eyelids normal Conjunctivae: conjunctivae normal Sclerae: sclerae normal Corneas: corneas normal Pupils: Equal, round and reactive pupils present EOM: EOMs intact bilaterally Neck: Neck: Yes full ROM Resp: Effort & Inspection: normal respiratory effort, able to speak in complete sentences, no audible wheezes and not labored Auscultation: clear to auscultation bilaterally Cardio: Rate: regular rate Rhythm: regular rhythm GI: Inspection: No distended Palpation (GI): Soft to palpation, not firm, nontender, no guarding and not rigid Skin: General skin exam: elasticity normal Neuro: General: patient oriented x3 Cranial nerves: Yes Equal, round and reactive pupils present and Yes Bilaterally intact EOM present Cognition (Neuro): normal cognition Course Course Course Narrative: This is a Rapid Medical Exam performed in triage by Michelle Sandoval PA-C. Full HPI, ROS and PE to be performed by primary ED provider. 29-year-old female with a past medical history HTN, pancreatitis, presenting to the ED c/o fever, [place], cough, SOB, x 5 days. Reports back/lung/CP x last night w/breathing & wheezing. Admits was coughing up blood/black mucus yesterday. +sick contacts (quite cigarette smoking 3mos ago) PE: talking in complete sentences, lungs CTA, dry cough noted Plan: EKG, labs, Viral testing, CXR Medical Decision Making Medical Decision Making [facility] Narrative: [age] old female presents for evaluation of cough, congestion, pain with cough. She is PERC negative, she has no leukocytosis, chest x-ray is clear, there is no pneumonia. Viral swabs are negative for influenza, COVID-19. EKG is normal sinus rhythm, no ST segment elevation [place]. She has no neck pain, no meningeal signs, less likely infectious meningitis or encephalitis. The patient likely has a viral upper respiratory infection which will be treated symptomatically. Her vital signs are stable and she is well-appearing. Differential Diagnosis Differential Diagnoses: The differential diagnosis associated with the presentation includes Upper respiratory infection Pneumonia Bronchitis GERD Abdominal pain Gastritis Viral syndrome Lab Data [facility] Lab Attestation statement: I reviewed the patient's lab results. No leukocytosis or anemia. Normal platelet count. No electrolyte abnormalities. 03/14/24 16:19 03/14/24 16:19 Labs: Lab Results 03/14/24 Range/Units 16:19 WBC 6.6 (4.8-10.8) X10*3/uL RBC 4.78 (4.20-5.50) X10*6/uL Hgb 13.5 (12.0-16.0) g/dl Hct 40.8 (37.0-47.0) % MCV 85.4 (80.0-98.0) fL MCH 28.2 (27.0-33.0) pg MCHC 33.1 (31.0-35.0) g/dl RDW 13.0 (11.0-16.0) % Plt Count 390 (160-400) X10*3/uL MPV 9.8 (9.4-12.3) fL Immature Gran % (Auto) 0.2 (0.0-0.4) % Neut % (Auto) 59.8 (45-73) % Lymph % (Auto) 27.4 (20-40) % [place] % (Auto) 9.4 (2-11) % Eos % (Auto) 2.6 (0-4) % Baso % (Auto) 0.6 (0-2) % Lymph # (Auto) 1.8 (1.2-4.9) X10*3/uL [place] # (Auto) 0.6 (0.1-1.2) X10*3/uL Eos # (Auto) 0.2 (0.0-0.4) X10*3/uL Baso # (Auto) 0.0 (0.0-0.2) X10*3/uL Abs Immat Gran (auto) 0.01 (0.00-0.03) X10*3/uL Absolute Neuts (auto) 4.0 (2.0-8.3) x10*3/uL Absolute Nucleated RBC 0.000 (0.0-0.012) X10*3/uL Nucleated RBC % (auto) 0.0 (0.0-0.2) /100WBC PT 12.0 (10.9-12.4) SEC INR 1.0 (0.9-1.1) Sodium 139 (135-145) mmol/L Potassium 4.0 (3.3-5.1) mmol/L Chloride 108 (96-108) mmol/L Carbon Dioxide 22 (22-29) mmol/L Anion Gap 13 (12-20) BUN 8 L (9-16) mg/dL Creatinine 0.85 (0.5-1.4) mg/dL Estim Creat Clear Calc 115.9 Estimated GFR > 60 Random Glucose 108 (60-115) mg/dL Calcium 9.6 (8.4-10.2) mg/dL Magnesium 2.3 (1.6-2.6) mg/dL Total Bilirubin 0.2 (0.0-1.0) mg/dL Direct Bilirubin < 0.2 (0.0-0.5) mg/dL AST 18 (5-31) U/L ALT 17 (0-31) U/L Alkaline Phosphatase 80 (39-117) U/L Troponin I High Sens < 2.7 (<3.5-17.0) ng/L Total Protein 7.8 (6.5-8.0) g/dL Albumin 4.2 (3.5-5.0) g/dL Influenza Type A (PCR) NEGATIVE (Negative) Influenza Type B (PCR) NEGATIVE (Negative) RSV RNA Qual (PCR) NEGATIVE (Negative) SARS-CoV-2 RNA (RT-PCR) NEGATIVE (Negative) Independent Interpretation I performed an independent interpretation of an: EKG (See above) and Plain X-Ray (No focal infiltrates) Radiology Impression Discussion of test interpretation with radiology: I have reviewed the radiologist's reading. Radiologist Impression: FINDINGS: The heart is normal in size. The lungs are clear. There is no pleural effusion or pneumothorax. There is no acute osseous abnormality. XR/XR chest 2V IMPRESSION: Stable appearance of the heart and lungs. No active disease. Electronically signed by: Roger Palma DO 03/14/2024 05:[address] [facility] Discharge Plan Discharge Clinical Impression: Acute upper respiratory infection Patient Disposition: Home, Self-Care Instructions: Upper Respiratory Infection (ED) Additional Instructions: Your workup in the ER today was reassuring. This includes your x-ray, blood work. You tested negative for influenza and COVID. Your symptoms are likely related to a virus. You may use Tylenol for discomfort. You may use cyclobenzaprine for muscle spasms. You may use benzonatate as needed for cough Follow-up with your primary doctor, return for new or worsening symptoms Prescriptions: New cyclobenzaprine 10 mg tablet 10 mg PO TID PRN (Reason: muscle spasm) Qty: 20 0RF benzonatate 200 mg capsule 200 mg PO TID PRN (Reason: cough) Qty: 20 0RF No Action cyanocobalamin (vitamin B-12) [Vitamin B-12] 1,000 mcg Tablet 1,000 mcg PO BEDTIME cyclobenzaprine 10 mg Tablet 10 mg PO TID PRN (Reason: Muscle Spasm) hydroxyzine HCl 50 mg tablet 50 mg PO BID PRN (Reason: anxiety) Qty: 20 0RF cholecalciferol (vitamin D3) [Vitamin D3] 50 mcg (2,000 unit) capsule 50 mcg PO QWEEK psyllium Packet 1 packet PO BID 30 Days Qty: 500 0RF Rx Instructions: mix into at least 8 oz of water or juice before administering fluoxetine 20 mg capsule 20 mg PO DAILY pantoprazole [Protonix] 40 mg tablet,delayed release (DR/EC) 40 mg PO DAILY 30 Days Qty: 30 3RF cholestyramine (with sugar) 4 gram powder in packet 4 g PO TID Qty: 90 6RF Rx Instructions: administer w/meal; avoid other meds within 1hr before or 4-6hr after dose Interventions: ED Discharge Assessment Last Done: 03/14/24 18:43 Print Language: Polish
[2024-03-14 15:57] VITALS: BP 132/64; PULSE 77; RESP 18; TEMP 36.6; O2SAT 97; BMI 40.8
--- NOTE | 2024-03-14 15:59 | ECG_ITS ---
Test Reason : CP Blood Pressure : / mmHG Vent. Rate : 085 BPM Atrial Rate : 085 BPM P-R Int : 162 ms QRS Dur : 078 ms QT Int : 354 ms P-R-T Axes : 056 049 024 degrees QTc Int : 421 ms Normal sinus rhythm Normal ECG When compared with ECG of 06-JUL-2023 01:10, Nonspecific T wave abnormality no longer evident in Anterior leads Referred By: Michelle Sandoval Electronically Signed By:AWILDA LEON MD
[2024-03-14 16:24] LABS: MANUAL DIFF FLAG NO
[2024-03-14 16:28] LABS: Basophils Percent Auto 0.6 % (0-2); Eosinophils Absolute Auto 0.2 X10*3/uL (0.0-0.4); Eosinophils Percent Auto 2.6 % (0-4); Hematocrit 40.8 % (37.0-47.0); Hemoglobin 13.5 g/dl (12.0-16.0); Imm Gran Abs Auto 0.01 X10*3/uL (0.00-0.03); Imm Gran Pct Auto 0.2 % (0.0-0.4); Lymphocytes Absolute Auto 1.8 X10*3/uL (1.2-4.9); Lymphocytes Percent Auto 27.4 % (20-40); Mean Corpuscular HGB Conc 33.1 g/dl (31.0-35.0); Mean Corpuscular Hemoglobin 28.2 pg (27.0-33.0); Mean Corpuscular Volume 85.4 fL (80.0-98.0); Mean Platelet Volume 9.8 fL (9.4-12.3); Monocytes Absolute Auto 0.6 X10*3/uL (0.1-1.2); Monocytes Percent Auto 9.4 % (2-11); Neutrophils Percent Auto 59.8 % (45-73); Platelet Count 390 X10*3/uL (160-400); Red Blood Count 4.78 X10*6/uL (4.20-5.50); White Blood Count 6.6 X10*3/uL (4.8-10.8)
[2024-03-14 16:30] VITALS: BP 151/74; PULSE 76; RESP 16; TEMP 37; O2SAT 97
[2024-03-14 16:48] VITALS: O2SAT 98
[2024-03-14 16:50] LABS: Alanine Aminotransferase 17 U/L (0-31); Albumin Level 4.2 g/dL (3.5-5.0); Alkaline Phosphatase 80 U/L (39-117); Anion Gap 13 (12-20); Aspartate Amino Transferase 18 U/L (5-31); Bilirubin Direct < 0.2 mg/dL (0.0-0.5); Bilirubin Total 0.2 mg/dL (0.0-1.0); Blood Urea Nitrogen 8 mg/dL (9-16); Calcium 9.6 mg/dL (8.4-10.2); Carbon Dioxide 22 mmol/L (22-29); Chloride 108 mmol/L (96-108); Creatinine Clr Calc Pharmacy 115.9; Estimated Glomerular Filt Rate > 60; Glucose Random 108 mg/dL (60-115); Magnesium 2.3 mg/dL (1.6-2.6); Sodium 139 mmol/L (135-145); Total Protein 7.8 g/dL (6.5-8.0)
[2024-03-14 17:07] LABS: Troponin-I High Sensitivity < 2.7 ng/L (<3.5-17.0)
[2024-03-14 17:21] LABS: Influenza A PCR NEGATIVE (Negative); Influenza B PCR NEGATIVE (Negative); Resp Syncy Virus RNA Qual PCR NEGATIVE (Negative); SARS COV2 PCR INHOUSE NEGATIVE (Negative)
[2024-03-14 18:08] VITALS: BP 151/74; PULSE 76; RESP 16; TEMP 37; O2SAT 97
[2024-03-14 18:38] VITALS: BP 115/62; PULSE 73; RESP 16; TEMP 37.2; O2SAT 95
[2024-03-14 18:43] VITALS: BP 115/62; PULSE 73; RESP 16; TEMP 37.2; O2SAT 95
== END 2024-03-14 18:43 | disposition home or self-care (01) ==
PROVIDERS: Physician Assistant; Emergency Provider Internal Medicine
DX: J06.9 Acute upper respiratory infection, unspecified (principal); Z03.818 Encounter for observation for suspected exposure to other biological agents ruled out; R05.9 Cough, unspecified; R06.02 Shortness of breath; R50.9 Fever, unspecified; I10 Essential (primary) hypertension
CPT/HCPCS: 0241U; 36415; 71046; 80048; 80076; 83735; 84484; 85025; 85610; 93005; 99283; 99285

== ENCOUNTER → 2024-03-14 15:59 | Outpatient (BNV) | payer MEDICAID, SELFPAY | PROVIDERS: Emergency Provider Internal Medicine; Visit Provider Internal Medicine Cardiovascular Disease | DX: R07.9 Chest pain, unspecified (principal) | CPT/HCPCS: 93010 ==

== ENCOUNTER → 2024-06-24 14:41 | Outpatient (BNVA) | payer OTHER, SELFPAY | PROVIDERS: Visit Provider Physician Assistant | DX: S00.33XA Contusion of nose, initial encounter (principal); Y04.2XXA Assault by strike against or bumped into by another person, initial encounter | CPT/HCPCS: 70160; 99204 ==

== ENCOUNTER → 2024-07-02 15:59 | Outpatient (BNVA) | payer OTHER, SELFPAY | PROVIDERS: Visit Provider Physician Assistant | DX: S09.90XA Unspecified injury of head, initial encounter (principal); X58.XXXA Exposure to other specified factors, initial encounter; Z02.79 Encounter for issue of other medical certificate | CPT/HCPCS: 99213 ==

== ENCOUNTER 2024-08-24 13:40 | Outpatient (REF) | payer OTHER, SELFPAY ==
--- OUTSIDE RECORDS SUMMARY | 2024-08-24 15:11 | XMS_ITS | Encounter Summary ---
Author Organization [employer] Address [address] [facility] 7t [place] [address] Care Team Providers Care Advertising Consultant Name Role Phone Krista Pierre MD Primary Care Provider [phone] Reason for Visit * Reason Onset Date Comments Med Refill 12/10/2023 Encounter Details Date Type Department Care Team (Late st Contact Info) Description 12/10/2023 Refill [facility] MEDICINE [address] [place] [address] Krista Pierre MD [address] [place] [address] Anxiety Social History Tobacco Use Types Packs/Day Years Used Date Smoking Tobacco: Some Days Cigarettes Smokeless Tobacco: Never Alcohol Use Standard Drinks/Week Comments Never 0 (1 standard drink = 0.6 oz pur e alcohol) Depression Answer Date Recorded Patient Health Questionnaire-9 Score 21 08/19/2023 Patient Health Questionnaire-9 Score 21 08/19/2023 Last PHQ-9: Questionnaire Data Not on file 0 08/19/2023 Housing Stability Answer Date Recorded What is your housing situation today? I have tiffanie hester 08/19/[address] you li ve. Do you have problems with any of the following? None of the above 08/19/2023 Food Insecurity Answer Date Recorded Within the past 12 months, y ou worried that your food would run out before you got money to buy more: Never True 08/19/2023 Within the past 12 months,th e food you bought just didn't last and you didn't have enough money to get more: Never True Transportation Answer Date Recorded In the past 12 months, has l ack of transportation kept you from medical appts, meetings, work or from getting things needed for daily living? No 08/19/2023 Utilities Answer Date Recorded In the past 12 months, has t he electric, gas, oil or water company threatened to shut off services in your home? No 08/19/2023 Depression Answer Date Recorded Patient Health Questionnaire-2 Score 6 08/19/2023 Comments No Sex and Gender Information Value Date Recorded Sex Assigned at Female 02/19/2022 10:31 AM EDT Legal Sex Female 10:31 AM EDT Gender Identity Female 02/19/2022 10:31 AM EDT Sexual Orientation Bisexual 06/06/2023 2: 30 PM EST documented as of this encounter Plan of Treatment Upcoming Encounters Date Type Department Care Team (Late st Contact Info) Description 10/20/2024 1:45 PM EDT Office Visit [facility] OPTOMETRY [address] [place] [address] Tere Gilman, OD [address] [place] [address] documented as of this encounter Visit Diagnoses Diagnosis Anxiety Anxiety state, unspecified documented in this encounter Additional Health Concerns Assessment Noted Time PHQ-9 Depression Total Score: 21 024 11:26 AM EDT documented as of this encounter Care Teams Advertising Consultant Relationship Specialty Start Date End Date Krista Pierre MD [address] [place] [address] [phone] PCP - General Family Medicine 12/28/22 documented as of this encounter
--- OUTSIDE RECORDS SUMMARY | 2024-08-24 15:11 | XMS_ITS | Clinical Summary ---
Author Organization [facility] Address [id number] [place] [id number] Care Team Providers Care Patient Financial Services Specialist Name Role Phone Unavailable Primary Care Provider Unavailabl e Social History Tobacco Use Types Packs/Day Years Used Date Smoking Tobacco: Never Assessed Comments Unknown Sex and Gender Information Value Date Recorded Sex Assigned at Not on file Legal Sex Female 8:28 AM EST Gender Identity Not on file Sexual Orientation Not on file Plan of Treatment Health Maintenance Due Date Last Done Comments DTaP,Tdap,and Td Vaccines (1 - Tdap) 2013 Hepatitis B Vaccines (1 of 3 - 19+ 3-dose series) 2013 Cervical Cancer Screening: P ap Smear 2015 Depression Screening 03/23/2022 HIV Screening 03/23/2022 Hepatitis C Screening 03/23/2022 Social Influencers of Health Screening 03/23/2022 COVID-19 Vaccine ( - 2023-2 5 season) 2023 Influenza Vaccine (Season Ended) 2024 HIB Vaccines Aged Out No longer eligi ble based on patient's age to complete this topic HPV Vaccines Aged Out No longer eligi ble based on patient's age to complete this topic Hepatitis A Vaccines Aged Out No long er eligible based on patient's age to complete this topic IPV Vaccines Aged Out No longer eligi ble based on patient's age to complete this topic MMR Vaccines Aged Out No longer eligi ble based on patient's age to complete this topic Meningococcal ACWY Vaccine Aged Out N o longer eligible based on patient's age to complete this topic Meningococcal B Vaccine Aged Out No l onger eligible based on patient's age to complete this topic Pneumococcal Vaccine: Pediat rics (0 to 5 Years) and At-Risk Patients (6 to 64 Years) Aged Out No longer eligible b ased on patient's age to complete this topic RSV Immunization Patients Un tara 20 months Aged Out No longer eligible b ased on patient's age to complete this topic Varicella Vaccines Aged Out No longer eligible based on patient's age to complete this topic
--- OUTSIDE RECORDS SUMMARY | 2024-08-24 15:11 | XMS_ITS | Encounter Summary ---
Author Organization [employer] Address [address] [facility] [address] 7[address] [place] [address] Care Team Providers Care Auto Clutch Specialist Name Role Phone Martha Lopez Primary Care Provider [phone] Piero Campos Primary Care Provider Unavail able Krista Pierre MD Primary Care Provider [phone] Encounter Details Date Type Department Care Team ([facility] Contact Info) Description 03/23/2022 Orders Only [facility] MEDICINE [address] [place] [address] Unruly Jain MD [address] [place] [id number] Bacterial otitis media (Primary Dx) Social History Tobacco Use Types Packs/Day Years Used Date Smoking Tobacco: Never Smokeless Tobacco: Never Alcohol Use Standard Drinks/Week Comments Never 0 (1 standard drink = 0.6 oz pur e alcohol) Comments Unknown Sex and Gender Information Value Date Recorded Sex Assigned at Female 02/19/2022 10:31 AM EDT Legal Sex Female 10:31 AM EDT Gender Identity Female 02/19/2022 10:31 AM EDT Sexual Orientation Bisexual 06/06/2023 2: 30 PM EST COVID-19 Exposure Response Date Recorded In the last 10 days, have yo u been in contact with someone who was confirmed or suspected to have Coronavirus/COVID-19? No / Unsure 03/23/2022 11:10 AM EST documented as of this encounter Plan of Treatment Upcoming Encounters Date Type Department Care Team ([facility] Contact Info) Description 10/20/2024 1:45 PM EDT Office Visit [facility] OPTOMETRY [address] [place], [place] [phone] Tere Gilman, OD [address] [place] [address] documented as of this encounter Visit Diagnoses Diagnosis Bacterial otitis media- Primary documented in this encounter Care Teams Auto Clutch Specialist Relationship Specialty Start Date End Date Martha Lopez FNP [address] [place] [address] PCP - General Family Medicine 12/17/21 08/22/22 Pireo Campos AGNP [address] [place] [address] PCP - General Family Medicine 08/23/22 12/27/22 Krista Pierre MD [address] [place] [address] PCP - General Family Medicine 12/28/22 documented as of this encounter
--- OUTSIDE RECORDS SUMMARY | 2024-08-24 15:11 | XMS_ITS | Encounter Summary ---
Author Organization [employer] Address [address] [facility] [address] [place] [address] Care Team Providers Care Sport Intern Name Role Phone Krista Pierre MD Primary Care Provider [phone] Encounter Details Date Type Department Care Team (Latest Contact Info) Description 08/24/2024 Travel Social History Tobacco Use Types Packs/Day Years Used Date Smoking Tobacco: Former Cigarettes Smokeless Tobacco: Never Alcohol Use Standard Drinks/Week Comments Never 0 (1 standard drink = 0.6 oz pur e alcohol) Depression Answer Date Recorded Patient Health Questionnaire-9 Score 12 08/24/2024 Patient Health Questionnaire-9 Score 12 08/24/2024 Last PHQ-9: Questionnaire Data Not on file 0 08/24/2024 Housing Stability Answer Date Recorded What is your housing situation today? I have tiffanie hester 08/24/[address] you li ve. Do you have problems with any of the following? None of the above 08/24/2024 Food Insecurity Answer Date Recorded Within the past 12 months, y ou worried that your food would run out before you got money to buy more: Never True 08/24/2024 Within the past 12 months,th e food you bought just didn't last and you didn't have enough money to get more: Never True 08/2024 Transportation Answer Date Recorded In the past 12 months, has l ack of transportation kept you from medical appts, meetings, work or from getting things needed for daily living? No 08/24/2024 Utilities Answer Date Recorded In the past 12 months, has t he electric, gas, oil or water company threatened to shut off services in your home? No 08/24/2024 Depression Answer Date Recorded Patient Health Questionnaire-2 Score 3 08/24/2024 Internet Access Answer Date Recorded Internet Access Q1 Yes 08/24/2024 Internet Access Q2 Not on file 08/24/2024 Comments No Sex and Gender Information Value [...] Description 10/20/2024 1:45 PM EDT Office Visit [facility] OPTOMETRY [address] [place], [place] [phone] TarkaTere, OD [address] [place] [address] documented as of this encounter Visit Diagnoses Not on filedocumented in this encounter Additional Health Concerns Assessment Noted Time PHQ-9 Depression Total Score: 12 025 1:48 PM EDT documented as of this encounter Care Teams Sport Intern Relationship Specialty Start Date End Date Krista Pierre MD [address] [place] [address] PCP - General Family Medicine 12/28/22 documented as of this encounter
--- OUTSIDE RECORDS SUMMARY | 2024-08-24 15:11 | XMS_ITS | Encounter Summary ---
Author Organization [id number] Address [address] [facility] [address] [place] [address] Care Team Providers Care Water/Wastewater Project Engineer Name Role Phone Krista Pierre MD Primary Care Provider [phone] Encounter Details Date Type Department Care Team (Late st Contact Info) Description 12/09/2023 Orders Only [facility] MEDICINE [address] [place] [address] Krista Pierre MD [address] [place] [address] Anxiety Social History Tobacco Use Types Packs/Day [...] Description 10/20/2024 1:45 PM EDT Office Visit [facility] OPTOMETRY [address] [place] [address] Tere Gilman, OD [address] [place] [address] documented as of this encounter Visit Diagnoses Diagnosis Anxiety Anxiety state, unspecified documented in this encounter Additional Health Concerns Assessment Noted Time PHQ-9 Depression Total Score: 21 024 11:26 AM EDT documented as of this encounter Care Teams Water/Wastewater Project Engineer Relationship Specialty Start Date End Date Krista Pierre MD [address] [place] [phone] PCP - General Family Medicine 12/28/22 documented as of this encounter
--- OUTSIDE RECORDS SUMMARY | 2024-08-24 15:11 | XMS_ITS | Encounter Summary ---
Author Organization [employer] Address [address] [facility] [address] [place] [address] Care Team Providers Care Examination Scorer Name Role Phone rKista Pierre MD Primary Care Provider [phone] Encounter Details Date Type Department Care Team (Late st Contact Info) Description 01/07/2024 Orders Only [facility] MEDICINE [address] [place] [address] Krista Pierre MD [address] [place] [address] Social History Tobacco Use Types Packs/Day Years [...] Description 10/20/2024 1:45 PM EDT Office Visit [facility] OPTOMETRY [address] [place], [place] [phone] Tere Gilman, OD [address] [place] [address] documented as of this encounter Visit Diagnoses Not on filedocumented in this encounter Additional Health Concerns Assessment Noted Time PHQ-9 Depression Total Score: 21 024 11:26 AM EDT documented as of this encounter Care Teams Examination Scorer Relationship Specialty Start Date End Date Krista Pierre MD [address] [place], [place] [phone] PCP - General Family Medicine 12/28/22 documented as of this encounter
--- OUTSIDE RECORDS SUMMARY | 2024-08-24 15:11 | XMS_ITS | Encounter Summary ---
Author Organization [employer] Address [address] [facility] [address] [place] [address] Care Team Providers Care Manhole Builder Name Role Phone Krista Pierre MD Primary Care Provider [phone] Reason for Visit * Reason Onset Date Comments chart prep 08/20/2024 Encounter Details Date Type Department Care Team (Late st Contact Info) Description 08/20/2024 Telephone [facility] MEDICINE [address] [place] [address] Krista Pierre MD [address] [place] [address] chart prep Social History Tobacco Use Types Packs/Day Years [...] PM EST documented as of this encounter Miscellaneous Notes * Telephone Encounter - Olimpia Benavides [place] - 08/20/2024 12:45 PM EDT Chart Prep Labs: done Images: done Vaccines due: Not Applicable Referrals: Completed Screenings: Not Applicable Overdue care gaps: Sbirt, SDOH, PQ9, GAD7, Disability , and Oral Health documented in this encounter Plan of Treatment Upcoming Encounters Date Type Department Care Team (Late st Contact Info) Description 10/20/2024 1:45 PM EDT Office Visit [facility] OPTOMETRY [address] [place] [address] Tere Gilman, OD [address] [place] [address] documented as of this encounter Visit Diagnoses Not on filedocumented in this encounter Additional Health Concerns Assessment Noted Time PHQ-9 Depression Total Score: 21 024 11:26 AM EDT documented as of this encounter Care Teams Manhole Builder Relationship Specialty Start Date End Date Krista Pierre MD [address] [place] [address] PCP - General Family Medicine 12/28/22 documented as of this encounter
--- OUTSIDE RECORDS SUMMARY | 2024-08-24 15:11 | XMS_ITS | Encounter Summary ---
Author Organization [employer] Address [address] [facility] [address] [place] [address] Care Team Providers Care Assembly Machine Feeder Name Role Phone Krista Pierre MD Primary Care Provider [phone] Encounter Details Date Type Department Care Team (Late st Contact Info) Description 08/24/2024 1:15 PM EDT Office Visit [facility] MEDICINE [address] [place] [address] Krista Pierre MD [address] [place] [address] History of vitamin D deficiency (Primary Dx); Vitamin B12 deficiency; History of anemia; Vitamin D deficiency; History of pre-eclampsia; Screening for diabetes mellitus; Screening for lipid disorders; Gastroesophageal reflux disease, unspecified whether esophagitis present Social History Tobacco Use Types Packs/Day Years Used Date Smoking Tobacco: Former Cigarettes Smokeless Tobacco: Never Tobacco Cessation:Counseling Given: Not Answered Alcohol Use Standard Drinks/Week Comments Never 0 [...] PM EST documented as of this encounter Last Filed Vital Signs Vital Sign Reading Time Taken Comments Blood Pressure 129/73 08/24/2024 1:11 PM EDT Pulse 80 08/24/2024 1:11 PM EDT Temperature 36.3 ??C (97.3 ??F) 08/24/2024 1:11 PM ED T Respiratory Rate 20 08/24/2024 1:11 PM EDT Oxygen Saturation - - Inhaled Oxygen Concentration - - Weight 109 kg (241 lb) 08/24/2024 1:11 PM EDT Height 162.6 cm (5' 4 ) 08/24/2024 1:11 PM EDT Body Mass Index 41.37 08/24/2024 1:11 PM EDT documented in this encounter Plan of Treatment Upcoming Encounters Date Type Department Care Team (Late st Contact Info) Description 10/20/2024 1:45 PM EDT Office Visit [facility] OPTOMETRY [address] [place], [place] [phone] Tere Gilman, OD [address] [place] [address] Scheduled Orders Name Type Priority Associated Diagnoses Orde r Schedule CBC auto differential Lab Routine History of anemia Expected: 08/24/2024 (Approximate), Expires: 08/24/2025 Comprehensive Metabolic Panel Lab Routine Gastroesophageal reflux disease, unspecified whether esophagitis present Expected: 08/24/2024 (Approximate), Expires: 08/24/2025 Lipid Panel with Reflex to Direct LDL Lab Routine Screening for lipid disorders Expected: 08/24/2024 (Approximate), Expires: 08/24/2025 Hemoglobin A1c Lab Routine Screening for diabetes mellitus Expected: 08/24/2024 (Approximate), Expires: 08/24/2025 TSH with Reflex to Free T4 Lab Routine History of anemia Expected: 08/24/2024 (Approximate), Expires: 08/24/2025 Ferritin Lab Routine History of anemia Expected: 08/24/2024 (Approximate), Expires: 08/24/2025 Iron And Total Iron Binding Capacity Lab Routine History of anemia Expected: 08/24/2024, Expires: 08/24/2025 Vitamin B12 (Cobalamin) and Folate Panel, Serum Lab Routine Vitamin B12 deficiency Expected: 08/24/2024 (Approximate), Expires: 08/24/2025 Reticulocyte Count Lab Routine History of anemia Expected: 08/24/2024, Expires: 08/24/2025 Vitamin D, 25-Hydroxy, Total, Immunoassay Lab Routine Vitamin D deficiency Expected: 08/24/2024 (Approximate), Expires: 08/24/2025 Helicobacter pylori??Antigen, EIA, Stool Lab Routine Gastroesophageal reflux disease, unspecified whether esophagitis present Expected: 08/24/2024 (Approximate), Expires: 08/24/2025 documented as of this encounter Visit Diagnoses Diagnosis History of vitamin D deficiency- Primary Vitamin B12 deficiency Other B-complex deficiencies History of anemia Personal history of diseases of blood and blood-forming organs Vitamin D deficiency History of pre-eclampsia Screening for diabetes mellitus Screening for lipid disorders Gastroesophageal reflux disease, unspecified whether esophagitis present documented in this encounter Additional Health Concerns Assessment Noted Time PHQ-9 Depression Total Score: 12 025 1:48 PM EDT documented as of this encounter Care Teams Assembly Machine Feeder Relationship Specialty Start Date End Date Krista Pierre MD [address] [place] [phone] PCP - General Family Medicine 12/28/22 documented as of this encounter
--- OUTSIDE RECORDS SUMMARY | 2024-08-24 15:11 | XMS_ITS | Clinical Summary ---
Author Organization [employer] Address [address] [facility] 7t [place] [address] Care Team Providers Care Shoe Patternmaker Name Role Phone Krista Pierre MD Primary Care Provider [phone] Allergies Active Allergy Reactions Criticality Noted Date Comments Ibuprofen 08/24/2024 Latex Rash Low 07/02/2018 Shellfish-Derived Products 9 Tomato Hives,Shortness of breath High 11/03/2018 Medications cyclobenzaprine (Flexeril) 10 MG tabletIndications :Infectious colitis, enteritis and gastroenteritis,I ricardo deficiency anemia, unspecified iron deficiency anemia type Take 1 tablet (10 mg) by mouth 3 times daily. 30 tablet 1 023 Active ferrous sulfate 325 (65 Fe) MG tabletIndications :Iron deficiency anemia, unspecified iron deficiency anemia type Take 1 tablet (325 mg) by mouth with breakfast. 30 tablet 1 023 Active naproxen (Naprosyn) 500 MG tabletIndications :Infectious colitis, enteritis and gastroenteritis Take 1 tablet (500 mg) by mouth with breakfast and with evening meal. Take with food for first 5 days of menstrual cycle 30 tablet 1 023 Active SUMAtriptan (Imitrex) 50 MG tablet Take 1 tablet (50 mg) by mouth 1 (one) time if needed for migraine for up to 1 dose. May repeat dose once in 2 hours if no relief. Do not exceed 2 doses in 24 hours. 9 tablet 024 Active Chlorhexidine Gluconate (Hibiclens) 4 % solutionIndicatio ns:Folliculitis Rinse area with water, then apply chlorhexidine to cover skin or wound area and wash gently. Rinse again thoroughly. 118 mL 024 Active ergocalciferol (Vitamin D2) 1.25 MG (63398 UT) capsule Take 1 capsule (1.25 mg) by mouth 1 (one) time per week. 5 capsule 3 024 Active meclizine (Antivert) 25 MG tablet 1 tab po BID 60 tablet 3 024 Active FLUoxetine (PROzac) 10 MG tabletIndications :Anxiety TAKE 1 TABLET BY MOUTH EVERY DAY 30 tablet 2 024 Active hydrOXYzine HCl (Atarax) 25 MG tabletIndications :Anxiety Take 1 tablet (25 mg) by mouth 3 times daily. 90 tablet 1 025 Active omeprazole (PriLOSEC) [address] capsuleIndication s:Infectious colitis, enteritis and gastroenteritis TAKE 1 CAPSULE BY MOUTH DAILY BEFORE BREAKFAST 90 capsule 1 025 Active cetirizine (ZyrTEC) 10 MG tablet Take 1 tablet (10 mg) by mouth Once per day. 30 tablet 11 025 2025 Active fluticasone (Flonase) 50 MCG/ACT nasal spray Administer 1-2 sprays into each nostril Once per day. Shake gently. Before first use, prime pump. After use, clean tip and replace cap. 16 g 2 025 2025 Active hydrOXYzine HCl (Atarax) 25 MG tabletIndications :Anxiety Take 1 tablet (25 mg) by mouth 3 times daily. 90 tablet 1 024 2024 Discontinued(R eorder (will not trigger notification to Pharmacy)) omeprazole (PriLOSEC) [address] capsuleIndication s:Infectious colitis, enteritis and gastroenteritis TAKE 1 CAPSULE BY MOUTH DAILY BEFORE BREAKFAST 90 capsule 1 024 2024 Discontinued(R eorder (will not trigger notification to Pharmacy)) Active Problems Problem Noted Date Diagnosed Date Sleep disturbance 08/19/2023 Assessment & Plan (08/19/2023 12:12 PM EDT): Will evaluate with a sleep study. Nonintractable headache 08/19/2023 Assessment & Plan (08/19/2023 12:12 PM EDT): Likely Migraine. Will try Sumatriptan 50 Mg. Hair loss 08/19/2023 Assessment & Plan (08/19/2023 12:14 PM EDT): Continue OTC Rogaine. History of pre-eclampsia 08/19/2023 Assessment & Plan (08/19/2023 12:14 PM EDT): BP was normal today. Fhx of hypertension. Will check lipid profile and blood sugar level prior to next visit. Ear pressure, right 08/19/2023 Assessment & Plan (08/19/2023 12:12 PM EDT): Normal Physical exam. Patient reports tinnitus. Will refer to ENT for further evaluation. Infectious colitis, enteritis and gastroenteriti s 07/26/2022 Assessment & Plan (07/26/2022 9:47 AM EDT): I advise bland diet drink plenty of fluids and rest I will extend levofloxacin 500mg for 5 more days ( patient did not tolerated well metronidazole) Repeat blood work after finishing treatment GI referral F/u with PCP Iron deficiency anemia 07/26/2022 Chiari malformation type I 03/30/2022 Lipoma of forearm 03/30/2022 Nicotine dependence 03/30/2022 Abnormal cervical Papanicolaou smear 08/09/2021 Anxiety 07/09/2018 Assessment & Plan (08/19/2023 12:13 PM EDT): Continue Fluoxetine 10 mg for depression. Continue Hydroxyzine 25 mg for Anxiety. Continue following up with current behavioral health. 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 Vitamin D deficiency 03/25/2018 Raised TSH level 03/05/2018 Resolved Problems Problem Noted Date Diagnosed Date Resolved Date COVID-19 04/03/2021 08/19/2023 Encounters Date Type Department Care Team Description 08/24/2024 1:15 PM EDT Office Visit [facility] [address] [place] [address] Krista Pierre MD History of vitamin D deficiency (Primary Dx); Vitamin B12 deficiency; History of anemia; Vitamin D deficiency; History of pre-eclampsia; Screening for diabetes mellitus; Screening for lipid disorders; Gastroesophageal reflux disease, unspecified whether esophagitis present 08/24/2024 Travel 08/20/2024 Telephone [facility] [address] [place], [place] [phone] Krista Pierre MD chart prep 08/15/2024 Refill [facility] [address] [place] [address] Krista Pierre MD Anxiety; Infectious colitis, enteritis and gastroenteritis 08/12/2024 Patient Outreach [facility] [address] [place], [place] [phone] Krista Pierre MD Pre-visit Planning ([facility]OH unable to reach [facility] ) 07/03/2024 Population Health Risk Score [facility] () Department [address] [place] [address] [phone] Provider, Population Health Generic 06/30/2024 Telephone [facility] [address] [place], [place] [phone] Krista Pierre MD Referral 06/24/2024 Orders Only [facility] External Provider, [facility] from Last 3 Months Immunizations Name Administration Dates Next Due DTaP 05/23/1999, 8,1994,06/12,1994 HPV 9-Valent 09/25/2006 HPV, Unspecified 01/10/2009,05/24/2008 Hep A, Adult 03/29/2014 Hep A, ped/adol, 2 dose 09/28/2010 Hep B, Adolescent or Pediatric 1994 Hep B, adult 06/19/2018, 9,03/25/2018,10/11,1994 HiB, unspecified 07/23/1995,1994, 5 Hib (PRP-T) 1994 IPV 05/23/1999, 5,1994,04/09 Influenza injectable quadriv alent IIV4 with preservative 03/05/2018,03/29/2014,03/12/2013,01/09,01/18/2011 Influenza injectable quadriv alent preservative free 04/09/2019 MMR 05/23/1999,07/23/1995 MMRV 03/12/2013 Meningococcal MCV4P ACYW-135 03/25/2018,08/16/19 10 Pfizer Covid-19 Vaccine 12+ 08/19/2023, 2,05/14/2021 Pfizer Covid-19 Vaccine 12+ dixon-sucrose (Vidal Cap) 06/04/2021,05/14/2021 Tdap 05/23/2015,09/25/2006 Social History Tobacco Use Types Packs/Day Years [...] Orientation Bisexual 06/06/2023 2: 30 PM EST Last Filed Vital Signs Vital Sign Reading Time Taken Comments Blood Pressure 129/73 08/24/2024 1:11 PM EDT Pulse 80 08/24/2024 1:11 PM EDT Temperature 36.3 ??C (97.3 ??F) 08/24/2024 1:11 PM ED T Respiratory Rate 20 08/24/2024 1:11 PM EDT Oxygen Saturation 97% 11/27/2023 3:22 PM EDT Inhaled Oxygen Concentration - - Weight 109 kg (241 lb) 08/24/2024 1:11 PM EDT Height 162.6 cm (5' 4 ) 08/24/2024 1:11 PM EDT Body Mass Index 41.37 08/24/2024 1:11 PM EDT Plan of Treatment Upcoming Encounters Date Type Department Care Team (Late st Contact Info) Description 10/20/2024 1:45 PM EDT Office Visit [facility] [address] [place] [address] Tere Gilman, OD [address] [place] [address] Health Maintenance Due Date Last Done Comments Family Planning (PISQ) 2009 COVID-19 Vaccine ( season) 2023 08/19/2023, 06/04/2021, 06/04/2021, Additional history exists Influenza Vaccine (#1) 2023 9, 03/05/2018, 03/29/2014, Additional history exists HPV/Cotest 02/08/2024 Cervical Cancer Screening 12/21/2024 Pap Smear 12/21/2024 12/21/2021, 12/21/2021 DTaP/Tdap/Td Vaccines (8 - Td or Tdap) 05/23/2025 05/23/2015, 09/25/2006, 05/23/1999, Additional history exists Alcohol/Substance Use Screening 08/24/2025 08/24/2024 Depression Screening 08/24/2025 08/24/2024, 08/25/19 25 SDOH Screening 08/24/2025 08/24/2024 Tobacco Screening 08/24/2025 08/24/2024 Zoster Vaccines (1 of 2) 02/08/2044 RSV Patients and Patients Aged 60 years or older (1 - 1-dose 75+ series) 2069 HIB Vaccines Completed 07/23/1995, 07/22, 1994, Additional history exists IPV Vaccines Completed 05/23/1999, 07/22, 1994, Additional history exists HPV Vaccines Completed 01/10/2009, 05/2008, 09/25/2006 Hepatitis A Vaccines Completed 03/29/2014, 09/29/19 11 Meningococcal Vaccine Aged Out 03/25/2018, 010 No longer eligible based on patient's age to complete this topic Hepatitis B Vaccines Completed 06/19/2018, 04/24/2018, 03/25/2018, Additional history exists HIV Screening Completed 08/09/2021 Hepatitis C Screening Completed 08/09/2021 Pneumococcal Vaccine: Pediatrics (0 to 5 Years) and At-Risk Patients (6 to 49) Years) Aged Out No longer eligible based on patient's age to complete this topic RSV under 20 months Aged Out No longe r eligible based on patient's age to complete this topic Rotavirus Vaccines Aged Out No longer eligible based on patient's age to complete this topic Procedures Procedure Name Priority Date/Time Associated Diagnosis Comments XR NASAL BONES Routine 06/24/2024 3:14 PM EST THINPREP IMAGING SYSTEM PAP Routine 12/21/2021 11:04 AM EDT ZZZ HISTORICAL HEPATITIS C AB W/REFL TO HCV RNA, QN, PCR Routine 08/09/2021 3:15 PM EDT HIV 1/2 ANTIGEN/ANTIBODY, FOURTH GENERATION W/RFL Routine 08/09/2021 3:15 PM EDT from Last 3 Months or Most Recently Relevant to Health Maintenance Results * XR Nasal Bones (06/24/2024 3:14 PM EST) Anatomical Region Laterality Modality Head, Neck Radiographic Yvonne ging 06/24/2024 3:14 PM EST Narrative 06/24/2024 4:34 PM EST ? [facility] ?[address] ?[place] [address] ?XRay Report ? Signed ? Patient: Dutton,Callie ?MR#: [id number] ?? 60 ? : 1995 ?Acct:[id number] ? Age/Sex: 29 / F ?ADM Date: 06/24/24 ? Loc: HO.WC ? Attending Dr: Debbie CARVALHO ? Ordering Physician: Debbie Rodriguez ?? Date of Service: 06/24/24 ?? Procedure(s): XR nasal bones min 3V ?? Accession Number(s): [id number] ? cc: [facility]; Debbie Rodriguez ? EXAMINATION: ?? XR NASAL BONES ? CLINICAL INFORMATION: ?? Unspecified injury ? COMPARISON: ?? None available. ? TECHNIQUE: ?? 3 views of the nasal bones were obtained. ? FINDINGS: ?? There are no fractures or dislocations. No bone, joint or soft tissue ?? abnormality is demonstrated. ? XR/XR nasal bones min 3V ?? IMPRESSION: ?? Unremarkable nasal bone examination. ? Electronically signed by: ??Jones Mahoney MD ??06/24/2024 04:31 PM EST RP ? Dictated By: ?Maru,Jones S MD ? Signed By: ?<Electronically signed by Jones S Maru, MD in OV> ?06/24/24 1631 ? DD/ 1514 ? TD/TT: 06/24/24 1603 ? Prompt Care Rn: MSM ? Procedure Note Keyla Li - 06/24/2024 [facility] [address] [place] [address] XRay Report Signed Patient: Callie Dutton#: [id number] 60 : 1995Acct:[id number] Age/Sex: 29 / FADM Date: 06/24/24 Loc: HO.WC Attending Dr: Debbie CARVALHO Ordering Physician: Debbie Rodriguez Date of Service: 06/24/24 Procedure(s): XR nasal bones min 3V Accession Number(s): [id number] cc: [facility]; Debbie Rodriguez EXAMINATION: XR NASAL BONES CLINICAL INFORMATION: Unspecified injury COMPARISON: None available. TECHNIQUE: 3 views of the nasal bones were obtained. FINDINGS: There are no fractures or dislocations. No bone, joint or soft tissue abnormality is demonstrated. XR/XR nasal bones min 3V IMPRESSION: Unremarkable nasal bone examination. Electronically signed by: Jones Mahoney MD 06/24/2024 04:31 PM [facility] Dictated By: Jones Mahoney MD Signed By: <Electronically signed by Jones Mahoney MD in OV> 06/24/24 1631 DD/ 1514 TD/TT: 06/24/24 1603 Prompt Care Rn: JUAN [facility] External Provider IMG XR PROCEDURES Edited Result - Final * THINPREP TIS PAP (12/21/2021 11:04 AM EDT) Clinical Information: None given [facility] COMMENT SEE COMMENT [facility] Comment: EXPLANATORY NOTE: ? The Pap is a screening test for cervical cancer. It is ?? not a diagnostic test and is subject to false negative ?? and false positive results. It is most reliable when a ?? satisfactory sample, regularly obtained, is submitted ?? with relevant clinical findings and history, and when ?? the Pap result is evaluated along with historic and ?? current clinical information. ?? COMMENT: This Pap test has been evaluated with computer assisted technology. [facility] Dock Guard : SEE COMMENT [facility] Comment: SXA, CT(ASCP) CT screening location: [address] ??[id number] Infection Fungal organisms morphologically consistent with Faustina spp. [facility] Interpretation/R esult: Negative for intraepithelial lesion or malignancy. [facility] LMP: 11/14/21 [facility] Prev. BX: NONE GIVEN [facility] Prev. PAP: 2019 NIL LSIL 2017 [facility] SOURCE: None given [facility] Statement Of Adequacy: SEE COMMENT [facility] Comment: Satisfactory for evaluation. Endocervical/transformation zone component present. 12/21/2021 11:0 4 AM EDT Betsy Rae CNM LAB PATHOLOGY ORDERABLES Final Result Performing Organization Address [facility] Co de Phone Number [facility] [address] [place] [address], * HEPATITIS C AB W/REFL TO HCV RNA, QN, PCR (08/09/2021 3:15 PM EDT) HEPATITIS C ANTIBODY NON-REACT TERA NON-REACT TERA [facility] INDEX 0.02 <1.00 [facility] Comment: ?? HCV antibody was non-reactive. There is no laboratory ?? evidence of HCV infection. ?? In most cases, no further action is required. However, if recent HCV exposure is suspected, a test for HCV RNA (test code 78077) is suggested. ?? For additional information please refer to http://education.Aquiris/faq/CVQ12e4 (This link is being provided for informational/ educational purposes only.) ?? 08/09/2021 3:15 PM EDT Deneen Anna ELECTRONIC ASSEMBLER GROUP LEADER HISTORICAL/NON ORDERABLE LABS Final Result Performing Organization Address [facility]/ZIP Co de Phone Number [facility] [address] [place] [address], * HIV 1/2 ANTIGEN/ANTIBODY,FOURTH GENERATION W/RFL (08/09/2021 3:15 PM EDT) HIV-1/2 ANTIGEN AND ANTIBODIES, 4TH GENERATION W/ REFLEX NON-REACT TERA NON-REACT TERA [facility] Comment: HIV-1 antigen and HIV-1/HIV-2 antibodies were not detected. There is no laboratory evidence of HIV infection. ?? PLEASE NOTE: This information has been disclosed to you from records whose confidentiality may be protected by state law. ??If your state requires such protection, then the state law prohibits you from making any further disclosure of the information without the specific written consent of the person to whom it pertains, or as otherwise permitted by law. A general authorization for the release of medical or other information is NOT sufficient for this purpose. ? For additional information please refer to http://education.Aquiris/faq/AWR599 (This link is being provided for informational/ educational purposes only.) ? The performance of this assay has not been clinically validated in patients less than 2 years old. ?? 08/09/2021 3:15 PM EDT us Deneen Anna [facility] LAB BLOOD ORDERABLES Final Res ult Performing Organization Address City/State/[facility] Co mt Phone Number [facility] [address] from Last 3 Months or Most Recently Relevant to Health Maintenance [place] [address] STANDARD Care Teams Shoe Patternmaker Relationship Specialty Start Date End Date Krista Pierre MD [address] [place] [id number] PCP - General Family Medicine 12/28/22
--- OUTSIDE RECORDS SUMMARY | 2024-08-24 15:11 | XMS_ITS | Encounter Summary ---
Author Organization [employer] Address [address] [place] [address] Care Team Providers Care Automatic Typewriter Inspector Name Role Phone Silverio Lopezrosanne MARADIAGA Primary Care Provider [phone] Piero Campos Primary Care Provider Unavail able Krista Pierre MD Primary Care Provider [phone] Encounter Details Date Type Department Care Team (Late Contact Info) Description 04/06/2022 Orders Only [facility] MEDICINE [address] [place] [address] Anyi Baker RN Social History Tobacco Use Types Packs/Day Years [...] Upcoming Encounters Date Type Department Care Team ([facility] Contact Info) Description 10/20/2024 1:45 PM EDT Office Visit [facility] OPTOMETRY [address] [place] [address] Tere Gilman OD [address] [place] [address] documented as of this encounter Visit Diagnoses Not on filedocumented in this encounter Care Teams Automatic Typewriter Inspector Relationship Specialty Start Date End Date Martha Lopez FNP [address] [place] [phone] PCP - General Family Medicine 12/17/21 08/22/22 Piero Campos AGNP [address] [place] [address] PCP - General Family Medicine 08/23/22 12/27/22 Krista Pierre MD [address] [place] [address] PCP - General Family Medicine 12/28/22 documented as of this encounter
[2024-08-24 16:17] LABS: MANUAL DIFF FLAG NO
[2024-08-24 16:22] LABS: Basophils Percent Auto 0.3 % (0-2); Eosinophils Absolute Auto 0.1 X10*3/uL (0.0-0.4); Hematocrit 39.5 % (37.0-47.0); Hemoglobin 12.8 g/dl (12.0-16.0); Imm Gran Abs Auto 0.03 X10*3/uL (0.00-0.03); Imm Gran Pct Auto 0.3 % (0.0-0.4); Immature Retic Fraction 8.7 % (3.0-15.9); Lymphocytes Percent Auto 20.2 % (20-40); Mean Corpuscular HGB Conc 32.4 g/dl (31.0-35.0); Mean Corpuscular Hemoglobin 28.4 pg (27.0-33.0); Mean Corpuscular Volume 87.6 fL (80.0-98.0); Mean Platelet Volume 10.9 fL (9.4-12.3); Monocytes Absolute Auto 0.6 X10*3/uL (0.1-1.2); Monocytes Percent Auto 6.4 % (2-11); Neutrophils Percent Auto 71.8 % (45-73); Platelet Count 370 X10*3/uL (160-400); Red Blood Count 4.51 X10*6/uL (4.20-5.50); Red Cell Distribution Width 13.3 % (11.0-16.0); Retic HGB Equivalent 32.8 pg (30.0-35.0); Reticulocyte Percent 1.3 % (0.5-1.8); Reticulocytes Absolute 0.058 X10*6/uL (0.026-0.095); White Blood Count 9.7 X10*3/uL (4.8-10.8)
[2024-08-24 16:49] LABS: Alanine Aminotransferase 26 U/L (0-31); Alkaline Phosphatase 70 U/L (39-117); Anion Gap 12 (12-20); Aspartate Amino Transferase 21 U/L (5-31); Bilirubin Total 0.2 mg/dL (0.0-1.0); Blood Urea Nitrogen 12 mg/dL (9-16); Calcium 9.3 mg/dL (8.4-10.2); Carbon Dioxide 24 mmol/L (22-29); Chloride 109 mmol/L (96-108); Cholesterol 146 mg/dL (<200); Estimated Glomerular Filt Rate > 60; Glucose Random 85 mg/dL (60-115); HDL Cholesterol 38 mg/dL (>40); Iron 44 mcg/dL (30-160); LDL Cholesterol Calculated 79 mg/dL (<100); Percent Iron Saturation 15 % (15-50); Potassium 3.7 mmol/L (3.3-5.1); Sodium 141 mmol/L (135-145); Total Iron Binding Capacity 299 mcg/dL (228-428); Total Protein 7.3 g/dL (6.5-8.0); Triglycerides 149 mg/dL (<150); Unsaturated Iron Binding 255 ug/dL
[2024-08-24 17:03] LABS: Estimated Average Glucose 105 mg/dL; Hemoglobin A1C 113.5562 umol/L; Hemoglobin A1c % 5.3 % (<6.0)
[2024-08-24 17:09] LABS: Ferritin 23 ng/mL (10-122); Vitamin D 25-OH Total 25.2 ng/mL (>30)
[2024-08-24 17:17] LABS: Folate 4.1 ng/mL (> or = 4.0); Vitamin B12 193 pg/mL (200-900)
[2024-08-24 18:45] LABS: Reflex LDLD? No
== END 2024-08-24 13:41 | disposition home or self-care (01) ==
LOC: HO.HHCL 13:40
PROVIDERS: Visit Provider Family Medicine
DX: Z13.220 Encounter for screening for lipoid disorders (principal); Z13.1 Encounter for screening for diabetes mellitus; Z13.6 Encounter for screening for cardiovascular disorders; K21.9 Gastro-esophageal reflux disease without esophagitis; E55.9 Vitamin D deficiency, unspecified; E53.8 Deficiency of other specified B group vitamins; Z86.2 Personal history of diseases of the blood and blood-forming organs and certain disorders involving the immune mechanism
CPT/HCPCS: 36415; 80053; 80061; 82306; 82607; 82728; 82746; 83036; 83540; 84443; 85025; 85045

== ENCOUNTER 2024-10-19 14:05 | Outpatient (AMB) | payer MEDICAID, SELFPAY ==
--- NOTE | 2024-10-19 14:08 | A.OFFVIS_ITS ---
Intake Visit Reasons: 3 month IBS/GERD Intake Note: Patient 3 months follow up for IBS and GERD. Patient cc: Nauseas, abdominal pain with bloating, acid reflux with burning sensation and between diarrhea and constipation. Regenerator Operator Required: No Accompanied by: Self / Same As Patient Allergies tomato (TOMATO) Allergy (Severe, Verified 10/19/24 14:08) DIFFICULTY BREATHING latex (LATEX) Allergy (Intermediate, Verified 03/14/24 16:01) ITCHY ibuprofen Adverse Reaction (Severe, Verified 03/14/24 16:01) Unknown shellfish Allergy (Intermediate, Uncoded 09/23/23 10:54) Difficulty Breathing HPI Comments Details: This is a 28y.o F with PMH of who is here for abdominal discomfort and change in bowel habits. To recap pt was seen in the hospital earlier this year for infectious enteritis. Reports that a few weeks after discharge, developed similar abd discomfort located primarily in the LUQ associated with significant bloating that would get relieved by passing flatus or BM. BMs are also now more soft/loose compared to her previous baseline. Pain is typically postprandial, within 30-60 mins. Pt is s/p CCY. Of note - TPO Ab + from 201709/23/23: Was seen in follow up by mid level. BMs cont to fluctuate between diarrhea and constipation. Was given cholestyramine at last visit due to loose BMs. Today, reports constipation is back. She stopped taking the cholestyramine a month ago but still constipated. Has been taking some fiber gummies and stool softener but stool remains hard and has to strain considerably. 10/19/24: Here as televisit for follow up. Was seen in [facility] in july 2024 for severe sore throat and difficulty swallowing. Initially diagnosed with pharyngitis but due to persistent sx despite tx had to go in again. Was told has GERD based on imaging. Records not available, but requested. Currently still intermittently feels food is getting stuck but otherwise no N/V, odynophagia. Omeprazole BID Rxed by PCP but pt reports dizziness from it. Prev has taken pantorpazole which caused headaches. PFSH Medical History Pancreatitis Hypertension Surgical History H/O tubal ligation History of esophagogastroduodenoscopy (EGD) History of cholecystectomy Social History Alcohol intake: current Alcohol intake frequency: holidays/special occasions only Patient Tobacco Use Status: Current someday Tobacco user Tobacco use type: Cigarette Cigarettes Per Day: 2 service: No Current occupational status: unemployed Review of Systems Const All systems reviewed & are unremarkable except as noted in HPI and below Physical Exam Vital Signs: telephone visit Telehealth Telehealth Telehealth Platform: Telephone Location of provider rendering services: practice address Location of patient: address on file Patient Identification confirmed using: Name, : Yes Telehealth method: voice only Patient verbally consented to treatment: Yes Patient verbally consented to billing insurance company: Yes Patient informed of any privacy concerns related to visit: Yes Minutes spent on Phone/Video with Pt.: 9 Assessment & Plan Assessment & Plan (1) Esophagitis: Code(s): K20.90 - Esophagitis, unspecified without bleeding Category: Medical (2) Abdominal pain: Code(s): R10.9 - Unspecified abdominal pain Category: Medical (3) Dysphagia: Code(s): R13.10 - Dysphagia, unspecified Category: Medical Plan As above, records from [facility] unavailable, but patient reports being diagnosed with GERD based on CT scan findings ? Esophagitis. Heartburn and difficulty swallowing is better. Has symptoms 2 to 3 times a week only now compared to daily. Reports intolerance to omeprazole. Will switch to lansoprazole. Plan: -barium swallow -EGD to be scheduled -start lansoprazole 15 mg b.i.d. -discontinue omeprazole -(of note, med list states pantoprazole, which the patient is not taking, this was cleared off as well) Orders: Orders [place] barium swallow Today K20.90 - Esophagitis, unspecified without bleeding Medications: New lansoprazole 15 mg PO BID 180 caps 0RF 90 days Discontinued pantoprazole (Protonix) Discontinued Reason: Patient Completed Course 40 mg PO DAILY 30 days 30 tabs 3RF Coding Level of Care Code Tele Est Pt Level 4 (55595) Diagnoses Esophagitis K20.90 Abdominal pain R10.9 Dysphagia R13.10
--- OUTSIDE RECORDS SUMMARY | 2024-10-19 14:40 | XMS_ITS | Encounter Summary ---
Author Organization [employer] Address [address] [place] [address] Care Team Providers Care Binder Cutter Name Role Phone Krista Pierre MD Primary Care Provider [phone] Encounter Details Date Type Department Care Team ([facility] st Contact Info) Description 08/26/2024 Orders Only [facility] MEDICINE [address] [place] [address] Krista Pierre MD [address] [place] [address] Vitamin B12 deficiency (Primary Dx) Social History Tobacco Use Types [...] is your housing situation today? I have tiffanieroldan hester 08/24/[address] you [...] Description 10/20/2024 1:45 PM EDT Office Visit [facility] OPTOMETRY [address] [place] [address] Tarka, Tere, OD [address] [place] [address] 12/01/2024 11:30 AM EDT Office Visit [facility] MEDICINE [address] [place] [address] Krista Pierre MD [address] [place] [address] Scheduled Orders Name Type Priority Associated Diagnoses Orde r Schedule Methylmalonic Acid Lab Routine Vitamin B12 deficiency Expected: 08/26/2024 (Approximate), Expires: 08/26/2025 Homocysteine Lab Routine Vitamin B12 deficiency Expected: 08/26/2024 (Approximate), Expires: 08/26/2025 documented as of this encounter Visit Diagnoses Diagnosis Vitamin B12 deficiency- Primary Other B-complex deficiencies documented in this encounter Additional Health Concerns Assessment Noted Time PHQ-9 Depression Total Score: 12 025 1:48 PM EDT documented as of this encounter Care Teams Binder Cutter Relationship Specialty Start Date End Date Krista Pierre MD [address] [place] [phone] PCP - General Family Medicine 12/28/22 documented as of this encounter
--- OUTSIDE RECORDS SUMMARY | 2024-10-19 14:40 | XMS_ITS | Clinical Summary ---
Author Organization [facility] ity Address [id number] [place] [phone] Care Team Providers Care Product Management Manager Name Role Phone Unavailable Primary Care Provider [...]
== END 2024-10-19 15:07 | disposition home or self-care (01) ==
LOC: HO.HGI 14:05
PROVIDERS: Visit Provider Internal Medicine
DX: K20.90 Esophagitis, unspecified without bleeding (principal); R10.9 Unspecified abdominal pain; R13.10 Dysphagia, unspecified
CPT/HCPCS: 99214

== ENCOUNTER 2024-12-20 19:31 | Emergency (ER) | payer MEDICAID, SELFPAY ==
--- NOTE | ~2024-12-20 | CT_ITS ---
CLINICAL HISTORY: atypical headache CT head without contrast Comparison: None provided Findings: No intra-axial mass, midline shift, hydrocephalus, or acute hemorrhage. No significant atrophy-like change or white matter disease. The cerebellar tonsils extend 8 mm below the foramen magnum and are peg like suggestive of Chiari 1 malformation. There is no sinus or mastoid fluid. The orbits are unremarkable. There is no acute skull fracture. IMPRESSION: 1. No acute intracranial findings. 2. Chiari 1 malformation. This document has been electronically signed by: Ashley Culp MD on 12/20/2024 22:09:28
[2024-12-20 19:33] VITALS: BP 131/60; PULSE 85; RESP 18; TEMP 36.8; O2SAT 96; BMI 41.1
--- NOTE | 2024-12-20 19:33 | ED.GENADULT ---
HPI - General Adult General Chief complaint: Headache Stated complaint: 3wk headache Time Seen by Provider: 12/20/24 22:14 Source: patient Mode of arrival: ambulatory Limitations: no limitations History of Present Illness ED Provider: Dr. Mcgraw [facility] narrative: This is a 29-year-old female presented hospital today for evaluation of left-sided headache. Patient describes this as a pulsating headache. This headache intensity has been gradually getting worse therefore she presents to the ER for evaluation denies any nausea. Patient stated that this does not feel like her regular headache. Related Data Home Medications ?Medication ?Instructions ?Recorded ?Confirmed cyanocobalamin (vitamin B-12) 1,000 mcg PO BEDTIME 07/11/22 07/11/22 1,000 mcg tablet (Vitamin B-12) cyclobenzaprine 10 mg tablet 10 mg PO TID PRN Muscle Spasm 07/11/22 07/11/22 fluoxetine 20 mg capsule 20 mg PO DAILY 04/02/23 cholecalciferol (vitamin D3) 50 50 mcg PO QWEEK 09/23/23 mcg (2,000 unit) capsule (Vitamin D3) Previous Rx's ?Medication ?Instructions ?Recorded cholestyramine (with sugar) 4 gram 4 g PO TID #90 ea 05/28/23 powder for susp in a packet hydroxyzine HCl 50 mg tablet 50 mg PO BID PRN anxiety #20 tabs 07/06/23 psyllium 1 packet PO BID 30 days #500 ea 09/23/23 benzonatate 200 mg capsule 200 mg PO TID PRN cough #20 caps 03/14/24 cyclobenzaprine 10 mg tablet 10 mg PO TID PRN muscle spasm #20 03/14/24 tabs lansoprazole 15 mg capsule,delayed 15 mg PO BID 90 days #180 caps 10/19/24 release Allergies Allergy/AdvReac Type Severity Reaction Status Date / Time tomato (TOMATO) Allergy Severe DIFFICULTY Verified 12/20/24 19:36 BREATHING latex (LATEX) Allergy Intermediate ITCHY Verified 12/20/24 19:36 ibuprofen AdvReac Severe Unknown Verified 12/20/24 19:36 shellfish Allergy Intermediate Difficulty Uncoded 12/20/24 19:36 Breathing Review of Systems Review of Systems: Pertinent review of systems as mentioned in HPI. All other system otherwise negative. PMFSH Past Medical History [facility] Narrative: Medical history as mentioned in HPI Medical History Pancreatitis Hypertension Surgical History H/O tubal ligation History of esophagogastroduodenoscopy (EGD) History of cholecystectomy Social History Social History Alcohol intake: current Alcohol intake frequency: holidays/special occasions only Patient Tobacco Use Status: Current someday Tobacco user Tobacco use type: Cigarette Cigarettes Per Day: 2 Smoked in Last 30 Days: No Use of substances other than those prescribed or required for medical reasons: No Advance Directives: No Advance Directives Information Provided: No Patient : No service: No Current occupational status: unemployed Physical Exam ED Exam Exam: General: Pleasant, no distress, interacting appropriately Head: Normacephalic, atraumatic ENT: oral mucosa moist, neck supple, no tracheal deviation Neurological: Awake and alert, no facial droop noted, no focal neurologic deficit on exam Skin: Warm and dry Psychiatric: Appropriate mood and thoughts Vital Signs: Vital Signs - 24 hr 12/20/24 19:33 12/20/24 22:05 12/21/24 00:25 Temperature 98.3 F 98.2 F 97.8 F Pulse Rate 85 81 76 Respiratory Rate 18 18 15 Blood Pressure 131/60 124/58 L 117/62 Pulse Oximetry 96 95 96 Oxygen Delivery Method Room Air Room Air Room Air BMI result Body Mass Index 41.1 Course Course Course Narrative: This is a Rapid Medical Examination (RME) performed by Wilner Lopez PA-C in triage. Full HPI, ROS, assessment and treatment plan per primary provider in the Main ED. Hx: 29 yo F hx migraines here for eval of headache x3 weeks. does not feel like her typical migraines. pain is diffuse, has been increasing. states it feels like something is coming out of my head however denies pressure sensation. often worsens with lying down. reports intermittent blurred vision. taking tylenol w/o relief. taking prescribed migraine med without relief - cannot recall name. denies nausea. admits to dizziness today. Plan: labs CT Medications Administered Discontinued Medications Generic Name Dose Route Start Last Admin Trade Name Freq PRN Reason Stop Dose Admin Sodium Chloride 1,000 mls @ 999 mls/hr 12/20/24 23:00 12/21/24 00:28 Ns IV 12/21/24 00:00 Infused .Q1H1M CATHERINE Infusion Magnesium Sulfate 2 gm in 50 mls @ 50 mls/hr 12/20/24 22:52 12/21/24 00:06 Magnesium Sulfate/H2o IV 12/20/24 23:51 Infused ONCE ONE Infusion Ketorolac Tromethamine 15 mg 12/20/24 22:52 12/20/24 23:04 Ketorolac Tromethamine 15 Mg/Ml Vial IVPUSH 12/20/24 22:53 15 mg ONCE ONE Administration Ondansetron HCl 4 mg 12/20/24 22:52 12/20/24 23:04 Ondansetron Hcl 4 Mg/2 Ml Vial IVPUSH 12/20/24 22:53 4 mg ONCE ONE Administration Medical Decision Making Medical Decision Making [facility] Narrative: 29-year-old female presented hospital today for evaluation of persistent headache on the left side for weeks. Plan to give patient IV Toradol, IV fluid, IV magnesium and IV Zofran for her symptoms. Patient's CT imaging did show incidental finding of Chiari malformation. This was discussed with the patient a copy of the report was given to her as well. Patient's lab work did show slight leukocytosis at 13.2. No sign of glaucoma on my exam. Suspect patient may be dehydrated. On reassessment patient states she is feeling better at this time. She would like to go home. Encouraged her to follow up with her doctor for the incidental CT finding of the Chiari malformation. Patient agrees and understands this plan. Return precautions provided. Differential Diagnosis Differential Diagnoses: The differential diagnosis associated with the presentation includes Tension headache, cluster headache, migraine headache, intracranial bleed Lab Data [facility] Lab Attestation statement: I reviewed the patient's lab results. 12/20/24 20:02 12/20/24 20:02 Labs: Lab Results 12/20/24 Range/Units 20:02 WBC 13.2 H (4.8-10.8) X10*3/uL RBC 4.71 (4.20-5.50) X10*6/uL Hgb 13.6 (12.0-16.0) g/dl Hct 41.7 (37.0-47.0) % MCV 88.5 (80.0-98.0) fL MCH 28.9 (27.0-33.0) pg MCHC 32.6 (31.0-35.0) g/dl RDW 12.7 (11.0-16.0) % Plt Count 405 H (160-400) X10*3/uL MPV 10.1 (9.4-12.3) fL Immature Gran % (Auto) 1.3 H (0.0-0.4) % Neut % (Auto) 75.4 H (45-73) % Lymph % (Auto) 17.0 L (20-40) % Esmeralda % (Auto) 5.0 (2-11) % Eos % (Auto) 0.9 (0-4) % Baso % (Auto) 0.4 (0-2) % Lymph # (Auto) 2.2 (1.2-4.9) X10*3/uL Esmeralda # (Auto) 0.7 (0.1-1.2) X10*3/uL Eos # (Auto) 0.1 (0.0-0.4) X10*3/uL Baso # (Auto) 0.1 (0.0-0.2) X10*3/uL Abs Immat Gran (auto) 0.17 H (0.00-0.03) X10*3/uL Absolute Neuts (auto) 9.9 H (2.0-8.3) x10*3/uL Absolute Nucleated RBC 0.000 (0.0-0.012) X10*3/uL Nucleated RBC % (auto) 0.0 (0.0-0.2) /100WBC ESR 24 H (0-20) MM/HR Sodium 142 (135-145) mmol/L Potassium 3.7 (3.3-5.1) mmol/L Chloride 106 (96-108) mmol/L Carbon Dioxide 27 (22-29) mmol/L Anion Gap 13 (12-20) BUN 9 (9-16) mg/dL Creatinine 0.83 (0.5-1.4) mg/dL Estim Creat Clear Calc 119.3 Estimated GFR > 60 Random Glucose 94 (60-115) mg/dL Calcium 9.8 (8.4-10.2) mg/dL Magnesium 2.1 (1.6-2.6) mg/dL Total Bilirubin 0.2 (0.0-1.0) mg/dL AST 17 (5-31) U/L ALT 12 (0-31) U/L Alkaline Phosphatase 79 (39-117) U/L C-Reactive Protein 1.63 H (< or = 0.50) mg/dL Total Protein 7.6 (6.5-8.0) g/dL Albumin 4.4 (3.5-5.0) g/dL Beta HCG, Quant < 2 mIU/mL Radiology Impression Discussion of test interpretation with radiology: I have reviewed the radiologist's reading. Discharge Plan Discharge Clinical Impression: Headache Patient Disposition: Home, Self-Care Instructions: Acute Headache (ED) Additional Instructions: Follow up with your doctor on the chiari malformation finding on your CT imaging. Prescriptions: No Action cyanocobalamin (vitamin B-12) [Vitamin B-12] 1,000 mcg Tablet 1,000 mcg PO BEDTIME cyclobenzaprine 10 mg Tablet 10 mg PO TID PRN (Reason: Muscle Spasm) hydroxyzine HCl 50 mg tablet 50 mg PO BID PRN (Reason: anxiety) Qty: 20 0RF cyclobenzaprine 10 mg tablet 10 mg PO TID PRN (Reason: muscle spasm) Qty: 20 0RF benzonatate 200 mg capsule 200 mg PO TID PRN (Reason: cough) Qty: 20 0RF cholecalciferol (vitamin D3) [Vitamin D3] 50 mcg (2,000 unit) capsule 50 mcg PO QWEEK psyllium Packet 1 packet PO BID 30 Days Qty: 500 0RF Rx Instructions: mix into at least 8 oz of water or juice before administering fluoxetine 20 mg capsule 20 mg PO DAILY cholestyramine (with sugar) 4 gram powder in packet 4 g PO TID Qty: 90 6RF Rx Instructions: administer w/meal; avoid other meds within 1hr before or 4-6hr after dose lansoprazole 15 mg capsule,delayed release(DR/EC) 15 mg PO BID 90 Days Qty: 180 0RF Print Language: Uzbek
[2024-12-20 20:08] LABS: MANUAL DIFF FLAG NO
[2024-12-20 20:16] LABS: Hematocrit 41.7 % (37.0-47.0); Hemoglobin 13.6 g/dl (12.0-16.0); Imm Gran Abs Auto 0.17 X10*3/uL (0.00-0.03); Imm Gran Pct Auto 1.3 % (0.0-0.4); Lymphocytes Absolute Auto 2.2 X10*3/uL (1.2-4.9); Mean Corpuscular HGB Conc 32.6 g/dl (31.0-35.0); Mean Corpuscular Hemoglobin 28.9 pg (27.0-33.0); Mean Corpuscular Volume 88.5 fL (80.0-98.0); NRBC Abs Auto 0.000 X10*3/uL (0.0-0.012); NRBC Pct Auto 0.0 /100WBC (0.0-0.2); Platelet Count 405 X10*3/uL (160-400); Red Blood Count 4.71 X10*6/uL (4.20-5.50); White Blood Count 13.2 X10*3/uL (4.8-10.8)
[2024-12-20 20:31] LABS: Alanine Aminotransferase 12 U/L (0-31); Albumin Level 4.4 g/dL (3.5-5.0); Alkaline Phosphatase 79 U/L (39-117); Anion Gap 13 (12-20); Aspartate Amino Transferase 17 U/L (5-31); Blood Urea Nitrogen 9 mg/dL (9-16); Calcium 9.8 mg/dL (8.4-10.2); Carbon Dioxide 27 mmol/L (22-29); Chloride 106 mmol/L (96-108); Creatinine Clr Calc Pharmacy 119.3; Estimated Glomerular Filt Rate > 60; Magnesium 2.1 mg/dL (1.6-2.6); Potassium 3.7 mmol/L (3.3-5.1); Sodium 142 mmol/L (135-145); Total Protein 7.6 g/dL (6.5-8.0)
--- OUTSIDE RECORDS SUMMARY | 2024-12-20 21:37 | XMS_ITS | Encounter Summary ---
Author Organization [employer] Address [address] [place] [address] Care Team Providers Care Dobby Loom Weaver Name Role Phone Martha Lopez COMBINATION OPERATOR Primary Care Provider [phone] Piero Campos Primary Care Provider Unavail able Krista Pierre MD Primary Care Provider [phone] Encounter Details Date Type Department Care Team (Late Contact Info) Description 04/06/2022 Orders Only [facility] [address] [place] [phone] Anyi Baker RN Social History Tobacco Use [...] Upcoming Encounters Date Type Department Care Team ([facility] Contact Info) Description 01/12/2025 3:45 PM EDT Office Visit [facility] [address] [place] [phone] Krista Pierre MD [address] [place] [address] 04/28/2025 3:30 PM EST Office Visit [facility] [address] [place], [place] [phone] Tere Gilman, OD [address] [place], [place] [phone] documented as of this encounter Visit Diagnoses Not on filedocumented in this encounter Care Teams Dobby Loom Weaver Relationship Specialty Start Date End Date Martha Lopez FNP [address] [place], [place] [phone] PCP - General Family Medicine 12/17/21 08/22/22 Piero Campos AGNP [address] [place] [phone] PCP - General Family Medicine 08/23/22 12/27/22 Krista Pierre MD [address] [place] [phone] PCP - General Family Medicine 12/28/22 documented as of this encounter
--- OUTSIDE RECORDS SUMMARY | 2024-12-20 21:37 | XMS_ITS | Clinical Summary ---
Author Organization [facility] ity Address [address] [place] [phone] Care Team Providers Care Supervisor Pre Wave Name Role Phone Unavailable Primary Care Provider [...] Cervical Cancer Screening: P ap Smear 2015 COVID-19 Vaccine ( - 2023-2 5 season) 2023 Depression Screening 04/22/2024 Influenza Vaccine (#1) 2024 HIB Vaccines Aged Out No longer [...] 5 Years) and At-Risk Patients (6 to 49 Years) Aged Out No longer eligible b ased on patient's age to complete this topic RSV Immunization Patients Un tara 20 months Aged Out No longer eligible b ased on patient's age to complete this topic Varicella Vaccines Aged Out No longer eligible based on patient's age to complete this topic
--- OUTSIDE RECORDS SUMMARY | 2024-12-20 21:37 | XMS_ITS | Encounter Summary ---
Author Organization [employer] Address [address] [place] [address] Care Team Providers Care Gasoline Locomotive Crane Operator Name Role Phone Krista Pierre MD Primary Care Provider Encounter Details Date Type Department Care Team (Late st Contact Info) Description 12/20/2024 Orders Only GENERIC EXTERNAL DATA DEPARTMENT Provider, Generic External Data Social History Tobacco Use Types Packs/Day Years [...] Care Team (Late st Contact Info) Description 01/12/2025 3:45 PM EDT Office Visit [facility] [address] [place] [address] Krista Pierre MD [address] [place] [address] 04/28/2025 3:30 PM EST Office Visit [facility] [address] [place] [address] Tree Gilman, OD [address] [place] [address] documented as of this encounter Procedures Procedure Name Priority Date/Time Associated Diagnosis Comments CBC WITH AUTO DIFFERENTIAL Routine 12/20/2024 8:02 PM EDT SED RATE BY MODIFIED WESTERGREN Routine 12/20/2024 8:02 PM EDT C-REACTIVE PROTEIN Routine 12/20/2024 8: 02 PM EDT HCG, TOTAL, QN Routine 12/20/2024 8:02 PM EDT MAGNESIUM Routine 12/20/2024 8:02 PM EDT COMPREHENSIVE METABOLIC PANEL Routine 12/20/2024 8:02 PM EDT documented in this encounter Results * (ABNORMAL) Sed Rate by Modified Westergren (12/20/2024 8:02 PM EDT) Erythrocyte Sedimentation Rate 24(H) 0 - 20 MM/HR [facility] Comment:Patients with polycy themia and many hemoglobin abnormalitiesmay have depressed sed rates whereas patients with anemiamay have elevated sed rates. 12/20/2024 8:02 PM EDT 12/20/2024 8:42 PM EDT Generic External Data Provider LAB BLOOD ORDERAB LES Final Result Performing Organization Address [facility]/ZIP Co de Phone Number [facility] [address] [place] [phone] * (ABNORMAL) C-reactive Protein (12/20/2024 8:02 PM EDT) Pathologist [facility] C Reactive Protein 1.63(H) < or = 0.50 mg/dL [facility] 12/20/2024 8:02 PM EDT 12/20/2024 8:06 PM EDT [employer] External Data Provider LAB BLOOD ORDERAB LES Final Result Performing Organization Address [facility] Co de Phone Number [facility] [address] [place] [phone] * hCG, Total, Quantitative (12/20/2024 8:02 PM EDT) HCG Quantitative <2 mIU/mL [facility] Comment:Weeks post LMP Appro ximate hCG(Last Menstrual Period) Range (mIU/ml)3 - 4 weeks 9 - 1304 - 5 weeks 75 - 2,6005 - 6 weeks 850 - 20,8006 - 7 weeks 4000 - 100,2007 - 12 weeks 11,500 - 289,57211 - 16 weeks 18,300 - 137,00364 - 29 weeks (2nd trimester) 1,400 - 53,05074 - 41 weeks (3rd trimester) 940 - 60,000The [employer] B- hCG assay is used for the early detection ofpregnancy; it cannot be used to diagnose any conditionunrelated to . If a B-hCG level is not supportedby the clinical evidence, results should be confirmed by analternative method (qualitative urine hCG, for example). 12/20/2024 8:02 PM EDT 12/20/2024 8:06 PM EDT Generic External Data Provider LAB BLOOD ORDERAB LES Final Result Performing Organization Address [facility] Co de Phone Number [facility] [address] [place] [phone] * Magnesium (12/20/2024 8:02 PM EDT) Pathologist [facility] Magnesium 2.1 1.6 - 2.6 mg/dL [facility] 12/20/2024 8:02 PM EDT 12/20/2024 8:06 PM EDT Generic External Data Provider LAB BLOOD ORDERAB LES Final Result Performing Organization Address [facility] de Phone Number [facility] [address] [place] [phone] * Comprehensive Metabolic Panel (12/20/2024 8:02 PM EDT) Sodium 142 135 - 145 mmol/L [facility] Potassium 3.7 3.3 - 5.1 mmol/L [facility] Chloride 106 96 - 108 mmol/L [facility] Carbon Dioxide 27 22 - 29 mmol/L [facility] Anion Gap 13 12 - 20 [facility] Urea Nitrogen (BUN) 9 9 - 16 mg/dL [facility] Creatinine, Serum 0.83 0.5 - 1.4 mg/dL [facility] Creatinine Clr Calc Pharmacy 119.3 [facility] Comment:Provided height and weight: 162.56 cm,108.7 kg.eGFR (calculated from the MDRD study equation) and eCrCl(calculated from the Cockcroft-Gault equation) are based ondifferent parameters and may not yield comparable results.If eCrCl result is absurd, please check patient'sheight/weight. Estimated Glomerular Filt Rate >60 [facility] Comment:Chronic Kidney Disea se: Estimated GFR < 60 mL/min/1.75p4Fwtliz Kidney Disease: Estimated GFR < 15 mL/min/1.73m2 Glucose 94 60 - 115 mg/dL [facility] Calcium 9.8 8.4 - 10.2 mg/dL [facility] Bilirubin, Total 0.2 0.0 - 1.0 mg/dL [facility] Aspartate Amino Transferase 17 5 - 31 U/L [facility] Alanine Aminotransferase 12 0 - 31 U/L [facility] Total Protein 7.6 6.5 - 8.0 g/dL [facility] Albumin Level 4.4 3.5 - 5.0 g/dL [facility] Alkaline Phosphatase 79 39 - 117 U/L [facility] 12/20/2024 8:02 PM EDT 12/20/2024 8:06 PM EDT us Generic External Data Provider LAB BLOOD ORDERAB LES Final Result [facility] [address] [place] [phone] * (ABNORMAL) CBC auto differential (12/20/2024 8:02 PM EDT) White Blood Count 13.2(H) 4.8 - 10.8 X10*3/uL [facility] Red Blood Count 4.71 4.20 - 5.50 X10*6/uL [facility] Hemoglobin 13.6 12.0 - 16.0 g/dl [facility] Hematocrit 41.7 37.0 - 47.0 % [facility] Mean Corpuscular Volume 88.5 80.0 - 98.0 fL [facility] Mean Corpuscular Hemoglobin 28.9 27.0 - 33.0 pg [facility] Mean Corpuscular HGB Conc 32.6 31.0 - 35.0 g/dl [facility] Red Cell Distribution Width 12.7 11.0 - 16.0 % [facility] Platelet Count 405(H) 160 - 400 X10*3/uL [facility] Mean Platelet Volume 10.1 9.4 - 12.3 fL [facility] Neutrophils Percent Auto 75.4(H) 45 - 73 % [facility] Imm Gran Pct Auto 1.3(H) 0.0 - 0.4 % [facility] Lymphocytes Percent Auto 17.0(L) 20 - 40 % [facility] Monocytes Percent Auto 5.0 2 - 11 % [facility] Eosinophils Percent Auto 0.9 0 - 4 % [facility] Basophils Percent Auto 0.4 0 - 2 % [facility] NRBC Pct Auto 0.0 0.0 - 0.2 /100WBC [facility] Neutrophils Absolute Auto 9.9(H) 2.0 - 8.3 x10*3/uL [facility] Imm Gran Abs Auto 0.17(H) 0.00 - 0.03 X10*3/uL [facility] Lymphocytes Absolute Auto 2.2 1.2 - 4.9 X10*3/uL [facility] Monocytes Absolute Auto 0.7 0.1 - 1.2 X10*3/uL [facility] Eosinophils Absolute Auto 0.1 0.0 - 0.4 X10*3/uL [facility] Basophils Absolute Auto 0.1 0.0 - 0.2 X10*3/uL [facility] NRBC Abs Auto 0.000 0.0 - 0.012 X10*3/uL [facility] 12/20/2024 8:02 PM EDT 12/20/2024 8:06 PM EDT us Generic External Data Provider LAB BLOOD ORDERAB LES Final Result [facility] [address] [place] [phone] [phone] documented in this encounter Visit Diagnoses Not on filedocumented in this encounter Additional Health Concerns Assessment Noted Time PHQ-9 Depression Total Score: 12 025 1:48 PM EDT documented as of this encounter Care Teams Gasoline Locomotive Crane Operator Relationship Specialty Start Date End Date Krista Pierre MD [address] [place] [address] PCP - General Family Medicine 12/28/22 documented as of this encounter
--- OUTSIDE RECORDS SUMMARY | 2024-12-20 21:37 | XMS_ITS | Clinical Summary ---
Author Organization [employer] Address [address] [facility] [place] [address] Care Team Providers Care Production Clerk Name Role Phone Krista Pierre MD Primary Care Provider [phone] Allergies Active Allergy Reactions Criticality Noted Date Comments Ibuprofen 08/24/2024 Latex Rash Low 07/02/2018 Shellfish-Derived Products 9 Tomato Hives,Shortness of breath High 11/03/2018 Medications SUMAtriptan (Imitrex) 50 MG tablet Take 1 tablet (50 mg) by mouth 1 (one) time if needed for migraine for up to 1 dose. May repeat dose once in 2 hours if no relief. Do not exceed 2 doses in 24 hours. 9 tablet 08/19/19 24 Active Chlorhexidine Gluconate (Hibiclens) 4 % solutionIndications :Folliculitis Rinse area with water, then apply chlorhexidine to cover skin or wound area and wash gently. Rinse again thoroughly. 118 mL 10/07/19 24 Active meclizine (Antivert) 25 MG tablet 1 tab po BID 60 tablet 3 11/27/19 24 Active FLUoxetine (PROzac) 10 MG tabletIndications:A nxiety TAKE 1 TABLET BY MOUTH EVERY DAY 30 tablet 2 12/11/19 24 Active hydrOXYzine HCl (Atarax) 25 MG tabletIndications:A nxiety Take 1 tablet (25 mg) by mouth 3 times daily. 90 tablet 1 08/18/19 25 Active omeprazole (PriLOSEC) [address] capsuleIndications: Infectious colitis, enteritis and gastroenteritis TAKE 1 CAPSULE BY MOUTH DAILY BEFORE BREAKFAST 90 capsule 1 08/18/19 25 Active cetirizine (ZyrTEC) 10 MG tablet Take 1 tablet (10 mg) by mouth Once per day. 30 tablet 11 08/25/19 25 026 Active cholecalciferol (Vitamin D-3) 25 MCG (1000 UT) tablet Take 1 tablet by mouth once daily 90 tablet 3 08/27/19 25 Active Multiple Vitamin (multivitamin) tablet Take 1 tablet by mouth Once per day. 90 tablet 3 10/16/19 25 Active fluticasone (Flonase) 50 MCG/ACT nasal spray INSTILL 1-2 SPRAYS IN EACH NOSTRIL ONCE DAILY 48 g 11/17/19 25 Active Active Problems Problem Noted Date Diagnosed Date GERD (gastroesophageal reflux disease) Assessment & Plan (08/26/2024 4:39 PM EDT): - continue omeprazole; may increase to bid - check H. Pylori (ideally patient needs to be off omeprazole for 2 weeks, but okay if 1 week. She can take famotidine while she is off omeprazole) - discussed about non-pharmacological measure - refer to GI. She used to see [facility] for IBS. IBS (irritable bowel syndrome) 08/26/2024 Assessment & Plan (08/26/2024 4:40 PM EDT): - previously seeing GI - no longer taking meds - will refer back due to GERD Allergic rhinitis 08/24/2024 Assessment & Plan (08/24/2024 11:33 PM EDT): - start cetirizine and flonase Sleep disturbance 08/19/2023 Assessment & Plan (08/24/2024 11:28 PM EDT): - normal sleep study in Jan 2024 Assessment & Plan (08/19/2023 12:12 PM EDT): Will evaluate with a sleep study. Nonintractable headache 08/19/2023 Assessment & Plan (08/24/2024 11:29 PM EDT): Likely Migraine. Rx Sumatriptan 50 Mg in July 2023 Assessment & Plan (08/19/2023 12:12 PM EDT): Likely Migraine. Will try Sumatriptan 50 Mg. Hair loss 08/19/2023 Assessment & Plan (08/25/2024 12:59 AM EDT): Continue OTC Rogaine. Assessment & Plan (08/19/2023 12:14 PM EDT): Continue OTC Rogaine. History of pre-eclampsia 08/19/2023 Assessment & Plan (08/25/2024 1:00 AM EDT): BP was normal today. Fhx of hypertension. Will check lipid profile and blood sugar level prior to next visit. Assessment & Plan (08/19/2023 12:14 PM EDT): BP was normal today. Fhx of hypertension. Will check lipid profile and blood sugar level prior to next visit. Ear pressure, right 08/19/2023 Assessment & Plan (08/19/2023 12:12 PM EDT): Normal Physical exam. Patient reports tinnitus. Will refer to ENT for further evaluation. Iron deficiency anemia 07/26/2022 Assessment & Plan (08/26/2024 4:33 PM EDT): - most recent lab showed normal CBC Chiari malformation type I 03/30/2022 Lipoma of forearm 03/30/2022 Abnormal cervical Papanicolaou smear 08/09/2021 Anxiety and depression 07/09/2018 Assessment & Plan (08/24/2024 11:32 PM EDT): Continue Fluoxetine 10 mg for depression. Continue Hydroxyzine 25 mg for Anxiety. Continue following up with current behavioral health. Assessment & Plan (08/19/2023 12:13 PM EDT): Continue Fluoxetine 10 mg for depression. Continue Hydroxyzine 25 mg for Anxiety. Continue following up with current behavioral health. 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 Assessment & Plan (08/26/2024 4:33 PM EDT): - normal thyroid function test in Nov 2023; recheck Vitamin D deficiency 03/25/2018 Assessment & Plan (08/24/2024 11:30 PM EDT): - previously on supplement; recheck lab and treat accordingly Resolved Problems Problem Noted Date Diagnosed Date Resolved Date Infectious colitis, enteriti s and gastroenteritis 07/26/2022 08/24/2024 Assessment & Plan (07/26/2022 9:47 AM EDT): I advise bland diet drink plenty of fluids and rest I will extend levofloxacin 500mg for 5 more days ( patient did not tolerated well metronidazole) Repeat blood work after finishing treatment GI referral F/u with PCP Nicotine dependence 03/30/2022 10/21/19 25 Assessment & Plan (08/24/2024 11:31 PM EDT): - stopped smoking COVID-19 04/03/2021 08/19/2023 Raised TSH level 03/05/2018 08/26/2024 Encounters Date Type Department Care Team Description 12/20/2024 Orders Only GENERIC EXTERNAL DATA DEPARTMENT Provider, Generic External Data 12/01/[address] [address] Krista Pierre MD No Show 12/01/2024 Orders Only [address] [address] Krista Pierre MD Cobalamin deficiency (Primary Dx) 11/30/[address] [address] Krista Pierre MD chartprep 11/23/2024 Patient Outreach [address] [address] Krista Pierre MD Pre-visit Planning (SDOH screening was completed on 08/24/2024) 11/18/2024 10:30 AM EDT Office Visit [facility] [address] [place] [address] Lola Mcclelland, OD Regular astigmatism, bilateral (Primary Dx) 11/18/2024 Travel 11/15/[address] [facility] [address] [place] [address] Krista Pierre MD 10/26/2024 3:45 PM EDT Office Visit [facility] [address] [place] [address] Tere Gilman, OD Optic atrophy of both eyes (Primary Dx); Teresa's thyroiditis 10/26/2024 Travel 10/20/2024 1:45 PM EDT Office Visit [facility] [address] [place] [address] Tere Gilman, OD Regular astigmatism, bilateral (Primary Dx); Optic atrophy of both eyes; Teresa's thyroiditis 10/20/2024 Travel 10/15/[address] [facility] [address] [place] [address] Krista Pierre MD 10/13/[address] [facility] [address] [place] [address] Krista Pierre MD 10/06/[address] [facility] [address] [place] [address] Krista Pierre MD November recall from Last 3 Months Immunizations Immunization Administration Dates Next Due DTaP 05/23/1999, 8,1994,06/12,1994 [...] 12+ dixon-sucrose (Vidal Cap) 06/04/2021,05/14/2021 Tdap 05/23/2015,09/25/2006 Family History Medical History Relation Name Comments Diabetes Mother Relation Name Status Comments Mother Social History Tobacco Use Types Packs/Day Years [...] 80 08/24/2024 1:11 PM EDT Temperature 36.3 C (97.3 F) 08/24/2024 1:11 PM EDT Respiratory Rate 20 08/24/2024 1:11 PM EDT [...] Description 01/12/2025 3:45 PM EDT Office Visit [facility] [address] [place] [address] Krista Pierre MD [address] [place] [address] 04/28/2025 3:30 PM EST Office Visit [facility] [address] [place], [place] [phone] Tere Gilman, OD [address] [place] [address] Health Maintenance Due Date Last Done Comments Family Planning (PISQ) 2009 COVID-19 Vaccine ( season) 2023 08/19/2023, 06/04/2021, 06/04/2021, Additional history exists Cervical Cancer Screening 12/21/2024 HPV/Cotest 12/21/2024 Influenza Vaccine (#1) 2024 9, 03/05/2018, 03/29/2014, Additional history exists Pap Smear 12/21/2024 12/21/2021, 12/21/2021 Depression Monitoring 02/24/2025 08/24/2024, 025 DTaP/Tdap/Td Vaccines (8 - Td or Tdap) 05/23/2025 05/23/2015, 09/25/2006, 05/23/1999, Additional history exists Alcohol/Substance Use Screening 08/24/2025 08/24/2024 Disability Screening 08/24/2025 08/24/2024 SDOH Screening 08/24/2025 08/24/2024 Tobacco Screening 10/20/2025 10/20/2024 Lipid Panel 08/24/2029 08/24/2024 Zoster Vaccines (1 of 2) 02/08/2044 [...] Completed 08/09/2021 Hepatitis C Screening Completed 08/09/2021 Meningococcal B Vaccine Aged Out No l onger eligible based on patient's age to complete this topic Pneumococcal Vaccine: Pediatrics (0 to 5 Years) and At-Risk Patients (6 to 49) Years Aged Out No longer eligible based on patient's age to complete this topic RSV under 20 months Aged Out No longe r eligible based on patient's age to complete this topic Rotavirus Vaccines Aged Out No longer eligible based on patient's age to complete this topic Procedures Procedure Name Priority Date/Time Associated Diagnosis Comments SED RATE BY MODIFIED WESTERGREN Routine 12/20/2024 8:02 PM EDT C-REACTIVE PROTEIN Routine 12/20/2024 8: 02 PM EDT HCG, TOTAL, QN Routine 12/20/2024 8:02 PM EDT MAGNESIUM Routine 12/20/2024 8:02 PM EDT COMPREHENSIVE METABOLIC PANEL Routine 12/20/2024 8:02 PM EDT CBC WITH AUTO DIFFERENTIAL Routine 12/20/2024 8:02 PM EDT AMB REFERRAL TO OPHTHALMOLOGY Urgent 11/05/2024 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 AUTOMATED VISUAL FIELD, EXTENDED - OU - BOTH EYES Routine 10/26/2024 3:45 PM EDT Optic atrophy of both eyes OCT, OPTIC NERVE - OU - BOTH EYES Routine 10/20/2024 4:21 PM EDT Optic atrophy of both eyes LIPID PANEL WITH REFLEX TO DIRECT LDL Routine 08/24/2024 1:44 PM EDT Screening for lipid disorders THINPREP IMAGING SYSTEM PAP Routine 12/21/2021 11:04 AM EDT ZZZ HISTORICAL HEPATITIS C AB W/REFL TO HCV RNA, QN, PCR Routine 08/09/2021 3:15 PM EDT HIV 1/2 ANTIGEN/ANTIBODY, FOURTH GENERATION W/RFL Routine 08/09/2021 3:15 PM EDT from Last 3 Months or Most Recently Relevant to Health Maintenance Results * (ABNORMAL) CBC auto differential (12/20/2024 8:02 PM EDT) White Blood Count 13.2(H) 4.8 - 10.8 X10*3/uL [facility] Red Blood Count 4.71 4.20 - 5.50 X10*6/uL [facility] Hemoglobin 13.6 12.0 - 16.0 g/dl [facility] Hematocrit 41.7 37.0 - 47.0 % [facility] Mean Corpuscular Volume 88.5 80.0 - 98.0 fL [facility] Mean Corpuscular Hemoglobin 28.9 27.0 - 33.0 pg [facility] Mean Corpuscular HGB Conc 32.6 31.0 - 35.0 g/dl [facility] Red Cell Distribution Width 12.7 11.0 - 16.0 % [facility] Platelet Count 405(H) 160 - 400 X10*3/uL [facility] Mean Platelet Volume 10.1 9.4 - 12.3 fL [facility] Neutrophils Percent Auto 75.4(H) 45 - 73 % [facility] Imm Gran Pct Auto 1.3(H) 0.0 - 0.4 % [facility] Lymphocytes Percent Auto 17.0(L) 20 - 40 % [facility] Monocytes Percent Auto 5.0 2 - 11 % [facility] Eosinophils Percent Auto 0.9 0 - 4 % [facility] Basophils Percent Auto 0.4 0 - 2 % [facility] NRBC Pct Auto 0.0 0.0 - 0.2 /100WBC [facility] Neutrophils Absolute Auto 9.9(H) 2.0 - 8.3 x10*3/uL [facility] Imm Gran Abs Auto 0.17(H) 0.00 - 0.03 X10*3/uL [facility] Lymphocytes Absolute Auto 2.2 1.2 - 4.9 X10*3/uL [facility] Monocytes Absolute Auto 0.7 0.1 - 1.2 X10*3/uL [facility] Eosinophils Absolute Auto 0.1 0.0 - 0.4 X10*3/uL [facility] Basophils Absolute Auto 0.1 0.0 - 0.2 X10*3/uL [facility] NRBC Abs Auto 0.000 0.0 - 0.012 X10*3/uL [facility] 12/20/2024 8:02 PM EDT 12/20/2024 8:06 PM EDT us Generic External Data Provider LAB BLOOD ORDERAB LES Final Result Performing Organization Address City/[facility]/ZIP Co de Phone Number [facility] [address] [place] [phone] * (ABNORMAL) Sed Rate by Modified Carlosren (12/20/2024 8:02 PM EDT) Erythrocyte Sedimentation Rate 24(H) 0 - 20 MM/HR [facility] Comment:Patients with polycy themia and many hemoglobin abnormalitiesmay have depressed sed rates whereas patients with anemiamay have elevated sed rates. 12/20/2024 8:02 PM EDT 12/20/2024 8:42 PM EDT us Generic External Data Provider LAB BLOOD ORDERAB LES Final Result Performing Organization Address [facility]/ZIP Co de Phone Number [facility] [address] [place] [phone] * (ABNORMAL) C-reactive Protein (12/20/2024 8:02 PM EDT) C Reactive Protein 1.63(H) < or = 0.50 mg/dL [facility] 12/20/2024 8:02 PM EDT 12/20/2024 8:06 PM EDT us Generic External Data Provider LAB BLOOD ORDERAB LES Final Result Performing Organization Address [facility]/ZIP Co de Phone Number [facility] [address] [place] [phone] * hCG, Total, Quantitative (12/20/2024 8:02 PM EDT) Pathologist [facility] HCG Quantitative <2 mIU/mL [facility] Comment:Weeks post LMP Appro ximate hCG(Last Menstrual Period) Range (mIU/ml)3 - 4 weeks 9 - 1304 - 5 weeks 75 - 2,6005 - 6 weeks 850 - 20,8006 - 7 weeks 4000 - 100,2007 - 12 weeks 11,500 - 289,82699 - 16 weeks 18,300 - 137,33165 - 29 weeks (2nd trimester) 1,400 - 53,72473 - 41 weeks (3rd trimester) 940 - [...] ORDERAB LES Final Result Performing Organization Address [facility]/ZIP Co de Phone Number [facility] [address] [place] [address] [phone] * Magnesium (12/20/2024 8:02 PM EDT) [facility] Magnesium 2.1 1.6 - 2.6 mg/dL [facility] 12/20/2024 8:02 PM EDT 12/20/2024 8:06 PM EDT Generic External Data Provider LAB BLOOD ORDERAB LES Final Result Performing Organization Address [facility]/ZIP Co de Phone Number [facility] [address] [place] [address] [phone] * Comprehensive Metabolic Panel (12/20/2024 8:02 PM EDT) [facility] Sodium 142 135 - 145 mmol/L [facility] Potassium 3.7 3.3 - 5.1 mmol/L [facility] Chloride 106 96 - 108 mmol/L [facility] Carbon Dioxide 27 22 - 29 mmol/L [facility] Anion Gap 13 12 - 20 [facility] Urea Nitrogen (BUN) 9 9 - 16 mg/dL [facility] Creatinine, Serum 0.83 0.5 - 1.4 mg/dL [facility] Creatinine Clr Calc Pharmacy 119.3 [facility] Comment:Provided height and weight: 162.56 cm,108.7 kg.eGFR (calculated from the MDRD study equation) and eCrCl(calculated from the Cockcroft-Gault equation) are based ondifferent parameters and may not yield comparable results.If eCrCl result is absurd, please check patient'sheight/weight. Estimated Glomerular Filt Rate >60 [facility] Comment:Chronic Kidney Disea se: Estimated GFR < 60 mL/min/[id number] Kidney Disease: Estimated GFR < 15 mL/min/1.73m2 Glucose 94 60 - 115 mg/dL [facility] Calcium 9.8 8.4 - 10.2 mg/dL [facility] Bilirubin, Total 0.2 0.0 - 1.0 mg/dL [facility] Aspartate Amino Transferase 17 5 - 31 U/L [facility] Alanine Aminotransferase 12 0 - 31 U/L [facility] Total Protein 7.6 6.5 - 8.0 g/dL [facility] Albumin Level 4.4 3.5 - 5.0 g/dL [facility] Alkaline Phosphatase 79 39 - 117 U/L [facility] 12/20/2024 8:02 PM EDT 12/20/2024 8:06 PM EDT us Generic External Data Provider LAB BLOOD ORDERAB LES Final Result [facility] [address] [place] [address] [phone] * Referral to Ophthalmology (11/05/2024) us Tere Gilman OD OUTPATIENT REFERRAL ORDERABLES Final Result * Automated Visual Field, Extended - OU - Both Eyes (10/26/2024 3:45 PM EDT) Tere Melgar, OD - 10/28/2024 2:11 PM EDT Right Eye Threshold was 30-2. Left Eye Threshold was 30-2. Notes Visual Field Interpretation Reliability Right eye (OD): 1/12 FP, 4/13 FN Left eye (OS): 0/12 FP, 0/13 FN; excellent reliability indices however test continuously paused and patient was realigned, given multiple error messages that may have altered reliability Statistical Indices Right eye (OD): MD 19.9dB, sLV 8.2dB Left eye (OS): MD 17.2dB, sLV 7.3dB Test Findings Right eye (OD): Dense inferior temporal arcuate defect - corresponds with ganglion cell and RNFL loss patterns. Baseline. Left eye (OS): Dense inferior defect extending inferiorly from blindspot nasally - corresponds with ganglion cell and RNFL loss patterns. Baseline. Impression Extensive inferior visual field loss corresponding to optic nerve damage both eyes (OU). Obtain neuroimaging and refer for tepezza/orbital decompression if indicated. Tere Kalina OD OPHTH VISUAL FIELD Final Result * OCT, Optic Nerve - OU - Both Eyes (10/20/2024 4:21 PM EDT) Tere Melgar, OD - 10/20/2024 4:21 PM EDT Images from the original result were not included. OCT OPTIC NERVE INTERPRETATION Reliability : OD: SS 48 - good quality image OS: SS 45 - good quality image Measurements RNFL: Avg RNFL thickness OD: 51 microns OS: 60 microns Test findings RNFL: RNFL OD: Diffusely thin RNFL superior, nasal and inferior quadrants. Baseline. RNFL OS: Diffusely thin RNFL superior and nasal quadrants. Baseline. Test findings GCL: GCL OD: Thin GCL superior temporal. Baseline. GCL OS: Thin GCL superior temporal. Baseline. 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 Order neuroimaging and refer for decompression/tepezza. Tere Kalina OD OPHTH TOMOGRAPHY Final Result * (ABNORMAL) Lipid Panel with Reflex to Direct LDL (08/24/2024 1:44 PM EDT) Triglycerides 149 <150 mg/dL [facility] Comment:Desirable Triglyceri de: less than 150 mg/dLBorderline High Triglyceride 150-199 mg/dLHigh Triglyceride: 200-499 mg/dLVery High Triglyceride: greater than or equal to 5OO mg/dL Cholesterol 146 <200 mg/dL [facility] Comment:Desirable Cholestero l: less than 200 mg/dLBorderline High Cholesterol: 200-239 mg/dLHigh Cholesterol: greater than 239 mg/dL LDL Cholesterol Calculated 79 <100 mg/dL [facility] Comment:Desirable LDL: less than 100 mg/dLNear Optimal/Above Optimal LDL: 110- 129 mg/dLBorderline High LDL: 130-159 mg/dLHigh LDL: 160-189 mg/dLVery High LDL: greater than or equal to 190 mg/dL HDL Cholesterol 38(L) >40 mg/dL [facility] Comment:Desirable HDL: great er than 40 mg/dL Note: This HDL assay may give artificially low results in patients with liver disease. Blood 08/24/2024 1:44 PM EDT 08/24/2024 4:15 PM EDT us Krista Pierre MD LAB BLOOD ORDERABLES Final Resul t [facility] [address] [place] [address] [phone] * THINPREP TIS PAP (12/21/2021 11:04 AM EDT) Clinical Information: None given [facility] COMMENT SEE COMMENT [facility] Comment: EXPLANATORY NOTE: The Pap is a screening test for cervical cancer. It is not a diagnostic test and is subject to false negative and false positive results. It is most reliable when a satisfactory sample, regularly obtained, is submitted with relevant clinical findings and history, and when the Pap result is evaluated along with historic and current clinical information. COMMENT: This Pap test has been evaluated with computer assisted technology. [facility] Usability Strategist : SEE COMMENT [facility] Comment: SXA, CT(ASCP) CT screening location: [address] [address] Infection Fungal organisms morphologically consistent with Faustina spp. [facility] Interpretation/R esult: Negative for intraepithelial lesion or malignancy. [facility] LMP: 11/14/21 [facility] Prev. BX: NONE GIVEN [facility] Prev. PAP: 2019 NIL LSIL 2017 [facility] SOURCE: None given [facility] Statement Of Adequacy: SEE COMMENT [facility] Comment: Satisfactory for evaluation. Endocervical/transformation zone component present. 12/21/2021 11:0 4 AM EDT Betsy Rae CNM LAB PATHOLOGY ORDERABLES Final Result Performing Organization Address [facility] de Phone Number [facility] [address] * HEPATITIS C AB W/REFL TO HCV RNA, QN, PCR (08/09/2021 3:15 PM EDT) HEPATITIS C ANTIBODY NON-REACT TERA NON-REACT TERA [facility] INDEX 0.02 <1.00 [facility] Comment: HCV antibody was non-reactive. There is no laboratory evidence of HCV infection. In most cases, no further action is required. However, if recent HCV exposure is suspected, a test for HCV RNA (test code 90161) is suggested. For additional information please refer to http://education.Kinetic/faq/WRT47l4 (This link is being provided for informational/ educational purposes only.) 08/09/2021 3:15 PM EDT Deneenmary Anna [employer]IDENTIAL [employer] SPECIALIST HISTORICAL/NON ORDERABLE LABS Final Result Performing Organization Address [facility] Co de Phone Number [facility] [address] [place] [address], * HIV 1/2 ANTIGEN/ANTIBODY,FOURTH GENERATION W/RFL (08/09/2021 3:15 PM EDT) HIV-1/2 ANTIGEN AND ANTIBODIES, 4TH GENERATION W/ REFLEX NON-REACT TERA NON-REACT TERA [facility] Comment: HIV-1 antigen and HIV-1/HIV-2 antibodies were not detected. There is no laboratory evidence of HIV infection. PLEASE NOTE: This information has been disclosed to you from records whose confidentiality may be protected by state law. If your state requires such protection, then the state law prohibits you from making any further disclosure of the information without the specific written consent of the person to whom it pertains, or as otherwise permitted by law. A general authorization for the release of medical or other information is NOT sufficient for this purpose. For additional information please refer to http://education.Kinetic/faq/YYI517 (This link is being provided for informational/ educational purposes only.) The performance of this assay has not been clinically validated in patients less than 2 years old. 08/09/2021 3:15 PM EDT us Deneen Anna [employer]IDENTIAL [employer] SPECIALIST LAB BLOOD ORDERABLES Final Res ult [facility] [address] from Last 3 Months or Most Recently Relevant to Health Maintenance Insurance [facility] [employer] Care Teams Production Clerk Relationship Specialty Start Date End Date Krista Pierre MD [address] [place] [phone] PCP - General Family Medicine 12/28/22
--- OUTSIDE RECORDS SUMMARY | 2024-12-20 21:37 | XMS_ITS | Encounter Summary ---
Author Organization [employer] Address [address] [place] [address] Care Team Providers Care Health Policy Analyst Name Role Phone Krista Pierre MD Primary Care Provider [phone] Encounter Details Date Type Department Care Team (Late st Contact Info) Description 01/07/2024 Orders Only [facility] MEDICINE [address] [place] [address] Krista Pierre MD 230 [place], [place] [phone] Social History Tobacco Use Types Packs/Day Years [...] Description 01/12/2025 3:45 PM EDT Office Visit [facility] MEDICINE [address] [place] [address] Krista Pierre MD 230 [place] [address] 04/28/2025 3:30 PM EST Office Visit [facility] OPTOMETRY [address] [place], [place] [phone] Tere Gilman, OD [address] [place] [address] documented as of this encounter Visit Diagnoses Not on filedocumented in this encounter Additional Health Concerns Assessment Noted Time PHQ-9 Depression Total Score: 21 024 11:26 AM EDT documented as of this encounter Care Teams Health Policy Analyst Relationship Specialty Start Date End Date Krista Pierre MD 230 [place], [place] [phone] PCP - General Family Medicine 12/28/22 documented as of this encounter
--- OUTSIDE RECORDS SUMMARY | 2024-12-20 21:37 | XMS_ITS | Encounter Summary ---
Author Organization [employer] Address [address] 7[address] [place] [address] Care Team Providers Care Ocean Export Coordinator Name Role Phone Martha Lopez Primary Care Provider [phone] Piero Campos Primary Care Provider Unavail Krista Padilla MD Primary Care Provider Encounter Details Date Type Department Care Team ([facility] Contact Info) Description 03/23/2022 Orders Only [facility] MEDICINE [address] [place] [address] Unruly Jain MD [address] [place] [address] Bacterial otitis media (Primary Dx) Social History [...] Description 01/12/2025 3:45 PM EDT Office Visit [facility] MEDICINE [address] [place] [address] Krista Pierre MD 230 [place] [address] 04/28/2025 3:30 PM EST Office Visit [facility] OPTOMETRY [address] [place], [place] [phone] Tere Gilman, OD [address] [place] [address] documented as of this encounter Visit Diagnoses Diagnosis Bacterial otitis media- Primary documented in this encounter Care Teams Ocean Export Coordinator Relationship Specialty Start Date End Date Martha Lopez FNP [address] [place] [address] PCP - General Family Medicine 12/17/21 08/22/22 Piero Campos AGNP [address] [place] [address] PCP - General Family Medicine 08/23/22 12/27/22 Krista Pierre MD [address] [place] [address] PCP - General Family Medicine 12/28/22 documented as of this encounter
--- OUTSIDE RECORDS SUMMARY | 2024-12-20 21:37 | XMS_ITS | Encounter Summary ---
Author Organization [facility] [employer] Address [address] [address] [facility] 7t [place] [address] Care Team Providers Care Circus Trainer Name Role Phone Krista Pierre MD Primary Care Provider [phone] Encounter Details Date Type Department Care Team ([facility] st Contact Info) Description 12/01/2024 Orders Only [facility] MEDICINE [address] [place] [address] Krista Pierre MD 230 [place] [address] Cobalamin deficiency (Primary Dx) Social History Tobacco Use [...] Description 01/12/2025 3:45 PM EDT Office Visit [facility] MEDICINE 230 [place] [address] Krista Pierre MD 230 [place] [address] 04/28/2025 3:30 PM EST Office Visit [facility] OPTOMETRY [address] [place] [address] Tarindiana, Tere, OD [address] [place] [address] Scheduled Orders Name Type Priority Associated Diagnoses Orde r Schedule Vitamin B12 (Cobalamin) and Folate Panel, Serum Lab Routine Cobalamin deficiency Expected: 12/01/2024 (Approximate), Expires: 12/01/2025 documented as of this encounter Visit Diagnoses Diagnosis Cobalamin deficiency- Primary Other B-complex deficiencies documented in this encounter Additional Health Concerns Assessment Noted Time PHQ-9 Depression Total Score: 12 025 1:48 PM EDT documented as of this encounter Care Teams Circus Trainer Relationship Specialty Start Date End Date Krista Pierre MD [address] [place] [address] PCP - General Family Medicine 12/28/22 documented as of this encounter
--- OUTSIDE RECORDS SUMMARY | 2024-12-20 21:37 | XMS_ITS | Encounter Summary ---
Author Organization [employer] Address [address] 7[address] [place] [address] Care Team Providers Care Adolescent Medicine Specialist Name Role Phone Krista Pierre MD Primary Care Provider [phone] Encounter Details Date Type Department Care Team (Late st Contact Info) Description 12/09/2023 Orders Only [facility] MEDICINE 230 [place] [address] Krista Pierre MD 230 [place], [place] [phone] Anxiety Social History Tobacco Use Types Packs/Day [...] Description 01/12/2025 3:45 PM EDT Office Visit [facility] MEDICINE [address] [place] [address] Krista Pierre MD [address] [place] [address] 04/28/2025 3:30 PM EST Office Visit [facility] OPTOMETRY [address] [place], [place] [phone] Tere Gilman, OD 267 [place] [address] documented as of this encounter Visit Diagnoses Diagnosis Anxiety Anxiety state, unspecified documented in this encounter Additional Health Concerns Assessment Noted Time PHQ-9 Depression Total Score: 21 024 11:26 AM EDT documented as of this encounter Care Teams Adolescent Medicine Specialist Relationship Specialty Start Date End Date Krista Pierre MD 230 [place] [address] PCP - General Family Medicine 12/28/22 documented as of this encounter
--- OUTSIDE RECORDS SUMMARY | 2024-12-20 21:37 | XMS_ITS | Encounter Summary ---
Author Organization [employer] Address [address] 7[address] [place] [address] Care Team Providers Care Territory Sales Manager Name Role Phone Krista Pierre MD Primary Care Provider [phone] Encounter Details Date Type Department Care Team ([facility] st Contact Info) Description 10/15/2024 Orders Only [facility] MEDICINE [address] [place] [address] Krista Pierre MD 230 [place], [place] [phone] Social History Tobacco Use Types Packs/Day Years [...] Description 01/12/2025 3:45 PM EDT Office Visit [facility] MEDICINE [address] [place] [address] Krista Pierre MD 230 [place] [address] 04/28/2025 3:30 PM EST Office Visit [facility] OPTOMETRY [address] [place] [address] Tarka, Tere, OD 267 [place] [address] documented as of this encounter Visit Diagnoses Not on filedocumented in this encounter Additional Health Concerns Assessment Noted Time PHQ-9 Depression Total Score: 12 025 1:48 PM EDT documented as of this encounter Care Teams Territory Sales Manager Relationship Specialty Start Date End Date Krista Pierre MD 230 [place] [address] PCP - General Family Medicine 12/28/22 documented as of this encounter
--- OUTSIDE RECORDS SUMMARY | 2024-12-20 21:37 | XMS_ITS | Encounter Summary ---
Author Organization [employer] Address [address] 7[address] [place] [address] Care Team Providers Care Yard Supervisor Name Role Phone Krista Pierre MD Primary Care Provider [phone] Encounter Details Date Type Department Care Team ([facility] st Contact Info) Description 08/26/2024 Orders Only [facility] MEDICINE [address] [place] [address] Krista Pierre MD 230 [place] [address] Vitamin B12 deficiency (Primary Dx) Social History [...] Description 01/12/2025 3:45 PM EDT Office Visit [facility] MEDICINE [address] [place] [address] Krista Pierre MD 230 [place] [address] 04/28/2025 3:30 PM EST Office Visit [facility] OPTOMETRY [address] [place] [address] Tarka Tere, OD 267 [place] [address] Scheduled Orders Name Type Priority Associated Diagnoses [...] documented as of this encounter Care Teams Yard Supervisor Relationship Specialty Start Date End Date Krista Pierre MD 230 [place] [address] PCP - General Family Medicine 12/28/22 documented as of this encounter
--- OUTSIDE RECORDS SUMMARY | 2024-12-20 21:37 | XMS_ITS | Encounter Summary ---
Author Organization [employer] Address [address] 7[address] [place] [address] Care Team Providers Care Export Freight Manager Name Role Phone Krista Pierre MD Primary Care Provider [phone] Reason for Visit * Reason Onset Date Comments Med Refill 12/10/2023 Encounter Details Date Type Department Care Team (Late st Contact Info) Description 12/10/2023 Refill [facility] MEDICINE [address] [place] [address] Krista Pierre MD [address] [place] [address] Anxiety Social History Tobacco Use Types Packs/Day [...] Description 01/12/2025 3:45 PM EDT Office Visit [facility] MEDICINE [address] [place] [address] Krista Pierre MD [address] [place] [address] 04/28/2025 3:30 PM EST Office Visit [facility] OPTOMETRY [address] [place] [address] Tarka, Tere, OD [address] [place] [address] documented as of this encounter Visit Diagnoses Diagnosis Anxiety Anxiety state, unspecified documented in this encounter Additional Health Concerns Assessment Noted Time PHQ-9 Depression Total Score: 21 024 11:26 AM EDT documented as of this encounter Care Teams Export Freight Manager Relationship Specialty Start Date End Date Krista Pierre MD [address] [place] [address] PCP - General Family Medicine 12/28/22 documented as of this encounter
[2024-12-20 22:05] VITALS: BP 124/58; PULSE 81; RESP 18; TEMP 36.8; O2SAT 95
--- NOTE | 2024-12-20 22:31 | PC.NURSE ---
this rn assumed care of pt, pt resting in stretcher, no acute distress noted. pt reports headache but no neuro deficits noted. pt awaiitng ed doc
[2024-12-20] MEDS: Magnesium Sulfate/H2O 2 GM/50 ML PIGGYBACK IV (23:04)
--- NOTE | 2024-12-20 23:11 | PC.NURSE ---
20g placed in left ac, pt medicated per jun for 12/30 headache.
[2024-12-21 00:25] VITALS: BP 117/62; PULSE 76; RESP 15; TEMP 36.6; O2SAT 96
[2024-12-21 00:36] VITALS: BP 117/62; PULSE 76; RESP 15; TEMP 36.6; O2SAT 96
== END 2024-12-21 00:41 | disposition home or self-care (01) ==
PROVIDERS: Physician Assistant Medical; Emergency Provider Student in an Organized Health Care Education/Training Program; PCP Family Medicine
DX: R51.9 Headache, unspecified (principal); F17.210 Nicotine dependence, cigarettes, uncomplicated; R11.0 Nausea; R10.2 Pelvic and perineal pain; Z79.899 Other long term (current) drug therapy
CPT/HCPCS: 36415; 70450; 80053; 83735; 84702; 85025; 85652; 86140; 96361; 96374; 96375; 99285; J1885; J2405; J3475

== ENCOUNTER → 2024-12-20 19:34 | Outpatient (BNV) | payer MEDICAID, SELFPAY | PROVIDERS: Emergency Provider Student in an Organized Health Care Education/Training Program; PCP Family Medicine; Visit Provider Specialist | DX: G93.5 Compression of brain (principal) | CPT/HCPCS: 70450 ==

== ENCOUNTER 2025-02-05 09:00 | Outpatient (REF) | payer MEDICAID, SELFPAY ==
--- NOTE | ~2025-02-05 | FL_ITS ---
EXAMINATION: XR BARIUM SWALLOW CLINICAL INFORMATION: Esophagitis COMPARISON: None available. TECHNIQUE: Thin barium swallow with thick barium, barium coated saltine crackers in upright view and thin barium in prone lying position was performed. FINDINGS: Following oral administration of thick barium in upright view there is normal propagation bolus from the oral cavity through the pharynx, esophagus into stomach without obstruction, narrowing or stricture. No intraluminal filling defect or extrinsic compression seen. On oral administration of and saltine crackers coated with thick barium there is normal oral mastication and propagation of bolus from the oral cavity through the pharynx, esophagus into stomach. Thin barium as chaser was utilized once an upright view to clear solid food. The gastroesophageal junction is widely patent. On oral administration of thin barium in prone lying position there is good distention of the entire esophagus without intraluminal filling defect or extrinsic compression. No gastroesophageal reflux or hiatal hernia seen. FLUOROSCOPY TIME: 2 minutes and 30 seconds. DOSE AREA PRODUCT: 49.57 uGy-m2 (microgray-meter squared) FL/FL barium swallow IMPRESSION: Unremarkable barium swallow exam in upright and lying position. Electronically signed by: Jones Mahoney MD 02/05/2025 10:39 AM EDT
--- OUTSIDE RECORDS SUMMARY | 2025-02-05 09:39 | XMS_ITS | Encounter Summary ---
Author Organization [employer] Address [address] [place] [address] Care Team Providers Care Tank Carpenter Name Role Phone Martha Lopez VAT TENDER Primary Care Provider [phone] Piero Campos Primary Care Provider Unavail able Krista Pierre MD Primary Care Provider [phone] Encounter Details Date Type Department Care Team (Late Contact Info) Description 04/06/2022 Orders Only [facility] MEDICINE [address] [place] [address] Anyi Baker RN Social History Tobacco Use [...] Upcoming Encounters Date Type Department Care Team ([facility] Contact Info) Description 03/09/2025 3:45 PM EST Office Visit [facility] MEDICINE [address] [place] [address] Krista Pierre MD [address] [place] [address] documented as of this encounter Visit Diagnoses Not on filedocumented in this encounter Care Teams Tank Carpenter Relationship Specialty Start Date End Date Martha Lopez FNP [address] [place] [address] PCP - General Family Medicine 12/17/21 08/22/22 Piero Campos AGNP [address] [place] [address] PCP - General Family Medicine 08/23/22 12/27/22 Krista Pierre MD [address] [place] [address] PCP - General Family Medicine 12/28/22 documented as of this encounter
--- OUTSIDE RECORDS SUMMARY | 2025-02-05 09:39 | XMS_ITS | Encounter Summary ---
Author Organization [employer] Address [address] 7[address] [place] [address] Care Team Providers Care Order Entry Administrator Name Role Phone Krista Pierre MD Primary Care Provider [phone] Encounter Details Date Type Department Care Team (Late st Contact Info) Description 12/09/2023 Orders Only [facility] MEDICINE [address] [place] [address] Krista Pierre MD 230 [place], [place] [phone] Anxiety Social History Tobacco Use Types Packs/Day [...] Care Team (Late st Contact Info) Description 03/09/2025 3:45 PM EST Office Visit [facility] MEDICINE [address] [place] [address] Krista Pierre MD [address] [place] [address] documented as of this encounter Visit Diagnoses Diagnosis Anxiety Anxiety state, unspecified documented in this encounter Additional Health Concerns Assessment Noted Time PHQ-9 Depression Total Score: 21 024 11:26 AM EDT documented as of this encounter Care Teams Order Entry Administrator Relationship Specialty Start Date End Date Krista Pierre MD [address] [place] [address] PCP - General Family Medicine 12/28/22 documented as of this encounter
--- OUTSIDE RECORDS SUMMARY | 2025-02-05 09:39 | XMS_ITS | Encounter Summary ---
Author Organization [employer] Address [address] [facility] [address] 7t [place] [address] Care Team Providers Care Production Control Planner Name Role Phone Krista Pierre MD Primary Care Provider [phone] Encounter Details Date Type Department Care Team ([facility] st Contact Info) Description 10/15/2024 Orders Only [facility] MEDICINE 230 [place] [address] Krista Pierre MD 230 [place], [place] [phone] Social History Tobacco Use Types Packs/Day Years [...] Description 03/09/2025 3:45 PM EST Office Visit [facility] MEDICINE [address] [place] [address] Krista Pierre MD [address] [place] [address] documented as of this encounter Visit Diagnoses Not on filedocumented in this encounter Additional Health Concerns Assessment Noted Time PHQ-9 Depression Total Score: 12 025 1:48 PM EDT documented as of this encounter Care Teams Production Control Planner Relationship Specialty Start Date End Date Krista Pierre MD [address] [place] [address] PCP - General Family Medicine 12/28/22 documented as of this encounter
--- OUTSIDE RECORDS SUMMARY | 2025-02-05 09:39 | XMS_ITS | Encounter Summary ---
Author Organization [employer] Address [address] [facility] [address] [address] [place] [address] Care Team Providers Care Smt Operator Name Role Phone Krista Pierre MD Primary Care Provider [phone] Encounter Details Date Type Department Care Team ([facility] st Contact Info) Description 01/07/2024 Orders Only [facility] MEDICINE [address] [place] [address] Krista Pierre MD 230 [place], [place] [phone] Social History Tobacco Use Types Packs/Day Years [...] Description 03/09/2025 3:45 PM EST Office Visit [facility] MEDICINE [address] [place] [address] Krista Pierre MD [address] [place] [address] documented as of this encounter Visit Diagnoses Not on filedocumented in this encounter Additional Health Concerns Assessment Noted Time PHQ-9 Depression Total Score: 21 024 11:26 AM EDT documented as of this encounter Care Teams Smt Operator Relationship Specialty Start Date End Date Krista Pierre MD [address] [place] [address] PCP - General Family Medicine 12/28/22 documented as of this encounter
--- OUTSIDE RECORDS SUMMARY | 2025-02-05 09:39 | XMS_ITS | Clinical Summary ---
Author Organization [employer] Address [address] [facility] 7t [place] [address] Care Team Providers Care Trust Mail Clerk Name Role Phone Krista Pierre MD Primary Care Provider [phone] Allergies Active Allergy Reactions Criticality Noted Date Comments Ibuprofen 08/24/2024 Latex Rash Low 07/02/2018 Shellfish Protein-Containing Drug Products 07/02/2018 Tomato Hives,Shortness of breath High 11/03/2018 Medications Chlorhexidine Gluconate (Hibiclens) 4 % solutionIndications :Folliculitis Rinse area with water, then apply chlorhexidine to cover skin or wound area and wash gently. Rinse again thoroughly. 118 mL 10/07/19 24 Active omeprazole (PriLOSEC) [address] capsuleIndications: Infectious colitis, enteritis and gastroenteritis TAKE 1 CAPSULE BY MOUTH DAILY BEFORE BREAKFAST 90 capsule 1 08/18/19 25 Active cholecalciferol (Vitamin D-3) 25 MCG (1000 UT) tablet Take 1 tablet by mouth once daily 90 tablet 3 08/27/19 25 Active Multiple Vitamin (multivitamin) tablet Take 1 tablet by mouth Once per day. 90 tablet 3 10/16/19 25 Active fluticasone (Flonase) 50 MCG/ACT nasal spray INSTILL 1-2 SPRAYS IN EACH NOSTRIL ONCE DAILY 48 g 11/17/19 25 Active SUMAtriptan (Imitrex) 50 MG tablet TAKE 1 TABLET BY MOUTH 1 TIME NEEDED FOR MIGRAINE FOR UP TO 1 DOSE. MAY REPEAT DOSE ONCE IN 2 HOURS IF NO RELIEF. DO NOT EXCEED 2 DOSES IN 24 HOURS. 9 tablet 12/24/19 25 Active FLUoxetine (PROzac) 10 MG tabletIndications:A nxiety TAKE 1 TABLET BY MOUTH EVERY DAY 30 tablet 2 12/24/19 25 Active hydrOXYzine HCl (Atarax) 25 MG tabletIndications:A nxiety TAKE 1 TABLET BY MOUTH THREE TIMES DAILY 90 tablet 1 12/24/19 25 Active cetirizine (ZyrTEC) 10 MG tablet TAKE 1 TABLET BY MOUTH EVERY DAY 90 tablet 1 12/24/19 25 Active meclizine (Antivert) 25 MG tablet TAKE 1 TABLET BY MOUTH TWICE A DAY 60 tablet 3 12/24/19 25 Active Active Problems Problem Noted Date [...] refer to GI. She used to see [facility] for IBS. IBS (irritable bowel syndrome) [...] showed normal CBC Chiari malformation type I (CMS/HCC) 03/30/2022 Lipoma of forearm 03/30/2022 Abnormal cervical [...] F/u with PCP Nicotine dependence 03/30/2022 10/21/19 Assessment & Plan (08/24/2024 11:31 PM EDT): - stopped smoking COVID-19 04/03/2021 08/19/2023 Raised TSH level 03/05/2018 08/26/2024 Encounters Date Type Department Care Team Description 01/11/2025 Telephone [facility] [address] [place] [phone] Krista Pierre MD chartprep 12/22/2024 Refill [facility] [address] [place] [phone] Krista Pierre MD Anxiety; Infectious colitis, enteritis and gastroenteritis 12/22/2024 Refill [facility] [address] [place] [address] Liz Campos MD 12/20/2024 Orders Only GENERIC EXTERNAL DATA DEPARTMENT Provider, Generic External Data 12/01/2024 Telephone [facility] [address] [place] [phone] Krista Pierre MD No Show 12/01/2024 Orders Only [facility] [address] [place] [phone] Krista Pierre MD Cobalamin deficiency (Primary Dx) 11/30/2024 Telephone [facility] [address] [place] [address] Krista Pierre MD chartprep 11/23/2024 Patient Outreach [facility] [address] [place] [address] Krista Pierre MD Pre-visit Planning (SDOH screening was completed on 08/24/2024) 11/18/2024 10:30 AM EDT Office Visit [facility] OPTOMETRY [address] [place] [address] Stas, Lola, OD Regular astigmatism, bilateral (Primary Dx) 11/18/2024 Travel 11/15/2024 Refill [facility] [address] [place] [address] Krista Pierre MD from Last 3 Months Immunizations Immunization Administration [...] Description 03/09/2025 3:45 PM EST Office Visit [facility] [address] [place] [address] Krista Pierre MD [address] [place] [address] Health Maintenance Due Date Last Done Comments Family Planning (PISQ) 2009 COVID-19 Vaccine ( season) 2024 08/19/2023, 06/04/2021, 06/04/2021, Additional history exists Cervical Cancer Screening 12/21/2024 HPV/Cotest 12/21/2024 Influenza Vaccine (#1) 2024 9, 03/05/2018, 01/16/2017, Additional history exists Pap Smear 12/21/2024 12/21/2021, 12/21/2021 Depression Monitoring 02/24/2025 08/24/2024, 025 Alcohol/Substance Use Screening 08/24/2025 08/24/2024 Disability Screening 08/24/2025 08/24/2024 SDOH Screening 08/24/2025 08/24/2024 Tobacco Screening 10/20/2025 10/20/2024 Lipid Panel 08/24/2029 08/24/2024 DTaP/Tdap/Td Vaccines (10 - Td or Tdap) 07/22/2030 07/22/2020, 11/08/2016, 05/23/2015, Additional history exists Zoster Vaccines (1 of 2) 02/08/2044 RSV Patients and Patients Aged 60 years or older (1 - 1-dose 75+ series) 2069 HIB Vaccines Completed 07/23/1995, 07/22, 1994, Additional history exists IPV Vaccines Completed 05/23/1999, 07/22, 1994, Additional history exists HPV Vaccines Completed 01/10/2009, 05/2008, 09/25/2006, Additional history exists Hepatitis A Vaccines Completed 03/29/2014, 09/29/19 11 Meningococcal Vaccine Aged Out 03/25/2018 , 03/25/2018, 08/15/2009 No longer eligible based on patient's age [...] Procedure Name Priority Date/Time Associated Diagnosis Comments CT HEAD WO CONTRAST Routine 12/20/2024 1 0:09 PM EDT SED RATE BY MODIFIED WESTERGREN [...] 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 LIPID PANEL WITH REFLEX TO DIRECT LDL [...] Recently Relevant to Health Maintenance Results * CT Head w/o Contrast (12/20/2024 10:09 PM EDT) Anatomical Region Laterality Modality Head, Neck Computed Tomogra phy 12/20/2024 10:0 9 PM EDT Narrative 12/20/2024 10:10 PM EDT [place] [address] [address] Scan Report Signed Patient: Callie Dutton MR#: [id number] 60 : 1995 Acct:[id number] Age/Sex: 29 / F ADM Date: 12/20/24 Loc: HO.ED Attending Dr: Ordering Physician: Yulia Lopez Date of Service: 12/20/24 Procedure(s): CT head/brain wo IV con Accession Number(s): [id number] cc: Yulia Lopez; Krista Pierre MD Report Number: [id number]: Total DLP = 630.00 mGy-cm CLINICAL HISTORY: atypical headache CT head without contrast Comparison: None provided Findings: No intra-axial mass, midline shift, hydrocephalus, or acute hemorrhage. No significant atrophy-like change or white matter disease. The cerebellar tonsils extend 8 mm below the foramen magnum and are peg like suggestive of Chiari 1 malformation. There is no sinus or mastoid fluid. The orbits are unremarkable. There is no acute skull fracture. IMPRESSION: 1. No acute intracranial findings. 2. Chiari 1 malformation. This document has been electronically signed by: Ashley Culp MD on 12/20/2024 22:09:28 Dictated By: Ashley Culp MD Signed By: <Electronically signed by Ashley Culp MD in OV> 12/20/242209 DD/ 08 TD/TT: 12/20/242208 Director Of Guidance: Procedure Note Donotuseinterpreter, Image - 12/20/[address] [place] [address] [address] Scan Report Signed Patient: Katelyn Dutton#: [id number] 60 : 1995Acct:[id number] Age/Sex: 29 FADM Date: 12/20/24 Loc: HO.ED Attending Dr: Ordering Physician: Yluia Lopez Date of Service: 12/20/24 Procedure(s): CT head/brain wo IV con Accession Number(s): [id number] cc: Yulia Lopez; Krista Pierre MD Report Number: [id number]: Total DLP = 630.00 mGy-cm CLINICAL HISTORY: atypical headache CT head without contrast Comparison: None provided Findings: No intra-axial mass, midline shift, hydrocephalus, or acute hemorrhage. No significant atrophy-like change or white matter disease. The cerebellar tonsils extend 8 mm below the foramen magnum and are peg like suggestive of Chiari 1 malformation. There is no sinus or mastoid fluid. The orbits are unremarkable. There is no acute skull fracture. IMPRESSION: 1. No acute intracranial findings. 2. Chiari 1 malformation. This document has been electronically signed by: Ashley Culp MD on 12/20/2024 22:09:28 Dictated By: Ashley Culp MD Signed By: <Electronically signed by Ashley Culp MD in OV> 12/20/242209 DD/ 08 TD/TT: 12/20/242208 Director Of Guidance: [facility] External Provider IMG CT PROCEDURES Edited Result - Final * (ABNORMAL) CBC auto differential (12/20/2024 8:02 PM EDT) White Blood Count 13.2(H) 4.8 - 10.8 X10*3/uL [facility] Red Blood Count 4.71 4.20 - 5.50 X10*6/uL [facility] Hemoglobin 13.6 12.0 - 16.0 g/dl [facility] Hematocrit 41.7 37.0 - 47.0 % [facility] Mean Corpuscular Volume 88.5 80.0 - 98.0 fL [facility] Mean Corpuscular Hemoglobin 28.9 27.0 - 33.0 pg [facility] Mean Corpuscular HGB Conc 32.6 31.0 - 35.0 g/dl [facility] Red Cell Distribution Width 12.7 11.0 - 16.0 % [facility] Platelet Count 405(H) 160 - 400 X10*3/uL [facility] Mean Platelet Volume 10.1 9.4 - 12.3 fL [facility] Neutrophils Percent Auto 75.4(H) 45 - 73 % [facility] Imm Gran Pct Auto 1.3(H) 0.0 - 0.4 % [facility] Lymphocytes Percent Auto 17.0(L) 20 - 40 % [facility] Monocytes Percent Auto 5.0 2 - 11 % [facility] Eosinophils Percent Auto 0.9 0 - 4 % [facility] Basophils Percent Auto 0.4 0 - 2 % [facility] NRBC Pct Auto 0.0 0.0 - 0.2 /100WBC [facility] Neutrophils Absolute Auto 9.9(H) 2.0 - 8.3 x10*3/uL [facility] Imm Gran Abs Auto 0.17(H) 0.00 - 0.03 X10*3/uL [facility] Lymphocytes Absolute Auto 2.2 1.2 - 4.9 X10*3/uL [facility] Monocytes Absolute Auto 0.7 0.1 - 1.2 X10*3/uL [facility] Eosinophils Absolute Auto 0.1 0.0 - 0.4 X10*3/uL [facility] Basophils Absolute Auto 0.1 0.0 - 0.2 X10*3/uL [facility] NRBC Abs Auto 0.000 0.0 - 0.012 X10*3/uL [facility] 12/20/2024 8:02 PM EDT 12/20/2024 8:06 PM EDT Generic External Data Provider LAB BLOOD ORDERAB LES Final Result Performing Organization Address [facility] [[email or web address]] Co de Phone Number [facility] [address] [place] [phone] * (ABNORMAL) Sed Rate by Modified Carlosren (12/20/2024 8:02 PM EDT) Erythrocyte Sedimentation Rate 24(H) 0 - 20 MM/HR [facility] Comment:Patients with polycy themia and many hemoglobin abnormalitiesmay have depressed sed rates whereas patients with anemiamay have elevated sed rates. 12/20/2024 8:02 PM EDT 12/20/2024 8:42 PM EDT us Generic External Data Provider LAB BLOOD ORDERAB LES Final Result Performing Organization Address City/[facility]/ZIP Co de Phone Number [facility] [address] [place] [phone] * (ABNORMAL) C-reactive Protein (12/20/2024 8:02 PM EDT) C Reactive Protein 1.63(H) < or = 0.50 mg/dL [facility] 12/20/2024 8:02 PM EDT 12/20/2024 8:06 PM EDT Generic External Data Provider LAB BLOOD ORDERAB LES Final Result Performing Organization Address [facility] [[email or web address]] Co de Phone Number [facility] [address] [place] [address] [phone] * hCG, Total, Quantitative (12/20/2024 8:02 PM EDT) HCG Quantitative <2 mIU/mL [facility] Comment:Weeks post LMP Appro ximate hCG(Last Menstrual Period) Range (mIU/ml)3 - 4 weeks 9 - 1304 - 5 weeks 75 - 2,6005 - 6 weeks 850 - 20,8006 - 7 weeks 4000 - 100,2007 - 12 weeks 11,500 - 289,23598 - 16 weeks 18,300 - 137,33119 - 29 weeks (2nd trimester) 1,400 - 53,99513 - 41 weeks (3rd trimester) 940 - [...] ORDERAB LES Final Result Performing Organization Address [facility] Co de Phone Number [facility] [address] [place] [phone] * Magnesium (12/20/2024 8:02 PM EDT) Magnesium 2.1 1.6 - 2.6 mg/dL [facility] 12/20/2024 8:02 PM EDT 12/20/2024 8:06 PM EDT Generic External Data Provider LAB BLOOD ORDERAB LES Final Result Performing Organization Address [facility] [[email or web address]] Co de Phone Number [facility] [address] [place] [phone] * Comprehensive Metabolic Panel (12/20/2024 8:02 PM EDT) Sodium 142 135 - 145 mmol/L [facility] Potassium 3.7 3.3 - 5.1 mmol/L [facility] Chloride 106 96 - 108 mmol/L [facility] Carbon Dioxide 27 22 - 29 mmol/L [facility] Anion Gap 13 12 - 20 [facility] Urea Nitrogen (BUN) 9 9 - 16 mg/dL [facility] Creatinine, Serum 0.83 0.5 - 1.4 mg/dL [facility] Creatinine Clr Calc Pharmacy 119.3 [facility] Comment:Provided height and weight: 162.56 cm,108.7 kg.eGFR (calculated from the MDRD study equation) and eCrCl(calculated from the Cockcroft-Gault equation) are based ondifferent parameters and may not yield comparable results.If eCrCl result is absurd, please check patient'sheight/weight. Estimated Glomerular Filt Rate >60 [facility] Comment:Chronic Kidney Disea se: Estimated GFR < 60 mL/min/1.35j8Bsqqmc Kidney Disease: Estimated GFR < 15 mL/min/1.73m2 Glucose 94 60 - 115 mg/dL [facility] Calcium 9.8 8.4 - 10.2 mg/dL [facility] Bilirubin, Total 0.2 0.0 - 1.0 mg/dL [facility] Aspartate Amino Transferase 17 5 - 31 U/L [facility] Alanine Aminotransferase 12 0 - 31 U/L [facility] Total Protein 7.6 6.5 - 8.0 g/dL [facility] Albumin Level 4.4 3.5 - 5.0 g/dL [facility] Alkaline Phosphatase 79 39 - 117 U/L [facility] 12/20/2024 8:02 PM EDT 12/20/2024 8:06 PM EDT us Generic External Data Provider LAB BLOOD ORDERAB LES Final Result [facility] [address] [place] [address] [phone] * Referral to Ophthalmology (11/05/2024) us Tere Gilman OD OUTPATIENT REFERRAL ORDERABLES Final Result * (ABNORMAL) Lipid Panel with Reflex to Direct LDL (08/24/2024 1:44 PM EDT) Triglycerides 149 <150 mg/dL [facility] Comment:Desirable Triglyceri de: less than 150 mg/dLBorderline High Triglyceride 150-199 mg/dLHigh Triglyceride: 200-499 mg/dLVery High Triglyceride: greater than or equal to 5OO mg/dL Cholesterol 146 <200 mg/dL [facility] Comment:Desirable Cholestero l: less than 200 mg/dLBorderline High Cholesterol: 200-239 mg/dLHigh Cholesterol: greater than 239 mg/dL LDL Cholesterol Calculated 79 <100 mg/dL [facility] Comment:Desirable LDL: less than 100 mg/dLNear Optimal/Above Optimal LDL: 110- 129 mg/dLBorderline High LDL: 130-159 mg/dLHigh LDL: 160-189 mg/dLVery High LDL: greater than or equal to 190 mg/dL HDL Cholesterol 38(L) >40 mg/dL [facility] Comment:Desirable HDL: great er than 40 mg/dL Note: This HDL assay may give artificially low results in patients with liver disease. Blood 08/24/2024 1:44 PM EDT 08/24/2024 4:15 PM EDT us Krista Pierre MD LAB BLOOD ORDERABLES Final Resul t Performing Organization Address [facility]/ZIP Co de Phone Number [facility] [address] [place] [address] [phone] * THINPREP TIS PAP (12/21/2021 11:04 AM EDT) Clinical Information: None given [facility] COMMENT SEE COMMENT [facility] ON [...] has been evaluated with computer assisted technology. 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 [facility] Interpretation/R esult: Negative for intraepithelial lesion or malignancy. [facility] LMP: 11/14/21 [facility] Prev. BX: NONE GIVEN [facility] Prev. PAP: 2019 NIL LSIL 2017 [facility] SOURCE: None given [facility] Statement Of Adequacy: SEE COMMENT [facility] Comment: Satisfactory for evaluation. Endocervical/transformation zone component present. 12/21/2021 11:0 4 AM EDT Betsy PATRICIO LAB PATHOLOGY ORDERABLES Final Result [facility] [address] * HEPATITIS C AB W/REFL TO HCV RNA, QN, PCR (08/09/2021 3:15 PM EDT) HEPATITIS C ANTIBODY NON-REACT TERA NON-REACT TERA [facility] INDEX 0.02 <1.00 [facility] Comment: HCV antibody was non-reactive. There is no laboratory evidence of HCV infection. In most cases, no further action is required. However, if recent HCV exposure is suspected, a test for HCV RNA (test code 98104) is suggested. For additional information please refer to http://education.[employer]rite[employer]/faq/BFI28q1 (This link is being provided for informational/ educational purposes only.) 08/09/2021 3:15 PM EDT Deneen Anna BLEACH BOILER PACKER HISTORICAL/NON ORDERABLE LABS Final Result Performing Organization Address [facility] [[email or web address]] Co de Phone Number [facility] [address] * HIV 1/2 ANTIGEN/ANTIBODY,FOURTH GENERATION W/RFL (08/09/2021 3:15 PM EDT) HIV-1/2 ANTIGEN AND ANTIBODIES, 4TH GENERATION W/ REFLEX NON-REACT TERA NON-REACT TERA [facility] Comment: HIV-1 antigen [...] purpose. For additional information please refer to http://education.Criteo/faq/VIN364 (This link is being provided for informational/ educational purposes only.) The performance of this assay has not been clinically validated in patients less than 2 years old. 08/09/2021 3:15 PM EDT Deneen Anna [employer] LAB BLOOD ORDERABLES Final Res ult Performing Organization Address [facility] de Phone Number [facility] [address] from Last 3 Months or Most Recently Relevant to Health Maintenance Insurance [facility] C3 Care Teams Trust Mail Clerk Relationship Specialty Start Date End Date Krista Pierre MD [address] [place] [phone] PCP - General Family Medicine 12/28/22
--- OUTSIDE RECORDS SUMMARY | 2025-02-05 09:39 | XMS_ITS | Encounter Summary ---
Author Organization [employer] Address [address] [place] [address] Care Team Providers Care Drafter Chief Design Name Role Phone Krista Pierre MD Primary Care Provider [phone] Encounter Details Date Type Department Care Team ([facility] st Contact Info) Description 12/01/2024 Orders Only [facility] [address] [place] [address] Krista Pierre MD [address] [place] [address] Cobalamin deficiency (Primary Dx) Social History Tobacco [...] 3:45 PM EST Office Visit [facility] [address] [place] [phone] Krista Pierre MD [address] [place] [phone] Scheduled Orders Name Type Priority Associated Diagnoses [...] documented as of this encounter Care Teams Drafter Chief Design Relationship Specialty Start Date End Date Krista Pierre MD [address] [place] [phone] PCP - General Family Medicine 12/28/22 documented as of this encounter
--- OUTSIDE RECORDS SUMMARY | 2025-02-05 09:39 | XMS_ITS | Encounter Summary ---
Author Organization [employer] Address [address] [facility] [address] [place] [address] Care Team Providers Care Industrial Engineering Analyst Name Role Phone Krista Pierre MD Primary Care Provider [phone] Encounter Details Date Type Department Care Team ([facility] st Contact Info) Description 08/26/2024 Orders Only [facility] [address] [place] [address] Krista Pierre MD [address] [place] [address] Vitamin B12 deficiency (Primary Dx) Social History [...] Description 03/09/2025 3:45 PM EST Office Visit [facility] [address] [place] [phone] Krista Pierre MD [address] [place] [phone] Scheduled Orders Name Type Priority Associated Diagnoses [...] documented as of this encounter Care Teams Industrial Engineering Analyst Relationship Specialty Start Date End Date Krista Pierre MD [address] [place] [phone] PCP - General Family Medicine 12/28/22 documented as of this encounter
--- OUTSIDE RECORDS SUMMARY | 2025-02-05 09:39 | XMS_ITS | Encounter Summary ---
Author Organization [employer] Address [address] [place] [address] Care Team Providers Care Shaker Plate Operator Name Role Phone Krista Pierre MD Primary Care Provider [phone] Reason for Visit * Reason Onset Date Comments Med Refill 12/22/2024 Encounter Details Date Type Department Care Team (Late st Contact Info) Description 12/22/2024 Refill [facility] [address] [place] [address] Liz Campos MD [address] [place] [address] Social History Tobacco Use Types Packs/Day Years [...] 3:45 PM EST Office Visit [facility] [address] [place] [address] Krisat Pierre MD [address] [place] [phone] documented as of this encounter Visit Diagnoses Not on filedocumented in this encounter Additional Health Concerns Assessment Noted Time PHQ-9 Depression Total Score: 12 025 1:48 PM EDT documented as of this encounter Care Teams Shaker Plate Operator Relationship Specialty Start Date End Date Krista Pierre MD [address] [place] [phone] PCP - General Family Medicine 12/28/22 documented as of this encounter
--- OUTSIDE RECORDS SUMMARY | 2025-02-05 09:39 | XMS_ITS | Encounter Summary ---
Author Organization [employer] Address [address] [place] [address] Care Team Providers Care Side Splitter Name Role Phone Krista Pierre MD Primary Care Provider [phone] Reason for Visit * Reason Onset Date Comments Med Refill 12/10/2023 Encounter Details Date Type Department Care Team (Late st Contact Info) Description 12/10/2023 Refill [facility] [address] [place] [address] Krista Pierre MD [address] [place] [address] Anxiety Social History Tobacco Use Types Packs/Day [...] Description 03/09/2025 3:45 PM EST Office Visit [facility] [address] [place] [address] Krista Pierre MD [address] [place] [address] documented as of this encounter Visit Diagnoses Diagnosis Anxiety Anxiety state, unspecified documented in this encounter Additional Health Concerns Assessment Noted Time PHQ-9 Depression Total Score: 21 024 11:26 AM EDT documented as of this encounter Care Teams Side Splitter Relationship Specialty Start Date End Date Krista Pierre MD [address] [place] [phone] PCP - General Family Medicine 12/28/22 documented as of this encounter
--- OUTSIDE RECORDS SUMMARY | 2025-02-05 09:39 | XMS_ITS | Clinical Summary ---
Author Organization [facility] Address [id number] [place] [phone] Care Team Providers Care Senior Data Integration Developer Name Role Phone Unavailable Primary Care Provider [...] Cervical Cancer Screening: P ap Smear 2015 HPV Vaccines (1 - 3-dose SCD M series) 2021 Depression Screening 04/22/2024 COVID-19 Vaccine ( - 2023-2 5 season) 2024 Influenza Vaccine (#1) 2024 RSV Immunization Adult Patie nts (1 - 1-dose 75+ series) 2069 HIB Vaccines Aged Out No longer eligi [...]
--- OUTSIDE RECORDS SUMMARY | 2025-02-05 09:39 | XMS_ITS | Encounter Summary ---
Author Organization [employer] Address [address] [place] [address] Care Team Providers Care Core Sticker Name Role Phone Martha Loepz Primary Care Provider [phone] Piero Campos Primary Care Provider Unavail Krista Padilla MD Primary Care Provider [phone] Encounter Details Date Type Department Care Team ([facility] Contact Info) Description 03/23/2022 Orders Only [facility] [address] [place] [address] Unruly Jain MD [address] [place] [address] Bacterial otitis media (Primary Dx) Social History [...] Description 03/09/2025 3:45 PM EST Office Visit [facility] [address] [facility] [place] [address] Krista Pierre MD [address] [facility] [place] documented as of this encounter Visit Diagnoses Diagnosis Bacterial otitis media- Primary documented in this encounter Care Teams Core Sticker Relationship Specialty Start Date End Date Martha Lopez FNP [facility] [facility] [place] [address] PCP - General Family Medicine 12/17/21 08/22/22 Pier[place] [address] PCP - General Family Medicine 08/23/22 12/27/22 [place] [address] PCP - General Family Medicine 12/28/22 documented as of this encounter
== END 2025-02-05 09:01 | disposition home or self-care (01) ==
LOC: HO.XRAY 09:00
PROVIDERS: PCP Family Medicine; Visit Provider Internal Medicine
DX: K20.90 Esophagitis, unspecified without bleeding (principal)
CPT/HCPCS: 74220

== ENCOUNTER → 2025-02-05 09:01 | Outpatient (BNV) | payer MEDICAID, SELFPAY | PROVIDERS: PCP Family Medicine; Visit Provider Radiology Diagnostic Radiology | DX: K20.90 Esophagitis, unspecified without bleeding (principal) | CPT/HCPCS: 74221 ==

== ENCOUNTER 2025-03-01 19:48 | Emergency (ER) | payer MEDICAID, SELFPAY ==
--- NOTE | ~2025-03-01 | XR_ITS ---
CLINICAL HISTORY: pain 1 view chest x-ray Comparison: CR/SR - XR CHEST 2V - 03/14/24 16:11 EST Findings: No consolidation or effusion. Normal size heart. No acute fracture. IMPRESSION: 1. No acute findings. This document has been electronically signed by: Aristeo Calloway MD on 03/02/2025 00:10:42
--- NOTE | ~2025-03-01 | XR_ITS ---
CLINICAL HISTORY: pain, constipation 1 view abdomen Comparison: None provided Findings: No pneumoperitoneum or pneumatosis. Normal bowel-gas pattern. Moderately large amount of fecal loading within the colon. No abnormal calcifications. No acute fractures. There are surgical clips in the right paramidline upper abdomen. IMPRESSION: Moderately large amount of fecal loading within the colon. This document has been electronically signed by: Aristeo Calloway MD on 03/02/2025 00:11:43
--- NOTE | 2025-03-01 19:49 | ECG_ITS ---
Test Reason : CHEST PAIN Blood Pressure : */* mmHG Vent. Rate : 78 BPM Atrial Rate : 78 BPM P-R Int : 168 ms QRS Dur : 92 ms QT Int : 336 ms P-R-T Axes : 52 47 32 degrees QTcB Int : 383 ms Normal sinus rhythm Nonspecific T wave abnormality Abnormal ECG When compared with ECG of 14-Mar-2024 16:04, No significant change was found Referred By: Christie Villalobos Electronically Signed By: AWILDA LEON MD
[2025-03-01 19:58] VITALS: BP 118/70; PULSE 89; RESP 16; TEMP 36.9; O2SAT 97; BMI 39.1
[2025-03-01 20:43] LABS: Hematocrit 42.7 % (37.0-47.0); Hemoglobin 13.9 g/dl (12.0-16.0); Imm Gran Abs Auto 0.04 X10*3/uL (0.00-0.03); Imm Gran Pct Auto 0.3 % (0.0-0.4); Lymphocytes Absolute Auto 2.4 X10*3/uL (1.2-4.9); MANUAL DIFF FLAG NO; Mean Corpuscular HGB Conc 32.6 g/dl (31.0-35.0); Mean Corpuscular Hemoglobin 28.6 pg (27.0-33.0); Mean Corpuscular Volume 87.9 fL (80.0-98.0); NRBC Abs Auto 0.000 X10*3/uL (0.0-0.012); NRBC Pct Auto 0.0 /100WBC (0.0-0.2); Platelet Count 389 X10*3/uL (160-400); Red Blood Count 4.86 X10*6/uL (4.20-5.50); White Blood Count 12.4 X10*3/uL (4.8-10.8)
[2025-03-01 20:49] LABS: INTERNATIONAL NORM RATIO 1.0 (0.9-1.1); Prothrombin Time 12.2 SEC (11.2-13.5)
[2025-03-01 20:58] LABS: IDNOW Serial# 58CA691E; Influenza B2 Negative (Negative)
[2025-03-01 20:59] LABS: COVID-19 Test Negative (Negative); IDNOW Serial# 55D5AD1C
[2025-03-01 21:06] LABS: Alanine Aminotransferase 11 U/L (0-31); Albumin Level 4.3 g/dL (3.5-5.0); Alkaline Phosphatase 74 U/L (39-117); Anion Gap 14 (12-20); Aspartate Amino Transferase 17 U/L (5-31); Blood Urea Nitrogen 11 mg/dL (9-16); Calcium 9.8 mg/dL (8.4-10.2); Carbon Dioxide 24 mmol/L (22-29); Chloride 108 mmol/L (96-108); Creatinine Clr Calc Pharmacy 132.4; Estimated Glomerular Filt Rate > 60; Magnesium 2.1 mg/dL (1.6-2.6); Potassium 3.6 mmol/L (3.3-5.1); Sodium 142 mmol/L (135-145); Total Protein 7.9 g/dL (6.5-8.0); Troponin-I High Sensitivity < 2.7 ng/L (<3.5-17.0)
[2025-03-01 21:16] VITALS: BP 120/73; PULSE 88; RESP 14; O2SAT 98
[2025-03-01 21:17] VITALS: PULSE 81
--- OUTSIDE RECORDS SUMMARY | 2025-03-01 21:26 | XMS_ITS | Encounter Summary ---
Author Organization [employer] Address [address] [place] [address] Care Team Providers Care Peer Health Promoter Name Role Phone Krista Pierre MD Primary Care Provider [phone] Encounter Details Date Type Department Care Team ([facility] st Contact Info) Description 10/15/2024 Orders Only [facility] [address] [place] [address] Krista Pierre MD [address] [place], [place] [phone] Social History Tobacco Use Types Packs/Day Years [...] Description 03/09/2025 3:45 PM EST Office Visit [facility] [address] [place] [address] Krista Pierre MD [address] [place] [address] documented as of this encounter Visit Diagnoses Not on filedocumented in this encounter Additional Health Concerns Assessment Noted Time PHQ-9 Depression Total Score: 12 025 1:48 PM EDT documented as of this encounter Care Teams Peer Health Promoter Relationship Specialty Start Date End Date Krista Pierre MD [address] [place] [address] PCP - General Family Medicine 12/28/22 documented as of this encounter
--- OUTSIDE RECORDS SUMMARY | 2025-03-01 21:26 | XMS_ITS | Encounter Summary ---
Author Organization [employer] Address [address] [place] [address] Care Team Providers Care Spanish Moss Picker Name Role Phone Martah Lopez Primary Care Provider [phone] Piero Campos Primary Care Provider Unavail Krista Padilla MD Primary Care Provider [phone] Encounter Details Date Type Department Care Team ([facility] Contact Info) Description 03/23/2022 Orders Only [facility] 230 [place] [address] Unruly Jain MD 505 [place] [address] Bacterial otitis media (Primary Dx) Social History [...] 3:45 PM EST Office Visit [facility] [address] [facility] [place] [address] Krista Pierre MD [address] [facility] [place] documented as of this encounter Visit Diagnoses Diagnosis Bacterial otitis media- Primary documented in this encounter Care Teams Spanish Moss Picker Relationship Specialty Start Date End Date Martha Lopez FNP [place] [facility] [place] [address] PCP - General Family Medicine 12/17/21 08/22/22 [place] [address] PCP - General Family Medicine 08/23/22 12/27/22 [place] [address] PCP - General Family Medicine 12/28/22 documented as of this encounter
--- OUTSIDE RECORDS SUMMARY | 2025-03-01 21:26 | XMS_ITS | Encounter Summary ---
Author Organization [email or web address] Address [address] [place] [address] Care Team Providers Care Equipment Driver Name Role Phone Martha Lopez JACQUARD LOOM HEDDLES TIER Primary Care Provider [phone] Piero Campos Primary Care Provider Unavail able Krista Pierre MD Primary Care Provider [phone] Encounter Details Date Type Department Care Team (Late Contact Info) Description 04/06/2022 Orders Only [facility] MEDICINE [address] [place] [phone] Anyi Baker RN Social History Tobacco Use [...] Upcoming Encounters Date Type Department Care Team ([facility] Contact Info) Description 03/09/2025 3:45 PM EST Office Visit [facility] [address] [place] [address] Krista Pierre MD [address] [place] [address] documented as of this encounter Visit Diagnoses Not on filedocumented in this encounter Care Teams Equipment Driver Relationship Specialty Start Date End Date Martha Lopez FNP [address] [place] [address] PCP - General Family Medicine 12/17/21 08/22/22 Piero Campos AGNP [address] [place] [address] PCP - General Family Medicine 08/23/22 12/27/22 Krista Pierre MD [address] [place] [address] PCP - General Family Medicine 12/28/22 documented as of this encounter
--- OUTSIDE RECORDS SUMMARY | 2025-03-01 21:26 | XMS_ITS | Encounter Summary ---
Author Organization [employer] Address [address] [place] [address] Care Team Providers Care Filling Machine Operator Name Role Phone Krista Pierre MD Primary Care Provider [phone] Encounter Details Date Type Department Care Team ([facility] st Contact Info) Description 12/01/2024 Orders Only [facility] MED[facility]INE [address] [place] [address] Krista Pierre MD 230 [place] [address] Cobalamin deficiency (Primary Dx) Social History Tobacco [...] Description 03/09/2025 3:45 PM EST Office Visit [facility]INE [address] [place] [address] Krista Pierre MD [address] [place] [address] Scheduled Orders Name Type Priority Associated Diagnoses [...] documented as of this encounter Care Teams Filling Machine Operator Relationship Specialty Start Date End Date Krista Pierre MD [address] [place] [address] PCP - General Family Medicine 12/28/22 documented as of this encounter
--- OUTSIDE RECORDS SUMMARY | 2025-03-01 21:26 | XMS_ITS | Encounter Summary ---
Author Organization [employer] Address [address] [place] [address] Care Team Providers Care [place] Dental Lab Technician Name Role Phone Krista Pierre MD Primary Care Provider [phone] Encounter Details Date Type Department Care Team ([facility] Contact Info) Description 03/01/2025 Orders Only GENERIC EXTERNAL DATA DEPARTMENT Provider, [...] Description 03/09/2025 3:45 PM EST Office Visit [facility]ICINE [address] [place], [place] [phone] Krista Pierre MD 230 [place], [place] [phone] documented as of this encounter Procedures Procedure Name Priority Date/Time Associated Diagnosis Comments INFLUENZA A B2 ID NOW (CAMILO) Routine 03/01/2025 8:36 PM EST COVID-19 ID NOW (CAMILO) Routine 03/01/2025 8:36 PM EST HIGH SENSITIVITY TROPONIN I Routine 03/01/2025 8:36 PM EST CBC WITH AUTO DIFFERENTIAL Routine 03/01/2025 8:36 PM EST PROTHROMBIN TIME-INR Routine 03/01/2025 8:36 PM EST HCG, TOTAL, QN Routine 03/01/2025 8:36 PM EST MAGNESIUM Routine 03/01/2025 8:36 PM EST COMPREHENSIVE METABOLIC PANEL Routine 03/01/2025 8:36 PM EST documented in this encounter Results * hCG, Total, Quantitative (03/01/2025 8:36 PM EST) HCG Quantitative <2 mIU/mL [facility] Comment:Weeks post LMP Appro ximate hCG(Last Menstrual Period) Range (mIU/ml)3 - 4 weeks 9 - 1304 - 5 weeks 75 - 2,6005 - 6 weeks 850 - 20,8006 - 7 weeks 4000 - 100,2007 - 12 weeks 11,500 - 289,04777 - 16 weeks 18,300 - 137,31108 - 29 weeks (2nd trimester) 1,400 - 53,32860 - 41 weeks (3rd trimester) 940 - 60,000The Camilo B- hCG assay is used for the early detection ofpregnancy; it cannot be used to diagnose any conditionunrelated to . If a B-hCG level is not supportedby the clinical evidence, results should be confirmed by analternative method (qualitative urine hCG, for example). 03/01/2025 8:36 PM EST 03/01/2025 8:41 PM EST Generic External Data Provider LAB BLOOD ORDERAB LES Final Result Performing Organization Address [facility]/ZIP Co de Phone Number [facility] [address] [place] [phone] * Magnesium (03/01/2025 8:36 PM EST) [facility] Magnesium 2.1 1.6 - 2.6 mg/dL [facility] 03/01/2025 8:36 PM EST 03/01/2025 8:41 PM EST [employer] External Data Provider LAB BLOOD ORDERAB LES Final Result Performing Organization Address [facility]/ZIP Co de Phone Number [facility] [address] [place] [phone] * Comprehensive Metabolic Panel (03/01/2025 8:36 PM EST) [facility] Sodium 142 135 - 145 mmol/L [facility] Potassium 3.6 3.3 - 5.1 mmol/L [facility] Chloride 108 96 - 108 mmol/L [facility] Carbon Dioxide 24 22 - 29 mmol/L [facility] Anion Gap 14 12 - 20 [facility] Urea Nitrogen (BUN) 11 9 - 16 mg/dL [facility] Creatinine, Serum 0.72 0.5 - 1.4 mg/dL [facility] Creatinine Clr Calc Pharmacy 132.4 [facility] Comment:Provided height and weight: 162.56 cm,103.3 kg.eGFR (calculated from the MDRD study equation) and eCrCl(calculated from the Cockcroft-Gault equation) are based ondifferent parameters and may not yield comparable results.If eCrCl result is absurd, please check patient'sheight/weight. Estimated Glomerular Filt Rate >60 [facility] Comment:Chronic Kidney Disea se: Estimated GFR < 60 mL/min/1.03e2Jlpqky Kidney Disease: Estimated GFR < 15 mL/min/1.73m2 Glucose 100 60 - 115 mg/dL [facility] Calcium 9.8 8.4 - 10.2 mg/dL [facility] Bilirubin, Total 0.2 0.0 - 1.0 mg/dL [facility] Aspartate Amino Transferase 17 5 - 31 U/L [facility] Alanine Aminotransferase 11 0 - 31 U/L [facility] Total Protein 7.9 6.5 - 8.0 g/dL [facility] Albumin Level 4.3 3.5 - 5.0 g/dL [facility] Alkaline Phosphatase 74 39 - 117 U/L [facility] 03/01/2025 8:36 PM EST 03/01/2025 8:41 PM EST us Generic External Data Provider LAB BLOOD ORDERAB LES Final Result [facility] [address] [place] [phone] * High Sensitivity Troponin I (03/01/2025 8:36 PM EST) TROPONIN I HIGH SENSITIVITY <2.7 <3.5 - 17.0 ng/L [facility] Comment:The Camilo high sens itivity Troponin-I results should beused in conjunction with other diagnostic information suchas ECG, clinical observations and information, and patientsymptoms to aid in the diagnosis of PR. 03/01/2025 8:36 PM EST 03/01/2025 8:41 PM EST us Generic External Data Provider LAB BLOOD ORDERAB LES Final Result [facility] [address] [place] [phone] * COVID-19 ID NOW (CAMILO) (03/01/2025 8:36 PM EST) IDNOW SERIAL# [id number] [facility] COVID-19 TEST Negative Negative [facility] COVID-19 NOTE See Note [facility] Comment: Results are for the identification of SARS-CoV2 RNA. TheSARS-CoV2 RNA is generally detectable in respiratory samplesduring the acute phase of infection. Positive results areindicative of the presence of SARS-CoV-2 RNA; clinicalcorrelation with patient history and other diagnosticinformation is necessary to determine patient infectionstatus. Positive results do not rule out bacterial infectionor co- infection with other viruses.Testing facilities within the [facility] are required to report all positive results tothe appropriate public health authorities.Negative results should be treated as presumptive and, ifinconsistent with clinical signs and symptoms or necessaryfor patient management, should be tested with differentauthorized or cleared molecular tests. Negative results donot preclude SARS-CoV2 RNA infection and should not be usedas the sole basis for patient management decisions. Negativeresults should be considered in the context of a patient'srecent exposures, history and the presence of clinical signsand symptoms consistent with COVID-19.This test has been authorized by the FDA under an EmergencyUse Authorization (EUA) for use by authorized laboratories.Testing performed on the Camilo ID NOW utilizing NAAT. 03/01/2025 8:36 PM EST 03/01/2025 8:41 PM EST Generic External Data Provider LAB MOLECULAR RILEY GNOSTICS ORDERABLES Final Result Performing Organization Address [facility] Co de Phone Number [facility] [address] [place] [phone] * Influenza A B2 ID NOW (Camilo) (03/01/2025 8:36 PM EST) IDNOW SERIAL# [id number] [facility] Influenza A Negative Negative [facility] Influenza B2 Negative Negative [facility] Influenza A B2 Note See Note [facility] Comment:The Camilo ID NOW In fluenza A B2 test is used for thequalitative detection of influenza A and B from patientswith signs and symptoms of respiratory infection.Negative results do not preclude influenza virus infectionand should not be used as the sole basis for diagnosis,treatment or other patient management decisions.There is a risk of false negative results due to thepresence of variants in the viral targets of the assay, lowlevels of virus in the specimen and co- infection withRespiratory Syncytial Virus. 03/01/2025 8:36 PM EST 03/01/2025 8:41 PM EST Generic External Data Provider LAB MICROBIOLOGY - GENERAL ORDERABLES Final Result Performing Organization Address [facility] Co de Phone Number [facility] [address] [place] [phone] * Prothrombin Time-INR (03/01/2025 8:36 PM EST) Prothrombin Time 12.2 11.2 - 13.5 SEC [facility] INTERNATIONAL NORM RATIO 1.0 0.9 - 1.1 [facility] Comment:INTERNATIONAL NORMAL IZED RATIO (INR) REFERENCE RANGES Reference RangeFor patients not on anticoagulant therapy: 0.9 - 1.1INR ranges for oral anticoagulanttherapy:For prevention and treatment of venous thrombosis and pulmonary embolism: 2.0 - 3.0For acute myocardial infarction with aspirin therapy: 2.0 - 3.0For acute myocardial infarction without aspirin therapy: 3.0 - 4.0For patients with mechanical prosthetic heart valves: 2.5 - 3.5 03/01/2025 8:36 PM EST 03/01/2025 8:41 PM EST us Generic External Data Provider LAB BLOOD ORDERAB LES Final Result [facility] [address] [place] [phone] * (ABNORMAL) CBC auto differential (03/01/2025 8:36 PM EST) White Blood Count 12.4(H) 4.8 - 10.8 X10*3/uL [facility] Red Blood Count 4.86 4.20 - 5.50 X10*6/uL [facility] Hemoglobin 13.9 12.0 - 16.0 g/dl [facility] Hematocrit 42.7 37.0 - 47.0 % [facility] Mean Corpuscular Volume 87.9 80.0 - 98.0 fL [facility] Mean Corpuscular Hemoglobin 28.6 27.0 - 33.0 pg [facility] Mean Corpuscular HGB Conc 32.6 31.0 - 35.0 g/dl [facility] Red Cell Distribution Width 12.7 11.0 - 16.0 % [facility] Platelet Count 389 160 - 400 X10*3/uL [facility] Mean Platelet Volume 10.3 9.4 - 12.3 fL [facility] Neutrophils Percent Auto 73.0 45 - 73 % [facility] Imm Gran Pct Auto 0.3 0.0 - 0.4 % [facility] Lymphocytes Percent Auto 19.4(L) 20 - 40 % [facility] Monocytes Percent Auto 6.1 2 - 11 % [facility] Eosinophils Percent Auto 0.9 0 - 4 % [facility] Basophils Percent Auto 0.3 0 - 2 % [facility] NRBC Pct Auto 0.0 0.0 - 0.2 /100WBC [facility] Neutrophils Absolute Auto 9.1(H) 2.0 - 8.3 x10*3/uL [facility] Imm Gran Abs Auto 0.04(H) 0.00 - 0.03 X10*3/uL [facility] Lymphocytes Absolute Auto 2.4 1.2 - 4.9 X10*3/uL [facility] Monocytes Absolute Auto 0.8 0.1 - 1.2 X10*3/uL [facility] Eosinophils Absolute Auto 0.1 0.0 - 0.4 X10*3/uL [facility] Basophils Absolute Auto 0.0 0.0 - 0.2 X10*3/uL [facility] NRBC Abs Auto 0.000 0.0 - 0.012 X10*3/uL [facility] 03/01/2025 8:36 PM EST 03/01/2025 8:41 PM EST us Generic External Data Provider LAB BLOOD ORDERAB LES Final Result [facility] [address] [place] [phone] [phone] documented in this encounter Visit Diagnoses Not on filedocumented in this encounter Additional Health Concerns Assessment Noted Time PHQ-9 Depression Total Score: 12 025 1:48 PM EDT documented as of this encounter Care Teams [place] [employer] Dental Lab Technician Relationship Specialty Start Date End Date Krista Pierre MD [address] [place] [phone] PCP - General Family Medicine 12/28/22 documented as of this encounter
--- OUTSIDE RECORDS SUMMARY | 2025-03-01 21:26 | XMS_ITS | Clinical Summary ---
Author Organization [employer] Address [address] [facility] 7[address] [place] [address] Care Team Providers Care Escalator Mechanic Name Role Phone Krista Pierre MD Primary Care Provider [phone] Allergies Active Allergy Reactions Criticality Noted Date [...] refer to GI. She used to see [facility] for IBS. IBS (irritable bowel syndrome) [...] Encounters Date Type Department Care Team Description 03/01/2025 Orders Only GENERIC EXTERNAL DATA DEPARTMENT Provider, Generic External Data 02/05/2025 Orders Only [facility] External Provider, [facility] 01/11/2025 Telephone [facility] MED[facility] [address] [place] [phone] Krista Pierre MD chartprep 12/22/2024 Refill [facility] [address] [place] [phone] Krista Pierre MD Anxiety; Infectious colitis, enteritis and gastroenteritis 12/22/2024 Refill [facility] [address] [place] [address] [phone] Liz Campos MD 12/20/2024 Orders Only GENERIC EXTERNAL DATA DEPARTMENT Provider, Generic External Data 12/01/2024 Telephone [facility] [address] [place] [phone] Krista Pierre MD No Show 12/01/2024 Orders Only [facility] [address] [place] [address] Krista Pierre MD Cobalamin deficiency (Primary Dx) 11/30/2024 Telephone [facility] [address] [place] [address] Krista Pierre MD chartprep from Last 3 Months Immunizations Immunization Administration [...] Description 03/09/2025 3:45 PM EST Office Visit [facility] [address] [place], [place] [phone] Krista Pierre MD [address] [place], [place] [phone] Health Maintenance Due Date Last Done Comments [...] exists Hepatitis A Vaccines Completed 03/29/2014, 09/29/19 Meningococcal Vaccine Aged Out 03/25/2018 , 03/25/2018, [...] Procedure Name Priority Date/Time Associated Diagnosis Comments HCG, TOTAL, QN Routine 03/01/2025 8:36 PM EST MAGNESIUM Routine 03/01/2025 8:36 PM EST COMPREHENSIVE METABOLIC PANEL Routine 03/01/2025 8:36 PM EST HIGH SENSITIVITY TROPONIN I Routine 03/01/2025 8:36 PM EST COVID-19 ID NOW (CAMILO) Routine 03/01/2025 8:36 PM EST PROTHROMBIN TIME-INR Routine 03/01/2025 8:36 PM EST CBC WITH AUTO DIFFERENTIAL Routine 03/01/2025 8:36 PM EST INFLUENZA A B2 ID NOW (CAMILO) Routine 03/01/2025 8:36 PM EST FL ESOPHAGUS BARIUM SWALLOW Routine 02/05/2025 9:[address] HEAD WO CONTRAST Routine 12/20/2024 1 0:09 PM EDT SED RATE BY MODIFIED WESTERGREN Routine 12/20/2024 8:02 PM EDT C-REACTIVE PROTEIN Routine 12/20/2024 8: 02 PM EDT HCG, TOTAL, QN Routine 12/20/2024 8:02 PM EDT MAGNESIUM Routine 12/20/2024 8:02 PM EDT COMPREHENSIVE METABOLIC PANEL Routine 12/20/2024 8:02 PM EDT CBC WITH AUTO DIFFERENTIAL Routine 12/20/2024 8:02 PM EDT LIPID PANEL WITH REFLEX TO DIRECT LDL [...] Recently Relevant to Health Maintenance Results * Influenza A B2 ID NOW ([place] 360) (03/01/2025 8:36 PM EST) IDNOW SERIAL# [id number] [facility] Influenza A Negative Negative [facility] Influenza B2 Negative Negative [facility] Influenza A B2 Note See Note [facility] Comment:The Camilo ID NOW In fluenza [...] EST us Generic External Data Provider LAB MICROBIOLOGY - GENERAL ORDERABLES Final Result [facility] [address] [place] [phone] * COVID-19 ID NOW (CAMILO) (03/01/2025 8:36 PM EST) IDNOW SERIAL# [id number] [facility] COVID-19 TEST Negative Negative [facility] COVID-19 NOTE See Note [facility] Comment: Results are for the [...] facilities within the [facility] are required to report all positive results [...] EST us Generic External Data Provider LAB MOLECULAR RILEY GNOSTICS ORDERABLES Final Result Performing Organization Address [facility]/ZIP Co de Phone Number [facility] [address] [place] [phone] * High Sensitivity Troponin I (03/01/2025 8:36 PM EST) [facility] TROPONIN I HIGH SENSITIVITY <2.7 <3.5 - 17.0 ng/L [facility] Comment:The Camilo high sens itivity Troponin-I results should beused in conjunction with other diagnostic information suchas ECG, clinical observations and information, and patientsymptoms to aid in the diagnosis of [place]. 03/01/2025 8:3 6 PM EST 03/01/2025 8:41 PM EST Generic External Data Provider LAB BLOOD ORDERAB LES Final Result Performing Organization Address [facility] Co de Phone Number [facility] [address] [place] [phone] * (ABNORMAL) CBC auto differential (03/01/2025 8:36 PM EST) Only the most recent of2 resultswithin the time period is included. [facility] White Blood Count 12.4(H) 4.8 - 10.8 X10*3/uL [facility] Red Blood Count 4.86 4.20 - 5.50 X10*6/uL [facility] Hemoglobin 13.9 12.0 - 16.0 g/dl [facility] Hematocrit 42.7 37.0 - 47.0 % [facility] Mean Corpuscular Volume 87.9 80.0 - 98.0 fL [facility] Mean Corpuscular Hemoglobin 28.6 27.0 - 33.0 pg [facility] Mean Corpuscular HGB Conc 32.6 31.0 - 35.0 g/dl [facility] Red Cell Distribution Width 12.7 11.0 - 16.0 % [facility] Platelet Count 389 160 - 400 X10*3/uL [facility] Mean Platelet Volume 10.3 9.4 - 12.3 fL [facility] Neutrophils Percent Auto 73.0 45 - 73 % [facility] Imm Gran Pct Auto 0.3 0.0 - 0.4 % [facility] Lymphocytes Percent Auto 19.4(L) 20 - 40 % [facility] Monocytes Percent Auto 6.1 2 - 11 % [facility] Eosinophils Percent Auto 0.9 0 - 4 % [facility] Basophils Percent Auto 0.3 0 - 2 % [facility] NRBC Pct Auto 0.0 0.0 - 0.2 /100WBC [facility] Neutrophils Absolute Auto 9.1(H) 2.0 - 8.3 x10*3/uL [facility] Imm Gran Abs Auto 0.04(H) 0.00 - 0.03 X10*3/uL [facility] Lymphocytes Absolute Auto 2.4 1.2 - 4.9 X10*3/uL [facility] Monocytes Absolute Auto 0.8 0.1 - 1.2 X10*3/uL [facility] Eosinophils Absolute Auto 0.1 0.0 - 0.4 X10*3/uL [facility] Basophils Absolute Auto 0.0 0.0 - 0.2 X10*3/uL [facility] NRBC Abs Auto 0.000 0.0 - 0.012 X10*3/uL [facility] 03/01/2025 8:36 PM EST 03/01/2025 8:41 PM EST us Generic External Data Provider LAB BLOOD ORDERAB LES Final Result [facility] [address] [place] [phone] * Prothrombin Time-INR (03/01/2025 8:36 PM EST) Prothrombin Time 12.2 11.2 - 13.5 SEC [facility] INTERNATIONAL NORM RATIO 1.0 0.9 - 1.1 [facility] Comment:INTERNATIONAL NORMAL IZED RATIO (INR) REFERENCE [...] ORDERAB LES Final Result Performing Organization Address [facility] de Phone Number [facility] [address] [place] [phone] * hCG, Total, Quantitative (03/01/2025 8:36 PM EST) Only the most recent of2 resultswithin the time period is included. HCG Quantitative <2 mIU/mL [facility] Comment:Weeks post LMP Appro ximate hCG(Last Menstrual Period) Range (mIU/ml)3 - 4 weeks 9 - 1304 - 5 weeks 75 - 2,6005 - 6 weeks 850 - 20,8006 - 7 weeks 4000 - 100,2007 - 12 weeks 11,500 - 289,33790 - 16 weeks 18,300 - 137,11312 - 29 weeks (2nd trimester) 1,400 - 53,65795 - 41 weeks (3rd trimester) 940 - [...] ORDERAB LES Final Result Performing Organization Address [facility] Co de Phone Number [facility] [address] [place] [address] [place] [phone] * Magnesium (03/01/2025 8:36 PM EST) Only the most recent of2 resultswithin the time period is included. Magnesium 2.1 1.6 - 2.6 mg/dL [facility] 03/01/2025 8:36 PM EST 03/01/2025 8:41 PM EST us Generic External Data Provider LAB BLOOD ORDERAB LES Final Result [facility] [address] [place] [address] [phone] * Comprehensive Metabolic Panel (03/01/2025 8:36 PM EST) Only the most recent of2 resultswithin the time period is included. Sodium 142 135 - 145 mmol/L [facility] Potassium 3.6 3.3 - 5.1 mmol/L [facility] Chloride 108 96 - 108 mmol/L [facility] Carbon Dioxide 24 22 - 29 mmol/L [facility] Anion Gap 14 12 - 20 [facility] Urea Nitrogen (BUN) 11 9 - 16 mg/dL [facility] Creatinine, Serum 0.72 0.5 - 1.4 mg/dL [facility] Creatinine Clr Calc Pharmacy 132.4 [facility] Comment:Provided height and weight: 162.56 cm,103.3 kg.eGFR (calculated from the MDRD study equation) and eCrCl(calculated from the Cockcroft-Gault equation) are based ondifferent parameters and may not yield comparable results.If eCrCl result is absurd, please check patient'sheight/weight. Estimated Glomerular Filt Rate >60 [facility] Comment:Chronic Kidney Disea se: Estimated GFR < 60 mL/min/1.48h2Knfsku Kidney Disease: Estimated GFR < 15 mL/min/1.73m2 Glucose 100 60 - 115 mg/dL [facility] Calcium 9.8 8.4 - 10.2 mg/dL [facility] Bilirubin, Total 0.2 0.0 - 1.0 mg/dL [facility] Aspartate Amino Transferase 17 5 - 31 U/L [facility] Alanine Aminotransferase 11 0 - 31 U/L [facility] Total Protein 7.9 6.5 - 8.0 g/dL [facility] Albumin Level 4.3 3.5 - 5.0 g/dL [facility] Alkaline Phosphatase 74 39 - 117 U/L [facility] 03/01/2025 8:36 PM EST 03/01/2025 8:41 PM EST us Generic External Data Provider LAB BLOOD ORDERAB LES Final Result Performing Organization Address City/State/[facility] Co de Phone Number [facility] [address] [place] [phone] * FL Esophagus Barium Swallow (02/05/2025 9:18 AM EDT) Anatomical Region Laterality Modality Head, Neck Radiographic Yvonne ging 02/05/2025 9:18 AM EDT Narrative 02/05/2025 10:42 AM EDT [place] [address] Fluoroscopy Report Signed Patient: Callie Dutton MR#: [id number] 60 : 1995 Acct:[id number] Age/Sex: 29 / F ADM Date: 02/05/25 Loc: [facility] Attending Dr: Vannessa Tipton MD Ordering Physician: Vannessa Tipton MD Date of Service: 02/05/25 Procedure(s): FL barium swallow Accession Number(s): [id number] cc: Krista Pierre MD; Vannessa Tipton MD Reason for Exam: K20.90 - Esophagitis, unspecified without bleeding EXAMINATION: XR BARIUM SWALLOW CLINICAL INFORMATION: Esophagitis COMPARISON: None available. TECHNIQUE: Thin barium swallow with thick barium, barium coated saltine crackers in upright view and thin barium in prone lying position was performed. FINDINGS: Following oral administration of thick barium in upright view there is normal propagation bolus from the oral cavity through the pharynx, esophagus into stomach without obstruction, narrowing or stricture. No intraluminal filling defect or extrinsic compression seen. On oral administration of and saltine crackers coated with thick barium there is normal oral mastication and propagation of bolus from the oral cavity through the pharynx, esophagus into stomach. Thin barium as chaser was utilized once an upright view to clear solid food. The gastroesophageal junction is widely patent. On oral administration of thin barium in prone lying position there is good distention of the entire esophagus without intraluminal filling defect or extrinsic compression. No gastroesophageal reflux or hiatal hernia seen. FLUOROSCOPY TIME: 2 minutes and 30 seconds. DOSE AREA PRODUCT: 49.57 uGy-m2 (microgray-meter squared) FL/FL barium swallow IMPRESSION: Unremarkable barium swallow exam in upright and lying position. Electronically signed by: Jones Mahoney MD 02/05/2025 10:39 AM EDT RP Dictated By: Jones Mahoney MD Signed By: <Electronically signed by Jones Mahoney MD in OV> 02/05/25 1039 DD/ 7 TD/TT: 02/05/25927 Padded Products Inspector Trimmer: [facility] Procedure Note Donotuseinterpreter, Image - 02/05/2025 [place] [address] Fluoroscopy Report Signed Patient: Katelyn Dutton#: [id number] 60 : 1995Acct:[id number] Age/Sex: 29 / FADM Date: 02/05/25 Loc: HO.XRAY Attending Dr: Vannessa Tipton MD Ordering Physician: Vannessa Tipton MD Date of Service: 02/05/25 Procedure(s): FL barium swallow Accession Number(s): [id number] cc: Krista Pierre MD; Vannessa Tipton MD Reason for Exam: K20.90 - Esophagitis, unspecified without bleeding EXAMINATION: XR BARIUM SWALLOW CLINICAL INFORMATION: Esophagitis COMPARISON: None available. TECHNIQUE: Thin barium swallow with thick barium, barium coated saltine crackers in upright view and thin barium in prone lying position was performed. FINDINGS: Following oral administration of thick barium in upright view there is normal propagation bolus from the oral cavity through the pharynx, esophagus into stomach without obstruction, narrowing or stricture. No intraluminal filling defect or extrinsic compression seen. On oral administration of and saltine crackers coated with thick barium there is normal oral mastication and propagation of bolus from the oral cavity through the pharynx, esophagus into stomach. Thin barium as chaser was utilized once an upright view to clear solid food. The gastroesophageal junction is widely patent. On oral administration of thin barium in prone lying position there is good distention of the entire esophagus without intraluminal filling defect or extrinsic compression. No gastroesophageal reflux or hiatal hernia seen. FLUOROSCOPY TIME: 2 minutes and 30 seconds. DOSE AREA PRODUCT: 49.57 uGy-m2 (microgray-meter squared) FL/FL barium swallow IMPRESSION: Unremarkable barium swallow exam in upright and lying position. Electronically signed by: Jones Mahoney MD 02/05/2025 10:39 AM EDT Dictated By: Jones Mahoney MD Signed By: <Electronically signed by Jones Mahoney MD in OV> 02/05/25 1039 DD/ 7 TD/TT: 02/05/25927 Padded Products Inspector Trimmer: JUAN [facility] External Provider IMG FLU OROSCOPY PROCEDURES Final Result * CT Head w/o Contrast (12/20/2024 10:09 PM EDT) Anatomical Region Laterality Modality Head, Neck Computed Tomogra phy 12/20/2024 10:0 9 PM EDT Narrative 12/20/2024 10:10 PM EDT [address] [address] [address] Scan Report Signed Patient: Callie Dutton MR#: [id number] 60 : 1995 Acct:[id number] Age/Sex: 29 / F ADM Date: 12/20/24 Loc: HO.ED Attending Dr: Ordering Physician: Yulia Lopez Date of Service: 12/20/24 Procedure(s): CT head/brain wo IV con Accession Number(s): [id number] cc: Yulia Lopez; Krista Pierre MD Report Number: [id number]: Total DLP = 630.00 mGy-cm CLINICAL HISTORY: [...] in OV> 12/20/242209 DD/ 08 TD/TT: 12/20/242208 Padded Products Inspector Trimmer: Procedure Note Donotuseinterpreter, Image - 12/20/[address] [place] [address] [address] Scan Report Signed Patient: Katelyn Dutton#: [id number] 60 : 1995Acct:[id number] Age/Sex: 29 / FADM Date: 12/20/24 Loc: HO.ED Attending Dr: Ordering Physician: Yulia Lopez Date of Service: 12/20/24 Procedure(s): CT head/brain wo IV con Accession Number(s): [id number] cc: Yulia Lopez; Krista Pierre MD Report Number: [id number]: Total DLP = 630.00 mGy-cm CLINICAL HISTORY: [...] in OV> 12/20/242209 DD/ 08 TD/TT: 12/20/242208 Padded Products Inspector Trimmer: [facility] External Provider IMG CT PROCEDURES Edited Result - Final * (ABNORMAL) Sed Rate by Modified Ondina (12/20/2024 8:02 PM EDT) Erythrocyte Sedimentation Rate 24(H) 0 - 20 MM/HR [facility] Comment:Patients with polycy themia and many hemoglobin abnormalitiesmay have depressed sed rates whereas patients with anemiamay have elevated sed rates. 12/20/2024 8:02 PM EDT 12/20/2024 8:42 PM EDT Generic External Data Provider LAB BLOOD ORDERAB LES Final Result Performing Organization Address City/[facility]/ZIP Co de Phone Number [facility] [address] [place] [phone] * (ABNORMAL) C-reactive Protein (12/20/2024 8:02 PM EDT) C Reactive Protein 1.63(H) < or = 0.50 mg/dL [facility] 12/20/2024 8:02 PM EDT 12/20/2024 8:06 PM EDT Generic External Data Provider LAB BLOOD ORDERAB LES Final Result Performing Organization Address City/[facility]/ZIP Co de Phone Number [facility] [address] [place] [phone] * (ABNORMAL) Lipid Panel with Reflex to Direct LDL (08/24/2024 1:44 PM EDT) Triglycerides 149 <150 mg/dL [facility] Comment:Desirable Triglyceri de: less than 150 mg/dLBorderline High Triglyceride 150-199 mg/dLHigh Triglyceride: 200-499 mg/dLVery High Triglyceride: greater than or equal to 5OO mg/dL Cholesterol 146 <200 mg/dL [facility] Comment:Desirable Cholestero l: less than 200 mg/dLBorderline High Cholesterol: 200-239 mg/dLHigh Cholesterol: greater than 239 mg/dL LDL Cholesterol Calculated 79 <100 mg/dL [facility] Comment:Desirable LDL: less than 100 mg/dLNear Optimal/Above Optimal LDL: 110- 129 mg/dLBorderline High LDL: 130-159 mg/dLHigh LDL: 160-189 mg/dLVery High LDL: greater than or equal to 190 mg/dL HDL Cholesterol 38(L) >40 mg/dL [facility] Comment:Desirable HDL: great er than 40 mg/dL Note: This HDL assay may give artificially low results in patients with liver disease. Blood 08/24/2024 1:44 PM EDT 08/24/2024 4:15 PM EDT us Krista Pierre MD LAB BLOOD ORDERABLES Final Resul t [facility] [address] [place] [address] [phone] * THINPREP TIS PAP (12/21/2021 11:04 AM EDT) Clinical Information: None given [facility] COMMENT SEE COMMENT [facility]OUND[facility] ON [...] has been evaluated with computer assisted technology. 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 [facility] Interpretation/R esult: Negative for intraepithelial lesion or malignancy. [facility] LMP: 11/14/21 [facility] Prev. BX: NONE GIVEN [facility] Prev. PAP: 2019 NIL LSIL 2017 [facility] SOURCE: None given [facility] Statement Of Adequacy: SEE COMMENT [facility] Comment: Satisfactory for evaluation. Endocervical/transformation zone component present. 12/21/2021 11:0 4 AM EDT Betsy Rae [facility] LAB PATHOLOGY ORDERABLES Final Result Performing Organization Address [facility] Co de Phone Number [facility] [address] [place] [address], * HEPATITIS C AB W/REFL TO HCV RNA, QN, PCR (08/09/2021 3:15 PM EDT) HEPATITIS C ANTIBODY NON-REACT TERA NON-REACT TERA [facility] INDEX 0.02 <1.00 [facility] Comment: HCV antibody was non-reactive. There is no laboratory evidence of HCV infection. In most cases, no further action is required. However, if recent HCV exposure is suspected, a test for HCV RNA (test code 59429) is suggested. For additional information please refer to http://education.Shellcatch/faq/SDW25j7 (This link is being provided for informational/ educational purposes only.) 08/09/2021 3:15 PM EDT Deneen Anna HYPO SPLASHER HISTORICAL/NON ORDERABLE LABS Final Result Performing Organization Address [facility] Co de Phone Number [facility] [address] [place] [address], * HIV 1/2 ANTIGEN/ANTIBODY,FOURTH GENERATION W/RFL (08/09/2021 3:15 PM EDT) HIV-1/2 ANTIGEN AND ANTIBODIES, 4TH GENERATION W/ REFLEX NON-REACT TERA NON-REACT TERA [facility] Comment: HIV-1 antigen and HIV-1/HIV-2 [...] purpose. For additional information please refer to http://education.Shellcatch/faq/XPB682 (This link is being provided for informational/ educational purposes only.) The performance of this assay has not been clinically validated in patients less than 2 years old. 08/09/2021 3:15 PM EDT us Deneen Anna [facility] LAB BLOOD ORDERABLES Final Res ult Performing Organization Address City/State/ZIP Co ri Phone Number [facility] [address] from Last 3 Months or Most Recently Relevant to Health Maintenance Insurance [employer] C3 Care Teams Escalator Mechanic Relationship Specialty Start Date End Date Krista Pierre MD [address] [place] [phone] PCP - General Family Medicine 12/28/22
--- OUTSIDE RECORDS SUMMARY | 2025-03-01 21:26 | XMS_ITS | Encounter Summary ---
Author Organization [employer] Address [address] [place] [address] Care Team Providers Care Drilling Engineering Manager Name Role Phone Krista Pierre MD Primary Care Provider [phone] Reason for Visit * Reason Onset Date Comments Med Refill 12/10/2023 Encounter Details Date Type Department Care Team (Late st Contact Info) Description 12/10/2023 Refill [facility] [address] [place] [address] Krista Pierre MD [address] [place] [address] Anxiety Social History Tobacco Use Types Packs/Day [...] Description 03/09/2025 3:45 PM EST Office Visit [facility] [address] [place] [phone] Krista Pierre MD [address] [place] [address] documented as of this encounter Visit Diagnoses Diagnosis Anxiety Anxiety state, unspecified documented in this encounter Additional Health Concerns Assessment Noted Time PHQ-9 Depression Total Score: 21 024 11:26 AM EDT documented as of this encounter Care Teams Drilling Engineering Manager Relationship Specialty Start Date End Date Krista Pierre MD [address] [place] [phone] PCP - General Family Medicine 12/28/22 documented as of this encounter
--- OUTSIDE RECORDS SUMMARY | 2025-03-01 21:26 | XMS_ITS | Encounter Summary ---
Author Organization [employer] Address [address] [place] [address] Care Team Providers Care Marzipan Maker Name Role Phone Krista Pierre MD Primary Care Provider [phone] Reason for Visit * Reason Onset Date Comments Med Refill 12/22/2024 Encounter Details Date Type Department Care Team (Late st Contact Info) Description 12/22/2024 Refill [facility] [address] [place] [address] Liz Campos MD [address] [place] [address] Social History Tobacco Use Types Packs/Day Years [...] Description 03/09/2025 3:45 PM EST Office Visit [facility] [address] [place] [address] Krista Pierre MD [address] [place] [phone] documented as of this encounter Visit Diagnoses Not on filedocumented in this encounter Additional Health Concerns Assessment Noted Time PHQ-9 Depression Total Score: 12 025 1:48 PM EDT documented as of this encounter Care Teams Marzipan Maker Relationship Specialty Start Date End Date Krista Pierre MD [address] [place] [phone] PCP - General Family Medicine 12/28/22 documented as of this encounter
--- OUTSIDE RECORDS SUMMARY | 2025-03-01 21:26 | XMS_ITS | Encounter Summary ---
Author Organization [employer] Address [address] [place] [address] Care Team Providers Care Educational Coordinator Name Role Phone Krista Pierre MD Primary Care Provider [phone] Encounter Details Date Type Department Care Team (Late st Contact Info) Description 12/09/2023 Orders Only [facility] [address] [place] [address] Krista Pierre MD [address] [place], [place] [phone] Anxiety Social History Tobacco Use Types Packs/Day [...] your housing situation today? I have tiffanie ehster 08/19/[address] you li [...] Description 03/09/2025 3:45 PM EST Office Visit [facility] [address] [place] [phone] Krista Pierre MD [address] [place] [phone] documented as of this encounter Visit Diagnoses Diagnosis Anxiety Anxiety state, unspecified documented in this encounter Additional Health Concerns Assessment Noted Time PHQ-9 Depression Total Score: 21 024 11:26 AM EDT documented as of this encounter Care Teams Educational Coordinator Relationship Specialty Start Date End Date Krista Pierre MD [address] [place] [phone] PCP - General Family Medicine 12/28/22 documented as of this encounter
--- OUTSIDE RECORDS SUMMARY | 2025-03-01 21:26 | XMS_ITS | Encounter Summary ---
Author Organization [employer] Address [address] [place] [address] Care Team Providers Care Analytic Manager Name Role Phone Krista Pierre MD Primary Care Provider [phone] Encounter Details Date Type Department Care Team ([facility] st Contact Info) Description 08/26/2024 Orders Only [facility] [address] [place] [address] Krista Pierre MD [address] [place] [address] Vitamin B12 deficiency (Primary Dx) Social History [...] Office Visit [facility] [address] [place] [phone] Krista Pierre MD [address] [place] [phone] Scheduled Orders Name Type Priority Associated Diagnoses [...] documented as of this encounter Care Teams Analytic Manager Relationship Specialty Start Date End Date Krista Pierre MD [address] [place] [phone] PCP - General Family Medicine 12/28/22 documented as of this encounter
--- OUTSIDE RECORDS SUMMARY | 2025-03-01 21:26 | XMS_ITS | Clinical Summary ---
Author Organization [facility] Address [id number] [place] [id number] Care Team Providers Care Pan Shaker Name Role Phone Unavailable Primary Care Provider [...]
--- OUTSIDE RECORDS SUMMARY | 2025-03-01 21:26 | XMS_ITS | Encounter Summary ---
Author Organization [employer] Address [address] [place] [address] Care Team Providers Care Dam Worker Name Role Phone Krista Pierre MD Primary Care Provider Encounter Details Date Type Department Care Team (Late st Contact Info) Description 01/07/2024 Orders Only [facility] [address] [place] [address] Krista Pierre MD [address] [place], [place] [phone] Social History Tobacco Use Types Packs/Day Years [...] Description 03/09/2025 3:45 PM EST Office Visit [facility] [address] [place] [phone] Krista Pierre MD [address] [place] [phone] documented as of this encounter Visit Diagnoses Not on filedocumented in this encounter Additional Health Concerns Assessment Noted Time PHQ-9 Depression Total Score: 21 024 11:26 AM EDT documented as of this encounter Care Teams Dam Worker Relationship Specialty Start Date End Date Krista Pierre MD [address] [place] [phone] PCP - General Family Medicine 12/28/22 documented as of this encounter
[2025-03-01 22:48] VITALS: BP 110/59; PULSE 86; RESP 15; TEMP 36.7; O2SAT 97
[2025-03-01] MEDS: Sucralfate Oral Suspension 1 GM/10 ML ORAL.SUSP PO (23:48)
--- NOTE | 2025-03-02 00:16 | ED.CHESTPAIN ---
HPI - Chest Pain General Chief Complaint: Chest Pain Stated Complaint: chest pain, nauseous Time Seen by Provider: 03/01/25 22:42 Source: patient Limitations: no limitations History of Present Illness ED Provider: Rosangela Frey PA-C HPI narrative: 30-year-old female with a history of morbid obesity, irritable bowel syndrome with both constipation and diarrhea, GERD, esophagitis who presents with multiple complaints. Patient states she has developed central abdominal discomfort with the radiation into central chest. Associated dyspepsia, nausea. The patient states she has bowel movements every 1-2 days. Denies excessive abdominal distention or inability to pass flatus.Patient also states she feels congested, and she has had a sore throat. No active coughing or wheezing. Related Data Home Medications ?Medication ?Instructions ?Recorded ?Confirmed cyanocobalamin (vitamin B-12) 1,000 mcg PO BEDTIME 07/11/22 07/11/22 1,000 mcg tablet (Vitamin B-12) cyclobenzaprine 10 mg tablet 10 mg PO TID PRN Muscle Spasm 07/11/22 07/11/22 fluoxetine 20 mg capsule 20 mg PO DAILY 04/02/23 cholecalciferol (vitamin D3) 50 50 mcg PO QWEEK 09/23/23 mcg (2,000 unit) capsule (Vitamin D3) Previous Rx's ?Medication ?Instructions ?Recorded cholestyramine (with sugar) 4 gram 4 g PO TID #90 ea 05/28/23 powder for susp in a packet hydroxyzine HCl 50 mg tablet 50 mg PO BID PRN anxiety #20 tabs 07/06/23 psyllium 1 packet PO BID 30 days #500 ea 09/23/23 benzonatate 200 mg capsule 200 mg PO TID PRN cough #20 caps 03/14/24 cyclobenzaprine 10 mg tablet 10 mg PO TID PRN muscle spasm #20 03/14/24 tabs lansoprazole 15 mg capsule,delayed 15 mg PO BID 90 days #180 caps 10/19/24 release sucralfate 100 mg/mL oral 10 ml PO QID PRN indigestion #300 03/02/25 suspension (Carafate) mL Allergies Allergy/AdvReac Type Severity Reaction Status Date / Time tomato (TOMATO) Allergy Severe DIFFICULTY Verified 03/01/25 20:00 BREATHING latex (LATEX) Allergy Intermediate ITCHY Verified 03/01/25 20:00 ibuprofen AdvReac Severe Unknown Verified 03/01/25 20:00 shellfish Allergy Intermediate Difficulty Uncoded 12/20/24 19:36 Breathing Review of Systems Review of Systems: Yes all other systems are reviewed and are negative Constitutional: Constitutional: Denies fatigue and Denies fever(s) Cardiovascular: Cardiovascular: Denies chest pain and Denies dyspnea Respiratory: Respiratory: Denies cough and Denies dyspnea Gastrointestinal: Gastrointestinal: Reports abdominal pain, Reports constipation, Reports dyspepsia, Reports heartburn, Denies diarrhea, Reports nausea and Denies vomiting Endocrine: Endocrine: Denies fatigue [facility] Past Medical History Attestation statement: The following information was validated with the patient. Medical History Pancreatitis Hypertension Surgical History H/O tubal ligation History of esophagogastroduodenoscopy (EGD) History of cholecystectomy Social History Social History Alcohol intake: current Alcohol intake frequency: holidays/special occasions only Patient Tobacco Use Status: Current someday Tobacco user Tobacco use type: Cigarette Cigarettes Per Day: 2 service: No Current occupational status: unemployed Physical Exam Vital Signs: Vital Signs: Last Vital Signs Temp 97.7 F 03/02/25 00:46 Pulse 63 03/02/25 00:46 Resp 21 H 03/02/25 00:46 BP 115/68 03/02/25 00:46 Pulse Ox 95 03/02/25 00:46 O2 Del Method Room Air 03/02/25 00:46 BMI result Body Mass Index 39.1 Const: Other: Alert Orientation/consciousness: patient oriented x3 Resp: Other: Lungs clear to auscultation, no wheezing Cardio: Other: Normal peripheral perfusion GI: Other: Abdomen is soft, obese, nondistended, nontender no guarding Skin: Other: Warm dry no rash Neuro: General: patient oriented x3, gait normal, no focal motor deficits and CN's II-XI intact bilaterally Psych: Other: Cooperative Medications Administered Discontinued Medications Generic Name Dose Route Start Last Admin Trade Name Freq PRN Reason Stop Dose Admin Dexamethasone Sodium Phosphate 10 mg 03/01/25 22:57 03/01/25 23:48 Dexamethasone Sod Phosphate 10 Mg/Ml Vial PO 03/01/25 22:58 10 mg ONCE ONE Administration Sucralfate 1 gm 03/01/25 22:57 03/01/25 23:48 Sucralfate Oral Suspension 1 Gm/10 Ml Oral.Susp PO 03/01/25 22:58 1 gm ONCE ONE Administration Medical Decision Making Medical Decision Making MDM Narrative: 30-year-old female with a history of morbid obesity, irritable bowel syndrome with both constipation and diarrhea, GERD, esophagitis who presents with multiple complaints. Patient states she has developed central abdominal discomfort with the radiation into central chest. Associated dyspepsia, nausea. The patient states she has bowel movements every 1-2 days. Denies excessive abdominal distention or inability to pass flatus. Patient also states she feels congested, and she has had a sore throat. No active coughing or wheezing. Problem: Obesity, IBS, known GERD esophagitis History: Per patient I have considered the following differential diagnoses: Viral syndrome, strep pharyngitis, RPA, HEEL SANDER, bronchitis, pneumonia, bowel obstruction, constipation, viral gastroenteritis , ACS Plan: Patient here with viral related symptoms, she has a sore throat with some congestion, her pulmonary exam was benign, adding on a chest x-ray. To note she has no evidence of RPA or HEEL SANDER on exam, there are no exudates she is afebrile without cervical lymphadenopathy, this is not consistent with strep pharyngitis. In regard to the patient's abdominal pain chest pain, she is likely constipated, which is exacerbating her reflux symptoms, she does not have chest pain, her pain is radiating into the chest and described as a burning sensation. This is not ACS, EKG and troponin were obtained. We will be giving famotidine and Carafate, obtaining a KUB to assess for stool burden. To note she has no obstructive symptoms, she does not require a CT scan. I have independently reviewed the following tests: Labs: Slight leukocytosis, not anemic, no electrolyte abnormality, troponin less than 2.7 EKG: Normal sinus rhythm, nonspecific T-wave abnormality, no ischemic changes no ectopy QTC 383, no change from prior study rate 78 Chest x-ray:Findings: No consolidation or effusion. Normal size heart. No acute fracture. IMPRESSION: 1. No acute findings. KUB:Findings: No pneumoperitoneum or pneumatosis. Normal bowel-gas pattern. Moderately large amount of fecal loading within the colon. No abnormal calcifications. No acute fractures. There are surgical clips in the right paramidline upper abdomen. IMPRESSION: Moderately large amount of fecal loading within the colon. Differential Diagnosis Differential Diagnoses: The differential diagnosis associated with the presentation includes See medical decision-making Admission/Observation Consideration of admission/observation: Escalation of care including admission/observation considered Not applicable Lab Data MDM Lab Attestation statement: I reviewed the patient's lab results. 03/01/25 20:36 03/01/25 20:36 Labs: Lab Results 03/01/25 Range/Units 20:36 WBC 12.4 H (4.8-10.8) X10*3/uL RBC 4.86 (4.20-5.50) X10*6/uL Hgb 13.9 (12.0-16.0) g/dl Hct 42.7 (37.0-47.0) % MCV 87.9 (80.0-98.0) fL MCH 28.6 (27.0-33.0) pg MCHC 32.6 (31.0-35.0) g/dl RDW 12.7 (11.0-16.0) % Plt Count 389 (160-400) X10*3/uL MPV 10.3 (9.4-12.3) fL Immature Gran % (Auto) 0.3 (0.0-0.4) % Neut % (Auto) 73.0 (45-73) % Lymph % (Auto) 19.4 L (20-40) % [place] % (Auto) 6.1 (2-11) % Eos % (Auto) 0.9 (0-4) % Baso % (Auto) 0.3 (0-2) % Lymph # (Auto) 2.4 (1.2-4.9) X10*3/uL [place] # (Auto) 0.8 (0.1-1.2) X10*3/uL Eos # (Auto) 0.1 (0.0-0.4) X10*3/uL Baso # (Auto) 0.0 (0.0-0.2) X10*3/uL Abs Immat Gran (auto) 0.04 H (0.00-0.03) X10*3/uL Absolute Neuts (auto) 9.1 H (2.0-8.3) x10*3/uL Absolute Nucleated RBC 0.000 (0.0-0.012) X10*3/uL Nucleated RBC % (auto) 0.0 (0.0-0.2) /100WBC PT 12.2 (11.2-13.5) SEC INR 1.0 (0.9-1.1) Sodium 142 (135-145) mmol/L Potassium 3.6 (3.3-5.1) mmol/L Chloride 108 (96-108) mmol/L Carbon Dioxide 24 (22-29) mmol/L Anion Gap 14 (12-20) BUN 11 (9-16) mg/dL Creatinine 0.72 (0.5-1.4) mg/dL Estim Creat Clear Calc 132.4 Estimated GFR > 60 Random Glucose 100 (60-115) mg/dL Calcium 9.8 (8.4-10.2) mg/dL Magnesium 2.1 (1.6-2.6) mg/dL Total Bilirubin 0.2 (0.0-1.0) mg/dL AST 17 (5-31) U/L ALT 11 (0-31) U/L Alkaline Phosphatase 74 (39-117) U/L Troponin I High Sens < 2.7 (<3.5-17.0) ng/L Total Protein 7.9 (6.5-8.0) g/dL Albumin 4.3 (3.5-5.0) g/dL Beta HCG, Quant < 2 mIU/mL COVID-19 (MACIE) Negative (Negative) COVID-19 Clin Com See Note Influenza Type A (ALICE) Negative (Negative) Influenza Type B (ALICE) Negative (Negative) Influenza A & B Note See Note Independent Interpretation I performed an independent interpretation of an: EKG Radiology Impression Discussion of test interpretation with radiology: I have reviewed the radiologist's reading. Discharge Plan Discharge Clinical Impression: Indigestion, Constipation, Atypical chest pain Patient Disposition: Home, Self-Care Instructions: Constipation (ED), Indigestion (ED), Noncardiac Chest Pain (ED) Additional Instructions: All of your screening labs including a cardiac enzymes were normal. The chest x-ray was clear there were no concerning changes on the EKG. They abdominal film revealed that you were considerably constipated. I do believe your upper abdominal and chest related symptoms are secondary to poorly controlled GERD or acid reflux. Constipation has a common trigger for indigestion. See home care instructions. Use [id number] Colace, this is a stool softener, twice a day. In addition, use [id number] MiraLax, several times a day, up to every hour, until you begin having multiple large volume bowel movements. Once you clear your current stool burden, stay on some form of a bowel regimen to help prevent constipation, this will also help to deter her prior episodes of acute indigestion. Follow up with your primary care provider as needed. Use the Carafate as needed for upper abdominal discomfort. Prescriptions: New sucralfate [Carafate] 100 mg/mL suspension 10 ml PO QID PRN (Reason: indigestion) Qty: 300 0RF Rx Instructions: swish in mouth and swallow; use after food/drink No Action cyanocobalamin (vitamin B-12) [Vitamin B-12] 1,000 mcg Tablet 1,000 mcg PO BEDTIME cyclobenzaprine 10 mg Tablet 10 mg PO TID PRN (Reason: Muscle Spasm) hydroxyzine HCl 50 mg tablet 50 mg PO BID PRN (Reason: anxiety) Qty: 20 0RF cyclobenzaprine 10 mg tablet 10 mg PO TID PRN (Reason: muscle spasm) Qty: 20 0RF benzonatate 200 mg capsule 200 mg PO TID PRN (Reason: cough) Qty: 20 0RF cholecalciferol (vitamin D3) [Vitamin D3] 50 mcg (2,000 unit) capsule 50 mcg PO QWEEK psyllium Packet 1 packet PO BID 30 Days Qty: 500 0RF Rx Instructions: mix into at least 8 oz of water or juice before administering fluoxetine 20 mg capsule 20 mg PO DAILY cholestyramine (with sugar) 4 gram powder in packet 4 g PO TID Qty: 90 6RF Rx Instructions: administer w/meal; avoid other meds within 1hr before or 4-6hr after dose lansoprazole 15 mg capsule,delayed release(DR/EC) 15 mg PO BID 90 Days Qty: 180 0RF Stand Alone Forms: Work/School Release Interventions: ED Discharge Assessment Last Done: 03/02/25 00:45 Discharge Date/Time: 03/02/25 00:45 Print Language: Swedish
[2025-03-02 00:45] VITALS: BP 115/68; PULSE 63; RESP 21; TEMP 36.5; O2SAT 95
[2025-03-02 00:46] VITALS: BP 115/68; PULSE 63; RESP 21; TEMP 36.5; O2SAT 95
== END 2025-03-02 00:45 | disposition home or self-care (01) ==
PROVIDERS: Emergency Provider Emergency Medicine; PCP Family Medicine
DX: R07.89 Other chest pain (principal); K30 Functional dyspepsia; K58.2 Mixed irritable bowel syndrome; K21.00 Gastro-esophageal reflux disease with esophagitis, without bleeding; J02.9 Acute pharyngitis, unspecified; I10 Essential (primary) hypertension; E66.01 Morbid (severe) obesity due to excess calories; Z91.040 Latex allergy status
CPT/HCPCS: 36415; 71045; 74018; 80053; 83735; 84484; 84702; 85025; 85610; 87502; 87635; 93005; 99283; 99285; J1100

== ENCOUNTER → 2025-03-01 19:49 | Outpatient (BNV) | payer MEDICAID, SELFPAY | PROVIDERS: Emergency Provider Emergency Medicine; PCP Family Medicine; Visit Provider Internal Medicine Cardiovascular Disease | DX: R94.31 Abnormal electrocardiogram [ECG] [EKG] (principal); R07.9 Chest pain, unspecified | CPT/HCPCS: 93010 ==

== ENCOUNTER → 2025-03-01 22:43 | Outpatient (BNV) | payer MEDICAID, SELFPAY | PROVIDERS: Emergency Provider Emergency Medicine; PCP Family Medicine; Visit Provider Radiology Diagnostic Radiology | DX: R07.9 Chest pain, unspecified (principal); K59.00 Constipation, unspecified; R10.9 Unspecified abdominal pain | CPT/HCPCS: 71045; 74018 ==